=== PATIENT | male | born 1950 | race Caucasian/White ===

== ENCOUNTER → 2016-08-17 | Outpatient (CLI) | payer MEDICARE ==
--- NOTE | 2016-08-17 20:49 | CONS ---
DATE OF CONSULTATION: CONSULTATION/NEW PATIENT EVALUATION HISTORY OF PRESENT ILLNESS/SLEEP-WAKE EVALUATION: 66-year-old gentleman who has been evaluated in the sleep center for possible obstructive sleep apnea-hypopnea syndrome. SLEEP SCHEDULE: Patient's usual sleep schedule from around 9 to 10:00 p.m. on weekdays until 4:30-5:00 a.m. On weekends, his sleep schedule from around 10 or 12 until 6 or 7:00, 8 a.m. FALLING ASLEEP: No problem with falling asleep. He has a TV set in bedroom. DURING SLEEP: Sleeps on the back or side position with snoring and witnessed episodes of stopped breathing during sleep by his . He wakes up from sleep several times with up to 2 episodes of nocturia. DURING THE DAY/WAKE STATE: In the morning, he wakes up tired, falling asleep during the day, has irritability, Mcdonald Sleepiness Scale increased to 11. PAST MEDICAL HISTORY: Positive for diabetes, acid reflux, hypertension, stroke with the left side residual weakness, hyperlipidemia, rheumatoid fever in childhood. PAST SURGICAL HISTORY: Tonsillectomy, right knee surgery. MEDICATIONS: 1. Metformin. 2. Glipizide. 3. Prilosec. 4. Tenormin. 5. Hyzaar. 6. Neurontin. 7. Different types of insulin. 8. Lipitor. 9. Plavix. SOCIAL HISTORY: Negative for smoking. Alcohol consumption very rarely. REVIEW OF SYSTEMS: Awakening from sleep, sleepiness during the day, snoring. No fevers. No double vision. No recent chest pain. No shortness of breath. No abdominal pain. No bleeding episodes. No blood in urine. No seizure episodes. PHYSICAL EXAMINATION: GENERAL: A pleasant 66-year-old OMsignalazine gentleman without distress. BP 106/70, HR 61, RR 14, height 64, weight 246.2. BMI 42.2. Neck 18-1/4 inches in circumference. Temp is 97.8. Oxygen saturation at room air 91%. HEENT: PERRLA, EOMI oropharynx low position of soft palate. NECK: Supple. No JVD. Thyroid is not palpable. LUNGS: Clear to percussion and to auscultation. Good air exchange. No wheezing or rhonchi. HEART: S1, S2 regular. No murmurs, gallops or rubs. ABDOMEN: Obese. PSYCHOLOGICAL ANTHROPOLOGIST: Slight weakness left arm and left leg. Awake, alert, and oriented x3. Cranial nerves 2 to 7 intact. There is no fasciculation or atrophy noted. EXTREMITIES: No clubbing or cyanosis. ASSESSMENT: 1. Snoring, witnessed episodes of stopped breathing during sleep, low position of soft palate, obesity, sleepiness, obstructive sleep apnea-hypopnea syndrome. 2. Obesity, body mass index of 42.2. 3. Diabetes mellitus. 4. Hypertension. 5. History of stroke with residual deficit from the left side. 6. Acid reflux. 7. Hyperlipidemia. 8. History of rheumatic fever or in childhood. 9. Status post tonsillectomy. 10. Status post right knee surgery. PLAN: 1. Polysomnography for evaluation of patient's breathing during sleep. 2. CPAP/BiPAP titration if sleep study confirms obstructive sleep apnea-hypopnea syndrome. 3. Preferable position during sleep on the side. 4. No driving if patient feels any sleepiness. Patient is aware of civil and criminal liability for unsafe driving. 5. I will see patient for follow-up visit to explain results of the testing and following plan. Thank you very much for referring this patient for consultation. Sincerely, Mynor Henry MD, PhD, FAASM. Diplomat of [place] [employer], Sleep Medicine Board by [place] [employer] [place] [employer] Help Desk Rep of [facility] [place]
== END | disposition home or self-care (01) ==
LOC: SLEEP 14:59
PROVIDERS: ATTEND Internal Medicine
DX: G47.33 Obstructive sleep apnea (adult) (pediatric) (principal); I10 Essential (primary) hypertension; R35.1 Nocturia; E11.9 Type 2 diabetes mellitus without complications; E78.5 Hyperlipidemia, unspecified; E66.9 Obesity, unspecified; K21.9 Gastro-esophageal reflux disease without esophagitis; Z79.4 Long term (current) use of insulin; Z79.02 Long term (current) use of antithrombotics/antiplatelets; Z79.84 Long term (current) use of oral hypoglycemic drugs; Z68.41 Body mass index [BMI] 40.0-44.9, adult; Z86.73 Personal history of transient ischemic attack (TIA), and cerebral infarction without residual deficits; Z79.899 Other long term (current) drug therapy
CPT/HCPCS: 99211

== ENCOUNTER → 2016-09-26 | Outpatient (CLI) | payer MEDICARE ==
--- NOTE | 2016-09-26 07:31 | MR ---
EXAMINATION TYPE: MR lumbar spine wo con DATE OF EXAM: 09/26/2016 7:11 AM COMPARISON: NONE HISTORY: lsp radiculopathy CONTRAST: 0 mL intravenous . TECHNIQUE: Multiplanar, multisequence images of the lumbar spine were acquired. FINDINGS: Cord terminates at the L1 level disc desiccation throughout the lumbar spine. L5-S1: Central broad-based disc herniation is present extending posterior to S1. This has mild anteri or thecal sac compression. No spinal canal stenosis is present. Facet hypertrophy is present. There i s moderate bilateral foraminal narrowing greater on the left. Correlate with radicular symptoms. . L4-L5: Broad-based disc bulging is anterior thecal sac flattening. No AP spinal canal stenosis is pre sent. Neural foramen are patent. Facet hypertrophy is present. L3-L4: There is loss of disc height through this level. Broad-based disc bulge has moderate anterior thecal sac compression. Facet hypertrophy is posterior lateral thecal sac compression on the right. S guido canal narrowing is present. An AP spinal canal stenosis by measurement criteria is not present. L2-L3: Disc bulge has mild anterior thecal sac compression. This may extend into the right lateral di rection. No spinal canal stenosis is present. Facet hypertrophy is present. On T2-weighted sequences there is increased signal within the disc compatible with an annular tear. Sagittal views suggest mi ld subligamentous disc extension. There is moderate foraminal narrowing. . L1-L2: No significant disc bulge or disc herniation. No spinal canal stenosis. No foraminal stenosi s. Facet hypertrophy is present.. T12-L1: No significant disc bulge or disc herniation. No spinal canal stenosis. No foraminal stenos is. . IMPRESSION: 1. Spinal canal narrowing at L3-L4 without stenosis due to disc bulge and facet hypertrophy. 2. Subligamentous broad-based disc herniation L5-S1 with mild anterior thecal sac contact. 3. Multilevel facet degenerative changes. 4. L2-L3 annular tear. Some minimal subligamentous disc extension may be present.
== END | disposition home or self-care (01) ==
LOC: RADMRIMAIN 06:40
PROVIDERS: ATTEND Psychiatry & Neurology Neurology
DX: M51.17 Intervertebral disc disorders with radiculopathy, lumbosacral region (principal); M51.36 Other intervertebral disc degeneration, lumbar region; M47.816 Spondylosis without myelopathy or radiculopathy, lumbar region
CPT/HCPCS: 72148

== ENCOUNTER → 2016-10-06 | Outpatient (CLI) | payer MEDICARE ==
--- NOTE | 2016-10-06 11:55 | FL ---
EXAMINATION TYPE: FL sniff test without CXR DATE OF EXAM: 10/06/2016 10:08 AM COMPARISON: Chest 09/19/2016 HISTORY: 66-year-old male with shortness of breath and cough. Patient reports a history of previous s troke that affected the left-side in 2014. TECHNIQUE: Real-time fluoroscopy, total fluoroscopy time 50 seconds. FINDINGS: The patient was observed during quiet breathing. The left hemidiaphragm is slightly higher than the r ight but there is symmetric excursion. However, with sniff maneuver, there is blunted descent of the left hemidiaphragm with some paradoxica l movement noted. IMPRESSION: Slight elevation of the left hemidiaphragm. Unexpectedly, sniff maneuver does result in paradoxical m ovement of the left hemidiaphragm suggesting some degree of hemidiaphragmatic paralysis.
== END ==
LOC: RADFLWHC 09:39
PROVIDERS: ATTEND Internal Medicine
DX: J98.6 Disorders of diaphragm (principal); R06.02 Shortness of breath; R05 Cough
CPT/HCPCS: 76000

== ENCOUNTER 2018-06-06 06:43 | Day surgery (SDC) | payer MEDICARE, OTHER ==
[2018-06-04 12:58] VITALS: BMI 38.3
[~2018-06-06 06:43] MED LIST: LACTATED RINGERS 1,000 ML IV SCH
[2018-06-06 07:26] VITALS: TEMP 98.1
[2018-06-06 07:32] LABS: Glucose,Whole Blood 148 mg/dL (75-99)
[2018-06-06] MEDS ORDERED: PROPOFOL 10 MG/ML 20 ML VIAL IV ONE (08:13)
[2018-06-06] MEDS ORDERED: LIDOCAINE 1% INJ 10MG/ML (20 ML MDV) ONE (08:13)
--- NOTE | 2018-06-06 08:54 | P.PCN ---
Date of Procedure: 06/06/18 Procedure(s) Performed: Procedure: Total colonoscopy. Preoperative diagnosis: History of polyps. Postoperative diagnosis: Poor preparation, but no obvious mucosal abnormalities , polyps or cancer. Preparation: HalfLytely prep. Sedation: Was provided by anesthesia. Brief clinical history: The patient is a 67-year-old male who is scheduled for this evaluation for screening for neoplasia age being his risk factor as well as history of polyps. His last colonoscopy was around 10-12 years ago. The patient has no abdominal complaints, bleeding or anemia. Procedure: With the patient on his left lateral decubitus position and after informed consent and adequate sedation, the perianal area was inspected and it did not show any fissures or fistulas. There were no masses felt on digital rectal examination. The Olympus CFH 190L video colonoscope was then inserted in the rectum in the usual fashion and advanced to the cecum. Unfortunately, the preparation was poor. I was able to cleanse the bowel to a significant degree and there was no obvious polyps or tumors seen. The mucosa appeared healthy. Because of his preparation, small and diminutive polyps and superficial pathology could have been missed. No obvious diverticular disease. The patient tolerated the procedure well. Plan: The patient was reassured. In light of his poor preparation and with a history of polyps, I am recommending repeat exam in 2-3 years after a 2 day preparation before going again with a 5 years schedule. He will follow up with you as planned.
[2018-06-06 09:15] VITALS: BP 132/75; PULSE 58; RESP 18
== END 2018-06-06 10:00 | disposition home or self-care (01) ==
LOC: ORWHC2ENDO 06:43
DX: Z12.11 Encounter for screening for malignant neoplasm of colon (principal); E11.9 Type 2 diabetes mellitus without complications; J45.909 Unspecified asthma, uncomplicated; K21.9 Gastro-esophageal reflux disease without esophagitis; I10 Essential (primary) hypertension; E78.5 Hyperlipidemia, unspecified; Z86.73 Personal history of transient ischemic attack (TIA), and cerebral infarction without residual deficits; Z79.4 Long term (current) use of insulin; Z79.899 Other long term (current) drug therapy
CPT/HCPCS: 45378; J2001; J2704

== ENCOUNTER → 2018-10-23 | Outpatient (CLI) | payer MEDICARE ==
--- NOTE | 2018-10-23 13:14 | XR ---
EXAMINATION TYPE: XR chest 2V DATE OF EXAM: 10/23/2018 COMPARISON: 09/08/2018 HISTORY: 68-year-old male with shortness of breath TECHNIQUE: Frontal and lateral views FINDINGS: The cardiomediastinal silhouette, aorta, and pulmonary vasculature are within normal limits. Intersti tial prominence may be slightly improved from prior. No consolidation or pleural effusion. IMPRESSION: Chronic changes, possible bronchitis/asthma. Otherwise, no acute process seen.
== END | disposition home or self-care (01) ==
LOC: RADXRMAIN 12:54
PROVIDERS: ATTEND Family Medicine
DX: R91.8 Other nonspecific abnormal finding of lung field (principal)
CPT/HCPCS: 71046

== ENCOUNTER → 2019-04-30 | Outpatient (CLI) | payer MEDICARE ==
--- NOTE | 2019-04-30 13:36 | XR ---
EXAMINATION TYPE: XR shoulder complete RT DATE OF EXAM: 04/30/2019 CLINICAL HISTORY: Right shoulder pain for 3 months with no known injury TECHNIQUE: Three views of the right shoulder are obtained. COMPARISON: None. FINDINGS: There is no acute fracture/dislocation evident in the right shoulder. The acromioclavicul ar and glenohumeral joint spaces appear aligned with moderate acromioclavicular ARTHROPATHY as there are small marginal osteophytes, capsular hypertrophy and joint space narrowing and mild glenohumeral arthropathy. The visualized ribs are intact and unremarkable. IMPRESSION: There is no acute fracture or dislocation in the right shoulder. Moderate acromioclavicu lar arthropathy and mild glenohumeral arthropathy.
== END | disposition home or self-care (01) ==
LOC: RADXRMAIN 13:07
PROVIDERS: ATTEND Family Medicine
DX: M12.811 Other specific arthropathies, not elsewhere classified, right shoulder (principal)

== ENCOUNTER 2019-06-01 12:34 | Emergency (ER) | payer MEDICARE ==
[2019-06-01 12:43] VITALS: RESP 18
--- NOTE | 2019-06-01 13:07 | ED ---
General Adult HPI - General Chief complaint: Upper Respiratory Infection Stated complaint: Cough Time Seen by Provider: 06/01/19 12:48 Source: patient Mode of arrival: ambulatory Limitations: no limitations - History of Present Illness Initial comments: Patient is 68-year-old male with history of diabetes presenting to emergency Department with a chief complaint of cough. He states cough has been ongoing for about a week. Patient reports a nonproductive cough for about a week. He reports some clear bilateral sinus rhinorrhea. He states there is no otalgia or sore throat. Is not a smoker. Denies any shortness of breath or chest pain. He states that he possibly could have asthma but is never been diagnosed. Denies any wheezing. Denies any night sweats fevers or chills. - Related Data Home Medications Medication Instructions Recorded Confirmed Aspirin 81 mg PO DAILY 06/30/14 06/06/18 Atenolol [Tenormin] 75 mg PO DAILY 06/30/14 06/06/18 Insulin Glargine [Lantus] 92 unit SQ HS 06/30/14 06/06/18 glipiZIDE [Glucotrol] 20 mg PO AC-BID 06/30/14 06/06/18 metFORMIN HCL [metFORMIN HCL ER] 1,000 mg PO AC-SUPPER 06/30/14 06/06/18 Atorvastatin [Lipitor] 40 mg PO HS 06/04/18 06/06/18 Cholecalciferol [Vitamin D3] 1,000 unit PO DAILY 06/04/18 06/06/18 Gabapentin [Neurontin] 600 mg PO HS 06/04/18 06/06/18 Ibuprofen [Motrin] 800 mg PO TID PRN 06/04/18 06/06/18 Insulin Aspart [Novolog] 37 unit SQ TID 06/04/18 06/06/18 Pantoprazole Sodium [Protonix] 20 mg PO BID 06/04/18 06/06/18 Tamsulosin [Flomax] 0.4 mg PO DAILY 06/04/18 06/06/18 Previous Rx's Medication Instructions Recorded Azithromycin [Zithromax Z-pack] 0 mg PO DIRECTED #6 tab 09/08/18 methylPREDNISolone Dose Pack 4 mg PO DIRECTED #21 package 09/08/18 [Medrol Dose Pack] Azithromycin [Zithromax Z-pack] 0 mg PO DIRECTED #1 pack 06/01/19 Benzonatate [Tessalon Perles] 100 mg PO TID PRN #15 capsule 06/01/19 Allergies Allergy/AdvReac Type Severity Reaction Status Date / Time Penicillins Allergy Unknown Verified 09/08/18 11:16 Childhood Review of Systems ROS Statement: Those systems with pertinent positive or pertinent negative responses have been documented in the HPI. ROS Other: All systems not noted in ROS Statement are negative. Past Medical History Past Medical History: Asthma, CVA/TIA, Diabetes Mellitus, GERD/Reflux, Hyperlipidemia, Hypertension, Skin Disorder Additional Past Medical History / Comment(s): stroke 12-12-12-facial drooping right side, slurred speech @times, rheumatic fever as a child History of Any Multi-Drug Resistant Organisms: None Reported Past Surgical History: Orthopedic Surgery Additional Past Surgical History / Comment(s): RT achilles tendon repair, RT knee surg., colonoscopy Past Anesthesia/Blood Transfusion Reactions: No Reported Reaction Past Psychological History: No Psychological Hx Reported Smoking Status: Never smoker Past Alcohol Use History: Occasional Past Drug Use History: None Reported - Past Family History Mother Family Medical History: Cancer General Exam Limitations: no limitations General appearance: alert, in no apparent distress, obese Head exam: Present: atraumatic, normocephalic, normal inspection Eye exam: Present: normal appearance Pupils: Present: normal accommodation ENT exam: Present: normal exam, normal oropharynx, mucous membranes moist, TM's normal bilaterally, normal external ear exam Neck exam: Present: normal inspection, full ROM Respiratory exam: Present: wheezes (Right upper quadrant wheezing) Cardiovascular Exam: Present: regular rate, normal rhythm, normal heart sounds Extremities exam: Present: normal inspection, full ROM Back exam: Present: normal inspection, full ROM Neurological exam: Present: alert, oriented X3 Psychiatric exam: Present: normal affect, normal mood Skin exam: Present: warm, dry, intact, normal color Course Vital Signs 06/01/19 06/01/19 12:40 12:53 Temperature 97.5 F L Pulse Rate 81 70 Respiratory 18 18 Rate Blood Pressure 215/104 180/100 O2 Sat by Pulse 96 97 Oximetry Medical Decision Making - Medical Decision Making Patient is 68-year-old male presenting to emergency Department with a chief complaint of cough. Patient has history of borderline asthma and diabetes. The symptoms have been ongoing for about a week but no sputum production. Chest x- ray shows [place] cocoa from suggesting possible bronchitis. Exam he has right upper lung wheezing. Patient I respiratory distress. Patient has no other complaints. Considering he has diabetes and is above 65 years old, he will be treated with azithromycin. Patient also given Tessalon Perles for symptomatically. Strict return parameters were thoroughly discussed the patient was understanding and agreeable. Patient vised to follow primary care. Case discussed with physician. Disposition Clinical Impression: Bronchitis Disposition: HOME SELF-CARE Condition: Stable Instructions (If sedation given, give patient instructions): Acute Bronchitis (ED) Additional Instructions: Please see prescribe medication as directed. Please follow with primary care. Please return to emergency department if symptoms worsen. Prescriptions: Benzonatate [Tessalon Perles] 100 mg PO TID PRN #15 capsule PRN Reason: Shortness Of Breath Azithromycin [Zithromax Z-pack] 0 mg PO DIRECTED #1 pack Is patient prescribed a controlled substance at d/c from ED?: No Referrals: Billy Livingston DO [Primary Care Provider] - 1-2 days Time of Disposition: 14:10
--- NOTE | 2019-06-01 13:54 | XR ---
EXAMINATION TYPE: XR chest 2V DATE OF EXAM: 06/01/2019 HISTORY: cough. REFERENCE: Previous study dated 10/23/2018. FINDINGS: The lungs remain clear. Pleural space are clear. There is minimal peribronchial cuffing. He art size is normal. IMPRESSION: FINDINGS CONSISTENT WITH BUT NOT DIAGNOSTIC OF BRONCHITIS.
[2019-06-01 14:23] VITALS: BP 173/89; PULSE 66; TEMP 98
== END 2019-06-01 14:21 | disposition home or self-care (01) ==
LOC: EC 12:34
DX: J40 Bronchitis, not specified as acute or chronic (principal); E11.9 Type 2 diabetes mellitus without complications; I69.392 Facial weakness following cerebral infarction; I69.328 Other speech and language deficits following cerebral infarction; K21.9 Gastro-esophageal reflux disease without esophagitis; E78.5 Hyperlipidemia, unspecified; I10 Essential (primary) hypertension; Z79.4 Long term (current) use of insulin; Z79.82 Long term (current) use of aspirin; Z79.899 Other long term (current) drug therapy; Z88.0 Allergy status to penicillin
CPT/HCPCS: 71046; 99283

== ENCOUNTER → 2020-12-15 | Outpatient (CLI) | payer MEDICARE ==
[2020-12-15 16:53] LABS: HCT 39.2 % (39.6-50.0); HGB 12.4 g/dL (13.0-17.0); MCHC 31.6 g/dL (32.0-37.0); MCV 85.4 fL (80.0-97.0); Mean Platelet Volume 11.5 fL (9.5-12.2); Platelet Count 179 X 10*3/uL (140-440); RBC 4.59 X 10*6/uL (4.40-5.60); RDW 14.1 % (11.5-14.5); WBC 9.15 X 10*3/uL (4.50-10.00)
[2020-12-15 18:48] LABS: African American GFR (CKD) 70.6 (60.0-200.0); Anion Gap 9.6 mmol/L (4.00-12.00); Carbon Dioxide 25.4 mmol/L (21.6-31.8); Chol/HDL Ratio 4.19; Non-African American GFR(CKD) 60.9 (60.0-200.0); Potassium 4.3 mmol/L (3.5-5.5)
[2020-12-15 20:19] LABS: Hemoglobin A1C 8.9 % (4.0-6.0)
== END | disposition home or self-care (01) ==
LOC: LABWHC1 11:01
PROVIDERS: ATTEND Internal Medicine Interventional Cardiology
DX: E11.9 Type 2 diabetes mellitus without complications (principal); I25.10 Atherosclerotic heart disease of native coronary artery without angina pectoris
CPT/HCPCS: 36415; 80048; 80061; 83036; 85027

== ENCOUNTER 2020-12-23 07:18 | Day surgery (SDC) | payer MEDICARE ==
[2020-12-21 10:44] VITALS: BMI 40.3
[~2020-12-23 07:18] MED LIST changes: +ALPRAZolam 0.25 MG TAB PO PRN; +ALPRAZolam 0.5 MG TAB PO PRN; +ASPIRIN 325 MG TAB PO ONE; +ATORVASTATIN 80 MG TAB PO ONE; -LACTATED RINGERS 1,000 ML IV SCH; +NITROGLYCERIN SL TABS 0.4 MG TAB SUBLINGUAL PRN; +SODIUM CHLORIDE 0.9% 1,000 ML in EMPTY BAG 1 BAG IV ONE
[2020-12-23 07:37] VITALS: TEMP 97.5
[2020-12-23 07:44] LABS: Glucose,Whole Blood 177 mg/dL (75-99)
[2020-12-23] MEDS ORDERED: HEPARIN SODIUM 1,000 UN/ML (10ML VL) ONE (07:51)
[2020-12-23] MEDS ORDERED: LIDOCAINE 1% INJ 10MG/ML (20 ML MDV) ONE (07:51)
[2020-12-23] MEDS ORDERED: VERAPAMIL 2.5 MG/ML 2 ML AMP ONE (07:51)
[2020-12-23] MEDS ORDERED: MIDAZOLAM 2 MG/2 ML VIAL IV ONE (08:21)
[2020-12-23] MEDS ORDERED: LIDOCAINE 1% INJ 10MG/ML (20 ML MDV) SQ ONE (08:24)
[2020-12-23] MEDS ORDERED: VERAPAMIL SYRINGE (5 MG/10 ML) INTRAARTER ONE (08:28)
[2020-12-23] MEDS ORDERED: IOPAMIDOL-370 125ML BTL INJ ONE (08:44)
[2020-12-23] MEDS ORDERED: SODIUM CHLORIDE 0.9% 1,000 ML IV SCH (09:00)
[2020-12-23] MEDS ORDERED: amLODIPine 5 MG TAB PO STA (09:04)
--- NOTE | 2020-12-23 12:17 | CC ---
CARDIAC CATHETERIZATION REPORT JULIANNA / DANDREN: [id number] /
--- NOTE | 2020-12-23 12:20 | CC ---
CARDIAC CATHETERIZATION REPORT DATE OF SERVICE: 12/23/2020 PROCEDURE: Left heart catheterization and coronary angiography. PERFORMED BY: Dr. Ava Abarca. Moderate conscious sedation time was 19 minutes. Patient was administered Versed. Oxygen saturation, hemodynamics and EKG were monitored closely. CLINICAL INFORMATION: Mr. Syd Baird is a 70-year-old gentleman, history of type 2 diabetes, hypertension, hyperlipidemia, and recent symptoms of chest tightness, pressure with moderate effort and abnormal stress test with inferolateral defect that seems to be reversible with mild hypokinesia and ejection fraction of 50%. He was advised cardiac catheterization after due discussion regarding risks, benefits, and options. PROCEDURE NOTE: Under local anesthesia and strict aseptic precautions, a 6-Turkish introducer was placed in the right radial artery. Using a JL3.5 and JR4 catheters I performed coronary angiography and the same right catheter was used to check LV pressure but LV gram was not performed. The sheath was taken out and TR band applied as per protocol. The saturation of the fingers of the right hand was 98%. Results were discussed with the patient and and he will be discharged today on medical therapy. We will discuss different options during his office visit within a week. CARDIAC CATH FINDINGS: The left ventricular end-diastolic pressure was about 13 mmHg without any gradient across aortic valve. CORONARY ANGIOGRAPHY FINDINGS: RIGHT CORONARY ARTERY appears to be a dominant vessel which is totally occluded in the midportion without much antegrade flow. It gives off an acute marginal before total occlusion. 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 LEFT MAIN CORONARY ARTERY: This is a short patent vessel free of significant disease that bifurcates into LAD and circumflex. LEFT ANTERIOR DESCENDING CORONARY ARTERY: Good caliber vessel extends along the anterior wall. It gives off septal and diagonal branches. The LAD itself has about a 30% narrowing in the midportion and diagonal branch comes off appears to be a good caliber and supplies a sizable amount of myocardium has minor irregularities. The LAD that continues after the diagonal branch has about another 35% narrowing and distally the LAD has diffuse disease. Runs all the way to the apex. The LAD in the distal 1/3 has diffuse disease but no focal obstruction. Diagonal is free of significant disease. There are small septal branches that come off which are also free of significant disease. The LAD therefore has a 35-40 percent mid lesion before the diagonal and also in the LAD after the diagonal origin and distal LAD is diffusely diseased. LEFT POSTERIOR CIRCUMFLEX CORONARY ARTERY: Technically a nondominant vessel, gives off 1 good-sized obtuse marginal proximally and then continues as a distal posterolateral branch. The circumflex vessel gives collaterals that supply the distal RCA. Most of the collaterals of the circumflex are coming from what seems to be the groove branch that fills the PDA and PLV branches of distal RCA and also the main trunk to some extent. The branches of RCA appears to have diffuse disease. COLLATERAL CIRCULATION: There is a rich network of collaterals coming from the distal circumflex opacifying both branches of distal RCA. LEFT VENTRICULOGRAM: Not performed. 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 Circumflex has minor irregularities. No significant disease. LAD is a 35% to 40% lesion. Before and after the diagonal branch and distal LAD has mild diffuse disease. Filling pressures are normal. No gradient across aortic valve. RECOMMENDATIONS: For now I am recommending medical therapy with the option of GRADUATE ENGINEER intervention of RCA, which will be discussed in the office and options will be presented to the patient. Findings were explained and patient will be discharged later on today after adequate hydration. Findings were discussed with the patient and . MMODL / IJN: [id number] /
[2020-12-23 12:33] VITALS: RESP 16
[2020-12-23 17:05] VITALS: PULSE 58
[2020-12-23 17:06] VITALS: BP 165/79
== END 2020-12-23 14:00 | disposition home or self-care (01) ==
LOC: CATHCVL 07:18
PROVIDERS: ATTEND Internal Medicine Interventional Cardiology
DX: I25.110 Atherosclerotic heart disease of native coronary artery with unstable angina pectoris (principal); I25.84 Coronary atherosclerosis due to calcified coronary lesion; I25.82 Chronic total occlusion of coronary artery; Z77.22 Contact with and (suspected) exposure to environmental tobacco smoke (acute) (chronic); E78.00 Pure hypercholesterolemia, unspecified; I10 Essential (primary) hypertension; E11.9 Type 2 diabetes mellitus without complications; E78.5 Hyperlipidemia, unspecified; Z88.0 Allergy status to penicillin; Z79.82 Long term (current) use of aspirin; Z79.4 Long term (current) use of insulin; Z79.899 Other long term (current) drug therapy
CPT/HCPCS: 93458; C1894; J2250; J2001; J1644; Q9967

== ENCOUNTER 2020-12-28 06:41 | Day surgery (SDC) | payer MEDICARE ==
[2020-12-24 12:30] VITALS: BMI 40.3
[~2020-12-28 06:41] MED LIST changes: -ALPRAZolam 0.25 MG TAB PO PRN; -ALPRAZolam 0.5 MG TAB PO PRN; -ASPIRIN 325 MG TAB PO ONE; -ATORVASTATIN 80 MG TAB PO ONE; +LACTATED RINGERS 1,000 ML IV SCH; +LIDOCAINE 1% (10MG/ML) FOR IV START INTRADERMA PRN; -NITROGLYCERIN SL TABS 0.4 MG TAB SUBLINGUAL PRN; -SODIUM CHLORIDE 0.9% 1,000 ML in EMPTY BAG 1 BAG IV ONE
[2020-12-28 07:20] VITALS: TEMP 96.8
[2020-12-28 07:25] LABS: Glucose,Whole Blood 153 mg/dL (75-99)
[2020-12-28] MEDS ORDERED: MIDAZOLAM 2 MG/2 ML VIAL IVP ONE (07:26)
[2020-12-28] MEDS ORDERED: PROPOFOL 10 MG/ML 20 ML VIAL IV ONE (07:42)
--- NOTE | 2020-12-28 08:24 | P.PCN ---
Date of Procedure: 12/28/20 Description of Procedure: BRIEF HISTORY: Patient is a 70-year-old male presenting for outpatient colonoscopy for history of colon polyps. He believes left colonoscopy was approximately 10 years ago. No change in bowel habits or family history of colon cancer. She does report 3 polyps on his last colonoscopy. PROCEDURE PERFORMED: Colonoscopy. PREOPERATIVE DIAGNOSIS: History of colon polyps, last colonoscopy reported as 10 years ago with polyps. ESTIMATED BLOOD LOSS: Minimal. IV sedation per Anesthesia. PROCEDURE: After informed consent was obtained, the patient, was brought into the endoscopy unit. IV sedation was administered by Anesthesia under continuous monitoring. Digital rectal examination was normal. Initially the Olympus CF-190 flexible video colonoscope was then inserted in the rectum, gradually advanced into the cecum without any difficulty. Careful examination was performed as the scope was gradually being withdrawn. Ileocecal valve and the appendiceal orifice were visualized and appeared normal. Prep was fair with a large amount of liquid sto ol with some solid stool intermixed with extensive lavage and suction. Mucosa of the cecum, ascending colon, transverse colon, descending colon, sigmoid colon, and rectum which was able to be visualized and appeared normal, however complete visualization of the mucosa prohibited by fair prep. Retroflexion was performed in the rectum and no lesions were seen. The patient tolerated the procedure wel l. IMPRESSION: Normal-appearing colon from rectum to cecum however, complete visualization of mucosa prohibited by fair prep with a large amount of liquid stool with some solid stool throughout the entire colon. RECOMMENDATIONS: Findings of this examination were discussed with the patient and his family. Okay to resume diet. Okay to resume medications. Recommend repeat colonoscopy in 6-12 months with 2 day prep.
[2020-12-28 08:41] VITALS: BP 155/77; PULSE 74; RESP 18
== END 2020-12-28 09:31 | disposition home or self-care (01) ==
LOC: ORWHC2ENDO 06:41
PROVIDERS: ATTEND Internal Medicine
DX: Z12.11 Encounter for screening for malignant neoplasm of colon (principal); Z88.0 Allergy status to penicillin; Z79.82 Long term (current) use of aspirin; Z79.4 Long term (current) use of insulin; Z79.899 Other long term (current) drug therapy; Z98.890 Other specified postprocedural states; I25.10 Atherosclerotic heart disease of native coronary artery without angina pectoris; I10 Essential (primary) hypertension; J45.909 Unspecified asthma, uncomplicated; E11.9 Type 2 diabetes mellitus without complications; Z86.73 Personal history of transient ischemic attack (TIA), and cerebral infarction without residual deficits; K21.9 Gastro-esophageal reflux disease without esophagitis
CPT/HCPCS: J2250; J2704; G0105; 45378

== ENCOUNTER → 2021-07-22 | Day surgery (SDC) | payer MEDICARE ==
[2021-07-19 16:06] VITALS: BMI 39.5
[~2021-07-22] MED LIST changes: -LIDOCAINE 1% (10MG/ML) FOR IV START INTRADERMA PRN; +PROPOFOL 10 MG/ML 20 ML VIAL IV ONE
[2021-07-22 07:29] VITALS: TEMP 97
[2021-07-22 07:36] LABS: Glucose,Whole Blood 144 mg/dL (75-99)
--- NOTE | 2021-07-22 08:25 | P.PCN ---
Date of Procedure: 07/22/21 Procedure(s) Performed: BRIEF HISTORY: Patient is a 71-year-old pleasant white male scheduled for an elective colonoscopy as a part of screening for colorectal neoplasia. PROCEDURE PERFORMED: Colonoscopy. PREOPERATIVE DIAGNOSIS: Screening for colon cancer. IV sedation per Anesthesia. PROCEDURE: After informed consent was obtained, the patient, was brought into the endoscopy unit. IV sedation was administered by Anesthesia under continuous monitoring. Digital rectal examination was normal. Initially the Olympus CF-160 flexible video colonoscope was then inserted in the rectum, gradually advanced into the cecum without any difficulty. Careful examination was performed as the scope was gradually being withdrawn. Ileocecal valve and the appendiceal orifice were visualized and appeared normal. Prep was fair. There was significant amount of liquid stool noted throughout the colon which was thoroughly irrigated. Mucosa of the cecum, ascending colon, transverse colon, descending colon, sigmoid colon, and rectum appeared normal. Retroflexion was performed in the rectum and small internal hemorrhoid were seen. The patient tolerated the procedure well. IMPRESSION: Normal-appearing colon from rectum to cecum with no evidence of colorectal neoplasia . Small internal hemorrhoids. RECOMMENDATIONS: Findings of this examination were discussed with the patient as well as his family. He was advised to have a repeat screening colonoscopy in 10 years..
[2021-07-22 08:37] LABS: Glucose,Whole Blood 138 mg/dL (75-99)
[2021-07-22 08:40] VITALS: RESP 16
[2021-07-22 08:55] VITALS: BP 155/92; PULSE 63
== END | disposition home or self-care (01) ==
LOC: ORWHC2ENDO 06:51
PROVIDERS: ATTEND Internal Medicine Gastroenterology
DX: Z12.11 Encounter for screening for malignant neoplasm of colon (principal); K64.8 Other hemorrhoids; K21.9 Gastro-esophageal reflux disease without esophagitis; I10 Essential (primary) hypertension; E78.5 Hyperlipidemia, unspecified; E11.9 Type 2 diabetes mellitus without complications; Z86.73 Personal history of transient ischemic attack (TIA), and cerebral infarction without residual deficits; Z98.890 Other specified postprocedural states; Z97.2 Presence of dental prosthetic device (complete) (partial); Z79.84 Long term (current) use of oral hypoglycemic drugs; Z79.4 Long term (current) use of insulin; Z79.899 Other long term (current) drug therapy; Z88.0 Allergy status to penicillin
CPT/HCPCS: J2704; G0121

== ENCOUNTER → 2022-07-05 | Outpatient (CLI) | payer MEDICARE ==
--- NOTE | 2022-07-08 12:15 | MR ---
EXAMINATION TYPE: MR Prostate wo/w con DATE OF EXAM: 07/05/2022 9:25 AM COMPARISON: None. CLINICAL INDICATION:Male, 71 years old with history of R97.20 ELEVATED PROSTATE SPECIFIC ANTIGEN; TECHNIQUE: Multi-planar, multi-sequence imaging of the pelvis is performed prior to and following the uncomplicated administration of bolus intravenous gadolinium. CONTRAST: 10 Gadavist Interpretive Criteria: PI-RADS v2.1 SERUM PSA: 8.7 on 06/02/2022 SURGICAL PATHOLOGY: No data available. FINDINGS: Prostatic dimensions: 5.9 x 5.6 x 4.9 cm. Ellipsoid Volume:84.77 (PSA density=0.10 ng/mL/mL) CENTRAL GLAND (Central and Transition Zones/CZ+TZ): Multiple bilateral, heterogenous appearing hypertrophic stromal nodules, without suspicious lesion. (PI-RADS 2) PERIPHERAL ZONE (PZ): No evidence of masslike abnormality, or localized perfusional hypervascularity, to further suggest a focus of clinically significant prostate cancer. (PI-RADS 2) SEMINAL VESICLES (SV): Symmetric and unremarkable. PERIPROSTATIC TISSUES: Unremarkable. LYMPH NODES: No enlarged pelvic lymph node. No greater than 1.0 cm short axis lymph nodes. REMAINING PELVIS: Bladder wall is within normal limits given distention. No abnormal free or organized intrapelvic fluid collection. There is 1.5 cm lesion within the rectum which is high T2 signal is present along the anterior nondep endent wall OSSEOUS STRUCTURES: No suspicious osseous abnormality. IMPRESSION: 1. No specific features for high-risk prostate cancer. Maximum PI-RADS score: 2. 2. Substantial BPH, estimated gland volume 84 mL. 3. Rectal high T2 signal lesion along the anterior rectal wall measuring up to 1.5 cm findings indete rminate. Could represent polyp or fecal matter. Recommend direct visualization if not recently perfor med.
== END | disposition home or self-care (01) ==
LOC: RADMRIMAIN 07:51
PROVIDERS: ATTEND Urology
DX: N40.0 Benign prostatic hyperplasia without lower urinary tract symptoms (principal); K62.89 Other specified diseases of anus and rectum; R97.20 Elevated prostate specific antigen [PSA]
CPT/HCPCS: 72197; A9585

== ENCOUNTER 2023-11-21 14:56 | Inpatient (IN) | payer OTHER, MEDICARE ==
--- NOTE | 2023-11-21 15:04 | ED ---
General Adult HPI - General Stated complaint: AMS Time Seen by Provider: 11/21/23 15:01 Source: EMS Mode of arrival: EMS Limitations: altered mental status - History of Present Illness Initial comments: Patient is 73-year-old man brought by ambulance. They were called for patient being unresponsive. Patient unable to provide any history. We are informed that the patient's should be in shortly to give some additional history. Onset/Timin -: hour(s) - Related Data Home Medications Medication Instructions Recorded Confirmed Atorvastatin [Lipitor] 40 mg PO HS 11/22/23 11/22/23 Dulaglutide [Trulicity] 3 mg SQ MARCELO 11/22/23 11/22/23 Insulin Glargine,Hum.rec.anlog 60 units SQ HS 11/22/23 11/22/23 [Lantus Solostar Pen] Losartan Potassium 100 mg PO DAILY 11/22/23 11/22/23 Nortriptyline HCl [Pamelor] 25 mg PO HS 11/22/23 11/22/23 Pantoprazole Sodium [Protonix] 20 mg PO BID 11/22/23 11/22/23 Tamsulosin [Flomax] 0.4 mg PO DAILY 11/22/23 11/22/23 hydrALAZINE HCL [Apresoline] 25 mg PO BID 11/22/23 11/22/23 Previous Rx's Medication Instructions Recorded Amiodarone [Cordarone] 200 mg PO DAILY tab 11/28/23 Apixaban [Eliquis] 5 mg PO BID tab 11/28/23 Aspirin 81 mg PO DAILY tab 11/28/23 Gabapentin [Neurontin] 200 mg PO TID PRN #6 cap 11/28/23 INSULIN ASPART (NovoLOG) [NovoLOG 4 unit SQ AC-TID each 11/28/23 (formulary)] Insulin Detemir (Levemir) [Levemir] 20 unit SQ DAILY@0700 each 11/28/23 Metoprolol Tartrate [Lopressor] 75 mg PO BID tab 11/28/23 amLODIPine [Norvasc] 5 mg PO BID tab 11/28/23 polyethylene glycoL 3350 [Miralax] 17 gm PO DAILY packet 11/28/23 Allergies Allergy/AdvReac Type Severity Reaction Status Date / Time Penicillins Allergy Unknown Verified 11/22/23 11:31 Childhood Review of Systems ROS Statement: Those systems with pertinent positive or pertinent negative responses have been documented in the HPI. ROS Other: All systems not noted in ROS Statement are negative. Limitations: ROS unobtainable due to patients medical condition Past Medical History Past Medical History: CVA/TIA, Diabetes Mellitus, GERD/Reflux, Hyperlipidemia, Hypertension Additional Past Medical History / Comment(s): stroke 11/2012 (right facial droop & speech resolved.), rheumatic fever as a child, currently receiving physical therapy for thigh pain due to back issues. History of Any Multi-Drug Resistant Organisms: None Reported Past Surgical History: Orthopedic Surgery Additional Past Surgical History / Comment(s): RT achilles tendon repair, RT knee surg., colonoscopy Past Anesthesia/Blood Transfusion Reactions: No Reported Reaction Past Psychological History: No Psychological Hx Reported Smoking Status: Never smoker Past Alcohol Use History: Occasional Past Drug Use History: None Reported - Past Family History Mother Family Medical History: Cancer General Exam General appearance: obtunded Head exam: Present: atraumatic, normocephalic Eye exam: Present: normal appearance, PERRL. Absent: scleral icterus, conjunctival injection ENT exam: Present: mucous membranes dry Neck exam: Present: normal inspection. Absent: tenderness, meningismus Respiratory exam: Present: rhonchi. Absent: respiratory distress, wheezes, rales, stridor, accessory muscle use Cardiovascular Exam: Present: normal rhythm, tachycardia, normal heart sounds. Absent: systolic murmur, diastolic murmur, rubs, gallop GI/Abdominal exam: Present: soft. Absent: distended, tenderness, guarding, rebound, rigid, mass Extremities exam: Present: normal inspection, normal capillary refill. Absent: pedal edema, calf tenderness Back exam: Present: normal inspection Neurological exam: Present: altered, reflexes normal Skin exam: Present: warm, dry, intact, normal color. Absent: rash Course Vital Signs 11/21/23 11/21/23 11/21/23 15:07 16:03 18:13 Temperature 98.4 F 98.2 F Pulse Rate 106 H 103 H 93 Pulse Rate [ Tile Molder Hand ] Respiratory 18 88 H 18 Rate Blood Pressure 117/77 125/85 137/105 Blood Pressure [Left Arm] Blood Pressure [Right Arm] O2 Sat by Pulse 94 L 92 L 95 Oximetry 11/21/23 11/21/23 11/21/23 19:49 20:00 22:26 Temperature 98.7 F Pulse Rate 96 94 100 Pulse Rate [ Tile Molder Hand ] Respiratory 18 16 18 Rate Blood Pressure 136/92 133/88 178/105 Blood Pressure [Left Arm] Blood Pressure [Right Arm] O2 Sat by Pulse 96 96 99 Oximetry 11/22/23 11/22/23 11/22/23 00:00 02:00 04:38 Temperature Pulse Rate 85 93 90 Pulse Rate [ Tile Molder Hand ] Respiratory 16 18 18 Rate Blood Pressure 155/90 160/87 167/91 Blood Pressure [Left Arm] Blood Pressure [Right Arm] O2 Sat by Pulse 97 94 L 99 Oximetry 11/22/23 11/22/23 11/22/23 06:31 07:55 08:55 Temperature 98.2 F Pulse Rate 95 Pulse Rate [ 93 Tile Molder Hand ] Respiratory 18 18 Rate Blood Pressure 145/81 Blood Pressure [Left Arm] Blood Pressure 147/85 [Right Arm] O2 Sat by Pulse 95 96 96 Oximetry 11/22/23 11/22/23 11/22/23 12:05 14:58 15:52 Temperature 98 F Pulse Rate Pulse Rate [ 90 129 H 112 H Tile Molder Hand ] Respiratory 18 20 18 Rate Blood Pressure Blood Pressure 152/74 137/77 [Left Arm] Blood Pressure 156/97 [Right Arm] O2 Sat by Pulse 99 92 L 91 L Oximetry 11/22/23 11/22/23 11/22/23 16:29 19:54 21:27 Temperature 98.3 F Pulse Rate 111 H 112 H Pulse Rate [ 111 H Tile Molder Hand ] Respiratory 18 18 18 Rate Blood Pressure 176/99 179/128 Blood Pressure 152/92 [Left Arm] Blood Pressure [Right Arm] O2 Sat by Pulse 96 96 98 Oximetry 11/22/23 11/22/23 11/23/23 22:57 23:55 00:43 Temperature Pulse Rate Pulse Rate [ 101 H Tile Molder Hand ] Respiratory 18 Rate Blood Pressure 196/114 181/102 Blood Pressure [Left Arm] Blood Pressure 168/96 [Right Arm] O2 Sat by Pulse 97 Oximetry 11/23/23 11/23/23 11/23/23 04:28 08:00 11:00 Temperature 97.0 F L Pulse Rate Pulse Rate [ 93 96 Tile Molder Hand ] Respiratory 18 17 Rate Blood Pressure Blood Pressure 189/118 178/117 [Left Arm] Blood Pressure 166/111 [Right Arm] O2 Sat by Pulse 96 97 Oximetry 11/23/23 11/23/23 11/23/23 11:57 12:00 13:00 Temperature Pulse Rate Pulse Rate [ 86 Tile Molder Hand ] Respiratory 16 Rate Blood Pressure Blood Pressure [Left Arm] Blood Pressure 166/113 191/124 [Right Arm] O2 Sat by Pulse 97 97 Oximetry 11/23/23 11/23/23 14:00 15:00 Temperature Pulse Rate Pulse Rate [ Tile Molder Hand ] Respiratory Rate Blood Pressure Blood Pressure [Left Arm] Blood Pressure 175/106 154/92 [Right Arm] O2 Sat by Pulse Oximetry - Reevaluation(s) Reevaluation #1: 11/21/23 15:22 Patient's brought to bedside and states that the patient has not been doing well since yesterday in the morning. He was fatigued, wanting to sleep all the time. He did not express any complaints of pain or dyspnea. When she could not get him up today she called EMS. EKG Findings - EKG Results: EKG: interpreted by [facility], sinus rhythm, normal ST/T EKG shows: tachycardia (Rate 108 bpm) - SD, Pacemaker, Normal: Myocardial infarction: inferior SD (old age indeterminate), anterior SD (old age or indeterminate) (Possible old anterior infarct.) Medical Decision Making - Medical Decision Making Patient is 73-year-old man brought to have evaluation of altered mental status. On arrival the patient is obtunded. He is only able to follow simple commands and this only with direct tactile stimulation to arouse him. The patient has workup which is largely unremarkable, however after a period of time he is alert and is able to start answering questions. The patient is denying pain and dyspnea. At this point suspect patient has probably had oversedation from his medication regimen. Patient will be admitted to have further neurology evalua tion. The patient had CT of the brain that I interpreted as showing probable old injury at the right lateral ventricle. No acute hemorrhage. The patient had chest x-ray that I interpreted as negative for acute infiltrate, congestive heart failure, pneumothorax. Was pt. sent in by a medical professional or institution (, PA, SYSTEMS DESIGNER, urgent care, hospital, or snf...) When possible be specific @ - Did you speak to anyone other than the patient for history (EMS, parent, family, police, friend...)? What history was obtained from this source @ -EMS gave some initial history, the patient's did give history Did you review nursing and triage notes (agree or disagree)? Why? @ -[I reviewed and agree with nursing and triage notes] Were old charts reviewed (outside hosp., previous admission, EMS record, old EKG, old radiological studies, urgent care reports/EKG's, snf records)? Report findings @ -[ old charts were reviewed] Differential Diagnosis (chest pain, altered mental status, abdominal pain women, abdominal pain men, vaginal bleeding, weakness, fever, dyspnea, syncope, headache, dizziness, GI bleed, back pain, seizure, CVA, palpatations, mental health, musculoskeletal)? @ -[Differential Altered Mental Status: Hypoglycemia, DKA, hypercapnia, ETOH, overdose, CO poisoning, trauma, myxedema coma, HTN encephalopathy, infection, encephalitis, psychosis, intercranial hemorrhage, hepatic encephalopathy, meningitis, CVA, this is not meant to be an all-inclusive list EKG interpreted by me (3pts min.). @ -[Interpreted as above] X-rays interpreted by me (1pt min.). @ -[I interpreted as above CT interpreted by me (1pt min.). @ -[I interpreted as above U/S interpreted by me (1pt. min.). @ -[None done] What testing was considered but not performed or refused? (CT, X-rays, U/S, labs)? Why? @ -[None] What meds were considered but not given or refused? Why? @ -[None] Did you discuss the management of the patient with other professionals (professionals i.e. , PA, SYSTEMS DESIGNER, lab, RT, psych nurse, social work lecturer, telecommunications linesworker, teacher, immigration officer, housing case manager)? Give summary @ -[Case discussed with admitting physician and treatment recommendations incor porated Was smoking cessation discussed for >3mins.? @ -[No] Was critical care preformed (if so, how long)? @ -[No] Were there social determinants of health that impacted care today? How? (Homelessness, low income, unemployed, alcoholism, drug addiction, transportation, low edu. Level, literacy, decrease access to med. care, long-term, rehab)? @ -[No] Was there de-escalation of care discussed even if they declined (Discuss DNR or withdrawal of care, Hospice)? DNR status @ -[No] What co-morbidities impacted this encounter? (DM, HTN, Smoking, COPD, CAD, Cancer, CVA, ARF, Chemo, Hep., AIDS, mental health diagnosis, sleep apnea, morbid obesity)? @ -[Diabetes, hypertension, previous stroke Was patient admitted / discharged? Hospital course, mention meds given and route, prescriptions, significant lab abnormalities, going to OR and other pertinent info. @ -[Patient is 73-year-old man here with altered mental status going on for 1 day. The patient's initial workup does not definitely establish the etiology the patient will be admitted to have further evaluation including neurology consultation Undiagnosed new problem with uncertain prognosis? @ -[No] Drug Therapy requiring intensive monitoring for toxicity (Heparin, Nitro, Insulin, Cardizem)? @ -[No] Were any procedures done? @ -[No] Diagnosis/symptom? @ -[Acute altered mental status Acute, or Chronic, or Acute on Chronic? @ -[Acute Uncomplicated (without systemic symptoms) or Complicated (systemic symptoms)? @ -[Complicated Side effects of treatment? @ -[No] Exacerbation, Progression, or Severe Exacerbation? @ -[No] Poses a threat to life or bodily function? How? (Chest pain, USA, SD, pneumonia, PE, COPD, DKA, ARF, appy, cholecystitis, CVA, Diverticulitis, Homicidal, Suicidal, threat to staff... and all critical care pts) @ -[Yes - Lab Data Result diagrams: 11/28/23 09:15 11/28/23 09:15 Lab Results 11/21/23 11/21/23 11/21/23 Range/Units 15:03 15:17 15:17 WBC 13.8 H (3.8-10.6) k/uL RBC 5.28 (4.30-5.90) m/uL Hgb 14.2 (13.0-17.5) gm/dL Hct 44.6 (39.0-53.0) % MCV 84.5 (80.0-100.0) fL MCH 26.9 (25.0-35.0) pg MCHC 31.8 (31.0-37.0) g/dL RDW 14.0 (11.5-15.5) % Plt Count 167 (150-450) k/uL MPV 9.2 Neutrophils % 88 % Lymphocytes % 5 % Monocytes % 5 % Eosinophils % 1 % Basophils % 0 % Neutrophils # 12.1 H (1.3-7.7) k/uL Lymphocytes # 0.7 L (1.0-4.8) k/uL Monocytes # 0.7 (0-1.0) k/uL Eosinophils # 0.2 (0-0.7) k/uL Basophils # 0.1 (0-0.2) k/uL PT 10.9 (10.0-12.5) sec INR 1.0 (<1.2) APTT 23.1 (22.0-30.0) sec Sodium (137-145) mmol/L Potassium (3.5-5.1) mmol/L Chloride (98-107) mmol/L Carbon Dioxide (22-30) mmol/L Anion Gap mmol/L BUN (9-20) mg/dL Creatinine (0.66-1.25) mg/dL Est GFR (CKD-EPI)AfAm (>60 ml/min/1.73 sqM) Est GFR (CKD-EPI)NonAf (>60 ml/min/1.73 sqM) Glucose (74-99) mg/dL POC Glucose (mg/dL) 198 H (70-110) mg/dL POC Glu [employer] Engine Builder ID Jalen Mccullough Calcium (8.4-10.2) mg/dL Total Bilirubin (0.2-1.3) mg/dL AST (17-59) U/L ALT (4-49) U/L Alkaline Phosphatase (38-126) U/L Ammonia (<30) umol/L Troponin I (0.000-0.034) ng/mL Total Protein (6.3-8.2) g/dL Albumin (3.5-5.0) g/dL Urine Color Urine Appearance (Clear) Urine pH (5.0-8.0) Ur Specific [place] (1.001-1.035) Urine Protein (Negative) Urine Glucose (UA) (Negative) Urine Ketones (Negative) Urine Blood (Negative) Urine Nitrite (Negative) Urine Bilirubin (Negative) Urine Urobilinogen (<2.0) mg/dL Ur Leukocyte Esterase (Negative) Urine RBC (0-5) /hpf Urine WBC (0-5) /hpf Ur Squamous Epith Cells (0-4) /hpf Hyaline Casts (0-2) /lpf Urine Mucus (None) /hpf Urine Opiates Screen (NotDetected) Ur Oxycodone Screen (NotDetected) Urine Methadone Screen (NotDetected) Ur Barbiturates Screen (NotDetected) U Tricyclic Antidepress (NotDetected) Ur Phencyclidine Scrn (NotDetected) Ur Amphetamines Screen (NotDetected) U Methamphetamines Scrn (NotDetected) U Benzodiazepines Scrn (NotDetected) Urine Cocaine Screen (NotDetected) U Marijuana (THC) Screen (NotDetected) Serum Alcohol mg/dL 11/21/23 11/21/23 11/21/23 Range/Units 15:17 15:17 15:17 WBC (3.8-10.6) k/uL RBC (4.30-5.90) m/uL Hgb (13.0-17.5) gm/dL Hct (39.0-53.0) % MCV (80.0-100.0) fL MCH (25.0-35.0) pg MCHC (31.0-37.0) g/dL RDW (11.5-15.5) % Plt Count (150-450) k/uL MPV Neutrophils % % Lymphocytes % % Monocytes % % Eosinophils % % Basophils % % Neutrophils # (1.3-7.7) k/uL Lymphocytes # (1.0-4.8) k/uL Monocytes # (0-1.0) k/uL Eosinophils # (0-0.7) k/uL Basophils # (0-0.2) k/uL PT (10.0-12.5) sec INR (<1.2) APTT (22.0-30.0) sec Sodium 140 (137-145) mmol/L Potassium 4.4 (3.5-5.1) mmol/L Chloride 111 H (98-107) mmol/L Carbon Dioxide 22 (22-30) mmol/L Anion Gap 7 mmol/L BUN 21 H (9-20) mg/dL Creatinine 1.10 (0.66-1.25) mg/dL Est GFR (CKD-EPI)AfAm 77 (>60 ml/min/1.73 sqM) Est GFR (CKD-EPI)NonAf 66 (>60 ml/min/1.73 sqM) Glucose 209 H (74-99) mg/dL POC Glucose (mg/dL) (70-110) mg/dL POC Glu [employer] Engine [employer] ID Calcium 8.3 L (8.4-10.2) mg/dL Total Bilirubin 1.3 (0.2-1.3) mg/dL AST 26 (17-59) U/L ALT 16 (4-49) U/L Alkaline Phosphatase 81 (38-126) U/L Ammonia 13 (<30) umol/L Troponin I <0.012 (0.000-0.034) ng/mL Total Protein 6.3 (6.3-8.2) g/dL Albumin 3.7 (3.5-5.0) g/dL Urine Color Urine Appearance (Clear) Urine pH (5.0-8.0) Ur Specific [place] (1.001-1.035) Urine Protein (Negative) Urine Glucose (UA) (Negative) Urine Ketones (Negative) Urine Blood (Negative) Urine Nitrite (Negative) Urine Bilirubin (Negative) Urine Urobilinogen (<2.0) mg/dL Ur Leukocyte Esterase (Negative) Urine RBC (0-5) /hpf Urine WBC (0-5) /hpf Ur Squamous Epith Cells (0-4) /hpf Hyaline Casts (0-2) /lpf Urine Mucus (None) /hpf Urine Opiates Screen (NotDetected) Ur Oxycodone Screen (NotDetected) Urine Methadone Screen (NotDetected) Ur Barbiturates Screen (NotDetected) U Tricyclic Antidepress (NotDetected) Ur Phencyclidine Scrn (NotDetected) Ur Amphetamines Screen (NotDetected) U Methamphetamines Scrn (NotDetected) U Benzodiazepines Scrn (NotDetected) Urine Cocaine Screen (NotDetected) U Marijuana (THC) Screen (NotDetected) Serum Alcohol <10 mg/dL 11/21/23 11/21/23 Range/Units 20:15 20:15 WBC (3.8-10.6) k/uL RBC (4.30-5.90) m/uL Hgb (13.0-17.5) gm/dL Hct (39.0-53.0) % MCV (80.0-100.0) fL MCH (25.0-35.0) pg MCHC (31.0-37.0) g/dL RDW (11.5-15.5) % Plt Count (150-450) k/uL MPV Neutrophils % % Lymphocytes % % Monocytes % % Eosinophils % % Basophils % % Neutrophils # (1.3-7.7) k/uL Lymphocytes # (1.0-4.8) k/uL Monocytes # (0-1.0) k/uL Eosinophils # (0-0.7) k/uL Basophils # (0-0.2) k/uL PT (10.0-12.5) sec INR (<1.2) APTT (22.0-30.0) sec Sodium (137-145) mmol/L Potassium (3.5-5.1) mmol/L Chloride (98-107) mmol/L Carbon Dioxide (22-30) mmol/L Anion Gap mmol/L BUN (9-20) mg/dL Creatinine (0.66-1.25) mg/dL Est GFR (CKD-EPI)AfAm (>60 ml/min/1.73 sqM) Est GFR (CKD-EPI)NonAf (>60 ml/min/1.73 sqM) Glucose (74-99) mg/dL POC Glucose (mg/dL) (70-110) mg/dL POC Glu [employer] Engine Builder ID Calcium (8.4-10.2) mg/dL Total Bilirubin (0.2-1.3) mg/dL AST (17-59) U/L ALT (4-49) U/L Alkaline Phosphatase (38-126) U/L Ammonia (<30) umol/L Troponin I (0.000-0.034) ng/mL Total Protein (6.3-8.2) g/dL Albumin (3.5-5.0) g/dL Urine Color Yellow Urine Appearance Clear (Clear) Urine pH 6.0 (5.0-8.0) Ur Specific [place] 1.037 H (1.001-1.035) Urine Protein 2+ H (Negative) Urine Glucose (UA) 4+ H (Negative) Urine Ketones Trace H (Negative) Urine Blood Trace H (Negative) Urine Nitrite Negative (Negative) Urine Bilirubin Negative (Negative) Urine Urobilinogen <2.0 (<2.0) mg/dL Ur Leukocyte Esterase Negative (Negative) Urine RBC 2 (0-5) /hpf Urine WBC 2 (0-5) /hpf Ur Squamous Epith Cells <1 (0-4) /hpf Hyaline Casts 1 (0-2) /lpf Urine Mucus Rare H (None) /hpf Urine Opiates Screen Not Detected (NotDetected) Ur Oxycodone Screen Not Detected (NotDetected) Urine Methadone Screen Not Detected (NotDetected) Ur Barbiturates Screen Not Detected (NotDetected) U Tricyclic Antidepress Detected H (NotDetected) Ur Phencyclidine Scrn Not Detected (NotDetected) Ur Amphetamines Screen Not Detected (NotDetected) U Methamphetamines Scrn Not Detected (NotDetected) U Benzodiazepines Scrn Not Detected (NotDetected) Urine Cocaine Screen Not Detected (NotDetected) U Marijuana (THC) Screen Not Detected (NotDetected) Serum Alcohol mg/dL Disposition Clinical Impression: Mental status alteration Disposition: ADMITTED IP TO THIS [facility] Condition: Fair Is patient prescribed a controlled substance at d/c from ED?: No
[2023-11-21 15:06] LABS: Glucose,Whole Blood 198 mg/dL (70-110)
[2023-11-21 15:30] LABS: Basophils # (A) 0.1 k/uL (0-0.2); Basophils % (A) 0 %; Eosinophils # (A) 0.2 k/uL (0-0.7); Eosinophils % (A) 1 %; HCT 44.6 % (39.0-53.0); HGB 14.2 gm/dL (13.0-17.5); Lymphocytes # (A) 0.7 k/uL (1.0-4.8); Lymphocytes % (A) 5 %; MCH 26.9 pg (25.0-35.0); MCHC 31.8 g/dL (31.0-37.0); MCV 84.5 fL (80.0-100.0); Mean Platelet Volume 9.2; Monocytes # (A) 0.7 k/uL (0-1.0); Monocytes % (A) 5 %; Neutrophils # (A) 12.1 k/uL (1.3-7.7); Neutrophils % (A) 88 %; Platelet Count 167 k/uL (150-450); RBC 5.28 m/uL (4.30-5.90); WBC 13.8 k/uL (3.8-10.6)
[2023-11-21 15:43] LABS: ALT 16 U/L (4-49); African American GFR (CKD) 77 (>60 ml/min/1.73 sqM); Albumin 3.7 g/dL (3.5-5.0); Alcohol <10 mg/dL; Anion Gap 7 mmol/L; Blood Urea Nitrogen 21 mg/dL (9-20); Calcium 8.3 mg/dL (8.4-10.2); Carbon Dioxide 22 mmol/L (22-30); Chloride 111 mmol/L (98-107); Glucose 209 mg/dL (74-99); Non-African American GFR(CKD) 66 (>60 ml/min/1.73 sqM); Sodium 140 mmol/L (137-145); Total Bilirubin 1.3 mg/dL (0.2-1.3); Total Protein 6.3 g/dL (6.3-8.2)
[2023-11-21 15:44] LABS: Partial Thromboplastin Time 23.1 sec (22.0-30.0); Prothrombin Time 10.9 sec (10.0-12.5)
[2023-11-21 16:10] LABS: AST 26 U/L (17-59); Alkaline Phosphatase 81 U/L (38-126); Potassium 4.4 mmol/L (3.5-5.1)
--- NOTE | 2023-11-21 16:37 | CT ---
EXAMINATION TYPE: CT brain wo con CT DLP: 1126.4 mGycm, Automated exposure control for dose reduction was used. DATE OF EXAM: 11/21/2023 3:52 PM COMPARISON: . CLINICAL INDICATION:Male, 73 years old with history of Altered mental status, altered mental status. TECHNIQUE: Brain: Axial CT images of the brain were obtained with coronal and sagittal reformats created and rev iewed. Contrast used: None. Oral contrast used: None. FINDINGS: Brain: Extra-axial spaces: No abnormal extra-axial fluid collections. Ventricular system: Extraocular dilatation of anterior horn of the right lateral ventricle. Periventr icular low-attenuation indicating periventricular white matter infarct. No acute ischemia. Cerebral parenchyma: No acute intraparenchymal hemorrhage or mass effect. The trejo-white junction is well differentiated. Cerebellum: Unremarkable. Mass effect: No evidence of midline shift. Intracranial vasculature: unremarkable Soft tissues: Normal. Calvarium/osseous structures: No depressed skull fracture. Paranasal sinuses and mastoid air cells: Mild scattered paranasal sinus disease. Visualized orbits: Orbital contents are intact. IMPRESSION: No acute intracranial process. 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
--- NOTE | 2023-11-21 17:15 | XR ---
EXAMINATION TYPE: XR chest 1V portable DATE OF EXAM: 11/21/2023 4:54 PM CLINICAL INDICATION:Male, 73 years old with history of altered mental status; COMPARISON: Chest radiographs from 06/01/2019. TECHNIQUE: XR chest 1V portable Frontal view of the chest. FINDINGS: Lungs/Pleura: There is no evidence of pleural effusion, focal consolidation, or pneumothorax. Pulmonary vascularity: Unremarkable. Heart/mediastinum: Cardiomediastinal silhouette is unremarkable. Musculoskeletal: No acute osseous pathology. IMPRESSION: No acute cardiopulmonary disease/process.
[2023-11-21] MEDS: SODIUM CHLORIDE 0.9% 1,000 ML IV ONE (20:09)
[2023-11-21] MEDS: SODIUM CHLORIDE 0.9% 500 ML 500 ML IV STA (20:10)
[2023-11-21 21:35] LABS: Appearance,Urine Clear (Clear); Bilirubin,Urine Negative (Negative); Blood,Urine Trace (Negative); Color,Urine Yellow; Glucose,Urine (UA) 4+ (Negative); Hyaline Casts,Urine 1 /lpf (0-2); Ketones,Urine Trace (Negative); Leukocyte Esterase,Urine Negative (Negative); Mucus,Urine Rare /hpf; Nitrite,Urine Negative (Negative); Protein,Urine 2+ (Negative); RBC,Urine 2 /hpf (0-5); Specific Gravity,Urine 1.037 (1.001-1.035); Squamous Epithelial Cell,Urine <1 /hpf (0-4); Urobilinogen,Urine <2.0 mg/dL (<2.0); WBC,Urine 2 /hpf (0-5)
[2023-11-21 21:50] LABS: Amphetamine Screen,Urine Not Detected (NotDetected); Barbiturate Screen,Urine Not Detected (NotDetected); Benzodiazepines Screen,Urine Not Detected (NotDetected); Cocaine Screen,Urine Not Detected (NotDetected); Methadone Screen, Urine Not Detected (NotDetected); Opiate Screen,Urine Not Detected (NotDetected); Oxycodone Screen, Urine Not Detected (NotDetected); Phencyclidine Screen,Urine Not Detected (NotDetected); Tricyclic Antidepressant,Urine Detected (NotDetected); Urn Cannabinoid Scrn Not Detected (NotDetected)
[2023-11-21] MEDS ORDERED: NALOXONE 0.4 MG/ML 1 ML VIAL IV PRN (22:17)
[2023-11-21] MEDS: SODIUM CHLORIDE 0.9% 1,000 ML IV SCH (22:45)
[2023-11-22] MEDS ORDERED: GABAPENTIN 100 MG CAP PO PRN (12:54)
--- NOTE | 2023-11-22 13:01 | P.HPIM ---
History of Present Illness 73-year-old male was brought in with complaints of unresponsiveness and speech abnormality. Patient is alert oriented times almost 3 when I evaluate the patient although patient appears to be confused because of his very sensory aphasia. Patient also complaining of weakness in the left leg although I was unable to examine the motor strength on the left side as he was getting ultrasound-guided peripheral line on that side. Patient has leukocytosis denies any symptoms of UTI does not have any other infection does not have any pn eumonia. Patient appears to have sensory aphasia when I evaluated the patient. Patient had stroke in the past. Because of the previous stroke patient has some residual weakness on the left side CT of the head showed extraocular dilatation of anterior horn of right lateral ventricle because of his previous stroke. No acute abnormality was evident neurology evaluated the patient and they are obt aining an MRI patient is already on statins. REVIEW OF SYSTEMS: CONSTITUTIONAL: No fever, no malaise, no fatigue. HEENT: No recent visual problems or hearing problems. Denied any sore throat. CARDIOVASCULAR: No chest pain, orthopnea, PND, no palpitations, no syncope. PULMONARY: No shortness of breath, no cough, no hemoptysis. GASTROINTESTINAL: No diarrhea, no nausea, no vomiting, no abdominal pain. NEUROLOGICAL: No headaches, HEMATOLOGICAL: Denies any bleeding or petechiae. GENITOURINARY: Denies any burning micturition, frequency, or urgency. MUSCULOSKELETAL/RHEUMATOLOGICAL: Denies any joint pain, swelling, or any muscle pain. ENDOCRINE: Denies any polyuria or polydipsia. The rest of the 14-point review of systems is negative. PHYSICAL EXAMINATION: GENERAL: The patient is alert and oriented x3, not in any acute distress. Well developed, well nourished. HEENT: Pupils are round and equally reacting to light. EOMI. No scleral icterus. No conjunctival pallor. Normocephalic, atraumatic. No pharyngeal erythema. No thyromegaly. CARDIOVASCULAR: S1 and S2 present. No murmurs, rubs, or gallops. PULMONARY: Chest is clear to auscultation, no wheezing or crackles. ABDOMEN: Soft, nontender, nondistended, normoactive bowel sounds. No palpable organomegaly. MUSCULOSKELETAL: No joint swelling or deformity. EXTREMITIES: No cyanosis, clubbing, or pedal edema. NEUROLOGICAL as mentioned in HPI SKIN: No rashes. Assessment and plan -Possible cerebrovascular accident patient will undergo MRI neurology evaluated the patient. Antiplatelet therapy as per cardiology patient will be started on high-dose statin awaiting lipid panel. -Wernicke's aphasia -Type 2 diabetes mellitus patient was started on sliding scale insulin along with his home regimen. Patient is on high-dose insulin -Hyperlipidemia -Gastroesophageal reflux disease -Hypertension -History of previous CVA in the past DVT prophylaxis: Lovenox Past Medical History Past Medical History: CVA/TIA, Diabetes Mellitus, GERD/Reflux, Hyperlipidemia, Hypertension Additional Past Medical History / Comment(s): stroke 11/2012 (right facial droop & speech resolved.), rheumatic fever as a child, currently receiving physical therapy for thigh pain due to back issues. History of Any Multi-Drug Resistant Organisms: None Reported Past Surgical History: Orthopedic Surgery Additional Past Surgical History / Comment(s): RT achilles tendon repair, RT knee surg., colonoscopy Past Anesthesia/Blood Transfusion Reactions: No Reported Reaction Past Psychological History: No Psychological Hx Reported Smoking Status: Never smoker Past Alcohol Use History: Occasional Past Drug Use History: None Reported - Past Family History Mother Family Medical History: Cancer Medications and Allergies Home Medications Medication Instructions Recorded Confirmed Type Atorvastatin [Lipitor] 40 mg PO HS 11/22/23 11/22/23 History Dulaglutide [Trulicity] 3 mg SQ MARCELO 11/22/23 11/22/23 History Gabapentin [Neurontin] 300 - 900 mg PO DIRECTED 11/22/23 11/22/23 History Insulin Aspart [NovoLOG Flexpen] 25 - 62 units SQ HS 11/22/23 11/22/23 History Insulin Glargine,Hum.rec.anlog 60 units SQ HS 11/22/23 11/22/23 History [Lantus Solostar Pen] Losartan Potassium 100 mg PO DAILY 11/22/23 11/22/23 History Metoprolol Tartrate [Lopressor] 50 mg PO HS 11/22/23 11/22/23 History Metoprolol Tartrate [Lopressor] 75 mg PO DAILY 11/22/23 11/22/23 History Nortriptyline HCl [Pamelor] 25 mg PO HS 11/22/23 11/22/23 History Pantoprazole Sodium [Protonix] 20 mg PO BID 11/22/23 11/22/23 History Tamsulosin [Flomax] 0.4 mg PO DAILY 11/22/23 11/22/23 History hydrALAZINE HCL [Apresoline] 25 mg PO BID 11/22/23 11/22/23 History hydroCHLOROthiazide [Hydrodiuril] 12.5 mg PO DAILY 11/22/23 11/22/23 History metFORMIN HCL 500 mg PO DIRECTED 11/22/23 11/22/23 History Allergies Allergy/AdvReac Type Severity Reaction Status Date / Time Penicillins Allergy Unknown Verified 11/22/23 11:31 Childhood Physical Exam Vitals: Vital Signs Temp Pulse Resp BP Pulse Ox 11/22/23 07:55 96 11/22/23 06:31 95 18 145/81 95 11/22/23 04:38 90 18 167/91 99 11/22/23 02:00 93 18 160/87 94 L 11/22/23 00:00 85 16 155/90 97 11/21/23 22:26 100 18 178/105 99 11/21/23 20:00 94 16 133/88 96 11/21/23 19:49 98.7 F 96 18 136/92 96 11/21/23 18:13 93 18 137/105 95 11/21/23 16:03 98.2 F 103 H 88 H 125/85 92 L 11/21/23 15:07 98.4 F 106 H 18 117/77 94 L Intake and Output 11/21/23 11/22/23 11/22/23 22:59 06:59 14:59 Other: Weight 99.79 kg Results CBC & Chem 7: 11/21/23 15:17 11/21/23 15:17 Labs: Abnormal Lab Results - Last 24 Hours (Table) 11/21/23 11/21/23 11/21/23 Range/Units 15:03 15:17 15:17 WBC 13.8 H (3.8-10.6) k/uL Neutrophils # 12.1 H (1.3-7.7) k/uL Lymphocytes # 0.7 L (1.0-4.8) k/uL Chloride 111 H (98-107) mmol/L BUN 21 H (9-20) mg/dL Glucose 209 H (74-99) mg/dL POC Glucose (mg/dL) 198 H (70-110) mg/dL Calcium 8.3 L (8.4-10.2) mg/dL Ur Specific [place] (1.001-1.035) Urine Protein (Negative) Urine Glucose (UA) (Negative) Urine Ketones (Negative) Urine Blood (Negative) Urine Mucus (None) /hpf U Tricyclic Antidepress (NotDetected) 11/21/23 11/21/23 Range/Units 20:15 20:15 WBC (3.8-10.6) k/uL Neutrophils # (1.3-7.7) k/uL Lymphocytes # (1.0-4.8) k/uL Chloride (98-107) mmol/L BUN (9-20) mg/dL Glucose (74-99) mg/dL POC Glucose (mg/dL) (70-110) mg/dL Calcium (8.4-10.2) mg/dL Ur Specific [place] 1.037 H (1.001-1.035) Urine Protein 2+ H (Negative) Urine Glucose (UA) 4+ H (Negative) Urine Ketones Trace H (Negative) Urine Blood Trace H (Negative) Urine Mucus Rare H (None) /hpf U Tricyclic Antidepress Detected H (NotDetected)
[2023-11-22 15:01] LABS: Glucose,Whole Blood 192 mg/dL (70-110)
[2023-11-22 17:05] LABS: Glucose,Whole Blood 204 mg/dL (70-110)
[2023-11-22] MEDS: INSULIN ASPART (NovoLOG) 100 UNIT/ML VIAL SQ SCH (17:24)
--- NOTE | 2023-11-22 17:42 | P.CNNES ---
History of Present Illness Consult date: 11/22/23 Requesting physician: Piyush Blanco Reason for Consult: altered mental status History of Present Illness: This is a 73-year-old gentleman with history of diabetes mellitus, stroke about 9 to 10 years ago who presented emergency department because of unsteady walking fall and confusion. The history is obtained from the patient's was at bedside. She stated in the last 1 and half days the patient has been having u nsteady walking confused had a fall. Stated he did not have any focal weakness but felt the whole body was weak. Patient denies of any headache, fever, any recent sickness. No history of seizure. At baseline patient sometimes uses a walker when he goes otherwise he ambulates without any assistance. He is oriented x 3 feed himself and uses the bathroom. He and he denies of any headache. Some of the workup during this hospital visit consisted of: Patient is afebrile. He is tachycardic on presentation of 106 and got as high as 120s. Pulse ox in the low 90s on 2 L of nasal cannula. Blood cells 13.8 thousand Serum glucose on presentation is 209 Ammonia is 30 Vitamin B12 is 424 and serum folate is 18.90 TSH is 0.584 Urine drug screen is positive for tricyclic antidepressant otherwise rest is not detected CT of the head is reported as no acute intracranial process. Old insult resulting in ex vacuo dilation of the anterior horn of the right lateral ventricle. I personally reviewed the CT and I agree with the report. Review of Systems Limited but the positive and negative as per HPI. Past Medical History Past Medical History: CVA/TIA, Diabetes Mellitus, GERD/Reflux, Hyperlipidemia, Hypertension Additional Past Medical History / Comment(s): stroke 11/2012 (right facial droop & speech resolved.), rheumatic fever as a child, currently receiving physical therapy for thigh pain due to back issues. History of Any Multi-Drug Resistant Organisms: None Reported Past Surgical History: Orthopedic Surgery Additional Past Surgical History / Comment(s): RT achilles tendon repair, RT knee surg., colonoscopy Past Anesthesia/Blood Transfusion Reactions: No Reported Reaction Past Psychological History: No Psychological Hx Reported Smoking Status: Never smoker Past Alcohol Use History: Occasional Past Drug Use History: None Reported - Past Family History Mother Family Medical History: Cancer Medications and Allergies Home Medications Medication Instructions Recorded Confirmed Type Atorvastatin [Lipitor] 40 mg PO HS 11/22/23 11/22/23 History Dulaglutide [Trulicity] 3 mg SQ MARCELO 11/22/23 11/22/23 History Gabapentin [Neurontin] 300 - 900 mg PO DIRECTED 11/22/23 11/22/23 History Insulin Aspart [NovoLOG Flexpen] 25 - 62 units SQ HS 11/22/23 11/22/23 History Insulin Glargine,Hum.rec.anlog 60 units SQ HS 11/22/23 11/22/23 History [Lantus Solostar Pen] Losartan Potassium 100 mg PO DAILY 11/22/23 11/22/23 History Metoprolol Tartrate [Lopressor] 50 mg PO HS 11/22/23 11/22/23 History Metoprolol Tartrate [Lopressor] 75 mg PO DAILY 11/22/23 11/22/23 History Nortriptyline HCl [Pamelor] 25 mg PO HS 11/22/23 11/22/23 History Pantoprazole Sodium [Protonix] 20 mg PO BID 11/22/23 11/22/23 History Tamsulosin [Flomax] 0.4 mg PO DAILY 11/22/23 11/22/23 History hydrALAZINE HCL [Apresoline] 25 mg PO BID 11/22/23 11/22/23 History hydroCHLOROthiazide [Hydrodiuril] 12.5 mg PO DAILY 11/22/23 11/22/23 History metFORMIN HCL 500 mg PO DIRECTED 11/22/23 11/22/23 History Allergies Allergy/AdvReac Type Severity Reaction Status Date / Time Penicillins Allergy Unknown Verified 11/22/23 11:31 Childhood Physical Examination - Vital Signs Vital Signs: Vital Signs Temp Pulse Pulse Resp BP BP BP 11/22/23 16:29 98.3 F 111 H 18 152/92 11/22/23 15:52 112 H 18 137/77 11/22/23 14:58 129 H 20 152/74 11/22/23 12:05 98 F 90 18 156/97 11/22/23 08:55 98.2 F 93 18 147/85 11/22/23 07:55 11/22/23 06:31 95 18 145/81 11/22/23 04:38 90 18 167/91 11/22/23 02:00 93 18 160/87 11/22/23 00:00 85 16 155/90 11/21/23 22:26 100 18 178/105 11/21/23 20:00 94 16 133/88 11/21/23 19:49 98.7 F 96 18 136/92 11/21/23 18:13 93 18 137/105 Pulse Ox 11/22/23 16:29 96 11/22/23 15:52 91 L 11/22/23 14:58 92 L 11/22/23 12:05 99 11/22/23 08:55 96 11/22/23 07:55 96 11/22/23 06:31 95 11/22/23 04:38 99 11/22/23 02:00 94 L 11/22/23 00:00 97 11/21/23 22:26 99 11/21/23 20:00 96 11/21/23 19:49 96 11/21/23 18:13 95 Intake and Output 11/22/23 11/22/23 11/22/23 06:59 14:59 22:59 Intake Total 800 Balance 800 Intake: Intake, IV Titration 800 Amount Sodium Chloride 0.9% 1, 800 000 ml @ 75 mls/hr IV . [id number] [facility] Rx#:[id number] Other: Voiding Method Diaper Incontinent # Voids 1 # Bowel Movements 0 GENERAL: The patient is lying in bed and is not in acute distress. HENT: Supple neck. NEUROLOGICAL: Higher mental function: The patient is drowsy but is awakeable to voice. Is oriented to self. Does not know the year or the place. He is mumbling. He correctly named objects correctly such as watch, glasses and pen. He was able to name his 's name and his friend's name who is at bedside. Following simple commands. Again the patient is mumbling. Cranial nerves: The pupils are round, equal and reactive to ligh. Visual castillo are full to confrontation throughout. Extraocular movement is intact no nystagmus is noted. Facial sensation is normal to touch throughout. The facial strength is normal throughout. Tongue is midline and moved [id number] without any difficulty. Is mild to moderate dysarthria is noted. Motor: The strength is hard to assess individual muscle strength but is lifting all extremities above gravity and appears normal. Normal tone and bulk. Cerebellum: Normal finger to nose bilaterally. Sensation: Sensation is normal to touch throughout. Plantars are mute bilaterally. Results - Laboratory Findings CBC and BMP: 11/21/23 15:17 11/21/23 15:17 Abnormal Lab Findings: Abnormal Labs 11/21/23 11/21/23 11/21/23 15:03 15:17 15:17 WBC 13.8 H Neutrophils # 12.1 H Lymphocytes # 0.7 L Chloride 111 H BUN 21 H Glucose 209 H POC Glucose (mg/dL) 198 H Calcium 8.3 L Ur Specific [place] Urine Protein Urine Glucose (UA) Urine Ketones Urine Blood Urine Mucus U Tricyclic Antidepress 11/21/23 11/21/23 11/22/23 20:15 20:15 14:59 WBC Neutrophils # Lymphocytes # Chloride BUN Glucose POC Glucose (mg/dL) 192 H Calcium Ur Specific [place] 1.037 H Urine Protein 2+ H Urine Glucose (UA) 4+ H Urine Ketones Trace H Urine Blood Trace H Urine Mucus Rare H U Tricyclic Antidepress Detected H 11/22/23 17:03 WBC Neutrophils # Lymphocytes # Chloride BUN Glucose POC Glucose (mg/dL) 204 H Calcium Ur Specific [place] Urine Protein Urine Glucose (UA) Urine Ketones Urine Blood Urine Mucus U Tricyclic Antidepress Assessment and Plan Assessment: This is a 73-year-old gentleman who presents because of unsteady gait and a fall with confusion in the last 1-1/2 days prior to presenting the hospital per the . Unsteady gait, confusion with recent fall. On Examination patient is drowsy confused but is oriented to self but is able to name objects correctly and his 's name and had some dysarthria: Rule out acute ischemic stroke. Tachycardia Mild Hypoxia History of old stroke about 10 years ago Diabetes mellitus History of hypertension Underlying history of hyperlipidemia Plan: I ordered carotid duplex, routine EEG and MRI of the brain 2D echo, lipid panel are ordered. I ordered Hemoglobin A1c I started him on aspirin 325mg daily. He is on Lipitor 40 mg nightly Continue neurochecks Cardiac monitoring I consulted PT OT and SHIRRER Will defer the rest of the medical management to primary team For DVT prophylaxis the patient is on Lovenox Plan discussed with the patient's was at bedside and his nurse Thank for the consultation Time with Patient: Greater than 30
[2023-11-22] MEDS: ASPIRIN 325 MG TAB PO SCH (18:30)
--- NOTE | 2023-11-22 18:48 | CT ---
EXAMINATION TYPE: CT brain wo con DATE OF EXAM: 11/22/2023 COMPARISON: 11/21/2023 HISTORY: 73-year-old male unwitnessed fall. pt unable to recall event. TECHNIQUE: Examination was done in axial plane without intravenous contrast. Coronal and sagittal r econstructions performed. CT DLP: 1243.4 mGycm Automated exposure control for dose reduction was used. FINDINGS: There is no evidence of acute intracranial hemorrhage, acute ischemic changes, mass, mass-effect, or extra-axial fluid collection. There is no effacement of cerebral sulci or basal subarachnoid cister ns. There is no hydrocephalus. There is no midline shift. Rae-white matter distinction is preserv ed. Moderate patchy white matter hypodensities in posterior hemispheres. Asymmetric enlargement frontal h orn of the right lateral ventricle which is unchanged suggesting some adjacent deep white matter infa rct in the gerard radiata. Increasing hypodensity anterior left thalamus compared to 11/21/2023. Mucosal thickening throughout the ethmoid air cells. Small 1.1 cm mucous retention cyst floor of the left maxillary sinus. Orbits and globes are intact. Mastoid air cells are well pneumatized. IMPRESSION: 1. Hypodensity in the anterior left thalamus has increased compared to 11/21/2023. Correlate for possib le subacute infarct here. 2. Moderate burden of chronic small vessel ischemic disease with redemonstrated old infarct right cor afsaneh radiata resulting in ex vacuo enlargement frontal horn right lateral ventricle.
[2023-11-22 20:22] LABS: Glucose,Whole Blood 145 mg/dL (70-110)
[2023-11-22] MEDS: ATORVASTATIN 40 MG TAB PO SCH (21:20)
[2023-11-22] MEDS: NORTRIPTYLINE 25 MG CAP PO SCH (21:21)
[2023-11-22] MEDS: PANTOPRAZOLE 40 MG TABLET PO SCH (21:21)
[2023-11-22] MEDS: METOPROLOL TARTRATE 50 MG TAB PO SCH (21:21)
[2023-11-22] MEDS: INSULIN DETEMIR (LEVEMIR) 100 UNIT/ML SYR SQ SCH (21:24)
[2023-11-22] MEDS: LABETALOL 5 MG/ML VIAL MDV IVP STA (23:26)
--- NOTE | 2023-11-23 00:25 | US ---
EXAMINATION TYPE: US carotid duplex BILAT DATE OF EXAM: 11/22/2023 COMPARISON: NONE CLINICAL INDICATION: Male, 73 years old with history of stroke; Stroke TECHNIQUE: Carotid duplex ultrasound examination. Indirect Doppler criteria was utilized. FINDINGS: EXAM MEASUREMENTS: RIGHT: Peak Systolic Velocity (PSV) cm/sec ----- Right CCA: 79.0 ----- Right ICA: 70.3 ----- Right ECA: 69.4 ICA/CCA ratio: 0.9 RIGHT: End Diastole cm/sec ----- Right CCA: 15.3 ----- Right ICA: 18.8 ----- Right ECA: 5.8 LEFT: Peak Systolic Velocity (PSV) cm/sec ----- Left CCA: 73.2 ----- Left ICA: 64.7 ----- Left ECA: 114.5 ICA/CCA ratio: 0.9 LEFT: End Diastole cm/sec ----- Left CCA: 10.6 ----- Left ICA: 17.5 ----- Left ECA: 4.7 VERTEBRALS (direction of flow): Right Vertebral: Antegrade Left Vertebral: Antegrade Rhythm: Normal SERVICE CENTER ASSISTANT NOTES: No significant velocity elevations seen on today's exam Multiple normal appearing lymph nodes seen surrounding bilateral CCA's. IMPRESSION: No hemodynamically significant stenosis in either internal carotid artery. Criteria for Assigning % of Stenosis / Diameter reduction (Estimation based on the indirect measurements of the internal carotid artery velocities (ICA PSV). 1. Normal (no stenosis)=ICA PSV < 125 cm/s: ratio < 2.0: ICA EDV<40 cm/s. 2. Less than 50% stenosis=ICA PSV < 125 cm/s: ratio < 2.0: ICA EDV<40 cm/s. 3. 50 to 69% stenosis=ICA PSV of 125 to 230 cm/s: ration 2.0 ? 4.0: ICA EDV 40-100 cm/s. 4. Greater than 70% stenosis to near occlusion= ICA PSV > 230 cm/s: ratio > 4.0: ICA EDV > 100 cm/s. 5. Near occlusion= ICA PSV velocities may be low or undetectable: variable ratio and ICA EDV. 6. Total occlusion=unable to detect flow.
--- NOTE | 2023-11-23 00:55 | EEG ---
ELECTROENCEPHALOGRAM REPORT CLINICAL HISTORY: This is a 73-year-old gentleman with altered mental status. The video EEG is obtained to evaluate for seizure epileptiform activity. RELEVANT MEDICATIONS: 1. Nortriptyline. 2. Gabapentin. EEG TYPE: A routine 21-channel EEG with video using the 10/20 electrode placement system. DESCRIPTION: Wakefulness is only obtained. During awake state, the background consists of low-to- moderate voltage of 7 hertz activity that is well modulated, well sustained. There is no physiological stage 2 sleep architecture. There is no focal slowing. Interictal and ictal is none. ACTIVATION PROCEDURE: Photic stimulation did not evoke a posterior driving response. There is no abnormality during the photic stimulation. Hyperventilation is not performed. CLINICAL INTERPRETATION: This is an abnormal routine EEG. The background slowing is suggestive of mild encephalopathy. There is no focal slowing, epileptiform discharge, or seizure on the EEG. Clinical correlation is recommended. SMITH / DANDREN: [id number] /
[2023-11-23] MEDS: hydrALAZINE HCL 20 MG/ML 1 ML VIAL IVP STA ×2 (05:10→14:37)
[2023-11-23 08:29] LABS: Glucose,Whole Blood 117 mg/dL (70-110)
[2023-11-23 08:53] LABS: HCT 49.5 % (39.0-53.0); HGB 15.3 gm/dL (13.0-17.5); MCH 26.6 pg (25.0-35.0); MCV 85.8 fL (80.0-100.0); Mean Platelet Volume 8.9; Platelet Count 146 k/uL (150-450); RBC 5.77 m/uL (4.30-5.90); WBC 12.7 k/uL (3.8-10.6)
[2023-11-23 09:09] LABS: African American GFR (CKD) >90 (>60 ml/min/1.73 sqM); Anion Gap 10 mmol/L; Blood Urea Nitrogen 26 mg/dL (9-20); Calcium 8.8 mg/dL (8.4-10.2); Carbon Dioxide 24 mmol/L (22-30); Chloride 110 mmol/L (98-107); Glucose 128 mg/dL (74-99); Non-African American GFR(CKD) 87 (>60 ml/min/1.73 sqM); Sodium 144 mmol/L (137-145)
[2023-11-23] MEDS: METOPROLOL TARTRATE 25 MG TAB PO SCH (10:05)
[2023-11-23] MEDS: ENOXAPARIN 40 MG/0.4 ML SYRINGE SQ SCH (10:05)
[2023-11-23] MEDS: TAMSULOSIN 0.4 MG CAP.ER.24H PO SCH (10:05)
[2023-11-23] MEDS: LOSARTAN 50 MG TAB PO SCH (10:06)
[2023-11-23 11:00] LABS: Glucose,Whole Blood 111 mg/dL (70-110)
[2023-11-23 11:15] LABS: LDL Cholesterol,Calculated 114.6 mg/dL (0.0-131.0)
[2023-11-23 12:44] LABS: Glucose,Whole Blood 114 mg/dL (70-110)
--- NOTE | 2023-11-23 13:04 | P.PN ---
Subjective Progress Note Date: 11/23/23 I am following-up with patient and per primary team N.P. it seems he had a fall yesterday with head trauma and therefore, had repeat CT head which showed subacute stroke over the left thalamus. Patient denies of headache. He did states he has numbness that is new on the right lower extremity. Objective - Vital Signs Vital signs: Vital Signs Temp 97.0 F L 11/23/23 08:00 Pulse 86 11/23/23 12:00 Resp 16 11/23/23 12:00 BP 166/113 11/23/23 12:00 Pulse Ox 97 11/23/23 12:00 FiO2 Intake & Output 11/22/23 11/23/23 11/23/23 18:59 06:59 18:59 Intake Total 800 600 Balance 800 600 Intake: Intake, IV Titration 800 600 Amount Sodium Chloride 0.9% 1, 800 600 000 ml @ 75 mls/hr IV . [id number] [facility] Rx#:[id number] Other: Voiding Method Diaper Diaper Incontinent Incontinent # Voids 1 1 1 # Bowel Movements 0 - Exam GENERAL: The patient is lying in bed and is not in acute distress. NEUROLOGICAL: Higher mental function: The patient is drowsy but is awakeable to voice. Is oriented to self. Does not know the year or the place. He speech is a bit more cleared compared to yesterday. He correctly named objects correctly such as watch, glasses. Following simple commands. Again the patient is mumbling. Cranial nerves: The pupils are round, equal and reactive to ligh. Visual castillo are full to confrontation throughout. Extraocular movement is intact no nystagmus is noted. Facial sensation is normal to touch throughout. The facial strength is normal throughout. Is mild dysarthria is noted. Motor: The strength is hard to assess individual muscle strength but is lifting all extremities above gravity and appears normal. Normal tone and bulk. Cerebellum: Normal finger to nose bilaterally. Some of the workup during this hospital visit consisted of: Patient is afebrile. He is tachycardic on presentation of 106 and got as high as 120s. Pulse ox in the low 90s on 2 L of nasal cannula. Blood cells 13.8 thousand Serum glucose on presentation is 209 Ammonia is 30 Vitamin B12 is 424 and serum folate is 18.90 TSH is 0.584 Lipid panel: TG 103, Cholestrol 175, LDL 114 and HDL 39. Urine drug screen is positive for tricyclic antidepressant otherwise rest is not detected CT of the head is reported as no acute intracranial process. Old insult resulting in ex vacuo dilation of the anterior horn of the right lateral ventricle. I personally reviewed the CT and I agree with the report. Repeat CT head: Hypodensity in the anterior left thalamus increase compared to 11/21/2023 Correlate for possible subacute infarct. Carotid duplex: No hemodynaically significant stenosis in either internal carotid artery. Routine EEG: Is abnormal. The background slowing is suggestive of mild encephal opathy. No seizure or discharges. - Labs CBC & Chem 7: 11/23/23 08:20 11/23/23 08:20 Labs: Abnormal Lab Results - Last 24 Hours (Table) 11/22/23 11/22/23 11/22/23 Range/Units 10:13 14:59 17:03 WBC (3.8-10.6) k/uL Plt Count (150-450) k/uL Chloride (98-107) mmol/L BUN (9-20) mg/dL Glucose (74-99) mg/dL POC Glucose (mg/dL) 192 H 204 H (70-110) mg/dL Hemoglobin A1c 7.3 H (<=6.0) % HDL Cholesterol (40.00-60.00) mg/dL 11/22/23 11/23/23 11/23/23 Range/Units 20:20 08:18 08:20 WBC (3.8-10.6) k/uL Plt Count (150-450) k/uL Chloride 110 H (98-107) mmol/L BUN 26 H (9-20) mg/dL Glucose 128 H (74-99) mg/dL POC Glucose (mg/dL) 145 H 117 H (70-110) mg/dL Hemoglobin A1c (<=6.0) % HDL Cholesterol 39.80 L (40.00-60.00) mg/dL 11/23/23 11/23/23 11/23/23 Range/Units 08:20 10:53 12:39 WBC 12.7 H (3.8-10.6) k/uL Plt Count 146 L (150-450) k/uL Chloride (98-107) mmol/L BUN (9-20) mg/dL Glucose (74-99) mg/dL POC Glucose (mg/dL) 111 H 114 H (70-110) mg/dL Hemoglobin A1c (<=6.0) % HDL Cholesterol (40.00-60.00) mg/dL Assessment and Plan Assessment: This is a 73-year-old gentleman who presents because of unsteady gait and a fall with confusion in the last 1-1/2 days prior to presenting the hospital per the . Unsteady gait, confusion with recent fall and recent right lower extremity numbness is due acute to subacute left thalamus stroke. On Examination patient is drowsy confused but is oriented to self but is able to name objects correctly and his 's name and had some dysarthria. No IV thrombolytic since outside window and risk outweigh benefit. Tachycardia Mild Hypoxia History of old stroke about 10 years ago Diabetes mellitus History of hypertension Underlying history of hyperlipidemia Plan: MRI of the brain and 2D echo are pending. I started him on aspirin 325mg daily. I will hold dual antiplateles since patient is having recurrent falls to avoid increase risk of bleed but if no further falls and is more awake then recommend dual antiplatelets. He is on Lipitor 40 mg nightly Continue neurochecks Cardiac monitoring PT OT and MECHANIC SOUND TECHNICIAN are consulted Will defer the rest of the medical management to primary team For DVT prophylaxis the patient is on Lovenox Plan discussed with the patient's daughter who is at bedside. Dr. Mirza will resume neurology service tomorrow A.M. Time with Patient: Less than 30
--- NOTE | 2023-11-23 17:15 | CA ---
Transthoracic Echo Report Name: Syd Baird Age: 73 Gender: M : 1950 Exam Date: 11/23/2023 14:58 Exam Location: [facility] Ht (in): 71 Wt (lb): 220 Ordering Physician: Jose D Kurtz MD Attending/Referring Phys: Print Journalist Izzy Goyal RDCS Procedure CPT: Indications: stroke Cardiac Hx: Technical Quality: Very technically difficult study Contrast 1: Definity Total Dose (mL): 2 Contrast 2: Total Dose (mL): MEASUREMENTS (Male / Female) Normal Values 2D ECHO LVOT Diameter 2.4 cm LV Diastolic Volume MOD 4C 120.7 cm??? LV Systolic Volume MOD 4C 32.7 cm??? LV Ejection Fraction MOD 4C 72.9 % LV Cardiac Index MOD 4C 3813.2 cm???/min???m??? LV Diastolic Length 4C 8.2 cm LV Systolic Length 4C 6.4 cm LV Diastolic Volume MOD 2C 74.2 cm??? LV Diastolic Length 2C 7.5 cm LA Volume 69.6 cm??? 18 - 58 / 22 - 52 cm??? LA Volume Index 30.8 cm???/m??? 16 - 28 cm???/m??? Ascending Aorta Diameter 4.0 cm DOPPLER AV Peak Velocity 129.3 cm/s AV Peak Gradient 6.7 mmHg AV Mean Velocity 94.8 cm/s AV Mean Gradient 3.9 mmHg AV Velocity Time Integral 24.3 cm LVOT Peak Velocity 109.6 cm/s LVOT Peak Gradient 4.8 mmHg LVOT Velocity Time Integral 20.9 cm LVOT Stroke Volume 98.1 cm??? LVOT Stroke Volume Index 44.7 ml/m??? LVOT Cardiac Index 4251.2 cm???/min???m??? AV Area Cont Eq vti 4.0 cm??? AV Area Cont Eq pk 4.0 cm??? MV Peak Velocity 180.1 cm/s MV Peak Gradient 13.0 mmHg MV Mean Velocity 103.3 cm/s MV Mean Gradient 5.2 mmHg MV Velocity Time Integral 21.2 cm PV Peak Velocity 115.1 cm/s PV Peak Gradient 5.3 mmHg FINDINGS Left Ventricle Left ventricular ejection fraction is estimated at 60-65%. Left ventricular cavity size normal. No obvious regional wall motion abnormalities. Right Ventricle Right ventricle not well visualized. Right Atrium Right atrium not well visualized. Left Atrium Mildly increased left atrial volume. Mildly increased left atrial area. Mitral Valve Mitral valve thickened. No evidence for mitral valve prolapse. No mitral regurgitation. Aortic Valve Trileaflet aortic valve. No aortic valve stenosis or regurgitation. Tricuspid Valve Structurally normal tricuspid valve. No tricuspid stenosis. No tricuspid regurgitation. Pulmonic Valve Pulmonic valve not well visualized. No pulmonic stenosis. No pulmonic regurgitation. Pericardium No pericardial effusion. Aorta Aortic annulus normal. Ascending aorta borderline enlarged. CONCLUSIONS Normal LV function Technically suboptimal study secondary to poor echo windows Mildly dilated aorta Consider transesophageal echo for further evaluation Previewed by: Dr. Irvin Cardeans MD (Electronically Signed) Final Date: 23 November 2023 17:14
--- NOTE | 2023-11-23 17:23 | MR ---
EXAMINATION TYPE: MR brain wo/w con DATE OF EXAM: 11/23/2023 4:47 PM CLINICAL INDICATION:Male, 73 years old with history of confusion; COMPARISON: 11/22/2023. TECHNIQUE: Multi planar, multi sequence imaging was performed through the brain including: T1, T2, In version recovery, susceptibility weighted imaging and gradient echo imaging and Diffusion weighted im aging. The patient was then given intravenous contrast and multi planar, T1 fat-saturation images wer e obtained. IV Contrast: 10 cc Gadavist FINDINGS: Mild cerebral atrophy with proportional dilation of ventricular system. Suspected mild remote right frontal lobe High DWI signal with corresponding low ADC signal in the left thalamus compatible with i nfarct. Intracranial arterial flow voids are maintained. Midline structures show no abnormality. Scat tered foci of high T2 signal intensity are seen within the periventricular white matter. The suscepti bility weighted images do not reveal any evidence for micro-hemorrhage. After administration of gadol inium, no abnormal enhancement is seen. The bone marrow signal is within normal limits. Paranasal sinuses and mastoid air cells: No significant paranasal sinus disease. Visualized orbits: Orbital contents are intact. IMPRESSION: 1. Acute/subacute CVA involving the left thalamus. 2. No abnormal postcontrast enhancement. 3. Nonspecific white matter changes, likely related to small vessel ischemic disease.
[2023-11-23 18:02] LABS: Glucose,Whole Blood 190 mg/dL (70-110)
[2023-11-23 20:50] LABS: Glucose,Whole Blood 166 mg/dL (70-110)
[2023-11-23 21:17] LABS: Basophils # (A) 0.1 k/uL (0-0.2); Basophils % (A) 0 %; Eosinophils # (A) 0.2 k/uL (0-0.7); Eosinophils % (A) 1 %; HCT 46.3 % (39.0-53.0); HGB 14.6 gm/dL (13.0-17.5); Lymphocytes # (A) 0.9 k/uL (1.0-4.8); Lymphocytes % (A) 6 %; MCH 26.8 pg (25.0-35.0); MCHC 31.5 g/dL (31.0-37.0); Mean Platelet Volume 9.3; Monocytes # (A) 0.9 k/uL (0-1.0); Monocytes % (A) 6 %; Neutrophils # (A) 13.1 k/uL (1.3-7.7); Neutrophils % (A) 86 %; Platelet Count 165 k/uL (150-450); RBC 5.45 m/uL (4.30-5.90); RDW 14.2 % (11.5-15.5); WBC 15.3 k/uL (3.8-10.6)
[2023-11-23] MEDS: DEXTROSE 5% IN WATER 100 ML with AMIODARONE 150 MG IV ONE (21:28)
[2023-11-23 21:30] LABS: INR 0.9 (<1.2); Partial Thromboplastin Time 28.5 sec (22.0-30.0); Prothrombin Time 10.5 sec (10.0-12.5)
[2023-11-23] MEDS: AMIODARONE 360 MG in DEXTROSE 5% IN WATER 200 ML IV ONE (21:39)
[2023-11-23] MEDS: HEPARIN SOD,PORK IN 0.45% NACL 25,000 UNIT in 0.45% NACL 1 250ML.BAG IV SCH (21:43)
[2023-11-24] MEDS: AMIODARONE 450 MG in DEXTROSE 5% IN WATER 250 ML IV SCH (03:26)
[2023-11-24 04:14] LABS: Basophils # (A) 0.1 k/uL (0-0.2); Basophils % (A) 0 %; Eosinophils # (A) 0.3 k/uL (0-0.7); Eosinophils % (A) 2 %; HCT 44.8 % (39.0-53.0); HGB 14.1 gm/dL (13.0-17.5); Lymphocytes # (A) 1.5 k/uL (1.0-4.8); Lymphocytes % (A) 13 %; MCH 26.7 pg (25.0-35.0); MCHC 31.4 g/dL (31.0-37.0); MCV 85.1 fL (80.0-100.0); Mean Platelet Volume 9.3; Monocytes # (A) 0.7 k/uL (0-1.0); Monocytes % (A) 6 %; Neutrophils # (A) 9.3 k/uL (1.3-7.7); Neutrophils % (A) 78 %; Platelet Count 152 k/uL (150-450); RBC 5.26 m/uL (4.30-5.90); RDW 14.2 % (11.5-15.5); WBC 11.9 k/uL (3.8-10.6)
[2023-11-24 06:06] LABS: Glucose,Whole Blood 170 mg/dL (70-110)
--- NOTE | 2023-11-24 06:14 | P.PN ---
Subjective Progress Note Date: 11/23/23 73-year-old male was brought in with complaints of unresponsiveness and speech abnormality. Patient is alert oriented times almost 3 when I evaluate the patient although patient appears to be confused because of his very sensory aphasia. Patient also complaining of weakness in the left leg although I was unable to examine the motor strength on the left side as he was getting ultrasound-guided peripheral line on that side. Patient has leukocytosis denies any symptoms of UTI does not have any other infection does not have any pneumonia. Patient appears to have sensory aphasia when I evaluated the patient. Patient had stroke in the past. Because of the previous stroke patient has some residual weakness on the left side CT of the head showed extraocular dilatation of anterior horn of right lateral ventricle because of his previous stroke. No acute abnormality was evident neurology evaluated the patient and they are obtaining an MRI patient is already on statins. 11/23/2023 Patient is seen in follow-up today with daughter at the bedside. Patient is somnolent and lethargic although arousable at times. Patient is extremely fatigued and per nursing staff patient fell out of the stretcher here again and not entirely sure if he struck his head. MRI was pending and repeat CT brain was ordered for further evaluation. CT is noted to show an acute/subacute CVA involving the left thalamus. 2D echo ordered showing EF of 60 to 65% with mild late increased left atrial volume and per report study was suboptimal secondary to poor echo windows to consider possible TERRA for further evaluation. Patient is continued on statin therapy and also large dose aspirin with neurology following closely undergoing further workup. White count is trending down with no fevers and does not appear infectious, likely reactive. Will await speech evaluation. This patient is considered high risk for aspiration given his lethargy and mildly altered mental status. Await speech recommendations to res ume diet and will continue with strict aspiration precautions with head of the bed elevated 30 to 45 degrees at all times. and daughter were at the bedside with questions and concerns that were answered Review of systems: Constitutional: reports of fatigue, no fever, or chills Cardiovascular: No reports of chest pain or palpitations Respiratory: No reports of shortness of breath or cough GI: No reports of nausea, vomiting, or diarrhea, reports to feeling hungry : No reports of dysuria or retention Neurovascular: reports of generalized weakness and some tingling and decreased sensation in the right thigh All medications have been reviewed PHYSICAL EXAMINATION: GENERAL: The patient is alert and oriented x2, lethargic at times. Well developed, well nourished. Obese, elderly appearing HEENT: Pupils are round and equally reacting to light. EOMI. No scleral icterus. No conjunctival pallor. Normocephalic, atraumatic. No pharyngeal erythema. No thyromegaly. CARDIOVASCULAR: S1 and S2 muffled PULMONARY: Diminished breath sounds bilaterally otherwise chest is clear to auscultation, no wheezing or crackles. ABDOMEN: Soft, obese, nontender, nondistended, normoactive bowel sounds. No palpable organomegaly. MUSCULOSKELETAL: No joint swelling or deformity. EXTREMITIES: No cyanosis, clubbing, or pedal edema. NEUROLOGICAL lethargic initially although reevaluation in the afternoon patient was more awake and sitting up and alert SKIN: No rashes. Pale Assessment and plan -Acute cerebrovascular accident of the left thalamus as noted on repeat CT, MRI confirms this finding. Patient is on statin and high-dose aspirin awaiting antiplatelet as patient is high risk for falls and recently fell again yesterday out of the stretcher. Neurology following -Wernicke's aphasia secondary to above -Generalized weakness and gait dysfunction with falls secondary to acute CVA -Type 2 diabetes mellitus, insulin-dependent continue with Accu-Cheks before meals and at bedtime medications and will adjust medications and continue with sliding scale -Hyperlipidemia, maintained on statin therapy -Gastroesophageal reflux disease -Hypertension -Obesity with a BMI of 30.7 -History of previous CVA in the past -DVT prophylaxis: Lovenox -GI prophylaxis -Full code Plan: Patient being followed by neurology undergoing further workup. Patient did have a 2D echo which revealed a normal EF although suboptimal study suggested to consider TERRA. Will discuss with neurology as well as cardiology. Continue aspirin for now. Neurology awaiting antiplatelet therapy after weighing the risks versus benefits as patient has been frequently falling and high risk for bleeding Continue monitoring Accu-Cheks before meals and at bedtime and will continue with sliding scale and add long-acting as needed. Adjust insulins accordingly Speech to evaluate as patient is somewhat lethargic and mildly altered at times, high risk for aspirations and recommend head of the bed 30 to 45 degrees at all times, supervision with meals and will await speech recommendations. This was discussed with family at the bedside as well White count is trending down and will follow-up with repeat labs. Patient is afebrile and does not appear infectious likely reactive PT/OT therapy to evaluate Patient was independent and driving prior to this and has had history of CVA in the past with no residuals. The impression and plan of care has been dictated by Patrica Beatty, Nurse Practitioner as directed. Dr. Hal MD I have performed a history and examination and MDM of this patient, discussed the same with the dictator, and agree with the dictator's assessment and plan as written ,documented as a scribe. Based on total visit time, I have performed more than 50% of the visit. Objective - Vital Signs Vital signs: Vital Signs Temp 97.0 F L 11/23/23 08:00 Pulse 86 11/23/23 12:00 Resp 16 11/23/23 12:00 BP 166/113 11/23/23 12:00 Pulse Ox 97 11/23/23 12:00 FiO2 Intake & Output 11/22/23 11/23/23 11/23/23 18:59 06:59 18:59 Intake Total 800 600 Balance 800 600 Intake: Intake, IV Titration 800 600 Amount Sodium Chloride 0.9% 1, 800 600 000 ml @ 75 mls/hr IV . [id number] [facility] Rx#:[id number] Other: Voiding Method Diaper Diaper Incontinent Incontinent # Voids 1 1 1 # Bowel Movements 0 - Labs CBC & Chem 7: 11/24/23 03:56 11/23/23 08:20 Labs: Abnormal Lab Results - Last 24 Hours (Table) 11/22/23 11/22/23 11/22/23 Range/Units 10:13 14:59 17:03 WBC (3.8-10.6) k/uL Plt Count (150-450) k/uL Chloride (98-107) mmol/L BUN (9-20) mg/dL Glucose (74-99) mg/dL POC Glucose (mg/dL) 192 H 204 H (70-110) mg/dL Hemoglobin A1c 7.3 H (<=6.0) % HDL Cholesterol (40.00-60.00) mg/dL 11/22/23 11/23/23 11/23/23 Range/Units 20:20 08:18 08:20 WBC (3.8-10.6) k/uL Plt Count (150-450) k/uL Chloride 110 H (98-107) mmol/L BUN 26 H (9-20) mg/dL Glucose 128 H (74-99) mg/dL POC Glucose (mg/dL) 145 H 117 H (70-110) mg/dL Hemoglobin A1c (<=6.0) % HDL Cholesterol 39.80 L (40.00-60.00) mg/dL 11/23/23 11/23/23 11/23/23 Range/Units 08:20 10:53 12:39 WBC 12.7 H (3.8-10.6) k/uL Plt Count 146 L (150-450) k/uL Chloride (98-107) mmol/L BUN (9-20) mg/dL Glucose (74-99) mg/dL POC Glucose (mg/dL) 111 H 114 H (70-110) mg/dL Hemoglobin A1c (<=6.0) % HDL Cholesterol (40.00-60.00) mg/dL
[2023-11-24] MEDS: HEPARIN SODIUM 1,000 UN/ML (10ML VL) IV PRN (06:39)
--- NOTE | 2023-11-24 08:43 | XR ---
EXAMINATION TYPE: XR chest 1V DATE OF EXAM: 11/24/2023 8:29 AM CLINICAL INDICATION:Male, 73 years old with history of concern for aspiration; COMPARISON: Chest radiographs from 11/21/2023 TECHNIQUE: XR chest 1V Frontal view of the chest. FINDINGS: Lungs/Pleura: There is no evidence of pleural effusion, focal consolidation, or pneumothorax. Pulmonary vascularity: Unremarkable. Heart/mediastinum: Cardiomediastinal silhouette is enlarged and stable. Musculoskeletal: No acute osseous pathology. Other findings: None IMPRESSION: 1. Low lung volumes. 2. Cardiomegaly.
--- NOTE | 2023-11-24 09:59 | P.CRDCN ---
History of Present Illness Consult date: 11/24/23 Chief complaint: Change in mental status History of present illness: The patient is a pleasant 73-year-old gentleman with a past medical history significant for overweight and diabetes and hypertension and dyslipidemia and coronary artery disease based on heart catheterization in 2020 showing mild to moderate nonobstructive coronary artery disease was admitted to the hospital with a stroke. The patient somewhat is a poor historian. He was in his usual state of health till yesterday when he fell and that witnessed by his . Ambulance was called and the patient was brought to the hospital but he underwent a CT scan which showed an acute stroke. Confirmed by the MRI. Carotid duplex study showed mild disease bilaterally. The EKG initially showed atrial fibrillation with RVR but subsequently the repeated EKG showed sinus mechanism. Currently the patient is on amiodarone IV and he is on heparin IV. No indication of any chest pain or chest discomfort or any dizziness or lightheadedness or any feeling of heart racing or fluttering. No history of atrial fibrillation before and he was not on any oral anticoagulation. The exa mination is remarkable for regular rhythm with a soft systolic murmur and clear breathing sounds bilaterally and no carotid bruit and no edema was noted. The echo showed normal LV systolic function Assessment Acute stroke Atrial fibrillation which is likely the etiology for the stroke Currently the patient is in normal sinus mechanism Multiple comorbid conditions including diabetes and hypertension and dyslipidemia and overweight Plan Continue the current medical regimen DC amiodarone IV and start the patient on amiodarone orally DC heparin IV and start the patient on oral anticoagulation Follow-up with the patient Past Medical History Past Medical History: CVA/TIA, Diabetes Mellitus, GERD/Reflux, Hyperlipidemia, Hypertension Additional Past Medical History / Comment(s): stroke 11/2012 (right facial droop & speech resolved.), rheumatic fever as a child, currently receiving physical therapy for thigh pain due to back issues. History of Any Multi-Drug Resistant Organisms: None Reported Past Surgical History: Orthopedic Surgery Additional Past Surgical History / Comment(s): RT achilles tendon repair, RT knee surg., colonoscopy, prostrate Biopsy Past Anesthesia/Blood Transfusion Reactions: No Reported Reaction Past Psychological History: No Psychological Hx Reported Smoking Status: Never smoker Past Alcohol Use History: Occasional Past Drug Use History: None Reported - Past Family History Mother Family Medical History: Cancer Medications and Allergies Home Medications Medication Instructions Recorded Confirmed Type Atorvastatin [Lipitor] 40 mg PO HS 11/22/23 11/22/23 History Dulaglutide [Trulicity] 3 mg SQ MARCELO 11/22/23 11/22/23 History Gabapentin [Neurontin] 300 - 900 mg PO DIRECTED 11/22/23 11/22/23 History Insulin Aspart [NovoLOG Flexpen] 25 - 62 units SQ HS 11/22/23 11/22/23 History Insulin Glargine,Hum.rec.anlog 60 units SQ HS 11/22/23 11/22/23 History [Lantus Solostar Pen] Losartan Potassium 100 mg PO DAILY 11/22/23 11/22/23 History Metoprolol Tartrate [Lopressor] 50 mg PO HS 11/22/23 11/22/23 History Metoprolol Tartrate [Lopressor] 75 mg PO DAILY 11/22/23 11/22/23 History Nortriptyline HCl [Pamelor] 25 mg PO HS 11/22/23 11/22/23 History Pantoprazole Sodium [Protonix] 20 mg PO BID 11/22/23 11/22/23 History Tamsulosin [Flomax] 0.4 mg PO DAILY 11/22/23 11/22/23 History hydrALAZINE HCL [Apresoline] 25 mg PO BID 11/22/23 11/22/23 History hydroCHLOROthiazide [Hydrodiuril] 12.5 mg PO DAILY 11/22/23 11/22/23 History metFORMIN HCL 500 mg PO DIRECTED 11/22/23 11/22/23 History Allergies Allergy/AdvReac Type Severity Reaction Status Date / Time Penicillins Allergy Unknown Verified 11/22/23 11:31 Childhood Physical Exam Vitals: Vital Signs Temp Pulse Resp BP BP Pulse Ox 11/24/23 08:11 98.2 F 92 18 149/83 95 11/24/23 04:00 120 H 16 164/75 97 11/23/23 23:22 98 F 145/94 11/23/23 19:55 98.1 F 148 H 16 104/64 96 11/23/23 17:48 97.9 F 99 16 209/110 96 11/23/23 15:00 154/92 11/23/23 14:00 175/106 11/23/23 13:00 191/124 11/23/23 12:00 86 16 166/113 97 06/07/24 11:57 97 11/23/23 11:00 166/111 Intake and Output 11/23/23 11/24/23 11/24/23 22:59 06:59 14:59 Intake Total 88.667 Output Total 500 200 Balance -500 -111.333 Intake: Intake, IV Titration 88.667 Amount Heparin Sod,Pork in 0.45% 88.667 NaCl 25,000 unit In 0.45 % NaCl 1 250ml.bag @ 10. 021 UNITS/KG/HR 10 mls/hr IV .Q24H [facility] Rx#: [id number] Output: Urine 200 Emesis 500 Other: Voiding Method Incontinent Incontinent External Catheter External Catheter Weight 99.79 kg Results 11/24/23 03:56 11/23/23 08:20 Coagulation 11/23/23 11/24/23 Range/Units 20:57 03:56 PT 10.5 11.0 (10.0-12.5) sec APTT 28.5 35.0 H (22.0-30.0) sec Lipids 11/23/23 Range/Units 08:20 Triglycerides 103.00 (0.00-149.00) mg/dL Cholesterol 175.00 (0.00-200.00) mg/dL HDL Cholesterol 39.80 L (40.00-60.00) mg/dL Cholesterol/HDL Ratio 4.40 Ratio CBC 11/23/23 11/24/23 Range/Units 20:57 03:56 WBC 15.3 H 11.9 H (3.8-10.6) k/uL RBC 5.45 5.26 (4.30-5.90) m/uL Hgb 14.6 14.1 (13.0-17.5) gm/dL Hct 46.3 44.8 (39.0-53.0) % Plt Count 165 152 (150-450) k/uL Current Medications Generic Name Dose Route Start Last Admin Trade Name Freq PRN Reason Stop Dose Admin Aspirin 325 mg 11/22/23 17:45 11/24/23 08:20 Aspirin 325 Mg Tab PO 325 mg DAILY DINA Administration Atorvastatin Calcium 40 mg 11/22/23 21:00 11/23/23 21:57 Atorvastatin 40 Mg Tab PO 40 mg HS DINA Administration Gabapentin 200 mg 11/22/23 12:54 Gabapentin 100 Mg Cap PO TID PRN Pain Heparin Sodium (Porcine) 0 unit 11/23/23 20:45 11/24/23 06:39 Heparin Sodium 1,000 Un/Ml (10ml Vl) IV 2,475 unit PER PROTOCOL PRN Administration Low PTT Protocol Sodium Chloride 1,000 mls @ 50 mls/hr 11/21/23 22:30 11/24/23 08:20 Saline 0.9% IV 50 mls/hr .Q20H DINA Administration Amiodarone HCl 450 mg/ 250 mls @ 16.667 mls/hr 11/23/23 20:15 11/24/23 03:26 Dextrose/Water IV 11/24/23 14:14 0.5 mg/min .Q15H DINA 16.667 mls/hr Administration Protocol 0.5 MG/MIN Heparin Sodium/Sodium Chloride 250 mls @ 10 mls/hr 11/23/23 20:45 11/24/23 06:35 25,000 unit/ Sodium Chloride IV 12.03 units/kg/hr .Q24H DINA 12 mls/hr Titration Protocol 10.021 UNITS/KG/HR Insulin Aspart 0 unit 11/22/23 17:30 11/23/23 18:16 Insulin Aspart (Novolog) 100 Unit/Ml Vial SQ 4 unit AC-TID DINA Administration Protocol Insulin Detemir 60 unit 11/22/23 21:00 11/23/23 23:45 Insulin Detemir (Levemir) 100 Unit/Ml Syr SQ Not Given HS DINA Losartan Potassium 100 mg 11/23/23 09:00 11/24/23 08:20 Losartan 50 Mg Tab PO 100 mg DAILY DINA Administration Metoprolol Tartrate 50 mg 11/22/23 21:00 11/23/23 21:57 Metoprolol Tartrate 50 Mg Tab PO 50 mg HS DINA Administration Metoprolol Tartrate 75 mg 11/23/23 09:00 11/24/23 08:20 Metoprolol Tartrate 25 Mg Tab PO 75 mg DAILY DINA Administration Naloxone HCl 0.2 mg 11/21/23 22:17 Naloxone 0.4 Mg/Ml 1 Ml Vial IV Q2M PRN Opioid Reversal Non-Formulary Medication 3 mg 11/25/23 09:00 Dulaglutide [Trulicity] SQ MARCELO DINA Nortriptyline HCl 25 mg 11/22/23 21:00 11/23/23 21:57 Nortriptyline 25 Mg Cap PO 25 mg HS DINA Administration Pantoprazole Sodium 40 mg 11/22/23 21:00 11/24/23 08:20 Pantoprazole 40 Mg Tablet PO 40 mg BID DINA Administration Tamsulosin HCl 0.4 mg 11/23/23 09:00 11/24/23 08:20 Tamsulosin 0.4 Mg Cap.Er.24h PO 0.4 mg DAILY DINA Administration Intake and Output 11/23/23 11/24/23 11/24/23 22:59 06:59 14:59 Intake Total 88.667 Output Total 500 200 Balance -500 -111.333 Intake: Intake, IV Titration 88.667 Amount Heparin Sod,Pork in 0.45% 88.667 NaCl 25,000 unit In 0.45 % NaCl 1 250ml.bag @ 10. 021 UNITS/KG/HR 10 mls/hr IV .Q24H [facility] Rx#: [id number] Output: Urine 200 Emesis 500 Other: Voiding Method Incontinent Incontinent External Catheter External Catheter Weight 99.79 kg 11/24/23 03:56 11/23/23 08:20
[2023-11-24] MEDS: APIXABAN 5 MG TAB PO SCH (10:40)
[2023-11-24] MEDS: AMIODARONE 200 MG TAB PO SCH (10:40)
[2023-11-24] MEDS ORDERED: ZINC OXIDE PASTE (Z-GUARD) 1 APPLIC TOPICAL PRN (10:46)
[2023-11-24 11:38] LABS: Glucose,Whole Blood 279 mg/dL (70-110)
[2023-11-24 16:45] LABS: Glucose,Whole Blood 159 mg/dL (70-110)
--- NOTE | 2023-11-24 17:42 | P.PN ---
Subjective Progress Note Date: 11/24/23 Patient was initially seen by Dr. Jose D Kurtz. Please refer to his note for details. Patient is a 73-year-old male with recent fall, confusion, right leg numbness. He has left thalamic stroke. Some of the workup during this hospital visit consisted of: Patient is afebrile. He is tachycardic on presentation of 106 and got as high as 120s. Pulse ox in the low 90s on 2 L of nasal cannula. Blood cells 13.8 thousand Serum glucose on presentation is 209 Ammonia is 30 Vitamin B12 is 424 and serum folate is 18.90 TSH is 0.584 Lipid panel: TG 103, Cholestrol 175, LDL 114 and HDL 39. Urine drug screen is positive for tricyclic antidepressant otherwise rest is not detected CT of the head is reported as no acute intracranial process. Old insult resul ting in ex vacuo dilation of the anterior horn of the right lateral ventricle. I personally reviewed the CT and I agree with the report. Repeat CT head: Hypodensity in the anterior left thalamus increase compared to 11/21/2023 Correlate for possible subacute infarct. Carotid duplex: No hemodynaically significant stenosis in either internal carotid artery. Routine EEG: Is abnormal. The background slowing is suggestive of mild encephalopathy. No seizure or discharges. Objective - Vital Signs Vital signs: Vital Signs Temp 97.6 F 11/24/23 16:00 Pulse 77 11/24/23 16:00 Resp 18 11/24/23 16:00 BP 173/81 11/24/23 16:00 Pulse Ox 95 11/24/23 16:00 FiO2 Intake & Output 11/23/23 11/24/23 11/24/23 18:59 06:59 18:59 Intake Total 400 88.667 118 Output Total 500 200 3 Balance -100 -111.333 115 Weight 99.79 kg Intake: Intake, IV Titration 400 88.667 Amount Heparin Sod,Pork in 0.45% 88.667 NaCl 25,000 unit In 0.45 % NaCl 1 250ml.bag @ 10. 021 UNITS/KG/HR 10 mls/hr IV .Q24H [facility] Rx#: [id number] Sodium Chloride 0.9% 1, 400 000 ml @ 50 mls/hr IV . Q20H [facility] Rx#:[id number] Oral 118 Output: Urine 200 Stool 3 Emesis 500 Other: Voiding Method Incontinent Incontinent Incontinent External Catheter External Catheter External Catheter # Voids 1 4 - Exam On examination patient is elderly male, laying in the bed, in no acute distress. He is slightly coughing. Patient speech is mildly dysarthric. He is quite confused, states it is July, then said was November and then year is 1992, then 1982. On asking the CT, he says March. Patient knows his date of 1950, status is 53 years old. Patient states Lazaro pushes the current president. On cranial examination pupils are equal, round and reacting, visual castillo are full, face is symmetric. Tongue protrudes to midline. Hearing appears normal. On muscle strength testing, there is mild left pronation, no drift. The strength is normal. Sensory to touch is equal. No ataxia. - Labs CBC & Chem 7: 11/24/23 03:56 11/23/23 08:20 Labs: Abnormal Lab Results - Last 24 Hours (Table) 11/23/23 11/23/23 11/23/23 Range/Units 18:00 20:47 20:57 WBC 15.3 H (3.8-10.6) k/uL Neutrophils # 13.1 H (1.3-7.7) k/uL Lymphocytes # 0.9 L (1.0-4.8) k/uL APTT (22.0-30.0) sec POC Glucose (mg/dL) 190 H 166 H (70-110) mg/dL 11/24/23 11/24/23 11/24/23 Range/Units 03:56 03:56 06:05 WBC 11.9 H (3.8-10.6) k/uL Neutrophils # 9.3 H (1.3-7.7) k/uL Lymphocytes # (1.0-4.8) k/uL APTT 35.0 H (22.0-30.0) sec POC Glucose (mg/dL) 170 H (70-110) mg/dL 11/24/23 11/24/23 Range/Units 11:37 16:44 WBC (3.8-10.6) k/uL Neutrophils # (1.3-7.7) k/uL Lymphocytes # (1.0-4.8) k/uL APTT (22.0-30.0) sec POC Glucose (mg/dL) 279 H 159 H (70-110) mg/dL Assessment and Plan Assessment: This is a 73-year-old gentleman who presents because of unsteady gait and a fall with confusion in the last 1-1/2 days prior to presenting the hospital per the . Unsteady gait, confusion with recent fall and recent right lower extremity numbness is due acute to subacute left thalamus stroke. No IV thrombolytic since outside window and risk outweigh benefit. New onset atrial fibrillation, paroxysmal Mild Hypoxia History of old stroke about 10 years ago Diabetes mellitus History of hypertension Underlying history of hyperlipidemia Plan: MRI of the brain revealed acute/subacute CVA involving the left thalamus. No abnormal postcontrast enhancement. Nonspecific white matter changes, likely related to small vessel ischemic disease. I personally reviewed MRI agree with the findings' 2D echo revealed normal left ventricular function with EF 60 to 65%. No obvious regional wall motion abnormalities. Mildly increased left atrial volume. Mildly increased left atrial area. Mildly dilated aorta. Consider TERRA for further evaluation. Cardiology on board. We will defer to cardiology if TERRA is indicated. Appreciate cardiology input. Patient started on Eliquis 5 mg twice daily. Consider decreasing dose of aspirin to 81 mg daily. Patient's LDL 114. Patient was taking Lipitor 40 mg nightly. We will increase dose of Lipitor to 80 mg, to target LDL <70. Hemoglobin A1c 7.3. Recommend optimize control of diabetes to target A1c less than 7.0. Continue neurochecks Cardiac monitoring PT OT and VICE PRESIDENT QUALITY are consulted Will defer the rest of the medical management to primary team For DVT prophylaxis the patient is on Lovenox
[2023-11-24 20:24] LABS: Glucose,Whole Blood 202 mg/dL (70-110)
--- NOTE | 2023-11-24 20:59 | P.PN ---
Subjective Progress Note Date: 11/24/23 73-year-old male was brought in with complaints of unresponsiveness and speech abnormality. Patient is alert oriented times almost 3 when I evaluate the patient although patient appears to be confused because of his very sensory aphasia. Patient also complaining of weakness in the left leg although I was unable to examine the motor strength on the left side as he was getting ultrasound-guided peripheral line on that side. Patient has leukocytosis denies any symptoms of UTI does not have any other infection does not have any pneumonia. Patient appears to have sensory aphasia when I evaluated the patient. Patient had stroke in the past. Because of the previous stroke patient has some residual weakness on the left side CT of the head showed extraocular dilatation of anterior horn of right lateral ventricle because of his previous stroke. No acute abnormality was evident neurology evaluated the patient and they are obtaining an MRI patient is already on statins. 11/23/2023 Patient is seen in follow-up today with daughter at the bedside. Patient is somnolent and lethargic although arousable at times. Patient is extremely fatigued and per nursing staff patient fell out of the stretcher here again and not entirely sure if he struck his head. MRI was pending and repeat CT brain was ordered for further evaluation. CT is noted to show an acute/subacute CVA involving the left thalamus. 2D echo ordered showing EF of 60 to 65% with mild late increased left atrial volume and per report study was suboptimal secondary to poor echo windows to consider possible TERRA for further evaluation. Patient is continued on statin therapy and also large dose aspirin with neurology following closely undergoing further workup. White count is trending down with no fevers and does not appear infectious, likely reactive. Will await speech evaluation. This patient is considered high risk for aspiration given his lethargy and mildly altered mental status. Await speech recommendations to resume diet and will continue with strict aspiration precautions with head of the bed elevated 30 to 45 degrees at all times. and daughter were at the bedside with questions and concerns that were answered 11/24/2023 Patient is evaluated in follow up today. Patient has family at the bedside. Remains aphasic but more awake and alert. Patient found to have new onset atrial fibrillation with rapid ventricular rate yesterday evening for which cardiology was consulted. Patient was started on oral anticoagulation today eliquis 5 mg BID due to the new afib and findings of acute stroke. patient is high fall risk and he has fallen out of the stretcher while in the hospital he is a high fall risk at this time and need to continue with frequent rounding and bed alarm. Patient will need rehab on discharge and family is concerned if his mentation not improving and aphasic. White blood cell count 11.9. Blood glucose 200s. Remains on dysphagia chopped diet and aspiration precautions. Review of systems: Constitutional: reports of fatigue, no fever, or chills Cardiovascular: No reports of chest pain or palpitations Respiratory: No reports of shortness of breath or cough GI: No reports of nausea, vomiting, or diarrhea, reports to feeling hungry : No reports of dysuria or retention Neurovascular: reports of generalized weakness and some tingling and decreased sensation in the right thigh All medications have been reviewed PHYSICAL EXAMINATION: GENERAL: The patient is alert and oriented x2, lethargic at times. Well developed, well nourished. Obese, elderly appearing HEENT: Pupils are round and equally reacting to light. EOMI. No scleral icterus. No conjunctival pallor. Normocephalic, atraumatic. No pharyngeal erythema. No thyromegaly. CARDIOVASCULAR: S1 and S2 muffled PULMONARY: Diminished breath sounds bilaterally otherwise chest is clear to auscultation, no wheezing or crackles. ABDOMEN: Soft, obese, nontender, nondistended, normoactive bowel sounds. No palpable organomegaly. MUSCULOSKELETAL: No joint swelling or deformity. EXTREMITIES: No cyanosis, clubbing, or pedal edema. NEUROLOGICAL lethargic initially although reevaluation in the afternoon patient was more awake and sitting up and alert SKIN: No rashes. Pale Assessment and plan -Acute cerebrovascular accident of the left thalamus as noted on repeat CT, MRI confirms this finding. Patient is on statin and high-dose aspirin awaiting antiplatelet as patient is high risk for falls and recently fell again yesterday out of the stretcher. Neurology following -Atrial fibrillation confirmed by EKG likely paroxysmal and the cause for the acute stroke. -Wernicke's aphasia secondary to above patient will need ongoing speech therapy 3 to 5 days a week on discharge. -Generalized weakness and gait dysfunction with falls secondary to acute CVA -Type 2 diabetes mellitus, insulin-dependent continue with Accu-Cheks before meals and at bedtime medications and will adjust medications and continue with sliding scale -Hyperlipidemia, maintained on statin therapy -Gastroesophageal reflux disease -Hypertension -Obesity with a BMI of 30.7 -History of previous CVA in the past -DVT prophylaxis: Lovenox -GI prophylaxis -Full code Plan: Patient being followed by neurology undergoing further workup. Patient did have a 2D echo which revealed a normal EF although suboptimal study suggested to consider TERRA. Will discuss with neurology as well as cardiology. Continue aspirin for now. Neurology awaiting antiplatelet therapy after weighing the risks versus benefits as patient has been frequently falling and high risk for bleeding however patient has new onset atrial fibrillation found on cardiac telemetry and confirmed with EKG. Cardiology has started the patient on eliquis. He remains high fall risk. Transition off IV amiodarone to oral amiodarone. Now in normal sinus rhythm. Continue monitoring Accu-Cheks before meals and at bedtime and will continue with sliding scale and add long-acting as needed. Adjust insulins accordingly Speech to evaluate as patient is somewhat lethargic and mildly altered at times, high risk for aspirations and recommend head of the bed 30 to 45 degrees at all times, supervision with meals and will await speech recommendations. This was discussed with family at the bedside as well. On dysphagia 3 diet. White count is trending down and will follow-up with repeat labs. Patient is afebrile and does not appear infectious likely reactive PT/OT therapy to evaluate and also recommendign evaluation for Inpatient rehab. Patient was independent and driving prior to this and has had history of CVA in the past with no residuals. The impression and plan of care has been dictated by Zena Foreman Nurse Practitioner as directed. Dr. Hal MD I have performed a history and examination and MDM of this patient, discussed the same with the dictator, and agree with the dictator's assessment and plan as written ,documented as a scribe. Based on total visit time, I have performed more than 50% of the visit. Objective - Vital Signs Vital signs: Vital Signs Temp 97.6 F 11/24/23 16:00 Pulse 77 11/24/23 16:00 Resp 18 11/24/23 20:00 BP 173/81 11/24/23 16:00 Pulse Ox 95 11/24/23 16:00 FiO2 Intake & Output 11/24/23 11/24/23 11/25/23 06:59 18:59 06:59 Intake Total 88.667 1566 Output Total 200 403 Balance -814.117 8193 Intake: Intake, IV Titration 88.667 48 Amount Amiodarone 450 mg In 48 Dextrose 5% in Water 250 ml @ 0.5 MG/MIN 16.667 mls/hr IV .Q15H [facility] Rx#: [id number] Heparin Sod,Pork in 0.45% 88.667 NaCl 25,000 unit In 0.45 % NaCl 1 250ml.bag @ 10. 021 UNITS/KG/HR 10 mls/hr IV .Q24H [facility] Rx#: [id number] Oral 1518 Output: Urine 200 400 Stool 3 Other: Voiding Method Incontinent Incontinent Incontinent External Catheter External Catheter External Catheter # Voids 4 - Labs CBC & Chem 7: 11/24/23 03:56 11/23/23 08:20 Labs: Abnormal Lab Results - Last 24 Hours (Table) 11/23/23 11/23/23 11/24/23 Range/Units 20:47 20:57 03:56 WBC 15.3 H (3.8-10.6) k/uL Neutrophils # 13.1 H (1.3-7.7) k/uL Lymphocytes # 0.9 L (1.0-4.8) k/uL APTT 35.0 H (22.0-30.0) sec POC Glucose (mg/dL) 166 H (70-110) mg/dL 11/24/23 11/24/23 11/24/23 Range/Units 03:56 06:05 11:37 WBC 11.9 H (3.8-10.6) k/uL Neutrophils # 9.3 H (1.3-7.7) k/uL Lymphocytes # (1.0-4.8) k/uL APTT (22.0-30.0) sec POC Glucose (mg/dL) 170 H 279 H (70-110) mg/dL 11/24/23 11/24/23 Range/Units 16:44 20:23 WBC (3.8-10.6) k/uL Neutrophils # (1.3-7.7) k/uL Lymphocytes # (1.0-4.8) k/uL APTT (22.0-30.0) sec POC Glucose (mg/dL) 159 H 202 H (70-110) mg/dL Assessment and Plan Time with Patient: Less than 30
[2023-11-24] MEDS: ATORVASTATIN 40 MG TAB PO SCH (22:12)
[2023-11-25 05:55] LABS: Glucose,Whole Blood 96 mg/dL (70-110)
--- NOTE | 2023-11-25 10:17 | P.PN ---
Subjective Progress Note Date: 11/25/23 The patient is a pleasant 73-year-old gentleman with a past medical history significant for overweight and diabetes and hypertension and dyslipidemia and coronary artery disease based on heart catheterization in 2020 showing mild to moderate nonobstructive coronary artery disease was admitted to the hospital with a stroke. The patient somewhat is a poor historian. He was in his usual state of health till yesterday when he fell and that witnessed by his . Ambulance was called and the patient was brought to the hospital but he underwent a CT scan which showed an acute stroke. Confirmed by the MRI. Carotid duplex study showed mild disease bilaterally. The EKG initially showed atrial fibrillation with RVR but subsequently the repeated EKG showed sinus mechanism. Currently the patient is on amiodarone IV and he is on heparin IV. No indication of any chest pain or chest discomfort or any dizziness or lightheadedness or any feeling of heart racing or fluttering. No history of atrial fibrillation before and he was not on any oral anticoagulation. The examination is remarkable for regular rhythm with a soft systolic murmur and clear breathing sounds bilaterally and no carotid bruit and no edema was noted. The echo showed normal LV systolic function November 25, 2023 The patient was seen and evaluated this morning. He has been maintaining normal sinus mechanism on the current medical regimen. No pain in the chest. No shortness of breath. He is on oral anticoagulation using Eliquis. The echo showed normal biventricular dimension and systolic function. The examination is remarkable for regular rhythm with a soft systolic murmur and clear breathing sounds bilaterally and no edema was noted in the lower extremities Assessment Acute stroke Atrial fibrillation which is likely the etiology for the stroke Currently the patient is in normal sinus mechanism Multiple comorbid conditions including diabetes and hypertension and dyslipidemia and overweight Plan Continue the current medical regimen Continue the current dose of oral anticoagulation with Eliquis and beta-more Monitor the blood pressure and adjust medications accordingly if the pressure remains elevated in the next 24 hours Objective - Vital Signs Vital signs: Vital Signs Temp 97.9 F 11/25/23 04:00 Pulse 70 11/25/23 04:00 Resp 18 11/25/23 04:00 BP 170/84 11/25/23 04:00 Pulse Ox 92 L 11/25/23 04:00 FiO2 Intake & Output 11/24/23 11/25/23 11/25/23 18:59 06:59 18:59 Intake Total 1566 Output Total 403 Balance 1163 Intake: Intake, IV Titration 48 Amount Amiodarone 450 mg In 48 Dextrose 5% in Water 250 ml @ 0.5 MG/MIN 16.667 mls/hr IV .Q15H [facility] Rx#: [id number] Oral 1518 Output: Urine 400 Stool 3 Other: Voiding Method Incontinent Incontinent External Catheter External Catheter # Voids 4 1 - Labs CBC & Chem 7: 11/24/23 03:56 11/23/23 08:20 Labs: Abnormal Lab Results - Last 24 Hours (Table) 11/24/23 11/24/23 11/24/23 Range/Units 11:37 16:44 20:23 POC Glucose (mg/dL) 279 H 159 H 202 H (70-110) mg/dL
[2023-11-25] MEDS: LACTULOSE 20 GM/30 ML CUP PO ONE (11:26)
[2023-11-25 11:31] LABS: Glucose,Whole Blood 132 mg/dL (70-110)
[2023-11-25 16:46] LABS: Glucose,Whole Blood 169 mg/dL (70-110)
[2023-11-25 20:04] LABS: Glucose,Whole Blood 140 mg/dL (70-110)
[2023-11-25] MEDS: NON FORMULARY DRUG (Dulaglutide [Trulicity] 3 MG/0.5 ML Each) SQ SCH (21:16)
[2023-11-25] MEDS: hydrALAZINE HCL 25 MG TAB PO SCH (22:02)
[2023-11-26 06:08] LABS: Glucose,Whole Blood 156 mg/dL (70-110)
[2023-11-26] MEDS ORDERED: FUROSEMIDE 10 MG/ML 4 ML VIAL IV STA (10:05)
--- NOTE | 2023-11-26 10:27 | CDI ---
Documentation Clarification Form Date: 11/26/2023 09:35:38 AM From: Deirdre Cevallos RN CCDS Phone: [phone] Admit Date: 11/21/2023 10:18:00 PM Patient Name: Syd Baird Visit Number: [id number] Discharge Date: ATTENTION: The Clinical Documentation Specialists (CDI) and [facility] Coding Staff appreciate your assistance in clarifying documentation. Please respond to the clarification below the line at the bottom and electronically sign. The CDI & [facility] Coding staff will review the response and follow-up if needed. Please note: Queries are made part of the Legal Health Record. If you have any questions, please contact the author of this message via ITS. Dr. Armond Mirza MD Encephalopathy is documented [insert date, location]. Additional clarification regarding the type of encephalopathy is requested. History/Risk Factors: 73-year-old male presents to the ED via EMS for unresponsiveness. Medical History: CVA, DM, GERD, HLD and HTN. 11/21, HP. Clinical Indicators: Labs, 11/20: Wbc 13.8; Neutrophils 12.1; Chl 111; BUN 21; Cr 1.10; Calcium 8.3; EEG 11/21: This is an abnormal routine EEG. The background slowing is suggestive of mild encephalopathy. There is no focal slowing, epileptiform discharge, or seizure on the EEG. MRI Brain, 11/22: Acute/Subacute CVA involving the left thalamus. Nonspecific white matter changes, likely related to small vessel ischemic disease. Treatment: MRI of brain, EEG, CT scan of brain, Labs, monitoring blood glucose, Neuro checks. Please clarify the type of encephalopathy, if known: [ ] Metabolic Encephalopathy [ x ] Other, please specify, perhaps related to CVA or related to cognitive impairment, but exact cause unknown [ x ] Unable to determine (Template Last Revised: August 2020) MTDD
[2023-11-26] MEDS: amLODIPine 5 MG TAB PO SCH (10:47)
[2023-11-26 11:32] LABS: Glucose,Whole Blood 317 mg/dL (70-110)
[2023-11-26 12:00] LABS: African American GFR (CKD) >90 (>60 ml/min/1.73 sqM); Anion Gap 7 mmol/L; Blood Urea Nitrogen 21 mg/dL (9-20); Calcium 8.4 mg/dL (8.4-10.2); Carbon Dioxide 23 mmol/L (22-30); Chloride 105 mmol/L (98-107); Glucose 291 mg/dL (74-99); Non-African American GFR(CKD) 80 (>60 ml/min/1.73 sqM); Potassium 3.8 mmol/L (3.5-5.1); Sodium 135 mmol/L (137-145)
--- NOTE | 2023-11-26 12:44 | P.PN ---
Subjective HISTORY OF PRESENT ILLNESS: The patient is a pleasant 73-year-old gentleman with a past medical history significant for overweight and diabetes and hypertension and dyslipidemia and coronary artery disease based on heart catheterization in 2020 showing mild to moderate nonobstructive coronary artery disease was admitted to the hospital with a stroke. The patient somewhat is a poor historian. He was in his usual state of health till yesterday when he fell and that witnessed by his . Ambulance was called and the patient was brought to the hospital but he underwent a CT scan which showed an acute stroke. Confirmed by the MRI. Caroti d duplex study showed mild disease bilaterally. The EKG initially showed atrial fibrillation with RVR but subsequently the repeated EKG showed sinus mechanism. Currently the patient is on amiodarone IV and he is on heparin IV. No indication of any chest pain or chest discomfort or any dizziness or lightheadedness or any feeling of heart racing or fluttering. No history of atrial fibrillation before and he was not on any oral anticoagulation. The examination is remarkable for regular rhythm with a soft systolic murmur and clear breathing sounds bilaterally and no carotid bruit and no edema was noted. The echo showed normal LV systolic function November 25, 2023 The patient was seen and evaluated this morning. He has been maintaining normal sinus mechanism on the current medical regimen. No pain in the chest. No shortness of breath. He is on oral anticoagulation using Eliquis. The echo showed normal biventricular dimension and systolic function. The examination is remarkable for regular rhythm with a soft systolic murmur and clear breathing sounds bilaterally and no edema was noted in the lower extremities 11/26/2023 Patient examined this morning at the bedside. Patient's family is present. Patient currently denies any chest pain or pressure. He denies any shortness of breath. Patient is currently up ambulating with physical therapy. Telemetry reveals sinus mechanism with a heart rate in the 70s. Patient's blood pressure is elevated this morning with a reading of 180/97. PHYSICAL EXAM: VITAL SIGNS: Reviewed. GENERAL: Well-developed in no acute distress. NECK: Supple. No JVD or thyromegaly LUNGS: Respirations even and unlabored. Lungs essentially clear to auscultation bilaterally. HEART: Regular rate and rhythm. S1 and S2 heard. EXTREMITIES: Normal range of motion. No clubbing or cyanosis. Peripheral pulses intact. No lower extremity edema ASSESSMENT: Acute/subacute CVA involving left thalamus New onset paroxysmal atrial fibrillation, currently maintaining sinus mechanism Hypertension Hyperlipidemia Diabetes History of CVA, approximately 10 years ago PLAN: Continue anticoagulation with Eliquis 5 mg twice a day Decrease aspirin to 81 mg daily as patient is also prescribed Eliquis Add amlodipine 5 mg daily for optimal blood pressure control. Discontinue hydralazine Decrease amiodarone to 200 mg daily Continue telemetry monitoring Continue PT/OT Further recommendations pending patient course Nurse practitioner note has been reviewed by physician. Signing provider agrees with the documented findings, assessment, and plan of care documented by WASHING TUB OPERATOR as a scribe. Objective - Vital Signs Vital signs: Vital Signs Temp 97.5 F L 11/26/23 12:00 Pulse 64 11/26/23 12:00 Resp 16 11/26/23 12:00 BP 178/92 11/26/23 12:00 Pulse Ox 98 11/26/23 12:00 FiO2 Intake & Output 11/25/23 11/26/23 11/26/23 18:59 06:59 18:59 Intake Total 360 2218 Output Total 551 1300 600 Balance -191 -1300 1618 Intake: Oral 360 2218 Output: Gastric Drainage 0 Urine 550 1300 600 Stool 1 Urine/Stool Mix 0 Emesis 0 Oral Regurgitation 0 Other 0 Other: Voiding Method Incontinent Incontinent Incontinent External Catheter External Catheter External Catheter # Voids 0 # Bowel Movements 0 - Labs CBC & Chem 7: 11/24/23 03:56 11/26/23 10:38 Labs: Abnormal Lab Results - Last 24 Hours (Table) 11/25/23 11/25/23 11/26/23 Range/Units 16:45 20:02 06:06 Sodium (137-145) mmol/L BUN (9-20) mg/dL Glucose (74-99) mg/dL POC Glucose (mg/dL) 169 H 140 H 156 H (70-110) mg/dL 11/26/23 11/26/23 Range/Units 10:38 11:25 Sodium 135 L (137-145) mmol/L BUN 21 H (9-20) mg/dL Glucose 291 H (74-99) mg/dL POC Glucose (mg/dL) 317 H (70-110) mg/dL
[2023-11-26 12:54] VITALS: BMI 30.7
--- NOTE | 2023-11-26 14:20 | P.CONS ---
History of Present Illness - Reason for Consult Consult date: 11/26/23 Rehab needs - History of Present Illness PMR Consult Mr. Baird is a 73 yo, , right handed, lives with his in 1 story home with 4 BRADY. He used a cane in the community, walker at times in the home; was independent with ADLS. In addition to his , he has 2 supportive daughters. 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 The patient somewhat is a poor historian. He was in his usual state of health till yesterday when he fell and that witnessed by his . Ambulance was called and the patient was brought to the hospital but he underwent a CT scan which showed an acute stroke. Confirmed by the MRI. Carotid duplex study showed mild disease bilaterally. The EKG initially showed atrial fibrillation with RVR but subsequently the repeated EKG showed sinus mechanism. Currently the patient is on amiodarone IV and he is on heparin IV. No indication of any chest pain or chest discomfort or any dizziness or lightheadedness or any feeling of heart racing or fluttering. No history of atrial fibrillation before and he was not on any oral anticoagu lation. The examination is remarkable for regular rhythm with a soft systolic murmur and clear breathing sounds bilaterally and no carotid bruit and no edema was noted. The echo showed normal LV systolic function MRI of the brain revealed acute/subacute CVA involving the left thalamus. No abnormal postcontrast enhancement. Nonspecific white matter changes, likely related to small vessel ischemic disease. 2D echo revealed normal left ventricular function with EF 60 to 65%. No obvious regional wall motion abnormalities. Mildly increased left atrial volume. Mildly increased left atrial area. Mildly dilated aorta. November 25, 2023 The patient was seen and evaluated this morning. He has been maintaining normal sinus mechanism on the current medical regimen. No pain in the chest. No shortness of breath. He is on oral anticoagulation using Eliquis. The echo showed normal biventricular dimension and systolic function. The examination is remarkable for regular rhythm with a soft systolic murmur and clear breathing sounds bilaterally and no edema was noted in the lower extremities 11/26/2023 Telemetry reveals sinus mechanism with a heart rate in the 70s. Patient's blood pressure is elevated this morning with a reading of 180/97. PMR Consulted for rehab needs. Today, doing better, though family notes he can be confused. He is tired, denies numbness/tingling though family notes he has had some in right leg. Denies SANDHU, CP, SOB, abdominal pain. Denies feeling palpitations. Has been constipated, last BM before admission. He notes old CVA with history of left raj. With therapies, Min A bed mobility, transfers and to ambulate 20' with RW; mod A bathing, min A UE ADL, Dep LE ADL/toileting. Review of Systems + per above, o/w all systems reviewed negative Past Medical History Past Medical History: CVA/TIA, Diabetes Mellitus, GERD/Reflux, Hyperlipidemia, Hypertension Additional Past Medical History / Comment(s): stroke 11/2012 (right facial droop & speech resolved.), rheumatic fever as a child, currently receiving physical therapy for thigh pain due to back issues. History of Any Multi-Drug Resistant Organisms: None Reported Past Surgical History: Orthopedic Surgery Additional Past Surgical History / Comment(s): RT achilles tendon repair, RT knee surg., colonoscopy, prostrate Biopsy Past Anesthesia/Blood Transfusion Reactions: No Reported Reaction Past Psychological History: No Psychological Hx Reported Smoking Status: Never smoker Past Alcohol Use History: Occasional Past Drug Use History: None Reported - Past Family History Mother Family Medical History: Cancer Medications and Allergies Home Medications Medication Instructions Recorded Confirmed Type Atorvastatin [Lipitor] 40 mg PO HS 11/22/23 11/22/23 History Dulaglutide [Trulicity] 3 mg SQ MARCELO 11/22/23 11/22/23 History Gabapentin [Neurontin] 300 - 900 mg PO DIRECTED 11/22/23 11/22/23 History Insulin Aspart [NovoLOG Flexpen] 25 - 62 units SQ HS 11/22/23 11/22/23 History Insulin Glargine,Hum.rec.anlog 60 units SQ HS 11/22/23 11/22/23 History [Lantus Solostar Pen] Losartan Potassium 100 mg PO DAILY 11/22/23 11/22/23 History Metoprolol Tartrate [Lopressor] 50 mg PO HS 11/22/23 11/22/23 History Metoprolol Tartrate [Lopressor] 75 mg PO DAILY 11/22/23 11/22/23 History Nortriptyline HCl [Pamelor] 25 mg PO HS 11/22/23 11/22/23 History Pantoprazole Sodium [Protonix] 20 mg PO BID 11/22/23 11/22/23 History Tamsulosin [Flomax] 0.4 mg PO DAILY 11/22/23 11/22/23 History hydrALAZINE HCL [Apresoline] 25 mg PO BID 11/22/23 11/22/23 History hydroCHLOROthiazide [Hydrodiuril] 12.5 mg PO DAILY 11/22/23 11/22/23 History metFORMIN HCL 500 mg PO DIRECTED 11/22/23 11/22/23 History Allergies Allergy/AdvReac Type Severity Reaction Status Date / Time Penicillins Allergy Unknown Verified 11/22/23 11:31 Childhood Physical Exam Vitals: Vital Signs Temp Pulse Resp BP Pulse Ox 11/26/23 12:00 97.5 F L 64 16 178/92 98 11/26/23 09:27 97 11/26/23 08:00 97.5 F L 88 16 180/97 97 11/26/23 04:00 98 F 88 16 173/81 96 11/26/23 00:00 80 16 142/88 95 11/25/23 20:00 97.8 F 84 16 158/71 96 11/25/23 17:10 69 16 177/79 96 Intake and Output 11/25/23 11/26/23 11/26/23 22:59 06:59 14:59 Intake Total 120 2218 Output Total 1300 550 600 Balance -1180 -550 1618 Intake: Oral 120 2218 Output: Urine 1300 550 600 Other: Voiding Method Incontinent Incontinent Incontinent External Catheter External Catheter External Catheter Weight 99.79 kg PHYSICAL EXAM: VITAL SIGNS: Reviewed. GENERAL: Well-developed in no acute distress. NECK: Supple. LUNGS: Respirations even and unlabored. HEART: Regular rate ABD: Soft, NT/ND EXTREMITIES: Normal range of motion. No clubbing or cyanosis. Peripheral pulses intact. No significant lower extremity edema NEURO: A&Ox 4. Speech mildly delayed. Repeats no ifs ands or buts; names 3/3 objects. Follows 3 step commands MMT: 5/5 right UE/LE, 4/5 left UE, 4+/5 left LE SILT EXCEPT decreased right thigh DTR 2+ right UE/LE; 3+ left UE/LE, + antonio, babinski Finger to nose, heel to sams intact on right, decreased on left Skin: warm and dry Results CBC & Chem 7: 11/24/23 03:56 11/26/23 10:38 Labs: Abnormal Lab Results - Last 24 Hours (Table) 11/25/23 11/25/23 11/26/23 Range/Units 16:45 20:02 06:06 Sodium (137-145) mmol/L BUN (9-20) mg/dL Glucose (74-99) mg/dL POC Glucose (mg/dL) 169 H 140 H 156 H (70-110) mg/dL 11/26/23 11/26/23 Range/Units 10:38 11:25 Sodium 135 L (137-145) mmol/L BUN 21 H (9-20) mg/dL Glucose 291 H (74-99) mg/dL POC Glucose (mg/dL) 317 H (70-110) mg/dL Assessment and Plan Assessment: # Acute/subacute CVA involving left thalamus - has been min A for mobility, Dep for LE ADL/toileting # New onset paroxysmal atrial fibrillation, currently maintaining sinus mechanism - on Eliquis, amiodarone # Hypertension - on Amlodipne - cardiology following # Hyperlipidemia # Diabetes # History of CVA with left raj, approximately 10 years ago Recommendations: - continue therapies Patient appears appropriate for IPR when medically stable, pending insurance approval.
--- NOTE | 2023-11-26 14:36 | P.PN ---
Subjective Progress Note Date: 11/25/23 73-year-old male was brought in with complaints of unresponsiveness and speech abnormality. Patient is alert oriented times almost 3 when I evaluate the patient although patient appears to be confused because of his very sensory aphasia. Patient also complaining of weakness in the left leg although I was unable to examine the motor strength on the left side as he was getting ultrasound-guided peripheral line on that side. Patient has leukocytosis denies any symptoms of UTI does not have any other infection does not have any pneumonia. Patient appears to have sensory aphasia when I evaluated the patient. Patient had stroke in the past. Because of the previous stroke patient has some residual weakness on the left side CT of the head showed extraocular dilatation of anterior horn of right lateral ventricle because of his previous stroke. No acute abnormality was evident neurology evaluated the patient and they are obtaining an MRI patient is already on statins. 11/23/2023 Patient is seen in follow-up today with daughter at the bedside. Patient is somnolent and lethargic although arousable at times. Patient is extremely fatigued and per nursing staff patient fell out of the stretcher here again and not entirely sure if he struck his head. MRI was pending and repeat CT brain was ordered for further evaluation. CT is noted to show an acute/subacute CVA involving the left thalamus. 2D echo ordered showing EF of 60 to 65% with mild late increased left atrial volume and per report study was suboptimal secondary to poor echo windows to consider possible TERRA for further evaluation. Patient is continued on statin therapy and also large dose aspirin with neurology following closely undergoing further workup. White count is trending down with no fevers and does not appear infectious, likely reactive. Will await speech evaluation. This patient is considered high risk for aspiration given his lethargy and mildly altered mental status. Await speech recommendations to resume diet and will continue with strict aspiration precautions with head of the bed elevated 30 to 45 degrees at all times. and daughter were at the bedside with questions and concerns that were answered 11/24/2023 Patient is evaluated in follow up today. Patient has family at the bedside. Remains aphasic but more awake and alert. Patient found to have new onset atrial fibrillation with rapid ventricular rate yesterday evening for which cardiology was consulted. Patient was started on oral anticoagulation today eliquis 5 mg BID due to the new afib and findings of acute stroke. patient is high fall risk and he has fallen out of the stretcher while in the hospital he is a high fall risk at this time and need to continue with frequent rounding and bed alarm. Patient will need rehab on discharge and family is concerned if his mentation not improving and aphasic. White blood cell count 11.9. Blood glucose 200s. Remains on dysphagia chopped diet and aspiration precautions. 11/25/2023 Patient is evaluated today on the medical floor family at the bedside. Discussion regarding next steps and patient is pending IPR evaluation. His heart rate is controlled he is on oral amiodarone and oral eliquis. Sodium is 135. BUN 21 creatinine 0.95. Review of systems: Constitutional: reports of fatigue, no fever, or chills Cardiovascular: No reports of chest pain or palpitations Respiratory: No reports of shortness of breath or cough GI: No reports of nausea, vomiting, or diarrhea, reports to feeling hungry : No reports of dysuria or retention Neurovascular: reports of generalized weakness and some tingling and decreased sensation in the right thigh All medications have been reviewed PHYSICAL EXAMINATION: GENERAL: The patient is alert and oriented x2, lethargic at times. Well developed, well nourished. Obese, elderly appearing HEENT: Pupils are round and equally reacting to light. EOMI. No scleral icterus. No conjunctival pallor. Normocephalic, atraumatic. No pharyngeal erythema. No thyromegaly. CARDIOVASCULAR: S1 and S2 muffled PULMONARY: Diminished breath sounds bilaterally otherwise chest is clear to auscultation, no wheezing or crackles. ABDOMEN: Soft, obese, nontender, nondistended, normoactive bowel sounds. No palpable organomegaly. MUSCULOSKELETAL: No joint swelling or deformity. EXTREMITIES: No cyanosis, clubbing, or pedal edema. NEUROLOGICAL lethargic initially although reevaluation in the afternoon patient was more awake and sitting up and alert SKIN: No rashes. Pale Assessment and plan -Acute cerebrovascular accident of the left thalamus as noted on repeat CT, MRI confirms this finding. Patient is on statin and high-dose aspirin awaiting an tiplatelet as patient is high risk for falls and recently fell again yesterday out of the stretcher. Neurology following -Atrial fibrillation confirmed by EKG likely paroxysmal and the cause for the acute stroke. -Wernicke's aphasia secondary to above patient will need ongoing speech therapy 3 to 5 days a week on discharge. -Generalized weakness and gait dysfunction with falls secondary to acute CVA -Type 2 diabetes mellitus, insulin-dependent continue with Accu-Cheks before meals and at bedtime medications and will adjust medications and continue with sliding scale -Hyperlipidemia, maintained on statin therapy -Gastroesophageal reflux disease -Hypertension -Obesity with a BMI of 30.7 -History of previous CVA in the past -DVT prophylaxis: Lovenox -GI prophylaxis -Full code Plan: Patient being followed by neurology undergoing further workup. Patient did have a 2D echo which revealed a normal EF although suboptimal study suggested to consider TERRA. Will discuss with neurology as well as cardiology. Continue aspirin for now. Neurology awaiting antiplatelet therapy after weighing the risks versus benefits as patient has been frequently falling and high risk for bleeding however patient has new onset atrial fibrillation found on cardiac telemetry and confirmed with EKG. Cardiology has started the patient on eliquis. He remains high fall risk. Transition off IV amiodarone to oral amiodarone. Now in normal sinus rhythm. Continue monitoring Accu-Cheks before meals and at bedtime and will continue with sliding scale and add long-acting as needed. Adjust insulins accordingly Speech to evaluate as patient is somewhat lethargic and mildly altered at times, high risk for aspirations and recommend head of the bed 30 to 45 degrees at all times, supervision with meals and will await speech recommendations. This was discussed with family at the bedside as well. On dysphagia 3 diet. White count is trending down and will follow-up with repeat labs. Patient is afebrile and does not appear infectious likely reactive PT/OT therapy to evaluate and also recommendign evaluation for Inpatient rehab. Patient was independent and driving prior to this and has had history of CVA in the past with no residuals. The impression and plan of care has been dictated by Zena Foremna Nurse Practitioner as directed. Dr. Hal MD I have performed a history and examination and MDM of this patient, discussed the same with the dictator, and agree with the dictator's assessment and plan as written ,documented as a scribe. Based on total visit time, I have performed more than 50% of the visit. Objective - Vital Signs Vital signs: Vital Signs Temp 97.5 F L 11/26/23 12:00 Pulse 64 11/26/23 12:00 Resp 16 11/26/23 12:00 BP 178/92 11/26/23 12:00 Pulse Ox 98 11/26/23 12:00 FiO2 Intake & Output 11/25/23 11/26/23 11/26/23 18:59 06:59 18:59 Intake Total 360 2218 Output Total 551 1300 600 Balance -191 -1300 1618 Weight 99.79 kg Intake: Oral 360 2218 Output: Gastric Drainage 0 Urine 550 1300 600 Stool 1 Urine/Stool Mix 0 Emesis 0 Oral Regurgitation 0 Other 0 Other: Voiding Method Incontinent Incontinent Incontinent External Catheter External Catheter External Catheter # Voids 0 # Bowel Movements 0 - Labs CBC & Chem 7: 11/24/23 03:56 11/26/23 10:38 Labs: Abnormal Lab Results - Last 24 Hours (Table) 11/25/23 11/25/23 11/26/23 Range/Units 16:45 20:02 06:06 Sodium (137-145) mmol/L BUN (9-20) mg/dL Glucose (74-99) mg/dL POC Glucose (mg/dL) 169 H 140 H 156 H (70-110) mg/dL 11/26/23 11/26/23 Range/Units 10:38 11:25 Sodium 135 L (137-145) mmol/L BUN 21 H (9-20) mg/dL Glucose 291 H (74-99) mg/dL POC Glucose (mg/dL) 317 H (70-110) mg/dL Assessment and Plan Time with Patient: Less than 30
--- NOTE | 2023-11-26 14:43 | P.PN ---
Subjective Progress Note Date: 11/26/23 73-year-old male was brought in with complaints of unresponsiveness and speech abnormality. Patient is alert oriented times almost 3 when I evaluate the patient although patient appears to be confused because of his very sensory aphasia. Patient also complaining of weakness in the left leg although I was unable to examine the motor strength on the left side as he was getting ultrasound-guided peripheral line on that side. Patient has leukocytosis denies any symptoms of UTI does not have any other infection does not have any pneumonia. Patient appears to have sensory aphasia when I evaluated the patient. Patient had stroke in the past. Because of the previous stroke patient has some residual weakness on the left side CT of the head showed extraocular dilatation of anterior horn of right lateral ventricle because of his previous stroke. No acute abnormality was evident neurology evaluated the patient and they are obtaining an MRI patient is already on statins. 11/23/2023 Patient is seen in follow-up today with daughter at the bedside. Patient is somnolent and lethargic although arousable at times. Patient is extremely fatigued and per nursing staff patient fell out of the stretcher here again and not entirely sure if he struck his head. MRI was pending and repeat CT brain was ordered for further evaluation. CT is noted to show an acute/subacute CVA involving the left thalamus. 2D echo ordered showing EF of 60 to 65% with mild late increased left atrial volume and per report study was suboptimal secondary to poor echo windows to consider possible TERRA for further evaluation. Patient is continued on statin therapy and also large dose aspirin with neurology following closely undergoing further workup. White count is trending down with no fevers and does not appear infectious, likely reactive. Will await speech evaluation. This patient is considered high risk for aspiration given his lethargy and mildly altered mental status. Await speech recommendations to resume diet and will continue with strict aspiration precautions with head of the bed elevated 30 to 45 degrees at all times. and daughter were at the bedside with questions and concerns that were answered 11/24/2023 Patient is evaluated in follow up today. Patient has family at the bedside. Remains aphasic but more awake and alert. Patient found to have new onset atrial fibrillation with rapid ventricular rate yesterday evening for which cardiology was consulted. Patient was started on oral anticoagulation today eliquis 5 mg BID due to the new afib and findings of acute stroke. patient is high fall risk and he has fallen out of the stretcher while in the hospital he is a high fall risk at this time and need to continue with frequent rounding and bed alarm. Patient will need rehab on discharge and family is concerned if his mentation not improving and aphasic. White blood cell count 11.9. Blood glucose 200s. Remains on dysphagia chopped diet and aspiration precautions. 11/25/2023 Patient is evaluated today on the medical floor family at the bedside. Discussion regarding next steps and patient is pending IPR evaluation. His heart rate is controlled he is on oral amiodarone and oral eliquis. Sodium is 135. BUN 21 creatinine 0.95. 11/26/2023 Patient is evaluated in follow-up today on the medical floor he is sitting up in the chair family at bedside. He continues to have significant aphasia able to answer yes or no questions simply. He reports not having a bowel movement still was started on Miralax and lactulose. Patient was evaluated by Dr. Moncada and was found to be an appropriate candidate for [facility] care and inpatient rehabilitation center and is currently pending insurance authorization. He has been started on amlodipine daily by cardiology for improved blood pressure control. He was also given a dose of IV Lasix today. Review of systems: Constitutional: reports of fatigue, no fever, or chills Cardiovascular: No reports of chest pain or palpitations Respiratory: No reports of shortness of breath or cough GI: No reports of nausea, vomiting, or diarrhea, reports to feeling hungry : No reports of dysuria or retention Neurovascular: reports of generalized weakness and some tingling and decreased sensation in the right thigh All medications have been reviewed PHYSICAL EXAMINATION: GENERAL: The patient is alert and oriented x2, Well developed, well nourished. Obese, elderly appearing HEENT: Pupils are round and equally reacting to light. EOMI. No scleral icterus. No conjunctival pallor. Normocephalic, atraumatic. No pharyngeal erythema. No thyromegaly. CARDIOVASCULAR: S1 and S2 muffled PULMONARY: Diminished breath sounds bilaterally otherwise chest is clear to auscultation, no wheezing or crackles. ABDOMEN: Soft, obese, nontender, nondistended, normoactive bowel sounds. No palpable organomegaly. MUSCULOSKELETAL: No joint swelling or deformity. EXTREMITIES: No cyanosis, clubbing, or pedal edema. NEUROLOGICAL: awake alert SKIN: No rashes. Pale Assessment and plan -Acute cerebrovascular accident of the left thalamus as noted on repeat CT, MRI confirms this finding. Patient is on statin and has been started on aspirin 81 mg daily and eliquis 5 mg BID. -Atrial fibrillation confirmed by EKG likely paroxysmal and the cause for the acute stroke. -Wernicke's aphasia secondary to above patient will need ongoing speech therapy 3 to 5 days a week on discharge. -Generalized weakness and gait dysfunction with falls secondary to acute CVA -Type 2 diabetes mellitus, insulin-dependent continue with Accu-Cheks before skye ls and at bedtime medications and will adjust medications and continue with sliding scale -Hyperlipidemia, maintained on statin therapy -Gastroesophageal reflux disease -Hypertension -Obesity with a BMI of 30.7 -History of previous CVA in the past -DVT prophylaxis: Lovenox -GI prophylaxis -Full code Plan: Patient being followed by neurology undergoing further workup. Patient did have a 2D echo which revealed a normal EF although suboptimal study suggested to consider TERRA. Neurology awaiting antiplatelet therapy after weighing the risks versus benefits as patient has been frequently falling and high risk for bleeding however patient has new onset atrial fibrillation found on cardiac telemetry and confirmed with EKG. Cardiology has started the patient on eliquis/aspirin. He remains high fall risk. Transition off IV amiodarone to oral amiodarone. Now in normal sinus rhythm. Continue monitoring Accu-Cheks before meals and at bedtime and will continue with sliding scale and add long-acting as needed. Adjust insulins accordingly Speech to evaluate as patient is somewhat lethargic and mildly altered at times, high risk for aspirations and recommend head of the bed 30 to 45 degrees at all times, supervision with meals and will await speech recommendations. This was discussed with family at the bedside as well. On dysphagia 3 diet. White count is trending down and will follow-up with repeat labs. Patient is afebrile and does not appear infectious likely reactive PT/OT therapy to evaluate and also was evaluated for IPR and felt to be a candidate. He is pending insurance authorization. Patient was independent and driving prior to this and has had history of CVA in the past with no residuals. The impression and plan of care has been dictated by Zena Foreman, Nurse Practitioner as directed. Dr. Hal MD I have performed a history and examination and MDM of this patient, discussed the same with the dictator, and agree with the dictator's assessment and plan as written ,documented as a scribe. Based on total visit time, I have performed more than 50% of the visit. Objective - Vital Signs Vital signs: Vital Signs Temp 97.5 F L 11/26/23 12:00 Pulse 64 11/26/23 12:00 Resp 16 11/26/23 12:00 BP 178/92 11/26/23 12:00 Pulse Ox 98 11/26/23 12:00 FiO2 Intake & Output 11/25/23 11/26/23 11/26/23 18:59 06:59 18:59 Intake Total 360 2218 Output Total 551 1300 600 Balance -191 -1300 1618 Weight 99.79 kg Intake: Oral 360 2218 Output: Gastric Drainage 0 Urine 550 1300 600 Stool 1 Urine/Stool Mix 0 Emesis 0 Oral Regurgitation 0 Other 0 Other: Voiding Method Incontinent Incontinent Incontinent External Catheter External Catheter External Catheter # Voids 0 # Bowel Movements 0 - Labs CBC & Chem 7: 11/24/23 03:56 11/26/23 10:38 Labs: Abnormal Lab Results - Last 24 Hours (Table) 11/25/23 11/25/23 11/26/23 Range/Units 16:45 20:02 06:06 Sodium (137-145) mmol/L BUN (9-20) mg/dL Glucose (74-99) mg/dL POC Glucose (mg/dL) 169 H 140 H 156 H (70-110) mg/dL 11/26/23 11/26/23 Range/Units 10:38 11:25 Sodium 135 L (137-145) mmol/L BUN 21 H (9-20) mg/dL Glucose 291 H (74-99) mg/dL POC Glucose (mg/dL) 317 H (70-110) mg/dL Assessment and Plan Time with Patient: Less than 30
[2023-11-26 16:27] LABS: Glucose,Whole Blood 121 mg/dL (70-110)
[2023-11-26] MEDS: INSULIN ASPART (NovoLOG) 100 UNIT/ML VIAL SQ SCH ×2 (16:27→16:37)
[2023-11-26] MEDS: LACTULOSE 20 GM/30 ML CUP PO ONE (16:36)
[2023-11-26 20:03] LABS: Glucose,Whole Blood 120 mg/dL (70-110)
[2023-11-27 05:41] LABS: Glucose,Whole Blood 59 mg/dL (70-110)
[2023-11-27] MEDS: INSULIN DETEMIR (LEVEMIR) 100 UNIT/ML SYR SQ SCH (06:18)
[2023-11-27 06:37] LABS: Glucose,Whole Blood 68 mg/dL (70-110)
[2023-11-27 07:03] LABS: Glucose,Whole Blood 107 mg/dL (70-110)
[2023-11-27] MEDS: polyethylene glycoL 3350 17 GM POWD.PACK PO SCH (08:41)
[2023-11-27] MEDS: ASPIRIN 81 MG PO SCH (08:41)
[2023-11-27] MEDS: AMIODARONE 200 MG TAB PO SCH (08:42)
--- NOTE | 2023-11-27 10:30 | P.PN ---
Subjective Progress Note Date: 11/26/23 11/26/2023: Patient was seen for a follow-up. Patient offers no new complaints. He was seen by physical medicine and rehab and was considered a good candidate for inpatient rehab. Patient states he has history of CVA/TIA in the past. He does have diabetes. 11/24/2023: Patient was initially seen by Dr. Jose D Kurtz. Please refer to his note for details. Patient is a 73-year-old male with recent fall, confusion, right leg numbness. He has left thalamic stroke. Some of the workup during this hospital visit consisted of: Patient is afebrile. He is tachycardic on presentation of 106 and got as high as 120s. Pulse ox in the low 90s on 2 L of nasal cannula. Blood cells 13.8 thousand Serum glucose on presentation is 209 Ammonia is 30 Vitamin B12 is 424 and serum folate is 18.90 TSH is 0.584 Lipid panel: TG 103, Cholestrol 175, LDL 114 and HDL 39. Urine drug screen is positive for tricyclic antidepressant otherwise rest is not detected CT of the head is reported as no acute intracranial process. Old insult resul ting in ex vacuo dilation of the anterior horn of the right lateral ventricle. I personally reviewed the CT and I agree with the report. Repeat CT head: Hypodensity in the anterior left thalamus increase compared to 11/21/2023 Correlate for possible subacute infarct. Carotid duplex: No hemodynaically significant stenosis in either internal carotid artery. Routine EEG: Is abnormal. The background slowing is suggestive of mild encephalopathy. No seizure or discharges. Objective - Vital Signs Vital signs: Vital Signs Temp 97.7 F 11/26/23 16:00 Pulse 59 L 11/26/23 16:00 Resp 16 11/26/23 16:00 BP 158/79 11/26/23 16:00 Pulse Ox 100 11/26/23 16:00 FiO2 Intake & Output 11/25/23 11/26/23 11/26/23 18:59 06:59 18:59 Intake Total 360 2336 Output Total 551 1300 600 Balance -191 -1300 1736 Weight 99.79 kg Intake: Oral 360 2336 Output: Gastric Drainage 0 Urine 550 1300 600 Stool 1 Urine/Stool Mix 0 Emesis 0 Oral Regurgitation 0 Other 0 Other: Voiding Method Incontinent Incontinent Incontinent External Catheter External Catheter External Catheter # Voids 0 # Bowel Movements 0 - Exam On examination patient is elderly male, laying in the bed, in no acute distress. He is slightly coughing. Patient speech is mildly dysarthric. Patient states he is in [facility]. HEENT states current president is Mr. Ortiz. He believes the year is 72. He knows his daughter Keisha and that she has 2 kids. On cranial examination pupils are equal, round and reacting, visual castillo are full, face is symmetric. Tongue protrudes to midline. Hearing appears normal. On muscle strength testing, there is mild left pronation, no drift. The strength is normal. Sensory to touch is equal. No ataxia. - Labs CBC & Chem 7: 11/24/23 03:56 11/26/23 10:38 Labs: Abnormal Lab Results - Last 24 Hours (Table) 11/25/23 11/26/23 11/26/23 Range/Units 20:02 06:06 10:38 Sodium 135 L (137-145) mmol/L BUN 21 H (9-20) mg/dL Glucose 291 H (74-99) mg/dL POC Glucose (mg/dL) 140 H 156 H (70-110) mg/dL 11/26/23 11/26/23 Range/Units 11:25 16:25 Sodium (137-145) mmol/L BUN (9-20) mg/dL Glucose (74-99) mg/dL POC Glucose (mg/dL) 317 H 121 H (70-110) mg/dL Assessment and Plan Assessment: This is a 73-year-old gentleman who presents because of unsteady gait and a fall with confusion in the last 1-1/2 days prior to presenting the hospital per the . Unsteady gait, confusion with recent fall and recent right lower extremity numbness is due acute to subacute left thalamus stroke. No IV thrombolytic since outside window and risk outweigh benefit. New onset atrial fibrillation, paroxysmal Mild Hypoxia History of old stroke about 10 years ago Diabetes mellitus History of hypertension Underlying history of hyperlipidemia Plan: MRI of the brain revealed acute/subacute CVA involving the left thalamus. No abnormal postcontrast enhancement. Nonspecific white matter changes, likely related to small vessel ischemic disease. I personally reviewed MRI agree with the findings' 2D echo revealed normal left ventricular function with EF 60 to 65%. No obvious regional wall motion abnormalities. Mildly increased left atrial volume. Mildly increased left atrial area. Mildly dilated aorta. Consider TERRA for further evaluation. Cardiology on board. We will defer to cardiology if TERRA is indicated. Appreciate cardiology input. Patient started on Eliquis 5 mg twice daily. Also on aspirin to 81 mg daily. Patient's LDL 114. Patient was taking Lipitor 40 mg nightly. We will increase dose of Lipitor to 80 mg, to target LDL <70. Hemoglobin A1c 7.3. Recommend optimize control of diabetes to target A1c less than 7.0. Continue neurochecks Cardiac monitoring PT OT and BLOOD BANK TECHNICIAN are consulted Will defer the rest of the medical management to primary team For DVT prophylaxis the patient is on Eliquis. Patient appears to be very confused. He may have developed some cognitive impairment. Recommended patient's daughter to have him follow up with neurologist if memory dysfunction persist, may be a candidate for cognitive enhancing medication.
[2023-11-27 11:43] LABS: Glucose,Whole Blood 138 mg/dL (70-110)
--- NOTE | 2023-11-27 12:50 | P.PN ---
Subjective HISTORY OF PRESENT ILLNESS: The patient is a pleasant 73-year-old gentleman with a past medical history significant for overweight and diabetes and hypertension and dyslipidemia and coronary artery disease based on heart catheterization in 2020 showing mild to moderate nonobstructive coronary artery disease was admitted to the hospital with a stroke. The patient somewhat is a poor historian. He was in his usual state of health till yesterday when he fell and that witnessed by his . Ambulance was called and the patient was brought to the hospital but he underwent a CT scan which showed an acute stroke. Confirmed by the MRI. Caroti d duplex study showed mild disease bilaterally. The EKG initially showed atrial fibrillation with RVR but subsequently the repeated EKG showed sinus mechanism. Currently the patient is on amiodarone IV and he is on heparin IV. No indication of any chest pain or chest discomfort or any dizziness or lightheadedness or any feeling of heart racing or fluttering. No history of atrial fibrillation before and he was not on any oral anticoagulation. The examination is remarkable for regular rhythm with a soft systolic murmur and clear breathing sounds bilaterally and no carotid bruit and no edema was noted. The echo showed normal LV systolic function November 25, 2023 The patient was seen and evaluated this morning. He has been maintaining normal sinus mechanism on the current medical regimen. No pain in the chest. No shortness of breath. He is on oral anticoagulation using Eliquis. The echo showed normal biventricular dimension and systolic function. The examination is remarkable for regular rhythm with a soft systolic murmur and clear breathing sounds bilaterally and no edema was noted in the lower extremities 11/26/2023 Patient examined this morning at the bedside. Patient's family is present. Patient currently denies any chest pain or pressure. He denies any shortness of breath. Patient is currently up ambulating with physical therapy. Telemetry reveals sinus mechanism with a heart rate in the 70s. Patient's blood pressure is elevated this morning with a reading of 180/97. 11/27/2023 Patient examined this morning at bedside. Patient's family present. Patient currently denies chest pain or pressure. He denies shortness of breath. Telemetry reveals sinus mechanism. Patient's blood pressure remains elevated this morning. PHYSICAL EXAM: VITAL SIGNS: Reviewed. GENERAL: Well-developed in no acute distress. NECK: Supple. No JVD or thyromegaly LUNGS: Respirations even and unlabored. Lungs essentially clear to auscultation bilaterally. HEART: Regular rate and rhythm. S1 and S2 heard. EXTREMITIES: Normal range of motion. No clubbing or cyanosis. Peripheral pulses intact. No lower extremity edema ASSESSMENT: Acute/subacute CVA involving left thalamus New onset paroxysmal atrial fibrillation, currently maintaining sinus mechanism Hypertension Hyperlipidemia Diabetes History of CVA, approximately 10 years ago PLAN: Continue anticoagulation with Eliquis 5 mg twice a day Change metoprolol to 75 mg twice a day Continue telemetry monitoring Continue PT/OT No further inpatient recommendations from a cardiac standpoint We will sign off. Please reconsult if needed. Nurse practitioner note has been reviewed by physician. Signing provider agrees with the documented findings, assessment, and plan of care documented by AUTOMOTIVE TECHNICIAN as a scribe. Objective - Vital Signs Vital signs: Vital Signs Temp 97.5 F L 11/27/23 08:00 Pulse 60 11/27/23 12:00 Resp 16 11/27/23 12:00 BP 160/89 11/27/23 12:00 Pulse Ox 97 11/27/23 12:00 FiO2 Intake & Output 11/26/23 11/27/23 11/27/23 18:59 06:59 18:59 Intake Total 3056 240 Output Total 1750 1250 650 Balance 1306 -1250 -410 Weight 99.79 kg Intake: Oral 3056 240 Output: Urine 1750 1250 650 Stool 0 Other: Voiding Method Incontinent Incontinent Incontinent External Catheter External Catheter External Catheter - Labs CBC & Chem 7: 11/24/23 03:56 11/26/23 10:38 Labs: Abnormal Lab Results - Last 24 Hours (Table) 11/26/23 11/26/23 11/27/23 Range/Units 16:25 20:01 05:40 POC Glucose (mg/dL) 121 H 120 H 59 L (70-110) mg/dL 11/27/23 11/27/23 Range/Units 06:36 11:41 POC Glucose (mg/dL) 68 L 138 H (70-110) mg/dL
[2023-11-27 17:08] LABS: Glucose,Whole Blood 171 mg/dL (70-110)
--- NOTE | 2023-11-27 17:50 | CT ---
EXAMINATION TYPE: CT brain wo con DATE OF EXAM: 11/27/2023 HISTORY: AMS. CT DLP: 1197.4 mGycm. Automated Exposure Control for Dose Reduction was Utilized. TECHNIQUE: CT scan of the head is performed without contrast. COMPARISON: CT brain November 22, 2023. FINDINGS: There is no acute intracranial hemorrhage or midline shift identified. There is mild diff use ventricular and sulcal prominence redemonstrated old right-sided infarct with ex vacuo dilatation of the right lateral ventricle is redemonstrated. Smaller old infarct anterior to the left thalamus axial image 32 is redemonstrated . There is mild low-attenuation in the periventricular white matter redemonstrated. The globes are intact and the visualized sinuses are clear. IMPRESSION: No acute intracranial hemorrhage or midline shift. There is mild diffuse age-related ce rebral atrophy and chronic small vessel ischemic change redemonstrated. Old right-sided frontal katy etal infarct again seen. Smaller old deep infarct anterior to left thalamus redemonstrated. No signif icant change from most recent prior CT.
[2023-11-27 20:13] LABS: Glucose,Whole Blood 164 mg/dL (70-110)
[2023-11-27] MEDS: METOPROLOL TARTRATE 25 MG TAB PO SCH (20:22)
[2023-11-28] MEDS: amLODIPine 5 MG TAB PO SCH (00:33)
[2023-11-28 05:39] LABS: Glucose,Whole Blood 141 mg/dL (70-110)
--- NOTE | 2023-11-28 09:04 | P.PN ---
Subjective Progress Note Date: 11/27/23 73-year-old male was brought in with complaints of unresponsiveness and speech abnormality. Patient is alert oriented times almost 3 when I evaluate the patient although patient appears to be confused because of his very sensory aphasia. Patient also complaining of weakness in the left leg although I was unable to examine the motor strength on the left side as he was getting ultrasound-guided peripheral line on that side. Patient has leukocytosis denies any symptoms of UTI does not have any other infection does not have any pneumonia. Patient appears to have sensory aphasia when I evaluated the patient. Patient had stroke in the past. Because of the previous stroke patient has some residual weakness on the left side CT of the head showed extraocular dilatation of anterior horn of right lateral ventricle because of his previous stroke. No acute abnormality was evident neurology evaluated the patient and they are obtaining an MRI patient is already on statins. 11/23/2023 Patient is seen in follow-up today with daughter at the bedside. Patient is somnolent and lethargic although arousable at times. Patient is extremely fatigued and per nursing staff patient fell out of the stretcher here again and not entirely sure if he struck his head. MRI was pending and repeat CT brain was ordered for further evaluation. CT is noted to show an acute/subacute CVA involving the left thalamus. 2D echo ordered showing EF of 60 to 65% with mild late increased left atrial volume and per report study was suboptimal secondary to poor echo windows to consider possible TERRA for further evaluation. Patient is continued on statin therapy and also large dose aspirin with neurology following closely undergoing further workup. White count is trending down with no fevers and does not appear infectious, likely reactive. Will await speech evaluation. This patient is considered high risk for aspiration given his lethargy and mildly altered mental status. Await speech recommendations to resume diet and will continue with strict aspiration precautions with head of the bed elevated 30 to 45 degrees at all times. and daughter were at the bedside with questions and concerns that were answered 11/24/2023 Patient is evaluated in follow up today. Patient has family at the bedside. Remains aphasic but more awake and alert. Patient found to have new onset atrial fibrillation with rapid ventricular rate yesterday evening for which cardiology was consulted. Patient was started on oral anticoagulation today eliquis 5 mg BID due to the new afib and findings of acute stroke. patient is high fall risk and he has fallen out of the stretcher while in the hospital he is a high fall risk at this time and need to continue with frequent rounding and bed alarm. Patient will need rehab on discharge and family is concerned if his mentation not improving and aphasic. White blood cell count 11.9. Blood glucose 200s. Remains on dysphagia chopped diet and aspiration precautions. 11/25/2023 Patient is evaluated today on the medical floor family at the bedside. Discussion regarding next steps and patient is pending IPR evaluation. His heart rate is controlled he is on oral amiodarone and oral eliquis. Sodium is 135. BUN 21 creatinine 0.95. 11/26/2023 Patient is evaluated in follow-up today on the medical floor he is sitting up in the chair family at bedside. He continues to have significant aphasia able to answer yes or no questions simply. He reports not having a bowel movement still was started on Miralax and lactulose. Patient was evaluated by Dr. Moncada and was found to be an appropriate candidate for [facility] care and inpatient rehabilitation center and is currently pending insurance authorization. He has been started on amlodipine daily by cardiology for improved blood pressure control. He was also given a dose of IV Lasix today. 11/27/2023 Patient evaluated today sitting up in bed. Had a bowel movement abdomen is soft and nontender normoactive bowel sounds and will continue on bowel regimen. Patient continues in normal sinus rhythm. Patient has no acute complaints today. Pending insurance authorization. Review of systems: Constitutional: reports of fatigue, no fever, or chills Cardiovascular: No reports of chest pain or palpitations Respiratory: No reports of shortness of breath or cough GI: No reports of nausea, vomiting, or diarrhea, reports to feeling hungry : No reports of dysuria or retention Neurovascular: reports of generalized weakness and some tingling and decreased sensation in the right thigh All medications have been reviewed PHYSICAL EXAMINATION: GENERAL: The patient is alert and oriented x2, Well developed, well nourished. Obese, elderly appearing HEENT: Pupils are round and equally reacting to light. EOMI. No scleral icterus. No conjunctival pallor. Normocephalic, atraumatic. No pharyngeal erythema. No thyromegaly. CARDIOVASCULAR: S1 and S2 muffled PULMONARY: Diminished breath sounds bilaterally otherwise chest is clear to auscultation, no wheezing or crackles. ABDOMEN: Soft, obese, nontender, nondistended, normoactive bowel sounds. No palpable organomegaly. MUSCULOSKELETAL: No joint swelling or deformity. EXTREMITIES: No cyanosis, clubbing, or pedal edema. NEUROLOGICAL: awake alert SKIN: No rashes. Pale Assessment and plan -Acute cerebrovascular accident of the left thalamus as noted on repeat CT, MRI confirms this finding. Patient is on statin and has been started on aspirin 81 mg daily and eliquis 5 mg BID. -Atrial fibrillation confirmed by EKG likely paroxysmal and the cause for the acute stroke. -Wernicke's aphasia secondary to above patient will need ongoing speech therapy 3 to 5 days a week on discharge. -Generalized weakness and gait dysfunction with falls secondary to acute CVA -Type 2 diabetes mellitus, insulin-dependent continue with Accu-Cheks before meals and at bedtime medications and will adjust medications and continue with sliding scale -Hyperlipidemia, maintained on statin therapy -Gastroesophageal reflux disease -Hypertension -Obesity with a BMI of 30.7 -History of previous CVA in the past -DVT prophylaxis: Lovenox -GI prophylaxis -Full code Plan: Patient being followed by neurology undergoing further workup. Patient did have a 2D echo which revealed a normal EF although suboptimal study suggested to consider TERRA. Neurology awaiting antiplatelet therapy after weighing the risks versus benefits as patient has been frequently falling and high risk for bleeding however patient has new onset atrial fibrillation found on cardiac telemetry and confirmed with EKG. Cardiology has started the patient on eliquis/aspirin. He remains high fall risk. Transition off IV amiodarone to oral amiodarone. Now in normal sinus rhythm. Continue monitoring Accu-Cheks before meals and at bedtime and will continue with sliding scale and add long-acting as needed. Adjust insulins accordingly Patient remains high risk for aspirations and recommend head of the bed 30 to 45 degrees at all times, and supervision with meals. This was discussed with family at the bedside as well. On dysphagia 3 diet. Recommending speech therapy on discharge 3 to 5 times a week. White count is trending down and will follow-up with repeat labs. Patient is afebrile and does not appear infectious likely reactive PT/OT therapy to evaluate and also was evaluated for IPR and felt to be a candidate. He is pending insurance authorization. Patient was independent and driving prior to this and has had history of CVA in the past with no residuals. The impression and plan of care has been dictated by Zena Foreman, Nurse Practitioner as directed. Dr. Hal MD I have performed a history and examination and MDM of this patient, discussed the same with the dictator, and agree with the dictator's assessment and plan as written ,documented as a scribe. Based on total visit time, I have performed more than 50% of the visit. Objective - Vital Signs Vital signs: Vital Signs Temp 97.5 F L 11/27/23 08:00 Pulse 60 11/27/23 12:00 Resp 16 11/27/23 12:00 BP 160/89 11/27/23 12:00 Pulse Ox 97 11/27/23 12:00 FiO2 Intake & Output 11/26/23 11/27/23 11/27/23 18:59 06:59 18:59 Intake Total 3056 780 Output Total 1750 1250 650 Balance 1306 -1250 130 Weight 99.79 kg Intake: Oral 3056 780 Output: Urine 1750 1250 650 Stool 0 Other: Voiding Method Incontinent Incontinent Incontinent External Catheter External Catheter External Catheter - Labs CBC & Chem 7: 11/24/23 03:56 11/26/23 10:38 Labs: Abnormal Lab Results - Last 24 Hours (Table) 11/26/23 11/26/23 11/27/23 Range/Units 16:25 20:01 05:40 POC Glucose (mg/dL) 121 H 120 H 59 L (70-110) mg/dL 11/27/23 11/27/23 Range/Units 06:36 11:41 POC Glucose (mg/dL) 68 L 138 H (70-110) mg/dL Assessment and Plan Time with Patient: Less than 30
[2023-11-28 09:49] VITALS: TEMP 97
[2023-11-28 09:50] LABS: Basophils # (A) 0.1 k/uL (0-0.2); Basophils % (A) 1 %; Eosinophils # (A) 0.3 k/uL (0-0.7); Eosinophils % (A) 5 %; HCT 40.1 % (39.0-53.0); HGB 13.8 gm/dL (13.0-17.5); Lymphocytes # (A) 1.1 k/uL (1.0-4.8); Lymphocytes % (A) 16 %; MCH 28.9 pg (25.0-35.0); MCHC 34.5 g/dL (31.0-37.0); MCV 83.8 fL (80.0-100.0); Mean Platelet Volume 9.6; Monocytes # (A) 0.5 k/uL (0-1.0); Monocytes % (A) 8 %; Neutrophils # (A) 4.9 k/uL (1.3-7.7); Neutrophils % (A) 69 %; Platelet Count 158 k/uL (150-450); RBC 4.79 m/uL (4.30-5.90); RDW 14.2 % (11.5-15.5)
[2023-11-28 10:25] LABS: Potassium 3.7 mmol/L (3.5-5.1)
[2023-11-28 10:26] LABS: African American GFR (CKD) 76 (>60 ml/min/1.73 sqM); Anion Gap 3 mmol/L; Blood Urea Nitrogen 20 mg/dL (9-20); Calcium 8.6 mg/dL (8.4-10.2); Carbon Dioxide 31 mmol/L (22-30); Chloride 105 mmol/L (98-107); Glucose 155 mg/dL (74-99); Magnesium 1.9 mg/dL (1.6-2.3); Non-African American GFR(CKD) 66 (>60 ml/min/1.73 sqM); Sodium 139 mmol/L (137-145)
--- NOTE | 2023-11-28 11:50 | P.PN ---
Subjective Progress Note Date: 11/27/23 11/27/2023: Patient was seen for follow-up. Patient's and patient's daughter were present today. Per family, patient sometimes looks more better and with the times more confused. He has been very somnolent. Patient denies any headache, chest pain or abdominal pain. Patient is still very confused as per examination below. 11/26/2023: Patient was seen for a follow-up. Patient offers no new complaints. He was seen by physical medicine and rehab and was considered a good candidate for inpatient rehab. Patient states he has history of CVA/TIA in the past. He does have diabetes. 11/24/2023: Patient was initially seen by Dr. Jose D Kurtz. Please refer to his note for details. Patient is a 73-year-old male with recent fall, confusion, right leg numbness. He has left thalamic stroke. Some of the workup during this hospital visit consisted of: Patient is afebrile. He is tachycardic on presentation of 106 and got as high as 120s. Pulse ox in the low 90s on 2 L of nasal cannula. Blood cells 13.8 thousand Serum glucose on presentation is 209 Ammonia is 30 Vitamin B12 is 424 and serum folate is 18.90 TSH is 0.584 Lipid panel: TG 103, Cholestrol 175, LDL 114 and HDL 39. Urine drug screen is positive for tricyclic antidepressant otherwise rest is not detected CT of the head is reported as no acute intracranial process. Old insult resulting in ex vacuo dilation of the anterior horn of the right lateral ventricle. I personally reviewed the CT and I agree with the report. Repeat CT head: Hypodensity in the anterior left thalamus increase compared to 11/21/2023 Correlate for possible subacute infarct. Carotid duplex: No hemodynaically significant stenosis in either internal carotid artery. Routine EEG: Is abnormal. The background slowing is suggestive of mild encephalopathy. No seizure or discharges. Objective - Vital Signs Vital signs: Vital Signs Temp 97.5 F L 11/27/23 08:00 Pulse 60 11/27/23 12:00 Resp 16 11/27/23 12:00 BP 160/89 11/27/23 12:00 Pulse Ox 97 11/27/23 12:00 FiO2 Intake & Output 11/26/23 11/27/23 11/27/23 18:59 06:59 18:59 Intake Total 3056 780 Output Total 1750 1250 650 Balance 1306 -1250 130 Weight 99.79 kg Intake: Oral 3056 780 Output: Urine 1750 1250 650 Stool 0 Other: Voiding Method Incontinent Incontinent Incontinent External Catheter External Catheter External Catheter - Exam On examination patient is elderly male, laying in the bed, in no acute distress. He is very groggy, somnolent, very confused. Patient states his date of is 07/17/1949 (actually 1950) he states that he is in [facility], but could not tell the city he lives in. Patient speech is mildly dysarthric. On cranial examination pupils are equal, round and reacting, visual castillo tested reliably. Patient very groggy. Tongue protrudes to midline. Hearing appears normal. On muscle strength testing, there is mild left pronation, no drift. The strength is normal. Sensory to touch is equal. No ataxia. - Labs CBC & Chem 7: 11/28/23 09:15 11/28/23 09:15 Labs: Abnormal Lab Results - Last 24 Hours (Table) 11/26/23 11/26/23 11/27/23 Range/Units 16:25 20:01 05:40 POC Glucose (mg/dL) 121 H 120 H 59 L (70-110) mg/dL 11/27/23 11/27/23 Range/Units 06:36 11:41 POC Glucose (mg/dL) 68 L 138 H (70-110) mg/dL Assessment and Plan Assessment: This is a 73-year-old gentleman who presents because of unsteady gait and a fall with confusion in the last 1-1/2 days prior to presenting the hospital per the . Unsteady gait, confusion with recent fall and recent right lower extremity numbness is due acute to subacute left thalamus stroke. No IV thrombolytic since outside window and risk outweigh benefit. New onset atrial fibrillation, paroxysmal Mild Hypoxia History of old stroke about 10 years ago Diabetes mellitus History of hypertension Underlying history of hyperlipidemia Plan: MRI of the brain revealed acute/subacute CVA involving the left thalamus. No abnormal postcontrast enhancement. Nonspecific white matter changes, likely related to small vessel ischemic disease. I personally reviewed MRI agree with the findings' 2D echo revealed normal left ventricular function with EF 60 to 65%. No obvious regional wall motion abnormalities. Mildly increased left atrial volume. Mildly increased left atrial area. Mildly dilated aorta. Consider TERRA for further evaluation. Cardiology on board. We will defer to cardiology if TERRA is indicated. Patient continues to be very groggy, very confused. We will repeat CT head to rule out any new structural abnormality. Appreciate cardiology input. Patient started on Eliquis 5 mg twice daily. Also on aspirin to 81 mg daily. Patient's LDL 114. Patient was taking Lipitor 40 mg nightly. We will increase dose of Lipitor to 80 mg, to target LDL <70. Hemoglobin A1c 7.3. Recommend optimize control of diabetes to target A1c less than 7.0. Continue neurochecks Cardiac monitoring PT OT and QUAL FIELD MANAGER are consulted Will defer the rest of the medical management to primary team For DVT prophylaxis the patient is on Eliquis. Patient appears to be very confused. He may have developed some cognitive impairment. Recommended patient's daughter to have him follow up with neurolo gist if memory dysfunction persist, may be a candidate for cognitive enhancing medication.
[2023-11-28 11:52] VITALS: BP 154/76; PULSE 65; RESP 16
[2023-11-28 12:12] LABS: Glucose,Whole Blood 183 mg/dL (70-110)
--- NOTE | 2023-11-28 13:07 | P.DS ---
Providers Date of admission: 11/21/23 22:18 Attending physician: Geoff Sanchez Consults: 11/21/23 22:17 Consult Physician Routine Consulting Provider: Jose D Kurtz Consult Reason/Comments: Altered mental status Do you want consulting provider notified?: Yes 11/24/23 20:55 Consult Physician Routine Consulting Provider: Dirk Oleary Consult Reason/Comments: IPR evaluation, acute stroke Do you want consulting provider notified?: Yes Primary care physician: Billy Livingston [place] [facility] Course: Final Diagnosis -Unsteady gait, confusion with recent fall and recent right lower extremity numbness is due acute to subacute left thalamus stroke. No IV thrombolytic since outside window and risk outweigh benefit.Patient is on statin and has been started on aspirin 81 mg daily and eliquis 5 mg BID. -Atrial fibrillation confirmed by EKG likely paroxysmal and the cause for the acute stroke. -Wernicke's aphasia secondary to above patient will need ongoing speech therapy 3 to 5 days a week on discharge. -Generalized weakness and gait dysfunction with falls secondary to acute CVA -Type 2 diabetes mellitus, insulin-dependent -Hyperlipidemia, maintained on statin therapy -Gastroesophageal reflux disease -Hypertension -Obesity with a BMI of 30.7 -History of previous CVA in the past Discharge Disposition Patient is stable for discharge to [facility] rehab. He will continue on eliquis as he was found to be in paroxysmal atrial fibrillation this admission likely the cause for the stroke. He continues on oral amiodarone, oral metoprolol. Patient is also on high dose statin therapy. He is recommended to see a neurologist in 1 to 2 weeks on an outpatient basis. Patient to repeat a BMP in 2 to 3 days. Hospital Course This is a 73-year-old male was brought in with complaints of unresponsiveness and speech abnormality. Patient has past medical history of type 2 diabetes mellitus insulin-dependent, hyperlipidemia, gastroesophageal reflux disease, hypertension, obesity and a prior history of stroke. Patient has significant aphasia on admission and was also patient also complaining of weakness in the left leg. Patient has leukocytosis denies any symptoms of UTI does not have any other infection does not have any pneumonia. Patient had stroke in the past. Because of the previous stroke patient has some residual weakness on the left side. Brain CT of the head showed extraocular dilatation of anterior horn of right lateral ventricle because of his previous stroke. No acute abnormality was evident. Patient was admitted to the hospital with neurology consultation and full stroke work up. 2D echo revealed normal left ventricular function with EF 60 to 65%. No obvious regional wall motion abnormalities. Mildly increased left atrial volume. Mildly increased left atrial area. Mildly dilated aorta. MRI of the brain revealed acute/subacute CVA involving the left thalamus. No abnormal postcontrast enhancement. Nonspecific white matter changes, likely related to small vessel ischemic disease. Carotid doppler reveals no hemodynamically significant stenosis in either internal carotid artery. Patient was monitored on cardiac telemetry and found to have atrial fibrillation confirmed by EKG cardiology evaluated the patient and no recommendations for TERRA currently. He was started on eliquis and also IV amiodarone initially. He has since been transitioned to oral amiodarone and toprol. He is now in normal sinus mechanism. Mentation overall has improved today he is alert x 2-3 and has been able to communicate and answer simple questions. His TSH is normal at 0.584, li pid panel WNL. Troponin levels have been negative. Hemoglobin A1C 7.3. Patient was felt to be a good candidate for inpatient was evaluated by Dr. Tran who has agreed and patient has obtained insurance authorization for discharge today. He has been continued on dysphagia 3 chopped diet with aspiration precautions and for nectar thick liquid with no straws. Patient to remain upright for meals and requires supervision. and was recommended to undergo barium swallow today prior to discharge. He has no acute complaints. His bowels are moving. Lungs are clear. S1 S2 auscultated. Hemodynamically he is stable. Please see medication reconciliation for a list of current medications. Thank you for allowing us to participate in the care of this patient. The impression and plan of care has been dictated by Zena Foreman, Nurse Practitioner as directed. Dr. Hal MD I have performed a history and physical examination and medical decision making of this patient, discussed the same with the dictator, and agree with the dictators assessment and plan as written, documented as a scribe. Based on total visit time, I have performed more than 50% of this visit. Patient Condition at Discharge: Fair Plan - Discharge Summary New Discharge Prescriptions: New Amiodarone [Cordarone] 200 mg PO DAILY tab Metoprolol Tartrate [Lopressor] 75 mg PO BID tab Gabapentin [Neurontin] 200 mg PO TID PRN #6 cap PRN Reason: Pain INSULIN ASPART (NovoLOG) [NovoLOG (formulary)] 4 unit SQ AC-TID each Aspirin 81 mg PO DAILY tab Apixaban [Eliquis] 5 mg PO BID tab Insulin Detemir (Levemir) [Levemir] 20 unit SQ DAILY@0700 each polyethylene glycoL 3350 [Miralax] 17 gm PO DAILY packet amLODIPine [Norvasc] 5 mg PO BID tab Continue Pantoprazole Sodium [Protonix] 20 mg PO BID Dulaglutide [Trulicity] 3 mg SQ MARCELO Nortriptyline HCl [Pamelor] 25 mg PO HS Tamsulosin [Flomax] 0.4 mg PO DAILY hydrALAZINE HCL [Apresoline] 25 mg PO BID Losartan Potassium 100 mg PO DAILY Insulin Glargine,Hum.rec.anlog [Lantus Solostar Pen] 60 units SQ HS Atorvastatin [Lipitor] 40 mg PO HS Discontinued Metoprolol Tartrate [Lopressor] 75 mg PO DAILY Gabapentin [Neurontin] 300 - 900 mg PO DIRECTED metFORMIN HCL 500 mg PO DIRECTED Metoprolol Tartrate [Lopressor] 50 mg PO HS hydroCHLOROthiazide [Hydrodiuril] 12.5 mg PO DAILY Insulin Aspart [NovoLOG Flexpen] 25 - 62 units SQ HS Discharge Medication List Atorvastatin [Lipitor] 40 mg PO HS 11/22/23 [History] Dulaglutide [Trulicity] 3 mg SQ MARECLO 11/22/23 [History] Insulin Glargine,Hum.rec.anlog [Lantus Solostar Pen] 60 units SQ HS 11/22/23 [History] Losartan Potassium 100 mg PO DAILY 11/22/23 [History] Nortriptyline HCl [Pamelor] 25 mg PO HS 11/22/23 [History] Pantoprazole Sodium [Protonix] 20 mg PO BID 11/22/23 [History] Tamsulosin [Flomax] 0.4 mg PO DAILY 11/22/23 [History] hydrALAZINE HCL [Apresoline] 25 mg PO BID 11/22/23 [History] Amiodarone [Cordarone] 200 mg PO DAILY tab 11/28/23 [Rx] Apixaban [Eliquis] 5 mg PO BID tab 11/28/23 [Rx] Aspirin 81 mg PO DAILY tab 11/28/23 [Rx] Gabapentin [Neurontin] 200 mg PO TID PRN #6 cap 11/28/23 [Rx] INSULIN ASPART (NovoLOG) [NovoLOG (formulary)] 4 unit SQ AC-TID each 11/28/23 [Rx] Insulin Detemir (Levemir) [Levemir] 20 unit SQ DAILY@0700 each 11/28/23 [Rx] Metoprolol Tartrate [Lopressor] 75 mg PO BID tab 11/28/23 [Rx] amLODIPine [Norvasc] 5 mg PO BID tab 11/28/23 [Rx] polyethylene glycoL 3350 [Miralax] 17 gm PO DAILY packet 11/28/23 [Rx] Follow up Appointment(s)/Referral(s): Billy Livingston DO [Primary Care Provider] - 1-2 days Edson Davis DO [STAFF PHYSICIAN] - 1 Week (Neurology ) Alejo Hatch MD [STAFF PHYSICIAN] - 1 Week (Cardiology, atrial fibrillation) Ambulatory/Diagnostic Orders: Basic Metabolic Panel [LAB.AMB] Time Frame: 3 Days, Location: None Selected Discharge Disposition: TRANSFER TO SNF/ECF
--- NOTE | 2023-12-01 15:16 | FL ---
Exam Date: 11/28/2023 12:00 PM. Modified barium swallow for dysphagia. Consistencies administered: Various consistency of barium. Fluoro time: 2:28 m No images were sent to PACS. Please see speech pathology report. DAP: 255.12 mGym2 Gycm2
== END 2023-11-28 14:12 | DRG 65 ==
LOC: EC 14:56 → 3SCARD 22:17 → OBSVTOIN 22:18 → 3SCARD 11-22 00:26
PROVIDERS: ADMIT Hospitalist; ATTEND Hospitalist
DX: I63.9 Cerebral infarction, unspecified (principal); I69.354 Hemiplegia and hemiparesis following cerebral infarction affecting left non-dominant side; K21.9 Gastro-esophageal reflux disease without esophagitis; I48.0 Paroxysmal atrial fibrillation; I77.819 Aortic ectasia, unspecified site; K59.00 Constipation, unspecified; R09.02 Hypoxemia; Z68.30 Body mass index [BMI] 30.0-30.9, adult; S09.90XA Unspecified injury of head, initial encounter; R13.10 Dysphagia, unspecified; R29.810 Facial weakness; D72.829 Elevated white blood cell count, unspecified; E11.9 Type 2 diabetes mellitus without complications; I10 Essential (primary) hypertension; E66.9 Obesity, unspecified; E78.5 Hyperlipidemia, unspecified; F80.2 Mixed receptive-expressive language disorder; W19.XXXA Unspecified fall, initial encounter; R26.2 Difficulty in walking, not elsewhere classified; Z91.81 History of falling; Z79.4 Long term (current) use of insulin; Z79.84 Long term (current) use of oral hypoglycemic drugs; Z79.899 Other long term (current) drug therapy; Z86.19 Personal history of other infectious and parasitic diseases; Z28.21 Immunization not carried out because of patient refusal; Z88.0 Allergy status to penicillin
CPT/HCPCS: 36415; 70450; 70553; 71045; 74230; 80048; 80053; 80061; 80306; 80320; 81001; 82140; 82607; 82746; 83036; 83735; 84443; 84484; 85025; 85027; 85610; 85730; 93005; 93306; 93880; 94760; 95816; 96361; 96372; 96374; 96375; 99285

== ENCOUNTER 2024-01-19 13:25 | Emergency (ER) | payer OTHER, MEDICARE ==
[2024-01-19 14:05] VITALS: BP 133/82; TEMP 97.8
[2024-01-19 14:12] LABS: Basophils % (A) 0 %; Eosinophils # (A) 0.2 k/uL (0-0.7); Eosinophils % (A) 2 %; HCT 39.2 % (39.0-53.0); Lymphocytes # (A) 0.7 k/uL (1.0-4.8); Lymphocytes % (A) 7 %; MCV 84.8 fL (80.0-100.0); Mean Platelet Volume 8.7; Monocytes # (A) 0.3 k/uL (0-1.0); Monocytes % (A) 3 %; Neutrophils # (A) 8.7 k/uL (1.3-7.7); Neutrophils % (A) 87 %; Platelet Count 190 k/uL (150-450); RBC 4.63 m/uL (4.30-5.90); RDW 15.2 % (11.5-15.5)
[2024-01-19 14:20] LABS: ALT 15 U/L (4-49); AST 24 U/L (17-59); African American GFR (CKD) 77 (>60 ml/min/1.73 sqM); Albumin 3.8 g/dL (3.5-5.0); Alkaline Phosphatase 68 U/L (38-126); Anion Gap 6 mmol/L; Blood Urea Nitrogen 33 mg/dL (9-20); Calcium 8.8 mg/dL (8.4-10.2); Carbon Dioxide 23 mmol/L (22-30); Chloride 108 mmol/L (98-107); Glucose 151 mg/dL (74-99); Non-African American GFR(CKD) 66 (>60 ml/min/1.73 sqM); Potassium 4.7 mmol/L (3.5-5.1); Sodium 137 mmol/L (137-145); Total Bilirubin 0.7 mg/dL (0.2-1.3); Total Protein 6.3 g/dL (6.3-8.2)
--- NOTE | 2024-01-19 14:54 | CT ---
EXAMINATION TYPE: CT brain wo con DATE OF EXAM: 01/19/2024 COMPARISON: 11/27/2023 HISTORY: 73-year-old male neurologic deficit, acute, stroke suspected, altered mental status, confusi on TECHNIQUE: Examination was done in axial plane without intravenous contrast. Coronal and sagittal r econstructions performed. CT DLP: 1154.4 mGycm Automated exposure control for dose reduction was used. FINDINGS: There is no evidence of acute intracranial hemorrhage, acute ischemic changes, mass, mass-effect, or extra-axial fluid collection. There is no effacement of cerebral sulci or basal subarachnoid cister ns. There is no hydrocephalus. There is no midline shift. Rae-white matter distinction is preserv ed. Moderate white matter hypodensities in both cerebral hemispheres. Ex vacuo enlargement frontal horn r ight lateral ventricle with adjacent focal parenchymal hypodensity suggesting encephalomalacia and vo lume loss. Small 1.1 cm mucosal retention cyst floor of the left maxillary sinus. Orbits and globes are intact. Leftward nasal septal deviation. Mastoid air cells well pneumatized. IMPRESSION: Moderate burden of chronic small vessel ischemic disease. Old white matter infarct anterior right fro ntal lobe with adjacent ex vacuo enlargement of the right lateral ventricle. No acute intracranial ab normality seen. If concern for subtle acute ischemia, follow-up MRI.
--- NOTE | 2024-01-19 15:09 | ED ---
General Adult HPI - General Chief complaint: Neuro Symptoms/Deficit Stated complaint: TIA check Time Seen by Provider: 01/19/24 13:30 Source: patient, EMS, RN notes reviewed, old records reviewed Mode of arrival: EMS - History of Present Illness Initial comments: This is a 73-year-old male who [facility]. Patient's daughter was there this morning stated that he did not seem to be himself and seemed to be leaning to the right which was unusual for him and she was concerned that he was having a stroke again. Patient arrived an d he was having no symptoms whatsoever his NIH was 0 and when daughter arrived she stated she agreed that the patient is no longer having any symptoms. Patient has not had any recent fevers chills patient has had no difficulty breathing there is been no nausea vomiting or diarrhea. There has been no recent injury or trauma - Related Data Home Medications Medication Instructions Recorded Confirmed Dulaglutide [Trulicity] 3 mg SQ MARCELO 11/22/23 01/19/24 Insulin Glargine,Hum.rec.anlog 20 units SQ HS 11/22/23 01/19/24 [Lantus Solostar Pen] Pantoprazole Sodium [Protonix] 20 mg PO BID 11/22/23 01/19/24 Tamsulosin [Flomax] 0.4 mg PO DAILY 11/22/23 01/19/24 Acetaminophen Tab [Tylenol] 650 mg PO Q6H PRN 01/19/24 01/19/24 Amiodarone HCl [Pacerone] 200 mg PO DAILY 01/19/24 01/19/24 Docusate Oral Soln [Colace Oral 100 mg PO BID 01/19/24 01/19/24 Soln] Glucagon Emergency Kit 1 mg IM DIRECTED PRN 01/19/24 01/19/24 Insulin Glargine-Yfgn 20 units SQ DAILY 01/19/24 01/19/24 Insulin Lispro [humaLOG Kwikpen] 7 unit SQ AC-TID 01/19/24 01/19/24 Sennosides [Senokot] 8.6 mg PO DAILY 01/19/24 01/19/24 amLODIPine [Norvasc] 10 mg PO DAILY 01/19/24 01/19/24 hydrALAZINE HCL [Apresoline] 50 mg PO BID 01/19/24 01/19/24 polyethylene glycoL 3350 [Miralax] 17 gm PO DAILY 01/19/24 01/19/24 traZODone HCL [Desyrel] 50 mg PO HS 01/19/24 01/19/24 Previous Rx's Medication Instructions Recorded Apixaban [Eliquis] 5 mg PO BID tab 11/28/23 Aspirin 81 mg PO DAILY tab 11/28/23 Metoprolol Tartrate [Lopressor] 75 mg PO BID tab 11/28/23 Allergies Allergy/AdvReac Type Severity Reaction Status Date / Time Penicillins Allergy Unknown Verified 01/19/24 14:34 Childhood Review of Systems ROS Statement: Those systems with pertinent positive or pertinent negative responses have been documented in the HPI. ROS Other: All systems not noted in ROS Statement are negative. Past Medical History Past Medical History: CVA/TIA, Diabetes Mellitus, GERD/Reflux, Hyperlipidemia, Hypertension Additional Past Medical History / Comment(s): stroke 11/2012 (right facial droop & speech resolved.), rheumatic fever as a child, currently receiving physical therapy for thigh pain due to back issues. History of Any Multi-Drug Resistant Organisms: None Reported Past Surgical History: Orthopedic Surgery Additional Past Surgical History / Comment(s): RT achilles tendon repair, RT knee surg., colonoscopy Past Anesthesia/Blood Transfusion Reactions: No Reported Reaction Past Psychological History: No Psychological Hx Reported Smoking Status: Never smoker Past Alcohol Use History: Occasional Past Drug Use History: None Reported - Past Family History Mother Family Medical History: Cancer General Exam - General Exam Comments Initial Comments: GENERAL: Patient is well-developed and well-nourished. Patient is nontoxic and well- hydrated and is in no acute distress. ENT: Neck is soft and supple. No significant lymphadenopathy is noted. Oropharynx is clear. Moist mucous membranes. Neck has full range of motion without eliciting any pain. EYES: The sclera were anicteric and conjunctiva were pink and moist. Extraocular movements were intact and pupils were equal round and reactive to light. Eyelids were unremarkable. PULMONARY: Unlabored respirations. Good breath sounds bilaterally. No audible rales rho nchi or wheezing was noted. CARDIOVASCULAR: There is a regular rate and rhythm without any murmurs gallops or rubs. ABDOMEN: Soft and nontender with normal bowel sounds. SKIN: Skin is clear with no lesions or rashes and otherwise unremarkable. NEUROLOGIC: Patient is alert and oriented x 1. Cranial nerves II through XII are grossly intact. Motor and sensory are also intact. Normal speech, volume and content. Symmetrical smile. NIH is 0 MUSCULOSKELETAL: Normal extremities with adequate strength and full range of motion. LYMPHATICS: No significant lymphadenopathy is noted PSYCHIATRIC: Patient is at his baseline according to the family Course Vital Signs 01/19/24 13:33 Temperature 97.8 F Pulse Rate 70 Respiratory 18 Rate Blood Pressure 133/82 O2 Sat by Pulse 94 L Oximetry Medical Decision Making - Medical Decision Making Was pt. sent in by a medical professional or institution (, [facility], [employer], urgent care, hospital, or fci...) When possible be specific @ -Patient was [facility] by the [facility] because of the daughter's request Did you speak to anyone other than the patient for history (EMS, parent, family, police, friend...)? What history was obtained from this source @ -No Did you review nursing and triage notes (agree or disagree)? Why? @ -I reviewed and agree with nursing and triage notes Were old charts reviewed (outside hosp., previous admission, EMS record, old EKG, old radiological studies, urgent care reports/EKG's, [facility] records)? Report findings @ -No old charts were reviewed Differential Diagnosis? @ -Differential CVA Ischemic stroke, hemorrhagic stroke, brain tumor, atypical migraine, Wernicke's encephalopathy, seizure, multiple sclerosis, meningitis, encephalitis, hypoglycemia, Guillain-Cevallos, electrolytes disturbance, myasthenia gravis.... This is not meant to be an all-inclusive list EKG interpreted by me (3pts min.). @ -As above X-rays interpreted by me (1pt min.). @ -None done CT interpreted by me (1pt min.). @ -CT of the brain shows no acute abnormality U/S interpreted by me (1pt. min.). @ -None done What testing was considered but not performed or refused? (CT, X-rays, U/S, labs)? Why? @ -None What meds were considered but not given or refused? Why? @ -None Did you discuss the management of the patient with other professionals (professionals i.e. , [employer], [employer], lab, RT, psych nurse, web content & social media manager, crop and soil scientist, teacher, telecommunications officer, telephonic nurse case manager)? Give summary @ -No Was smoking cessation discussed for >3mins.? @ -No Was critical care preformed (if so, how long)? @ -No Were there social determinants of health that impacted care today? How? (Homelessness, low income, unemployed, alcoholism, drug addiction, transportation, low edu. Level, literacy, decrease access to med. care, half-way, rehab)? @ -No Was there de-escalation of care discussed even if they declined (Discuss DNR or withdrawal of care, Hospice)? DNR status @ -No What co-morbidities impacted this encounter? (DM, HTN, Smoking, COPD, CAD, Cancer, CVA, ARF, Chemo, Hep., AIDS, mental health diagnosis, sleep apnea, m orbid obesity)? @ -None Was patient admitted / discharged? Hospital course, mention meds given and r oute, prescriptions, significant lab abnormalities, going to OR and other pertinent info. @ -Once patient's results came back with a negative CT I spoke with the family they were comfortable letting the [facility] the [facility] since they have close supervision with this patient. Patient has been asymptomatic since he arrived he will be discharged to the [facility] Undiagnosed new problem with uncertain prognosis? @ -No Drug Therapy requiring intensive monitoring for toxicity (Heparin, Nitro, Insulin, Cardizem)? @ -No Were any procedures done? @ -No Diagnosis/symptom? @ -TIA Acute, or Chronic, or Acute on Chronic? @ -Acute Uncomplicated (without systemic symptoms) or Complicated (systemic symptoms)? @ -Complicated Side effects of treatment? @ -No Exacerbation, Progression, or Severe Exacerbation? @ -No Poses a threat to life or bodily function? How? (Chest pain, USA, HI, pneumonia, PE, COPD, DKA, ARF, appy, cholecystitis, CVA, Diverticulitis, Homicidal, Suicidal, threat to staff... and all critical care pts) @ -No - Lab Data Result diagrams: 01/19/24 13:50 01/19/24 13:50 Lab Results 01/19/24 01/19/24 Range/Units 13:50 13:50 WBC 10.0 (3.8-10.6) k/uL RBC 4.63 (4.30-5.90) m/uL Hgb 13.0 (13.0-17.5) gm/dL Hct 39.2 (39.0-53.0) % MCV 84.8 (80.0-100.0) fL MCH 28.0 (25.0-35.0) pg MCHC 33.0 (31.0-37.0) g/dL RDW 15.2 (11.5-15.5) % Plt Count 190 (150-450) k/uL MPV 8.7 Neutrophils % 87 % Lymphocytes % 7 % Monocytes % 3 % Eosinophils % 2 % Basophils % 0 % Neutrophils # 8.7 H (1.3-7.7) k/uL Lymphocytes # 0.7 L (1.0-4.8) k/uL Monocytes # 0.3 (0-1.0) k/uL Eosinophils # 0.2 (0-0.7) k/uL Basophils # 0.0 (0-0.2) k/uL Sodium 137 (137-145) mmol/L Potassium 4.7 (3.5-5.1) mmol/L Chloride 108 H (98-107) mmol/L Carbon Dioxide 23 (22-30) mmol/L Anion Gap 6 mmol/L BUN 33 H (9-20) mg/dL Creatinine 1.10 (0.66-1.25) mg/dL Est GFR (CKD-EPI)AfAm 77 (>60 ml/min/1.73 sqM) Est GFR (CKD-EPI)NonAf 66 (>60 ml/min/1.73 sqM) Glucose 151 H (74-99) mg/dL Calcium 8.8 (8.4-10.2) mg/dL Total Bilirubin 0.7 (0.2-1.3) mg/dL AST 24 (17-59) U/L ALT 15 (4-49) U/L Alkaline Phosphatase 68 (38-126) U/L Total Protein 6.3 (6.3-8.2) g/dL Albumin 3.8 (3.5-5.0) g/dL Disposition Clinical Impression: Transient cerebral ischemia Disposition: HOME SELF-CARE Condition: Good Instructions (If sedation given, give patient instructions): Transient Ischemic Attack (ED) Is patient prescribed a controlled substance at d/c from ED?: No Referrals: Billy Livingston DO [Primary Care Provider] - 1-2 days Time of Disposition: 15:09
[2024-01-19 15:52] VITALS: PULSE 67; RESP 20
== END 2024-01-19 15:49 | disposition home or self-care (01) ==
LOC: EC 13:25
DX: I67.82 Cerebral ischemia (principal); Z88.0 Allergy status to penicillin
CPT/HCPCS: 36415; 70450; 80053; 85025; 99284

== ENCOUNTER 2024-06-14 18:03 | Inpatient (IN) | payer MEDICARE ==
--- NOTE | 2024-06-14 18:44 | ED ---
General Adult HPI - General Chief complaint: Upper Respiratory Infection Stated complaint: AMS Time Seen by Provider: 06/14/24 18:12 Source: EMS Mode of arrival: EMS - History of Present Illness Initial comments: Dictation was produced using [employer] dictation software. please excuse any grammatical, word or spelling errors. Chief Complaint: 73-year-old male brought in for abnormal x-ray and altered mental status History of Present Illness: Patient 73-year-old male he presents to the emergency department half-way. Patient permanent resident activity secondary to stroke suffered earlier this year. According to EMS patient had abnormal x-ray. Did have a productive cough starting around yesterday. Had an x-ray today showed diffuse pulmonary infiltrates. states that she took him at the half-way this afternoon he went since then he started to have worseni ng lethargy. According to patient has significant debility mostly lower extremity weakness. He has been unable to ambulate since his stroke. The ROS documented in this emergency department record has been reviewed and confirmed by me. Those systems with pertinent positive or negative responses have been documented in the HPI. All other systems are other negative and/or noncontributory. - Related Data Home Medications Medication Instructions Recorded Confirmed Dulaglutide [Trulicity] 3 mg SQ MARCELO 11/22/23 06/14/24 Insulin Glargine,Hum.rec.anlog 18 units SQ HS 11/22/23 06/14/24 [Lantus Solostar Pen] Tamsulosin [Flomax] 0.4 mg PO HS 11/22/23 06/14/24 Acetaminophen Tab [Tylenol] 650 mg PO Q6H PRN 01/19/24 06/14/24 Amiodarone HCl [Pacerone] 200 mg PO DAILY 01/19/24 06/14/24 Sennosides [Senokot] 8.6 mg PO DAILY 01/19/24 06/14/24 amLODIPine [Norvasc] 10 mg PO DAILY 01/19/24 06/14/24 hydrALAZINE HCL [Apresoline] 50 mg PO BID 01/19/24 06/14/24 polyethylene glycoL 3350 [Miralax] 17 gm PO DAILY 01/19/24 06/14/24 traZODone HCL [Desyrel] 50 mg PO HS 01/19/24 06/14/24 Gabapentin [Neurontin] 100 mg PO HS 06/14/24 06/14/24 Insulin Aspart (Niacinamide) 3 units SQ AC-TID 06/14/24 06/14/24 [Fiasp 100 Unit/ml Vial] Loratadine [Claritin] 10 mg PO DAILY 06/14/24 06/14/24 Magnesium Hydroxide [Milk of 2,400 mg PO Q72H PRN 06/14/24 06/14/24 Magnesia] Omeprazole [PriLOSEC] 20 mg PO DAILY 06/14/24 06/14/24 Previous Rx's Medication Instructions Recorded Apixaban [Eliquis] 5 mg PO BID tab 11/28/23 Metoprolol Tartrate [Lopressor] 75 mg PO BID tab 11/28/23 Allergies Allergy/AdvReac Type Severity Reaction Status Date / Time Penicillins Allergy Unknown Verified 06/14/24 19:41 Childhood codeine AdvReac Unknown Verified 06/14/24 19:41 Review of Systems ROS Statement: Those systems with pertinent positive or pertinent negative responses have been documented in the HPI. ROS Other: All systems not noted in ROS Statement are negative. Past Medical History Past Medical History: CVA/TIA, Diabetes Mellitus, GERD/Reflux, Hyperlipidemia, Hypertension Additional Past Medical History / Comment(s): stroke 11/2012 (right facial droop & speech resolved.), rheumatic fever as a child, currently receiving physical therapy for thigh pain due to back issues. History of Any Multi-Drug Resistant Organisms: None Reported Past Surgical History: Orthopedic Surgery Additional Past Surgical History / Comment(s): RT achilles tendon repair, RT knee surg., colonoscopy Past Anesthesia/Blood Transfusion Reactions: No Reported Reaction Past Psychological History: No Psychological Hx Reported Smoking Status: Never smoker Past Alcohol Use History: Occasional Past Drug Use History: None Reported - Past Family History Mother Family Medical History: Cancer General Exam - General Exam Comments Initial Comments: PHYSICAL EXAM: General Impression: Alert and oriented x2/4, lethargic HEENT: Normocephalic atraumatic, extra-ocular movements intact, pupils equal and reactive to light bilaterally, mucous membranes moist. Cardiovascular: Heart regular rate and rhythm Chest: Able to complete full sentences, no retractions, no tachypnea Abdomen: abdomen soft, non-tender, non-distended, no organomegaly Musculoskeletal: Pulses present and equal in all extremities, no peripheral edema Motor: no focal deficits noted Neurological: CN II-XII grossly intact, no facial asymmetry Skin: Intact with no visualized rashes Course Vital Signs 06/14/24 06/14/24 06/14/24 18:07 18:20 18:50 Temperature 89.6 F L Pulse Rate 44 L 44 L Respiratory 20 20 Rate Blood Pressure 130/78 132/81 O2 Sat by Pulse 93 L 91 L Oximetry 06/14/24 06/14/24 06/14/24 18:52 19:02 19:04 Temperature Pulse Rate 44 L Respiratory 20 20 Rate Blood Pressure 108/70 O2 Sat by Pulse 92 L 92 L Oximetry 06/14/24 06/14/24 19:56 21:31 Temperature 93.2 F L Pulse Rate 53 L 64 Respiratory 15 18 Rate Blood Pressure 104/61 96/58 O2 Sat by Pulse 95 95 Oximetry EKG Findings - EKG Comments: EKG Findings:: My EKG interpretation: Ventricular rate 44, sinus bradycardia,. Normal to 96, QRS 113, QTc 470. No IN prolongation, no QTC prolongation, no ST or T-wave changes noted. Overall this EKG is concerning for narrow complex bradycardia Procedures - Sepsis Sepsis Focused Exam #1 Time Sepsis Criteria Met: 21:33 Sepsis Focused Exam Date: 06/14/24 Sepsis Focused Exam Time: 21:34 Sepsis Focused Exam Complete: Yes Vital Signs & RN Notes Reviewed: Yes Capillary Refill: < 2 Seconds: Fingers, Toes Peripheral Pulses: Normal: Radial (R), Radial (L), Posterior Tibialis (R), Posterior Tibialis (L), Dorsalis Pedis (R), Dorsalis Pedis (L) Skin Color: Pallor Respiratory Exam: rhonchi Cardiovascular Exam: bradycardia Medical Decision Making - Medical Decision Making Was pt. sent in by a medical professional or institution (, PA, [employer], urgent care, hospital, or half-way...) When possible be specific @ -No Did you speak to anyone other than the patient for history (EMS, parent, family, police, friend...)? What history was obtained from this source @ -EMS as described above. Some history obtained from family at the bedside. Did you review nursing and triage notes (agree or disagree)? Why? @ -I reviewed and agree with nursing and triage notes Were old charts reviewed (outside hosp., previous admission, EMS record, old EKG, old radiological studies, urgent care reports/EKG's, half-way records)? Report findings @ -No old charts were reviewed Differential Diagnosis (chest pain, altered mental status, abdominal pain women, abdominal pain men, vaginal bleeding, musculoskeletal, weakness, fever, dyspnea, syncope, headache, dizziness, GI bleed, back pain, seizure, CVA, palpatations, mental health)? @ -Differential Altered Mental Status: Hypoglycemia, DKA, hypercapnia, ETOH, overdose, CO poisoning, trauma, myxedema coma, HTN encephalopathy, infection, encephalitis, psychosis, intercranial hemorrhage, hepatic encephalopathy, meningitis, CVA, this is not meant to be an all-inclusive list EKG interpreted by me (3pts min.). @ -See above X-rays interpreted by me (1pt min.). @ -X-ray shows pneumonia CT interpreted by me (1pt min.). @ -CT brain pending U/S interpreted by me (1pt. min.). @ -None done What testing was considered but not performed or refused? (CT, X-rays, U/S, labs)? Why? @ -None What meds were considered but not given or refused? Why? @ -None Was smoking cessation discussed for >3mins.? @ -No Were there social determinants of health that impacted care today? How? (Homelessness, low income, unemployed, alcoholism, drug addiction, transportation, low edu. Level, literacy, decrease access to med. care, longterm, rehab)? @ -No Was there de-escalation of care discussed even if they declined (Discuss DNR or withdrawal of care, Hospice)? DNR status @ -No What co-morbidities impacted this encounter? (DM, HTN, Smoking, COPD, CAD, Cancer, CVA, ARF, Chemo, Hep., AIDS, mental health diagnosis, sleep apnea, morb id obesity)? @ -CVA, dyslipidemia, debility Was patient admitted / discharged? Hospital course, mention meds given and route, prescriptions, significant lab abnormalities, going to OR and other perti nent info. @ -73-year-old male presents to the emergency department for altered mental status. He is lethargic at home. He had an x-ray performed showing pneumonia. According to family patient recently started on trazodone and gabapentin. Vital signs upon arrival shows hypothermia of 89.6 with bradycardia 44 rest of vital signs within acceptable limits. Laboratory evaluation obtained. No le ukocytosis. Patient thrombocytopenic with a level of 53 unclear cause. Coag panel is negative. Metabolic panel within acceptable limits. TSH elevated 6.8. Chest x-ray shows multifocal pneumonia. Patient given broad-spectrum antibiotics. Case discussed with sales agent insurance/resident intern regarding concern for myxedema coma. He states that his labs not suggestive that he is not a candidate for ICU admission. Case discussed with hospitalist for admission. Patient nonetheless treated with levothyroxine, hydrocortisone. Did you discuss the management of the patient with other professionals (pr ofessionals i.e. , PA, [employer], lab, RT, psych nurse, manager social responsibility, manager willow, teacher, field crop technical officer, case management specialist)? Give summary @ -As above Was critical care preformed (if so, how long)? @ -Yes, 77 minutes management of hypothermia and bradycardia Undiagnosed new problem with uncertain prognosis? @ -No Drug Therapy requiring intensive monitoring for toxicity (Heparin, Nitro, Insulin, Cardizem)? @ -No Were any procedures done? @ -No Diagnosis/symptom? Acute, or Chronic, or Acute on Chronic? Uncomplicated (without systemic symptoms) or Complicated (systemic symptoms)? @ -Pneumonia sepsis Side effects of treatment? @ -No Exacerbation, Progression, or Severe Exacerbation? @ -No Poses a threat to life or bodily function? How? (Chest pain, USA, MD, pneumonia, PE, COPD, DKA, ARF, appy, cholecystitis, CVA, Diverticulitis, Homicidal, Suicidal, threat to staff... and all critical care pts) @ -yes - Lab Data Result diagrams: 06/14/24 18:30 06/14/24 18:30 Lab Results 06/14/24 06/14/24 06/14/24 Range/Units 18:30 18:30 18:30 WBC 6.4 (3.8-10.6) k/uL RBC 4.16 L (4.30-5.90) m/uL Hgb 11.8 L (13.0-17.5) gm/dL Hct 35.8 L (39.0-53.0) % MCV 86.2 (80.0-100.0) fL MCH 28.3 (25.0-35.0) pg MCHC 32.8 (31.0-37.0) g/dL RDW 16.0 H (11.5-15.5) % Plt Count 53 L (150-450) k/uL MPV 11.2 Neutrophils % 81 % Lymphocytes % 10 % Monocytes % 6 % Eosinophils % 1 % Basophils % 0 % Neutrophils # 5.2 (1.3-7.7) k/uL Lymphocytes # 0.6 L (1.0-4.8) k/uL Monocytes # 0.4 (0-1.0) k/uL Eosinophils # 0.1 (0-0.7) k/uL Basophils # 0.0 (0-0.2) k/uL Manual Slide Review Performed Hypochromasia Slight PT 10.4 (10.0-12.5) sec INR 0.9 (<1.2) APTT 32.4 H (22.0-30.0) sec Sodium 137 (137-145) mmol/L Potassium 5.6 H (3.5-5.1) mmol/L Chloride 104 (98-107) mmol/L Carbon Dioxide 25 (22-30) mmol/L Anion Gap 8 mmol/L BUN 46 H (9-20) mg/dL Creatinine 1.32 H (0.66-1.25) mg/dL Est GFR (CKD-EPI)AfAm 62 (>60 ml/min/1.73 sqM) Est GFR (CKD-EPI)NonAf 53 (>60 ml/min/1.73 sqM) Glucose 107 H (74-99) mg/dL POC Glucose (mg/dL) (70-110) mg/dL POC Glu Ssas Developer ID Plasma Lactic Acid Chandrakant (0.7-2.0) mmol/L Calcium 9.0 (8.4-10.2) mg/dL Magnesium 2.1 (1.6-2.3) mg/dL Total Bilirubin 0.3 (0.2-1.3) mg/dL AST 26 (17-59) U/L ALT 36 (4-49) U/L Alkaline Phosphatase 77 (38-126) U/L Ammonia (<30) umol/L Troponin I (0.000-0.034) ng/mL NT-Pro-B Natriuret Pep 225 pg/mL Total Protein 6.0 L (6.3-8.2) g/dL Albumin 3.5 (3.5-5.0) g/dL TSH 6.840 H (0.465-4.680) mIU/L Free T4 1.49 (0.78-2.19) ng/dL 06/14/24 06/14/24 06/14/24 Range/Units 18:30 18:30 18:58 WBC (3.8-10.6) k/uL RBC (4.30-5.90) m/uL Hgb (13.0-17.5) gm/dL Hct (39.0-53.0) % MCV (80.0-100.0) fL MCH (25.0-35.0) pg MCHC (31.0-37.0) g/dL RDW (11.5-15.5) % Plt Count (150-450) k/uL MPV Neutrophils % % Lymphocytes % % Monocytes % % Eosinophils % % Basophils % % Neutrophils # (1.3-7.7) k/uL Lymphocytes # (1.0-4.8) k/uL Monocytes # (0-1.0) k/uL Eosinophils # (0-0.7) k/uL Basophils # (0-0.2) k/uL Manual Slide Review Hypochromasia PT (10.0-12.5) sec INR (<1.2) APTT (22.0-30.0) sec Sodium (137-145) mmol/L Potassium (3.5-5.1) mmol/L Chloride (98-107) mmol/L Carbon Dioxide (22-30) mmol/L Anion Gap mmol/L BUN (9-20) mg/dL Creatinine (0.66-1.25) mg/dL Est GFR (CKD-EPI)AfAm (>60 ml/min/1.73 sqM) Est GFR (CKD-EPI)NonAf (>60 ml/min/1.73 sqM) Glucose (74-99) mg/dL POC Glucose (mg/dL) 100 (70-110) mg/dL POC Glu Ssas Developer ID Weatherly Rianna Plasma Lactic Acid Chandrakant 0.9 (0.7-2.0) mmol/L Calcium (8.4-10.2) mg/dL Magnesium (1.6-2.3) mg/dL Total Bilirubin (0.2-1.3) mg/dL AST (17-59) U/L ALT (4-49) U/L Alkaline Phosphatase (38-126) U/L Ammonia 21 (<30) umol/L Troponin I <0.012 (0.000-0.034) ng/mL NT-Pro-B Natriuret Pep pg/mL Total Protein (6.3-8.2) g/dL Albumin (3.5-5.0) g/dL TSH (0.465-4.680) mIU/L Free T4 (0.78-2.19) ng/dL Disposition Clinical Impression: Pneumonia Disposition: ADMITTED IP TO THIS [facility] Condition: Fair Referrals: Billy Livingston DO [Primary Care Provider] - 1-2 days Decision Time: 21:33
[2024-06-14] MEDS: SODIUM CHLORIDE 0.9% 500 ML 500 ML IV SCH (18:49)
[2024-06-14] MEDS ORDERED: VANCOMYCIN IV PER PHARMACY 1 EACH MISC MISCELLANE PRN (18:54)
[2024-06-14 19:00] LABS: Glucose,Whole Blood 100 mg/dL (70-110)
[2024-06-14] MEDS: NALOXONE 0.4 MG/ML 1 ML VIAL IVP STA (19:04)
[2024-06-14 19:08] LABS: Basophils % (A) 0 %; Eosinophils # (A) 0.1 k/uL (0-0.7); Eosinophils % (A) 1 %; HCT 35.8 % (39.0-53.0); HGB 11.8 gm/dL (13.0-17.5); Hypochromasia Slight; Lactic Acid, Venous 0.9 mmol/L (0.7-2.0); Lymphocytes # (A) 0.6 k/uL (1.0-4.8); Lymphocytes % (A) 10 %; MCH 28.3 pg (25.0-35.0); MCHC 32.8 g/dL (31.0-37.0); MCV 86.2 fL (80.0-100.0); Mean Platelet Volume 11.2; Monocytes # (A) 0.4 k/uL (0-1.0); Monocytes % (A) 6 %; Neutrophils # (A) 5.2 k/uL (1.3-7.7); Neutrophils % (A) 81 %; RBC 4.16 m/uL (4.30-5.90); WBC 6.4 k/uL (3.8-10.6)
[2024-06-14 19:20] LABS: INR 0.9 (<1.2); Partial Thromboplastin Time 32.4 sec (22.0-30.0); Prothrombin Time 10.4 sec (10.0-12.5)
--- NOTE | 2024-06-14 19:37 | XR ---
EXAMINATION TYPE: XR chest 1V portable DATE OF EXAM: 06/14/2024 7:17 PM COMPARISON: Chest radiographs from 11/24/2023 CLINICAL INDICATION: Male, 73 years old with history of cough; [facility] TECHNIQUE: XR chest 1V portable Frontal view of the chest. FINDINGS: Lungs/Pleura: Multifocal airspace opacities. No evidence of pneumothorax or pleural effusion. Pulmonary vascularity: Unremarkable. Heart/mediastinum: Cardiomediastinal silhouette is unremarkable. Musculoskeletal: No acute osseous pathology. IMPRESSION: Multifocal airspace opacities concerning for pneumonia. [facility], , 06/14/2024 7:34 PM
[2024-06-14 19:48] LABS: Platelet Count 53 k/uL (150-450)
[2024-06-14] MEDS: CEFEPIME 2 GM in SODIUM CHLORIDE 0.9% 100 ML IVPB SCH (19:49)
[2024-06-14] MEDS: ATROPINE SULFATE 0.1 MG/ML 10ML SYRINGE IV STA (19:49)
[2024-06-14 20:23] LABS: T4, Free (Free Thyroxine) 1.49 ng/dL (0.78-2.19)
[2024-06-14 20:40] LABS: ALT 36 U/L (4-49); AST 26 U/L (17-59); African American GFR (CKD) 62 (>60 ml/min/1.73 sqM); Albumin 3.5 g/dL (3.5-5.0); Alkaline Phosphatase 77 U/L (38-126); Anion Gap 8 mmol/L; Blood Urea Nitrogen 46 mg/dL (9-20); Carbon Dioxide 25 mmol/L (22-30); Chloride 104 mmol/L (98-107); Glucose 107 mg/dL (74-99); Magnesium 2.1 mg/dL (1.6-2.3); Non-African American GFR(CKD) 53 (>60 ml/min/1.73 sqM); Potassium 5.6 mmol/L (3.5-5.1); Sodium 137 mmol/L (137-145); Total Bilirubin 0.3 mg/dL (0.2-1.3)
[2024-06-14 20:41] LABS: NT-Pro-B-Type Natriuretic Pept 225 pg/mL
[2024-06-14] MEDS: VANCOMYCIN 1,750 MG in SODIUM CHLORIDE 0.9% 500 ML 500 ML IVPB STA (21:09)
[2024-06-14] MEDS: HYDROCORTISONE SUCCINATE 100 MG/2 ML VIAL IV SCH (21:24)
[2024-06-14] MEDS: LEVOTHYROXINE IVP 100 MCG/5 ML VIAL IV STA (21:26)
[2024-06-14] MEDS: LIOTHYRONINE SODIUM 5 MCG TAB PO SCH (21:27)
[2024-06-14] MEDS ORDERED: ONDANSETRON 4 MG/2 ML VIAL IVP PRN (21:28)
[2024-06-14] MEDS ORDERED: ACETAMINOPHEN TAB 325 MG TAB PO PRN (21:28)
[2024-06-14] MEDS ORDERED: NALOXONE 0.4 MG/ML 1 ML VIAL IV PRN (21:28)
[2024-06-14] MEDS: SODIUM CHLORIDE 0.9% 1,000 ML IV SCH (21:39)
[2024-06-14 22:15] LABS: Amorphous Sediment,Urine Rare /hpf; Appearance,Urine Clear (Clear); Bilirubin,Urine Negative (Negative); Blood,Urine Negative (Negative); Color,Urine Light Yellow; Glucose,Urine (UA) Negative (Negative); Hyaline Casts,Urine 6 /lpf (0-2); Ketones,Urine Negative (Negative); Leukocyte Esterase,Urine Trace (Negative); Nitrite,Urine Negative (Negative); Protein,Urine Trace (Negative); Urobilinogen,Urine <2.0 mg/dL (<2.0); WBC,Urine 11 /hpf (0-5)
[2024-06-14] MEDS: PANTOPRAZOLE 40 MG/10 ML VIAL IV SCH (22:36)
--- NOTE | 2024-06-14 22:44 | CT ---
EXAMINATION TYPE: CT brain wo con CT DLP: 1272.2 mGycm, Automated exposure control for dose reduction was used. DATE OF EXAM: 06/14/2024 10:22 PM COMPARISON: CT brain 01/19/2024, 11/27/2023, MRI brain 11/23/2023 CLINICAL INDICATION:Male, 73 years old with history of ams, Patient reports to by EMS from [facility] for AMS and cough. Per EMS, patient had stat xrays done today which showed bilateral i nfiltrates. Per EMS, staff also state that patient has had "disorganized speech for a while". TECHNIQUE: Brain: Multiple axial CT images of the brain were obtained without IV contrast. . Coronal and sagitta l reformats reviewed. FINDINGS: Brain: Extra-axial spaces: No abnormal extra-axial fluid collections. Ventricular system: Similar ex vacuo dilatation of the right lateral ventricle anterior horn and body . Cerebral parenchyma: Cerebral atrophy. No acute intraparenchymal hemorrhage or mass effect. The trejo -white junction is well differentiated. Scattered hypoattenuating areas are seen within the periventr icular and subcortical white matter. This is most prominent within the right frontal lobe suggestive of again encephalomalacia and volume loss. Remote lacunar injury within the left basal ganglia. Cerebellum: Unremarkable. Mass effect: No evidence of midline shift. Intracranial vasculature: Atherosclerotic calcifications of the intracranial vessels. Soft tissues: Normal. Calvarium/osseous structures: No depressed skull fracture. Paranasal sinuses and mastoid air cells: Mastoid air cells are clear. Stable left inferior maxillary sinus 1 cm mucous retention cyst. The remaining paranasal sinuses are clear. Visualized orbits: Orbital contents are intact. IMPRESSION: 1. No acute intracranial process. 2. Similar moderate white matter changes, likely secondary to chronic small vessel ischemic disease. Old remote white matter infarct anterior right frontal lobe redemonstrated. Additional remote lacunar injury within the left basal ganglia. [facility], , 06/14/2024 10:42 PM
[2024-06-15 08:24] LABS: African American GFR (CKD) 54 (>60 ml/min/1.73 sqM); Non-African American GFR(CKD) 46 (>60 ml/min/1.73 sqM)
[2024-06-15] MEDS: METOPROLOL TARTRATE 25 MG TAB PO SCH (09:24)
[2024-06-15] MEDS: AMIODARONE 100 MG TAB PO SCH (09:24)
[2024-06-15] MEDS ORDERED: DEXTROSE 50% SYRINGE 50 ML IVP PRN ×2 (10:00)
--- NOTE | 2024-06-15 11:48 | XR ---
EXAMINATION TYPE: XR chest 1V confirm line plcmt DATE OF EXAM: 06/15/2024 11:13 AM COMPARISON: Chest radiograph from one day prior. CLINICAL INDICATION: Male, 73 years old with history of NG tube; H TECHNIQUE: XR chest 1V confirm line plcmt Frontal view of the chest. FINDINGS: Lungs/Pleura: Multifocal airspace opacities. No evidence of pneumothorax or pleural effusion. Pulmonary vascularity: Unremarkable. Heart/mediastinum: Cardiomediastinal silhouette is prominent in size. Musculoskeletal: No acute osseous pathology. Other findings: None Lines/Tubes: Nasogastric tube with its distal tip and side-port projecting under the diaphragm. IMPRESSION: 1. Nasogastric tube in appropriate position. 2. Similar multifocal airspace opacities. [facility], , 06/15/2024 11:46 AM
--- NOTE | 2024-06-15 12:29 | P.PN ---
Subjective HISTORY OF PRESENT ILLNESS: This is a 73-year-old male with a past medical history significant for coronary artery disease, hypertension, hyperlipidemia, diabetes, and CVA. Patient follows in the office with Dr. Abarca. We have been asked to see the patient in consultation for bradycardia. Patient examined at the bedside in the emergency room. Patient's family members at the bedside. She states that when she saw the patient on Sunday he seemed more tired and he had garbled speech. She states yesterday when she went to visit him at his ECF she noticed that his symptoms were worse and the nurse agreed so they brought him to the hospital for further evaluation. The patient is lethargic at the time of examination and unable to provide any additional history. Patient was found to be in sinus bradycardia upon admission with a heart rate in the 40s. At the time of examination his heart rate is in the 70s. Patient is usually on metoprolol tartrate 75 mg twice a day and also amiodarone 200 mg daily. DIAGNOSTICS: - EKG reveals sinus mechanism with no signs of acute ischemia. Bradycardic with heart rate 44. - Chest xray multifocal airspace opacities concerning for pneumonia - Laboratory data: WBC 6.4. Hemoglobin 11.8. Platelet count 53. Sodium 137. Potassium 5.6. BUN 46. Creatinine 1.32. Troponin negative x 1. proBNP 225. TSH 6.840. Free T4 1.49. Free T3 1.50 - Current home cardiac medications include Eliquis 5 mg twice a day, hydralazine 50 mg twice a day, metoprolol tartrate 75 mg twice a day, amiodarone 200 mg daily, Norvasc 10 mg daily - Most recent echocardiogram obtained in November 2023 revealing ejection fraction 60 to 65% with no significant valvular abnormalities - Cardiac catheterization history: December 2020 revealing right dominant system with total occlusion of RCA that fills by collaterals from the circumflex. Circumflex has minor irregularities. No significant disease. LAD has 35 to 40% lesion. Before and after the diagonal branch and distal LAD has mild diffuse disease. Filling pressures are normal. REVIEW OF SYSTEMS: At the time of my exam: Unable to obtain thorough review of systems secondary to altered mental status PHYSICAL EXAM: VITAL SIGNS: Reviewed. GENERAL: Well-developed in no acute distress. HEENT: Head is normocephalic. Pupils are equal, round. Sclerae anicteric. Mucous membranes of the mouth are moist. Neck supple. No JVD or thyromegaly LUNGS: Respirations even and unlabored. Lungs with expiratory wheezing noted HEART: Regular rate and rhythm. S1 and S2 heard. ABDOMEN: Soft. Nondistended. Nontender. EXTREMITIES: Normal range of motion. No clubbing or cyanosis. Peripheral pulses intact. Bilateral lower extremity edema noted NEUROLOGIC: Lethargic ASSESSMENT: Altered mental status with worsening lethargy Pneumonia Sinus bradycardia, resolved Accessible atrial fibrillation New thrombocytopenia, platelet count 53 Acute kidney injury Coronary artery disease Hypertension Hyperlipidemia Diabetes History of CVA, November 2023 Abnormal TSH PLAN: Obtain 2D echo to assess cardiac structure and function Patient initially bradycardic upon admission with heart rate in the 40s. Heart rate now is in the 70s. Patient is usually on metoprolol tartrate 75 mg twice a day and also amiodarone 200 mg daily. Will decrease metoprolol tartrate to 25 mg twice a day and decrease amiodarone to 100 mg daily Patient normally on Eliquis. However, patient with new thrombocytopenia with platelet count 53. Will hold Eliquis at this time. Continue telemetry monitoring Further recommendations pending patient course Nurse practitioner note has been reviewed by physician. Signing provider agrees with the documented findings, assessment, and plan of care documented by GRINDER as a scribe. Objective - Vital Signs Vital signs: Vital Signs Temp 97.3 F L 06/15/24 10:53 Pulse 86 06/15/24 12:00 Resp 18 06/15/24 12:00 BP 129/86 06/15/24 12:00 Pulse Ox 93 L 06/15/24 12:00 FiO2 Intake & Output 06/14/24 06/15/24 06/15/24 18:59 06:59 18:59 Output Total 1909 Balance -1909 Weight 102.058 kg Output: Urine 1909 Uretheral ([place]) 1909 - Labs CBC & Chem 7: 06/14/24 18:30 06/15/24 07:53 Labs: Abnormal Lab Results - Last 24 Hours (Table) 06/14/24 06/14/24 06/14/24 Range/Units 18:30 18:30 18:30 RBC 4.16 L (4.30-5.90) m/uL Hgb 11.8 L (13.0-17.5) gm/dL Hct 35.8 L (39.0-53.0) % RDW 16.0 H (11.5-15.5) % Plt Count 53 L (150-450) k/uL Lymphocytes # 0.6 L (1.0-4.8) k/uL APTT 32.4 H (22.0-30.0) sec Potassium 5.6 H (3.5-5.1) mmol/L BUN 46 H (9-20) mg/dL Creatinine 1.32 H (0.66-1.25) mg/dL Glucose 107 H (74-99) mg/dL Total Protein 6.0 L (6.3-8.2) g/dL TSH 6.840 H (0.465-4.680) mIU/L Free T3 pg/mL 1.50 L (2.30-4.20) pg/mL Urine Protein (Negative) Ur Leukocyte Esterase (Negative) Urine WBC (0-5) /hpf Amorphous Sediment (None) /hpf Hyaline Casts (0-2) /lpf 06/14/24 06/15/24 Range/Units 21:32 07:53 RBC (4.30-5.90) m/uL Hgb (13.0-17.5) gm/dL Hct (39.0-53.0) % RDW (11.5-15.5) % Plt Count (150-450) k/uL Lymphocytes # (1.0-4.8) k/uL APTT (22.0-30.0) sec Potassium (3.5-5.1) mmol/L BUN (9-20) mg/dL Creatinine 1.48 H (0.66-1.25) mg/dL Glucose (74-99) mg/dL Total Protein (6.3-8.2) g/dL TSH (0.465-4.680) mIU/L Free T3 pg/mL (2.30-4.20) pg/mL Urine Protein Trace H (Negative) Ur Leukocyte Esterase Trace H (Negative) Urine WBC 11 H (0-5) /hpf Amorphous Sediment Rare H (None) /hpf Hyaline Casts 6 H (0-2) /lpf
[2024-06-15 13:08] LABS: Glucose,Whole Blood 116 mg/dL (70-110)
[2024-06-15] MEDS: INSULIN ASPART (NovoLOG) 100 UNIT/ML VIAL SQ SCH ×2 (13:08→13:20)
--- NOTE | 2024-06-15 14:07 | P.CNPUL ---
History of Present Illness Consult date: 06/15/24 Requesting physician: Geoff Sanchez Reason for consult: hypoxemia, abnormal CXR/CT Chief complaint: Altered mental status History of present illness: This is a 73-year-old male patient with a known history of hypertension, hyperlipidemia, gastroesophageal reflux disease, diabetes mellitus and cer ebrovascular accident earlier this year and has been residing in a snf with poor mobility. Brought into the emergency room yesterday with increasing lethargy. CT scan of the brain revealed no acute intracranial process. Chest x-ray reveals multifocal airspace opacities. White count 6.4. Hemoglobin 11.8. Platelets 53,000. Sodium 137. Potassium 5.6. Bicarb 25. BUN 46. Creatinine 1.32. Glucose 107. Viral screen negative. He is seen today in consultation in the emergency department. He is difficult to arouse. He is currently on 5 L/min per nasal cannula. He has been initiated on vancomycin and cefepime. Solu-Cortef 100 mg every 8 hours. Normal saline at 130 mL/h. He is currently afebrile. Hemodynamically stable. Review of Systems ROS unobtainable: due to mental status Past Medical History Past Medical History: CVA/TIA, Diabetes Mellitus, GERD/Reflux, Hyperlipidemia, Hypertension Additional Past Medical History / Comment(s): stroke 11/2012 (right facial droop & speech resolved.), rheumatic fever as a child, currently receiving physical therapy for thigh pain due to back issues. History of Any Multi-Drug Resistant Organisms: None Reported Past Surgical History: Orthopedic Surgery Additional Past Surgical History / Comment(s): RT achilles tendon repair, RT knee surg., colonoscopy Past Anesthesia/Blood Transfusion Reactions: No Reported Reaction Past Psychological History: No Psychological Hx Reported Smoking Status: Never smoker Past Alcohol Use History: Occasional Past Drug Use History: None Reported - Past Family History Mother Family Medical History: Cancer Medications and Allergies Home Medications Medication Instructions Recorded Confirmed Type Dulaglutide [Trulicity] 3 mg SQ MARCELO 11/22/23 06/14/24 History Insulin Glargine,Hum.rec.anlog 18 units SQ HS 11/22/23 06/14/24 History [Lantus Solostar Pen] Tamsulosin [Flomax] 0.4 mg PO HS 11/22/23 06/14/24 History Apixaban [Eliquis] 5 mg PO BID tab 11/28/23 06/14/24 Rx Metoprolol Tartrate [Lopressor] 75 mg PO BID tab 11/28/23 06/14/24 Rx Acetaminophen Tab [Tylenol] 650 mg PO Q6H PRN 01/19/24 06/14/24 History Amiodarone HCl [Pacerone] 200 mg PO DAILY 01/19/24 06/14/24 History Sennosides [Senokot] 8.6 mg PO DAILY 01/19/24 06/14/24 History amLODIPine [Norvasc] 10 mg PO DAILY 01/19/24 06/14/24 History hydrALAZINE HCL [Apresoline] 50 mg PO BID 01/19/24 06/14/24 History polyethylene glycoL 3350 [Miralax] 17 gm PO DAILY 01/19/24 06/14/24 History traZODone HCL [Desyrel] 50 mg PO HS 01/19/24 06/14/24 History Gabapentin [Neurontin] 100 mg PO HS 06/14/24 06/14/24 History Insulin Aspart (Niacinamide) 3 units SQ AC-TID 06/14/24 06/14/24 History [Fiasp 100 Unit/ml Vial] Loratadine [Claritin] 10 mg PO DAILY 06/14/24 06/14/24 History Magnesium Hydroxide [Milk of 2,400 mg PO Q72H PRN 06/14/24 06/14/24 History Magnesia] Omeprazole [PriLOSEC] 20 mg PO DAILY 06/14/24 06/14/24 History Allergies Allergy/AdvReac Type Severity Reaction Status Date / Time Penicillins Allergy Unknown Verified 06/14/24 19:41 Childhood codeine AdvReac Unknown Verified 06/14/24 19:41 Physical Exam Vitals: Vital Signs Temp Pulse Resp BP Pulse Ox 06/15/24 13:01 95.2 F L 85 22 121/71 93 L 06/15/24 12:00 86 18 129/86 93 L 06/15/24 10:53 97.3 F L 90 20 116/66 94 L 06/15/24 09:54 87 18 121/67 90 L 06/15/24 09:22 89 18 115/68 94 L 06/15/24 07:54 98.2 F 89 20 96 06/15/24 07:34 99.0 F 87 20 115/79 93 L 06/15/24 05:21 20 06/15/24 05:11 99.5 F 92 22 116/67 94 L 06/15/24 04:00 99.5 F 91 18 106/62 94 L 06/15/24 02:32 100.0 F H 95 20 105/63 94 L 06/15/24 00:54 99.1 F 87 20 112/67 94 L 06/14/24 23:30 96.6 F L 71 15 111/70 96 06/14/24 22:00 94.8 F L 61 18 94/75 95 06/14/24 21:31 93.2 F L 64 18 96/58 95 06/14/24 19:56 53 L 15 104/61 95 06/14/24 19:04 20 06/14/24 19:02 44 L 20 108/70 92 L 06/14/24 18:52 92 L 06/14/24 18:50 44 L 20 132/81 91 L 06/14/24 18:20 89.6 F L 06/14/24 18:07 44 L 20 130/78 93 L Intake and Output 06/14/24 06/15/24 06/15/24 22:59 06:59 14:59 Output Total 1100 810 Balance -1100 -810 Output: Urine 1100 810 Uretheral ([place]) 1100 810 Other: Weight 102.058 kg GENERAL EXAM: Arousable, obese 73-year-old male, on 5 L nasal cannula, in no apparent distress. HEAD: Normocephalic. EYES: Normal reaction of pupils, equal size. NOSE: Clear with pink turbinates. THROAT: No erythema or exudates. NECK: No masses, no JVD. CHEST: No chest wall deformity. LUNGS: Equal air entry with bilateral scattered rhonchi. CVS: S1 and S2 normal with no audible murmur, regular rhythm. Bradycardiac ABDOMEN: No hepatosplenomegaly, normal bowel sounds, no guarding or rigidity. SPINE: No scoliosis or deformity SKIN: No rashes CENTRAL NERVOUS SYSTEM: No focal deficits, tone is normal in all 4 extremities. EXTREMITIES: There is 1-2+ peripheral edema. No clubbing, no cyanosis. Peripheral pulses are intact. Results - Laboratory Findings CBC and BMP: 06/14/24 18:30 12/29/24 07:53 PT/INR, D-dimer PT 10.4 sec (10.0-12.5) 06/14/24 18:30 INR 0.9 (<1.2) 06/14/24 18:30 Abnormal lab findings: Abnormal Labs 06/14/24 06/14/24 06/14/24 18:30 18:30 18:30 RBC 4.16 L Hgb 11.8 L Hct 35.8 L RDW 16.0 H Plt Count 53 L Lymphocytes # 0.6 L APTT 32.4 H Potassium 5.6 H BUN 46 H Creatinine 1.32 H Glucose 107 H POC Glucose (mg/dL) Total Protein 6.0 L TSH 6.840 H Free T3 pg/mL 1.50 L Urine Protein Ur Leukocyte Esterase Urine WBC Amorphous Sediment Hyaline Casts 06/14/24 06/15/24 06/15/24 21:32 07:53 13:07 RBC Hgb Hct RDW Plt Count Lymphocytes # APTT Potassium BUN Creatinine 1.48 H Glucose POC Glucose (mg/dL) 116 H Total Protein TSH Free T3 pg/mL Urine Protein Trace H Ur Leukocyte Esterase Trace H Urine WBC 11 H Amorphous Sediment Rare H Hyaline Casts 6 H - Diagnostic Findings Chest x-ray: image reviewed Assessment and Plan Assessment: Altered mental status of unclear etiology Acute hypoxemic respiratory failure secondary to possible aspiration pneumonia Bradycardia Acute kidney injury History of atrial fibrillation anticoagulated with Eliquis History of cerebrovascular accident involving the left thalamus Generalized weakness with gait dysfunction and poor mobility secondary to above, residing in a extended care facility Diabetes mellitus, type II Hyperlipidemia Gastroesophageal reflux disease Hypertension Obesity Previous history of CVA Plan: The patient was seen and evaluated Chest x-ray, labs and medications reviewed CT scan of the brain reviewed Suspect aspiration pneumonia Continue vancomycin and cefepime Nothing by mouth Place a nasogastric tube for nutrition Titrate down the FiO2 as tolerated Continue Solu-Cortef Continue fluid resuscitation We will continue to follow and make further recommendations based on his clinical status I have personally seen and examined the patient, performed the documentation and the assessment and plan as written. Number of minutes spent on the visit: 20 Dictation was produced using [employer] dictation software. Please excuse any grammatical, word or spelling errors.
--- NOTE | 2024-06-15 14:49 | P.HPIM ---
History of Present Illness H&P Date: 06/15/24 History of present illness; patient 73-year-old gentleman with past medical history significant for diabetes mellitus, stroke, hypertension who presented to the ER for altered mental status and increasing lethargy. Patient is currently resident of a long-term facility. Patient has been having shortness of breath and productive cough since yesterday. There was no complaint of fever or chills. Nursing staff did note that the patient very lethargic. There was no complaint of chest pain. There is no complaint of orthopnea or PND. There is no complaint of swelling of feet. Patient does not ambulate much secondary to his stroke. Patient had chest x-ray done at the facility yesterday and today showed patient to have findings of pneumonia. came to check on the patient and was concerned about his worsening mental status and brought him to the ER Initial lab work done in the ER showed WB 6.4, hemoglobin 11.8, platelet count 53, sodium 137, potassium 5.6, BUN 46, creatinine 1.32, glucose 107 TSH 6.840, T41.19, T31.50 UA done negative for infection EKG done in the ER showed heart rate of 44, no ST segment elevation or depression seen, no T-wave inversions seen. CT brain done showed no acute intracranial process, similar with moderate white matter changes, likely secondary to chronic small vessel ischemic changes. Old remote white matter infarct anterior right frontal lobe redemonstrated Chest x-ray done in the ER showed multifocal airspace opacities concerning for pneumonia Patient admitted to internal medicine service REVIEW OF SYSTEMS: CONSTITUTIONAL: As mentioned above HEENT: No recent visual problems or hearing problems. Denied any sore throat. CARDIOVASCULAR: As mentioned above PULMONARY: Mentioned above GASTROINTESTINAL: No diarrhea, no nausea, no vomiting, no abdominal pain. NEUROLOGICAL: No headaches, no weakness, no numbness. HEMATOLOGICAL: Denies any bleeding or petechiae. GENITOURINARY: Denies any burning micturition, frequency, or urgency. MUSCULOSKELETAL/RHEUMATOLOGICAL: Denies any joint pain, swelling, or any muscle pain. ENDOCRINE: Denies any polyuria or polydipsia. The rest of the 14-point review of systems is negative. PHYSICAL EXAMINATION: GENERAL: The patient is lethargic, ill looking HEENT: Pupils are round and equally reacting to light. EOMI. No scleral icterus. No conjunctival pallor. Normocephalic, atraumatic. No pharyngeal erythema. No thyromegaly. CARDIOVASCULAR: S1 and S2 present. No murmurs, rubs, or gallops. PULMONARY: Chest is clear to auscultation, no wheezing or crackles. ABDOMEN: Soft, nontender, nondistended, normoactive bowel sounds. No palpable organomegaly. MUSCULOSKELETAL: No joint swelling or deformity. EXTREMITIES: No cyanosis, clubbing, or pedal edema. NEUROLOGICAL: Gross neurological examination did not reveal any focal deficits. SKIN: No rashes. Assessment and plan Acute infectious encephalopathy Acute hypoxic respiratory failure Bradycardia Bacterial pneumonia History of CVA History of diabetes mellitus Hyperlipidemia Hypertension Monitor vital signs Monitor CBC Monitor CMP Continue telemetry monitoring Blood cultures ordered sputum cultures Ordered IV cefepime and vancomycin ordered breathing treatments Ordered IV fluids Ordered glucose monitoring, resume home insulin regimen Consult pulmonary Consult ID Consult cardiology Labs and medication were reviewed.. Continue same treatment. Continue with symptomatic treatment. Resume home medication. Monitor labs and vitals. DVT and GI prophylaxis. Further recommendations as per clinical course of the patie nt Dictation was produced using [employer] dictation software. please excuse any grammatical, word or spelling errors. Past Medical History Past Medical History: CVA/TIA, Diabetes Mellitus, GERD/Reflux, Hyperlipidemia, Hypertension Additional Past Medical History / Comment(s): stroke 11/2012 (right facial droop & speech resolved.), rheumatic fever as a child, currently receiving physical therapy for thigh pain due to back issues. History of Any Multi-Drug Resistant Organisms: None Reported Past Surgical History: Orthopedic Surgery Additional Past Surgical History / Comment(s): RT achilles tendon repair, RT knee surg., colonoscopy Past Anesthesia/Blood Transfusion Reactions: No Reported Reaction Past Psychological History: No Psychological Hx Reported Smoking Status: Never smoker Past Alcohol Use History: Occasional Past Drug Use History: None Reported - Past Family History Mother Family Medical History: Cancer Medications and Allergies Home Medications Medication Instructions Recorded Confirmed Type Dulaglutide [Trulicity] 3 mg SQ MARCELO 11/22/23 06/14/24 History Insulin Glargine,Hum.rec.anlog 18 units SQ HS 11/22/23 06/14/24 History [Lantus Solostar Pen] Tamsulosin [Flomax] 0.4 mg PO HS 11/22/23 06/14/24 History Apixaban [Eliquis] 5 mg PO BID tab 11/28/23 06/14/24 Rx Metoprolol Tartrate [Lopressor] 75 mg PO BID tab 11/28/23 06/14/24 Rx Acetaminophen Tab [Tylenol] 650 mg PO Q6H PRN 01/19/24 06/14/24 History Amiodarone HCl [Pacerone] 200 mg PO DAILY 01/19/24 06/14/24 History Sennosides [Senokot] 8.6 mg PO DAILY 01/19/24 06/14/24 History amLODIPine [Norvasc] 10 mg PO DAILY 01/19/24 06/14/24 History hydrALAZINE HCL [Apresoline] 50 mg PO BID 01/19/24 06/14/24 History polyethylene glycoL 3350 [Miralax] 17 gm PO DAILY 01/19/24 06/14/24 History traZODone HCL [Desyrel] 50 mg PO HS 01/19/24 06/14/24 History Gabapentin [Neurontin] 100 mg PO HS 06/14/24 06/14/24 History Insulin Aspart (Niacinamide) 3 units SQ AC-TID 06/14/24 06/14/24 History [Fiasp 100 Unit/ml Vial] Loratadine [Claritin] 10 mg PO DAILY 06/14/24 06/14/24 History Magnesium Hydroxide [Milk of 2,400 mg PO Q72H PRN 06/14/24 06/14/24 History Magnesia] Omeprazole [PriLOSEC] 20 mg PO DAILY 06/14/24 06/14/24 History Allergies Allergy/AdvReac Type Severity Reaction Status Date / Time Penicillins Allergy Unknown Verified 06/14/24 19:41 Childhood codeine AdvReac Unknown Verified 06/14/24 19:41 Physical Exam Vitals: Vital Signs Temp Pulse Resp BP Pulse Ox 06/15/24 09:22 89 18 115/68 94 L 06/15/24 07:54 98.2 F 89 20 96 06/15/24 07:34 99.0 F 87 20 115/79 93 L 06/15/24 05:21 20 06/15/24 05:11 99.5 F 92 22 116/67 94 L 06/15/24 04:00 99.5 F 91 18 106/62 94 L 06/15/24 02:32 100.0 F H 95 20 105/63 94 L 06/15/24 00:54 99.1 F 87 20 112/67 94 L 06/14/24 23:30 96.6 F L 71 15 111/70 96 06/14/24 22:00 94.8 F L 61 18 94/75 95 06/14/24 21:31 93.2 F L 64 18 96/58 95 06/14/24 19:56 53 L 15 104/61 95 06/14/24 19:04 20 06/14/24 19:02 44 L 20 108/70 92 L 06/14/24 18:52 92 L 06/14/24 18:50 44 L 20 132/81 91 L 06/14/24 18:20 89.6 F L 06/14/24 18:07 44 L 20 130/78 93 L Intake and Output 06/14/24 06/15/24 06/15/24 22:59 06:59 14:59 Output Total 1100 810 Balance -1100 -810 Output: Urine 1100 810 Uretheral ([place]) 1100 810 Other: Weight 102.058 kg Results CBC & Chem 7: 06/14/24 18:30 06/15/24 07:53 Labs: Abnormal Lab Results - Last 24 Hours (Table) 06/14/24 06/14/24 06/14/24 Range/Units 18:30 18:30 18:30 RBC 4.16 L (4.30-5.90) m/uL Hgb 11.8 L (13.0-17.5) gm/dL Hct 35.8 L (39.0-53.0) % RDW 16.0 H (11.5-15.5) % Plt Count 53 L (150-450) k/uL Lymphocytes # 0.6 L (1.0-4.8) k/uL APTT 32.4 H (22.0-30.0) sec Potassium 5.6 H (3.5-5.1) mmol/L BUN 46 H (9-20) mg/dL Creatinine 1.32 H (0.66-1.25) mg/dL Glucose 107 H (74-99) mg/dL Total Protein 6.0 L (6.3-8.2) g/dL TSH 6.840 H (0.465-4.680) mIU/L Free T3 pg/mL 1.50 L (2.30-4.20) pg/mL Urine Protein (Negative) Ur Leukocyte Esterase (Negative) Urine WBC (0-5) /hpf Amorphous Sediment (None) /hpf Hyaline Casts (0-2) /lpf 06/14/24 06/15/24 Range/Units 21:32 07:53 RBC (4.30-5.90) m/uL Hgb (13.0-17.5) gm/dL Hct (39.0-53.0) % RDW (11.5-15.5) % Plt Count (150-450) k/uL Lymphocytes # (1.0-4.8) k/uL APTT (22.0-30.0) sec Potassium (3.5-5.1) mmol/L BUN (9-20) mg/dL Creatinine 1.48 H (0.66-1.25) mg/dL Glucose (74-99) mg/dL Total Protein (6.3-8.2) g/dL TSH (0.465-4.680) mIU/L Free T3 pg/mL (2.30-4.20) pg/mL Urine Protein Trace H (Negative) Ur Leukocyte Esterase Trace H (Negative) Urine WBC 11 H (0-5) /hpf Amorphous Sediment Rare H (None) /hpf Hyaline Casts 6 H (0-2) /lpf
[2024-06-15] MEDS: FUROSEMIDE 10 MG/ML 2 ML VIAL IV ONE (15:35)
[2024-06-15] MEDS ORDERED: PIPERACILLIN-TAZOBACTAM 3.375 GM in SODIUM CHLORIDE 0.9% 100 ML IVPB SCH (16:00)
[2024-06-15 16:57] LABS: Anisocytosis Slight; Basophils % (A) 0 %; Eosinophils % (A) 0 %; HCT 34.6 % (39.0-53.0); HGB 11.3 gm/dL (13.0-17.5); Hypochromasia Slight; Lymphocytes # (A) 0.5 k/uL (1.0-4.8); Lymphocytes % (A) 5 %; MCH 28.2 pg (25.0-35.0); MCHC 32.8 g/dL (31.0-37.0); MCV 86.2 fL (80.0-100.0); Mean Platelet Volume 10.4; Monocytes # (A) 0.5 k/uL (0-1.0); Monocytes % (A) 5 %; Neutrophils # (A) 8.9 k/uL (1.3-7.7); Neutrophils % (A) 89 %; RBC 4.02 m/uL (4.30-5.90); WBC 10.1 k/uL (3.8-10.6)
[2024-06-15 17:01] LABS: Platelet Count 74 k/uL (150-450)
[2024-06-15 17:09] LABS: African American GFR (CKD) 55 (>60 ml/min/1.73 sqM); Anion Gap 10 mmol/L; Blood Urea Nitrogen 42 mg/dL (9-20); Calcium 8.6 mg/dL (8.4-10.2); Carbon Dioxide 21 mmol/L (22-30); Chloride 108 mmol/L (98-107); Glucose 113 mg/dL (74-99); Non-African American GFR(CKD) 47 (>60 ml/min/1.73 sqM); Potassium 5.1 mmol/L (3.5-5.1); Sodium 139 mmol/L (137-145)
[2024-06-15 17:18] LABS: NT-Pro-B-Type Natriuretic Pept 1510 pg/mL
[2024-06-15 17:54] LABS: Glucose,Whole Blood 111 mg/dL (70-110)
[2024-06-15] MEDS: TAMSULOSIN 0.4 MG CAP.ER.24H PO SCH (20:17)
[2024-06-15] MEDS: CEFEPIME 2 GM in SODIUM CHLORIDE 0.9% 100 ML IVPB SCH (20:54)
[2024-06-15 21:02] LABS: Glucose,Whole Blood 123 mg/dL (70-110)
[2024-06-15] MEDS: INSULIN DETEMIR (LEVEMIR) 100 UNIT/ML SYR SQ SCH (21:45)
[2024-06-16] MEDS: VANCOMYCIN 1,750 MG in SODIUM CHLORIDE 0.9% 500 ML 500 ML IVPB SCH (01:03)
[2024-06-16 06:52] LABS: African American GFR (CKD) 66 (>60 ml/min/1.73 sqM); Non-African American GFR(CKD) 57 (>60 ml/min/1.73 sqM)
--- NOTE | 2024-06-16 07:05 | P.CONS ---
History of Present Illness - Reason for Consult Consult date: 06/15/24 Pneumonia Requesting physician: Tino Jaimes - Chief Complaint Shortness of breath and lethargy x 1 day - History of Present Illness Patient is a 73-year-old male with a past medical history significant for CVA TIA diabetes mellitus hypertension hyperlipidemia reflux patient has been brought into the hospital from the local halfway concerning for abnormal x-ray apparently the patient did have a productive cough that started the day before the patient has been brought to the hospital chest x-ray showing diffuse infiltrate concerning for pneumonia patient also noticed to be more lethargic and less responsive for the patient was sent to the hospital on arr ival to the ER patient was hypothermic with a temperature of 89.6 F subsequently did have a temperature of 100 F patient was bradycardic on presentation and hypoxic requiring BiPAP but not hypotensive patient did have white count of 6.4 with a left shift BUN and creatinine has been mildly elevated liver isms are normal urine is mildly positive influenza RSV COVID testing has been negative blood cultures currently pending patient did have a chest x-ray multifocal airspace opacity concerning for pneumonia patient has been started on cefepime and vancomycin infectious disease was consulted for further management of antibiotic therapy most information has been obtained from review the chart as the patient was not able to provide any history Review of Systems Positive points has been mentioned in HPI complete review could not be obtained because of his underlying mental status Past Medical History Past Medical History: CVA/TIA, Diabetes Mellitus, GERD/Reflux, Hyperlipidemia, Hypertension Additional Past Medical History / Comment(s): stroke 11/2012 (right facial droop & speech resolved.), rheumatic fever as a child, currently receiving physical therapy for thigh pain due to back issues. History of Any Multi-Drug Resistant Organisms: None Reported Past Surgical History: Orthopedic Surgery Additional Past Surgical History / Comment(s): RT achilles tendon repair, RT knee surg., colonoscopy Past Anesthesia/Blood Transfusion Reactions: No Reported Reaction Past Psychological History: No Psychological Hx Reported Smoking Status: Never smoker Past Alcohol Use History: Occasional Past Drug Use History: None Reported - Past Family History Mother Family Medical History: Cancer Medications and Allergies Home Medications Medication Instructions Recorded Confirmed Type Dulaglutide [Trulicity] 3 mg SQ MARCELO 11/22/23 06/14/24 History Insulin Glargine,Hum.rec.anlog 18 units SQ HS 11/22/23 06/14/24 History [Lanjonahus Solostar Pen] Tamsulosin [Flomax] 0.4 mg PO HS 11/22/23 06/14/24 History Apixaban [Eliquis] 5 mg PO BID tab 11/28/23 06/14/24 Rx Metoprolol Tartrate [Lopressor] 75 mg PO BID tab 11/28/23 06/14/24 Rx Acetaminophen Tab [Tylenol] 650 mg PO Q6H PRN 01/19/24 06/14/24 History Amiodarone HCl [Pacerone] 200 mg PO DAILY 01/19/24 06/14/24 History Sennosides [Senokot] 8.6 mg PO DAILY 01/19/24 06/14/24 History amLODIPine [Norvasc] 10 mg PO DAILY 01/19/24 06/14/24 History hydrALAZINE HCL [Apresoline] 50 mg PO BID 01/19/24 06/14/24 History polyethylene glycoL 3350 [Miralax] 17 gm PO DAILY 01/19/24 06/14/24 History traZODone HCL [Desyrel] 50 mg PO HS 01/19/24 06/14/24 History Gabapentin [Neurontin] 100 mg PO HS 06/14/24 06/14/24 History Insulin Aspart (Niacinamide) 3 units SQ AC-TID 06/14/24 06/14/24 History [Fiasp 100 Unit/ml Vial] Loratadine [Claritin] 10 mg PO DAILY 06/14/24 06/14/24 History Magnesium Hydroxide [Milk of 2,400 mg PO Q72H PRN 06/14/24 06/14/24 History Magnesia] Omeprazole [PriLOSEC] 20 mg PO DAILY 06/14/24 06/14/24 History Allergies Allergy/AdvReac Type Severity Reaction Status Date / Time Penicillins Allergy Unknown Verified 06/14/24 19:41 Childhood codeine AdvReac Unknown Verified 06/14/24 19:41 Physical Exam Vitals: Vital Signs Temp Pulse Resp BP Pulse Ox 06/15/24 12:00 86 18 129/86 93 L 06/15/24 10:53 97.3 F L 90 20 116/66 94 L 06/15/24 09:54 87 18 121/67 90 L 06/15/24 09:22 89 18 115/68 94 L 06/15/24 07:54 98.2 F 89 20 96 06/15/24 07:34 99.0 F 87 20 115/79 93 L 06/15/24 05:21 20 06/15/24 05:11 99.5 F 92 22 116/67 94 L 06/15/24 04:00 99.5 F 91 18 106/62 94 L 06/15/24 02:32 100.0 F H 95 20 105/63 94 L 06/15/24 00:54 99.1 F 87 20 112/67 94 L 06/14/24 23:30 96.6 F L 71 15 111/70 96 06/14/24 22:00 94.8 F L 61 18 94/75 95 06/14/24 21:31 93.2 F L 64 18 96/58 95 06/14/24 19:56 53 L 15 104/61 95 06/14/24 19:04 20 06/14/24 19:02 44 L 20 108/70 92 L 06/14/24 18:52 92 L 06/14/24 18:50 44 L 20 132/81 91 L 06/14/24 18:20 89.6 F L 06/14/24 18:07 44 L 20 130/78 93 L Intake and Output 06/14/24 06/15/24 06/15/24 22:59 06:59 14:59 Output Total 1100 810 Balance -1100 -810 Output: Urine 1100 810 Uretheral ([place]) 1100 810 Other: Weight 102.058 kg GENERAL DESCRIPTION: Elderly male lying in bed, no distress. No tachypnea or accessory muscle of respiration use. HEENT: Shows Pallor , no scleral icterus. Oral mucous membrane is dry. NECK: Trachea central, no thyromegaly. LUNGS: Unlabored breathing. Coarse breath sounds bilaterally HEART: S1, S2, regular rate and rhythm. No loud murmur ABDOMEN: Soft, no tenderness , EXTREMITIES: No edema of feet. SKIN: No rash, no masses palpable. NEUROLOGICAL: The patient is lethargic orientation could not be determined Results CBC & Chem 7: 06/15/24 16:36 06/16/24 05:58 Labs: Abnormal Lab Results - Last 24 Hours (Table) 06/14/24 06/14/24 06/14/24 Range/Units 18:30 18:30 18:30 RBC 4.16 L (4.30-5.90) m/uL Hgb 11.8 L (13.0-17.5) gm/dL Hct 35.8 L (39.0-53.0) % RDW 16.0 H (11.5-15.5) % Plt Count 53 L (150-450) k/uL Lymphocytes # 0.6 L (1.0-4.8) k/uL APTT 32.4 H (22.0-30.0) sec Potassium 5.6 H (3.5-5.1) mmol/L BUN 46 H (9-20) mg/dL Creatinine 1.32 H (0.66-1.25) mg/dL Glucose 107 H (74-99) mg/dL Total Protein 6.0 L (6.3-8.2) g/dL TSH 6.840 H (0.465-4.680) mIU/L Free T3 pg/mL 1.50 L (2.30-4.20) pg/mL Urine Protein (Negative) Ur Leukocyte Esterase (Negative) Urine WBC (0-5) /hpf Amorphous Sediment (None) /hpf Hyaline Casts (0-2) /lpf 06/14/24 06/15/24 Range/Units 21:32 07:53 RBC (4.30-5.90) m/uL Hgb (13.0-17.5) gm/dL Hct (39.0-53.0) % RDW (11.5-15.5) % Plt Count (150-450) k/uL Lymphocytes # (1.0-4.8) k/uL APTT (22.0-30.0) sec Potassium (3.5-5.1) mmol/L BUN (9-20) mg/dL Creatinine 1.48 H (0.66-1.25) mg/dL Glucose (74-99) mg/dL Total Protein (6.3-8.2) g/dL TSH (0.465-4.680) mIU/L Free T3 pg/mL (2.30-4.20) pg/mL Urine Protein Trace H (Negative) Ur Leukocyte Esterase Trace H (Negative) Urine WBC 11 H (0-5) /hpf Amorphous Sediment Rare H (None) /hpf Hyaline Casts 6 H (0-2) /lpf Assessment and Plan (1) Penicillin allergy Current Visit: Yes Status: Acute Code(s): Z88.0 - ALLERGY STATUS TO PENICILLIN SNOMED Code(s): 41742751 (2) Pneumonia Current Visit: Yes Status: Acute Code(s): J18.9 - PNEUMONIA, UNSPECIFIED ORGANISM SNOMED Code(s): 218436803 Plan: 1patient presented to hospital with weakness lethargy increasing shortness of breath cough with evidence of multifocal infiltrates suggestive of pneumonia in this patient with the halfway resident need to cover for the resistant gram-positive as well as gram-negative pathogen. 2patient with a penicillin allergy that will limit the number of antibiotics safe to use. 3patient with mildly elevated creatinine vancomycin trough need to be monitored closely. 4try to obtain sputum for Gram stain and culture 5vancomycin pharmacy to dose and cefepime will provide adequate empiric antibiotic coverage while waiting for the culture to finalize We will follow on clinical condition and cultures to further adjust medication if needed Thank you for this consultation we will follow the patient along with you Dictation was produced using [employer] dictation software. please excuse any grammatical, word or spelling errors. Time with Patient: Greater than 30
[2024-06-16 07:58] LABS: Glucose,Whole Blood 132 mg/dL (70-110)
[2024-06-16] MEDS: HYDROCORTISONE SUCCINATE 100 MG/2 ML VIAL IV SCH (10:09)
--- NOTE | 2024-06-16 10:18 | XR ---
EXAMINATION TYPE: XR chest 1V confirm line [facility] DATE OF EXAM: 06/16/2024 10:06 AM COMPARISON: 06/15/2024 CLINICAL INDICATION: Male, 73 years old with history of nasogastric tube placement, TECHNIQUE: XR chest 1V confirm line plcor view(s) obtained. FINDINGS: The heart size is normal. The pulmonary vasculature is indistinct. Diffuse increased lung markings are present in the upper lung castillo. This is increasing from compari son. Correlate for pneumonia and pulmonary edema. Nasogastric tube is been placed, tip is in the distal thoracic region. This should be advanced approx imately 15 cm for better placement. IMPRESSION: 1. Worsening upper lung field traits. Correlate for pneumonia and pulmonary edema. 2. Placement of a nasogastric tube with tip in the distal esophageal region. This should be advanced approximately 15 cm. [facility], , 06/16/2024 10:16 AM
--- NOTE | 2024-06-16 11:12 | XR ---
EXAMINATION TYPE: XR chest 1V confirm line [facility] DATE OF EXAM: 06/16/2024 10:59 AM COMPARISON: Earlier exam same date CLINICAL INDICATION: Male, 73 years old with history of NG tube placement after advancment, TECHNIQUE: XR chest 1V confirm line [facility] view(s) obtained. FINDINGS: The heart size is normal. The pulmonary vasculature is indistinct. Diffuse patchy infiltrates are present bilaterally greater on the right. Nasogastric tube has been advanced with the tip in the left upper quadrant of the abdomen. IMPRESSION: 1. Bilateral patchy infiltrates worse on the right. 2. NG tube tip left upper quadrant abdomen [facility], , 06/16/2024 11:10 AM
--- NOTE | 2024-06-16 11:47 | P.PN ---
Subjective Progress Note Date: 06/16/24 This is a 73-year-old male with a past medical history significant for coronary artery disease, hypertension, hyperlipidemia, diabetes, and CVA. Patient follows in the office with Dr. Abarca. We have been asked to see the patient in consultation for bradycardia. Patient examined at the bedside in the emergency room. Patient's family members at the bedside. She states that when she saw the patient on Sunday he seemed more tired and he had garbled speech. She states yesterday when she went to visit him at his ECF she noticed that his symptoms were worse and the nurse agreed so they brought him to the hospital for further evaluation. The patient is lethargic at the time of examination and unable to provide any additional history. Patient was found to be in sinus bradycardia upon admission with a heart rate in the 40s. At the time of examination his heart rate is in the 70s. Patient is usually on metoprolol tartrate 75 mg twice a day and also amiodarone 200 mg daily. DIAGNOSTICS: - EKG reveals sinus mechanism with no signs of acute ischemia. Bradycardic with heart rate 44. - Chest xray multifocal airspace opacities concerning for pneumonia - Laboratory data: WBC 6.4. Hemoglobin 11.8. Platelet count 53. Sodium 137. Potassium 5.6. BUN 46. Creatinine 1.32. Troponin negative x 1. proBNP 225. TSH 6.840. Free T4 1.49. Free T3 1.50 - Current home cardiac medications include Eliquis 5 mg twice a day, hydralazine 50 mg twice a day, metoprolol tartrate 75 mg twice a day, amiodarone 200 mg daily, Norvasc 10 mg daily - Most recent echocardiogram obtained in November 2023 revealing ejection fraction 60 to 65% with no significant valvular abnormalities - Cardiac catheterization history: December 2020 revealing right dominant system with total occlusion of RCA that fills by collaterals from the circumflex. Circumflex has minor irregularities. No significant disease. LAD has 35 to 40% lesion. Before and after the diagonal branch and distal LAD has mild diffuse disease. Filling pressures are normal. 06/16/2024 Patient was seen and examined resting in the ER. Labs this morning showed creatinine 1.25, hemoglobin A1c 5.9. X-ray showed bilateral patchy infiltrates worse on the right. The patient has been evaluated by ID and started on Vanocmycin and cefepime. Pulmonary following. Patient remains NPO. REVIEW OF SYSTEMS: At the time of my exam: Unable to obtain thorough review of systems secondary to altered mental status PHYSICAL EXAM: VITAL SIGNS: Reviewed. GENERAL: Well-developed in no acute distress. HEENT: Head is normocephalic. Pupils are equal, round. Sclerae anicteric. Mucous membranes of the mouth are moist. Neck supple. No JVD or thyromegaly LUNGS: Respirations even and unlabored. Lungs with expiratory wheezing noted HEART: Regular rate and rhythm. S1 and S2 heard. ABDOMEN: Soft. Nondistended. Nontender. EXTREMITIES: Normal range of motion. No clubbing or cyanosis. Peripheral pulses intact. Bilateral lower extremity edema noted NEUROLOGIC: Lethargic ASSESSMENT: Altered mental status with worsening lethargy Pneumonia Sinus bradycardia, resolved Accessible atrial fibrillation New thrombocytopenia, platelet count 53 Acute kidney injury Coronary artery disease Hypertension Hyperlipidemia Diabetes History of CVA, November 2023 Abnormal TSH PLAN: Review 2D echo to assess cardiac structure and function Patient initially bradycardic upon admission with heart rate in the 40s. Heart rate now is in the 80s. Patient normally on Eliquis. However, patient with new thrombocytopenia with platelet count 53. Will hold Eliquis at this time. Continue telemetry monitoring Further recommendations pending patient course Objective - Vital Signs Vital signs: Vital Signs Temp 97.4 F L 06/16/24 05:33 Pulse 93 06/16/24 09:27 Resp 20 06/16/24 09:27 BP 153/92 06/16/24 09:27 Pulse Ox 93 L 06/16/24 09:27 FiO2 80 06/16/24 03:59 Intake & Output 06/15/24 06/16/24 06/16/24 18:59 06:59 18:59 Output Total 1600 2600 Balance -1600 -2600 Output: Urine 1600 2600 Uretheral ([place]) 800 Other: # Bowel Movements 1 - Labs CBC & Chem 7: 06/15/24 16:36 06/16/24 05:58 Labs: Abnormal Lab Results - Last 24 Hours (Table) 06/15/24 06/15/24 06/15/24 Range/Units 13:07 16:36 16:36 RBC 4.02 L (4.30-5.90) m/uL Hgb 11.3 L (13.0-17.5) gm/dL Hct 34.6 L (39.0-53.0) % RDW 16.0 H (11.5-15.5) % Plt Count 74 L (150-450) k/uL Neutrophils # 8.9 H (1.3-7.7) k/uL Lymphocytes # 0.5 L (1.0-4.8) k/uL Chloride 108 H (98-107) mmol/L Carbon Dioxide 21 L (22-30) mmol/L BUN 42 H (9-20) mg/dL Creatinine 1.45 H (0.66-1.25) mg/dL Glucose 113 H (74-99) mg/dL POC Glucose (mg/dL) 116 H (70-110) mg/dL 06/15/24 06/15/24 06/16/24 Range/Units 17:53 21:01 07:56 RBC (4.30-5.90) m/uL Hgb (13.0-17.5) gm/dL Hct (39.0-53.0) % RDW (11.5-15.5) % Plt Count (150-450) k/uL Neutrophils # (1.3-7.7) k/uL Lymphocytes # (1.0-4.8) k/uL Chloride (98-107) mmol/L Carbon Dioxide (22-30) mmol/L BUN (9-20) mg/dL Creatinine (0.66-1.25) mg/dL Glucose (74-99) mg/dL POC Glucose (mg/dL) 111 H 123 H 132 H (70-110) mg/dL Microbiology - Last 24 Hours (Table) 06/14/24 21:32 Urine Culture - Final Urine,Voided 06/14/24 18:30 Blood Culture - Preliminary Blood 06/14/24 18:15 Blood Culture - Preliminary Blood
--- NOTE | 2024-06-16 12:19 | CA ---
Transthoracic Echo Report Name: Syd Baird Age: 73 Gender: M : 1950 Exam Date: 06/16/2024 08:48 Exam Location: [place] Echo Ht (in): 66 Wt (lb): 225 Ordering Physician: Joslyn Cordon Attending/Referring Phys: [id number], [employer] Radha Barcenas, LUPE Procedure CPT: Indications: LV function, history of A-fib, bradycardia Cardiac Hx: Technical Quality: Technically difficult study Contrast 1: Definity Total Dose (mL): 2 Contrast 2: Total Dose (mL): MEASUREMENTS (Male / Female) Normal Values 2D ECHO LV Diastolic Diameter PLAX 4.8 cm 4.2 - 5.9 / 3.9 - 5.3 cm LV Systolic Diameter PLAX 3.1 cm IVS Diastolic Thickness 1.3 cm 0.6 - 1.0 / 0.6 - 0.9 cm LVPW Diastolic Thickness 1.3 cm 0.6 - 1.0 / 0.6 - 0.9 cm LV Relative Wall Thickness 0.5 RV Internal Dim ED PLAX 2.8 cm LA Systolic Diameter LX 4.1 cm 3.0 - 4.0 / 2.7 - 3.8 cm M-MODE Aortic Root Diameter MM 3.6 cm AV Cusp Separation MM 2.2 cm DOPPLER AV Peak Velocity 174.9 cm/s AV Peak Gradient 12.2 mmHg MV Area PHT 6.4 cm??? MV Deceleration Time 100.3 ms TR Peak Velocity 307.0 cm/s TR Peak Gradient 37.7 mmHg Right Ventricular Systolic Press 52.7 mmHg FINDINGS Left Ventricle Left ventricular ejection fraction is estimated at 50-55 %. Left ventricular cavity size normal. Mild concentric left ventricular hypertrophy. Normal left ventricular wall motion. Right Ventricle Normal right ventricular size. Moderate pulmonary hypertension. Right Atrium Normal right atrial size. No right atrial thrombus or mass seen. Left Atrium Mild left atrial dilatation. No left atrial thrombus or mass present. Mitral Valve Structurally normal mitral valve. Trace mitral regurgitation. Aortic Valve Trileaflet aortic valve. No aortic valve stenosis or regurgitation. Tricuspid Valve Structurally normal tricuspid valve. Mild tricuspid regurgitation. Pulmonic Valve Pulmonic valve not well visualized. Pericardium No pericardial or pleural effusion. Aorta Normal size aortic root and proximal ascending aorta. CONCLUSIONS Technically difficult study for interpretation Poorly visualized endocardium and intracardiac valves Normal LV systolic function No significant valvular abnormalities. Moderate pulmonary hypertension Previewed by: Dr. Alejo Hatch MD (Electronically Signed) Final Date: 16 June 2024 12:18
[2024-06-16 12:55] LABS: Glucose,Whole Blood 138 mg/dL (70-110)
--- NOTE | 2024-06-16 13:53 | P.PN ---
Subjective Progress Note Date: 06/16/24 patient 73-year-old gentleman with past medical history significant for diabetes mellitus, stroke, hypertension who presented to the ER for altered mental status and increasing lethargy. Patient is currently resident of a long term facility. Patient has been having shortness of breath and productive cough since yesterday. There was no complaint of fever or chills. Nursing staff did note that the patient very lethargic. There was no complaint of chest pain. There is no complaint of orthopnea or PND. There is no complaint of swelling of feet. Patient does not ambulate much secondary to his stroke. Patient had chest x-ray done at the facility yesterday and today showed patient to have find ings of pneumonia. came to check on the patient and was concerned about his worsening mental status and brought him to the ER Initial lab work done in the ER showed WB 6.4, hemoglobin 11.8, platelet count 53, sodium 137, potassium 5.6, BUN 46, creatinine 1.32, glucose 107 TSH 6.840, T41.19, T31.50 UA done negative for infection EKG done in the ER showed heart rate of 44, no ST segment elevation or depression seen, no T-wave inversions seen. CT brain done showed no acute intracranial process, similar with moderate white matter changes, likely secondary to chronic small vessel ischemic changes. Old remote white matter infarct anterior right frontal lobe redemonstrated Chest x-ray done in the ER showed multifocal airspace opacities concerning for pneumonia Patient admitted to internal medicine service 06/16. Patient seen and examined. Daughter at the bedside who is the DPOA. Discussed with her regarding patient's serious conditions, she says she will talk with family. Currently patient is lethargic, n.p.o., has NG tube in place for medications REVIEW OF SYSTEMS: Review of system cannot be obtained as patient lethargic PHYSICAL EXAMINATION: GENERAL: The patient is lethargic HEENT: Pupils are round and equally reacting to light. EOMI. No scleral icterus. No conjunctival pallor. Normocephalic, atraumatic. No pharyngeal erythema. No thyromegaly. CARDIOVASCULAR: S1 and S2 present. No murmurs, rubs, or gallops. PULMONARY: Coarse breath sound bilaterally, bilateral rhonchi and crackles audible ABDOMEN: Soft, nontender, nondistended, normoactive bowel sounds. No palpable organomegaly. MUSCULOSKELETAL: No joint swelling or deformity. EXTREMITIES: No cyanosis, clubbing, 1+ pitting edema lower extremities NEUROLOGICAL: Moving all extremities SKIN: No rashes. Assessment and plan Acute infectious encephalopathy Acute hypoxic respiratory failure Bradycardia Bacterial pneumonia History of CVA History of diabetes mellitus Hyperlipidemia Hypertension Monitor vital signs Monitor CBC Monitor CMP Continue telemetry monitoring Follow-up on blood culture Follow-up on sputum culture Continue ox supplementation Aggressive bronchopulmonary hygiene Speech evaluation Eliquis on hold secondary to thrombocytopenia Continue IV cefepime and vancomycin Bradycardia improved so patient back on amiodarone Cardiology following Pulmonary following Labs and medication were reviewed.. Continue same treatment. Continue with symptomatic treatment. Resume home medication. Monitor labs and vitals. DVT and GI prophylaxis. Further recommendations as per clinical course of the patient Dictation was produced using [employer] dictation software. please excuse any grammatical, word or spelling errors. Objective - Vital Signs Vital signs: Vital Signs Temp 97.4 F L 06/16/24 05:33 Pulse 93 06/16/24 13:00 Resp 22 06/16/24 13:00 BP 148/85 06/16/24 13:00 Pulse Ox 94 L 06/16/24 13:00 FiO2 80 06/16/24 03:59 Intake & Output 06/15/24 06/16/24 06/16/24 18:59 06:59 18:59 Output Total 1600 2600 Balance -1600 -2600 Output: Urine 1600 2600 Uretheral ([place]) 800 Other: # Bowel Movements 1 - Labs CBC & Chem 7: 06/15/24 16:36 06/16/24 05:58 Labs: Abnormal Lab Results - Last 24 Hours (Table) 06/15/24 06/15/24 06/15/24 Range/Units 16:36 16:36 17:53 RBC 4.02 L (4.30-5.90) m/uL Hgb 11.3 L (13.0-17.5) gm/dL Hct 34.6 L (39.0-53.0) % RDW 16.0 H (11.5-15.5) % Plt Count 74 L (150-450) k/uL Neutrophils # 8.9 H (1.3-7.7) k/uL Lymphocytes # 0.5 L (1.0-4.8) k/uL Chloride 108 H (98-107) mmol/L Carbon Dioxide 21 L (22-30) mmol/L BUN 42 H (9-20) mg/dL Creatinine 1.45 H (0.66-1.25) mg/dL Glucose 113 H (74-99) mg/dL POC Glucose (mg/dL) 111 H (70-110) mg/dL 06/15/24 06/16/24 06/16/24 Range/Units 21:01 07:56 12:44 RBC (4.30-5.90) m/uL Hgb (13.0-17.5) gm/dL Hct (39.0-53.0) % RDW (11.5-15.5) % Plt Count (150-450) k/uL Neutrophils # (1.3-7.7) k/uL Lymphocytes # (1.0-4.8) k/uL Chloride (98-107) mmol/L Carbon Dioxide (22-30) mmol/L BUN (9-20) mg/dL Creatinine (0.66-1.25) mg/dL Glucose (74-99) mg/dL POC Glucose (mg/dL) 123 H 132 H 138 H (70-110) mg/dL Microbiology - Last 24 Hours (Table) 06/14/24 21:32 Urine Culture - Final Urine,Voided 06/14/24 18:30 Blood Culture - Preliminary Blood 06/14/24 18:15 Blood Culture - Preliminary Blood
[2024-06-16 14:42] LABS: Basophils % (A) 0 %; Eosinophils % (A) 0 %; HCT 33.3 % (39.0-53.0); HGB 10.8 gm/dL (13.0-17.5); Hypochromasia Slight; Lymphocytes # (A) 0.5 k/uL (1.0-4.8); Lymphocytes % (A) 4 %; MCH 28.2 pg (25.0-35.0); MCHC 32.5 g/dL (31.0-37.0); MCV 86.9 fL (80.0-100.0); Mean Platelet Volume 9.9; Monocytes # (A) 0.4 k/uL (0-1.0); Monocytes % (A) 3 %; Neutrophils # (A) 10.3 k/uL (1.3-7.7); Neutrophils % (A) 92 %; RBC 3.83 m/uL (4.30-5.90); RDW 15.7 % (11.5-15.5); WBC 11.3 k/uL (3.8-10.6)
--- NOTE | 2024-06-16 14:42 | XR ---
EXAMINATION TYPE: XR chest 1V confirm line [facility] DATE OF EXAM: 06/16/2024 1:05 PM COMPARISON: None. CLINICAL INDICATION: Male, 73 years old with history of nasogastric tube, TECHNIQUE: XR chest 1V confirm line plcne view(s) obtained. FINDINGS: The heart size is normal. The pulmonary vasculature is normal. Patchy infiltrates are present bilaterally. Nasogastric tube is present with the tip in the left upper quadrant of the abdomen. IMPRESSION: 1. Patchy bilateral lung infiltrates. This may be improving at the right base. Continued follow-up is recommended. 2. Nasogastric tube present with the tip in the left upper quadrant of the abdomen. [facility], , 06/16/2024 2:40 PM
[2024-06-16 14:48] LABS: Platelet Count 77 k/uL (150-450)
[2024-06-16 14:56] LABS: ALT 34 U/L (4-49); AST 29 U/L (17-59); African American GFR (CKD) 75 (>60 ml/min/1.73 sqM); Albumin 2.9 g/dL (3.5-5.0); Alkaline Phosphatase 71 U/L (38-126); Anion Gap 7 mmol/L; Blood Urea Nitrogen 34 mg/dL (9-20); Calcium 8.5 mg/dL (8.4-10.2); Carbon Dioxide 24 mmol/L (22-30); Chloride 109 mmol/L (98-107); Glucose 141 mg/dL (74-99); Non-African American GFR(CKD) 64 (>60 ml/min/1.73 sqM); Potassium 4.4 mmol/L (3.5-5.1); Sodium 140 mmol/L (137-145); Total Bilirubin 0.5 mg/dL (0.2-1.3); Total Protein 5.5 g/dL (6.3-8.2)
--- NOTE | 2024-06-16 15:05 | P.PN ---
Subjective Progress Note Date: 06/16/24 This is a 73-year-old male patient with a known history of hypertension, hyperlipidemia, gastroesophageal reflux disease, diabetes mellitus and cerebrovascular accident earlier this year and has been residing in a [facility] with poor mobility. Brought into the emergency room yesterday with increasing lethargy. CT scan of the brain revealed no acute intracranial process. Chest x-ray reveals multifocal airspace opacities. White count 6.4. Hemoglobin 11.8. Platelets 53,000. Sodium 137. Potassium 5.6. Bicarb 25. BUN 46. Creatinine 1.32. Glucose 107. Viral screen negative. He is seen tonajma jim in consultation in the emergency department. He is difficult to arouse. He is currently on 5 L/min per nasal cannula. He has been initiated on vancomycin and cefepime. Solu-Cortef 100 mg every 8 hours. Normal saline at 130 mL/h. He is currently afebrile. Hemodynamically stable. The patient is seen today June 16, 2024 in follow-up in the emergency department. He is a bit more awake today. Somewhat restless. He is on 13 L high flow nasal cannula. He is receiving normal saline at 130 mL/h. He remains on vancomycin and cefepime. Procalcitonin is pending. Chest x-ray continues to show diffuse patchy infiltrates. Blood culture pending. Urine culture revealed no growth. White count 11.3. Hemoglobin 10.8. Platelets 77,000. Sodium 140. Potassium 4.4. Bicarb 24. BUN 34. Creatinine 1.13. Glucose 141. Objective - Vital Signs Vital signs: Vital Signs Temp 97.4 F L 06/16/24 05:33 Pulse 93 06/16/24 13:00 Resp 22 06/16/24 13:00 BP 148/85 06/16/24 13:00 Pulse Ox 94 L 06/16/24 13:00 FiO2 80 06/16/24 03:59 Intake & Output 06/15/24 06/16/24 06/16/24 18:59 06:59 18:59 Output Total 1600 2600 Balance -1600 -2600 Weight 102.058 kg Output: Urine 1600 2600 Uretheral ([place]) 800 Other: # Bowel Movements 1 - Exam GENERAL EXAM: Arousable, obese 73-year-old male, on 13 L nasal cannula, in no apparent distress. HEAD: Normocephalic. EYES: Normal reaction of pupils, equal size. NOSE: Clear with pink turbinates. THROAT: No erythema or exudates. NECK: No masses, no JVD. CHEST: No chest wall deformity. LUNGS: Equal air entry with bilateral scattered rhonchi. CVS: S1 and S2 normal with no audible murmur, regular rhythm. Bradycardiac ABDOMEN: No hepatosplenomegaly, normal bowel sounds, no guarding or rigidity. SPINE: No scoliosis or deformity SKIN: No rashes CENTRAL NERVOUS SYSTEM: No focal deficits, tone is normal in all 4 extremities. EXTREMITIES: There is 1-2+ peripheral edema. No clubbing, no cyanosis. Peripheral pulses are intact. - Labs CBC & Chem 7: 06/16/24 14:20 06/16/24 14:20 Labs: Abnormal Lab Results - Last 24 Hours (Table) 06/15/24 06/15/24 06/15/24 Range/Units 16:36 16:36 17:53 WBC (3.8-10.6) k/uL RBC 4.02 L (4.30-5.90) m/uL Hgb 11.3 L (13.0-17.5) gm/dL Hct 34.6 L (39.0-53.0) % RDW 16.0 H (11.5-15.5) % Plt Count 74 L (150-450) k/uL Neutrophils # 8.9 H (1.3-7.7) k/uL Lymphocytes # 0.5 L (1.0-4.8) k/uL Chloride 108 H (98-107) mmol/L Carbon Dioxide 21 L (22-30) mmol/L BUN 42 H (9-20) mg/dL Creatinine 1.45 H (0.66-1.25) mg/dL Glucose 113 H (74-99) mg/dL POC Glucose (mg/dL) 111 H (70-110) mg/dL Total Protein (6.3-8.2) g/dL Albumin (3.5-5.0) g/dL 06/15/24 06/16/24 06/16/24 Range/Units 21:01 07:56 12:44 WBC (3.8-10.6) k/uL RBC (4.30-5.90) m/uL Hgb (13.0-17.5) gm/dL Hct (39.0-53.0) % RDW (11.5-15.5) % Plt Count (150-450) k/uL Neutrophils # (1.3-7.7) k/uL Lymphocytes # (1.0-4.8) k/uL Chloride (98-107) mmol/L Carbon Dioxide (22-30) mmol/L BUN (9-20) mg/dL Creatinine (0.66-1.25) mg/dL Glucose (74-99) mg/dL POC Glucose (mg/dL) 123 H 132 H 138 H (70-110) mg/dL Total Protein (6.3-8.2) g/dL Albumin (3.5-5.0) g/dL 06/16/24 06/16/24 Range/Units 14:20 14:20 WBC 11.3 H (3.8-10.6) k/uL RBC 3.83 L (4.30-5.90) m/uL Hgb 10.8 L (13.0-17.5) gm/dL Hct 33.3 L (39.0-53.0) % RDW 15.7 H (11.5-15.5) % Plt Count 77 L (150-450) k/uL Neutrophils # 10.3 H (1.3-7.7) k/uL Lymphocytes # 0.5 L (1.0-4.8) k/uL Chloride 109 H (98-107) mmol/L Carbon Dioxide (22-30) mmol/L BUN 34 H (9-20) mg/dL Creatinine (0.66-1.25) mg/dL Glucose 141 H (74-99) mg/dL POC Glucose (mg/dL) (70-110) mg/dL Total Protein 5.5 L (6.3-8.2) g/dL Albumin 2.9 L (3.5-5.0) g/dL Microbiology - Last 24 Hours (Table) 06/14/24 21:32 Urine Culture - Final Urine,Voided 06/14/24 18:30 Blood Culture - Preliminary Blood 06/14/24 18:15 Blood Culture - Preliminary Blood Assessment and Plan Assessment: Altered mental status of unclear etiology Acute hypoxemic respiratory failure secondary to possible aspiration pneumonia Bradycardia Acute kidney injury History of atrial fibrillation anticoagulated with Eliquis History of cerebrovascular accident involving the left thalamus Generalized weakness with gait dysfunction and poor mobility secondary to above, residing in a extended care facility Diabetes mellitus, type II Hyperlipidemia Gastroesophageal reflux disease Hypertension Obesity Previous history of CVA Plan: The patient was seen and evaluated Chest x-ray, labs and medications reviewed Suspect aspiration pneumonia Tube feedings initiated Continue vancomycin and cefepime Check a procalcitonin Titrate down the FiO2 as tolerated Decrease Solu-Cortef Continue fluid resuscitation We will continue to follow I have personally seen and examined the patient, performed the documentation and the assessment and plan as written. Number of minutes spent on the visit: 10 Dictation was produced using [employer] dictation software. Please excuse any grammatical, word or spelling errors.
[2024-06-16 17:04] LABS: Glucose,Whole Blood 118 mg/dL (70-110)
[2024-06-16 20:07] LABS: Glucose,Whole Blood 117 mg/dL (70-110)
--- NOTE | 2024-06-16 20:27 | XR ---
EXAMINATION TYPE: XR chest 1V portable DATE OF EXAM: 06/16/2024 6:45 PM COMPARISON: None. CLINICAL INDICATION: Male, 73 years old with history of Check NG tube placement, TECHNIQUE: XR chest 1V portable view(s) obtained. Images are focused over the diaphragm include a lar ge portion of the abdomen and excludes the upper chest. FINDINGS: The heart size is normal. The pulmonary vasculature is normal. Patchy infiltrates are present. Nasogastric tube is not identified within the [id number]. The external nasogastric tube is identi fied. IMPRESSION: 1. Nasogastric tube pulled out the field of view and is not within the mid to distal thorax or abdome n. 2. Persistent patchy infiltrates [facility], , 06/16/2024 8:24 PM
--- NOTE | 2024-06-16 22:33 | XR ---
EXAMINATION TYPE: XR chest 1V portable DATE OF EXAM: 06/16/2024 9:49 PM COMPARISON: None. CLINICAL INDICATION: Male, 73 years old with history of NG tube placement confirmation, TECHNIQUE: XR chest 1V portable view(s) obtained. FINDINGS: The heart size is prominent. The pulmonary vasculature is prominent. Patchy infiltrates are present bilaterally greatest in the right midlung. Nasogastric tube is in place and has its tip located within the left upper quadrant of the abdomen. E KG leads overlie the chest. IMPRESSION: 1. Patchy infiltrates upper and mid lung castillo. 2. Cardiomegaly. 3. Nasogastric tube tip in the lefta [facility], , 06/16/2024 10:31 PM
[2024-06-17 06:21] LABS: Glucose,Whole Blood 125 mg/dL (70-110)
[2024-06-17 06:47] LABS: Basophils % (A) 0 %; Eosinophils % (A) 0 %; HCT 34.2 % (39.0-53.0); HGB 10.9 gm/dL (13.0-17.5); Hypochromasia Slight; Lymphocytes # (A) 0.6 k/uL (1.0-4.8); Lymphocytes % (A) 5 %; MCHC 31.9 g/dL (31.0-37.0); MCV 87.7 fL (80.0-100.0); Mean Platelet Volume 9.1; Monocytes # (A) 0.5 k/uL (0-1.0); Monocytes % (A) 5 %; Neutrophils # (A) 9.7 k/uL (1.3-7.7); Neutrophils % (A) 88 %; RDW 15.9 % (11.5-15.5)
[2024-06-17 06:49] LABS: Platelet Count 93 k/uL (150-450)
[2024-06-17 07:02] LABS: ALT 30 U/L (4-49); AST 26 U/L (17-59); African American GFR (CKD) 82 (>60 ml/min/1.73 sqM); Alkaline Phosphatase 74 U/L (38-126); Anion Gap 7 mmol/L; Blood Urea Nitrogen 30 mg/dL (9-20); Calcium 8.7 mg/dL (8.4-10.2); Carbon Dioxide 23 mmol/L (22-30); Chloride 110 mmol/L (98-107); Glucose 134 mg/dL (74-99); Non-African American GFR(CKD) 71 (>60 ml/min/1.73 sqM); Potassium 4.2 mmol/L (3.5-5.1); Sodium 140 mmol/L (137-145); Total Bilirubin 0.6 mg/dL (0.2-1.3); Total Protein 5.6 g/dL (6.3-8.2)
--- NOTE | 2024-06-17 11:17 | P.PN ---
Subjective Progress Note Date: 06/17/24 This is a 73-year-old male with a past medical history significant for coronary artery disease, hypertension, hyperlipidemia, diabetes, and CVA. Patient follows in the office with Dr. Abarca. We have been asked to see the patient in consultation for bradycardia. Patient examined at the bedside in the emergency room. Patient's family members at the bedside. She states that when she saw the patient on Sunday he seemed more tired and he had garbled speech. She states yesterday when she went to visit him at his ECF she noticed that his symptoms were worse and the nurse agreed so they brought him to the hospital for further evaluation. The patient is lethargic at the time of examination and unable to provide any additional history. Patient was found to be in sinus bradycardia upon admission with a heart rate in the 40s. At the time of examination his heart rate is in the 70s. Patient is usually on metoprolol tartrate 75 mg twice a day and also amiodarone 200 mg daily. DIAGNOSTICS: - EKG reveals sinus mechanism with no signs of acute ischemia. Bradycardic with heart rate 44. - Chest xray multifocal airspace opacities concerning for pneumonia - Laboratory data: WBC 6.4. Hemoglobin 11.8. Platelet count 53. Sodium 137. Potassium 5.6. BUN 46. Creatinine 1.32. Troponin negative x 1. proBNP 225. TSH 6.840. Free T4 1.49. Free T3 1.50 - Current home cardiac medications include Eliquis 5 mg twice a day, hydralazine 50 mg twice a day, metoprolol tartrate 75 mg twice a day, amiodarone 200 mg daily, Norvasc 10 mg daily - Most recent echocardiogram obtained in November 2023 revealing ejection fraction 60 to 65% with no significant valvular abnormalities - Cardiac catheterization history: December 2020 revealing right dominant system with total occlusion of RCA that fills by collaterals from the circumflex. Circumflex has minor irregularities. No significant disease. LAD has 35 to 40% lesion. Before and after the diagonal branch and distal LAD has mild diffuse disease. Filling pressures are normal. 06/16/2024 Patient was seen and examined resting in the ER. Labs this morning showed creatinine 1.25, hemoglobin A1c 5.9. X-ray showed bilateral patchy infiltrates worse on the right. The patient has been evaluated by ID and started on Vanocmycin and cefepime. Pulmonary following. Patient remains NPO. 06/17/2024 Patient was seen and examined resting comfortably in bed. He is sitting up in bed. NG tube has been removed. He seems more alert and awake today. Echoca rdiogram with Doppler study showed an EF of 50 to 55% with moderate pulmonary hypertension and mild TR. Platelet count up to 93,000. Blood pressure has been elevated. PHYSICAL EXAM: VITAL SIGNS: Reviewed. GENERAL: Well-developed in no acute distress. HEENT: Head is normocephalic. Pupils are equal, round. Sclerae anicteric. Mucous membranes of the mouth are moist. Neck supple. No JVD or thyromegaly LUNGS: Respirations even and unlabored. Lungs with scattered crackles HEART: Regular rate and rhythm. S1 and S2 heard. ABDOMEN: Soft. Nondistended. Nontender. EXTREMITIES: Normal range of motion. No clubbing or cyanosis. Peripheral pulses intact. Bilateral lower extremity edema noted NEUROLOGIC: Alert and oriented x 1-2 ASSESSMENT: Altered mental status with worsening lethargy, improving Pneumonia Sinus bradycardia, resolved Paroxysmal atrial fibrillation New thrombocytopenia, improving Acute kidney injury Coronary artery disease Hypertension Hyperlipidemia Diabetes History of CVA, November 2023 Abnormal TSH PLAN: From cardiology's perspective we will resume Eliquis and patient's home dose of hydralazine. We will continue to follow the patient and provide further recommendations accordingly. Further recommendations pending patient course TRANSFER CONTROLLER note has been reviewed, I agree with a documented findings and plan of care. Patient was seen and examined. Objective - Vital Signs Vital signs: Vital Signs Temp 98 F 06/17/24 04:00 Pulse 86 06/17/24 04:00 Resp 18 06/17/24 04:00 BP 172/85 06/17/24 04:00 Pulse Ox 94 L 06/17/24 04:00 FiO2 80 06/16/24 03:59 Intake & Output 06/16/24 06/17/24 06/17/24 18:59 06:59 18:59 Weight 102.058 kg 110 kg Other: Voiding Method Indwelling Catheter - Labs CBC & Chem 7: 06/17/24 05:59 06/17/24 05:59 Labs: Abnormal Lab Results - Last 24 Hours (Table) 06/16/24 06/16/24 06/16/24 Range/Units 12:44 14:20 14:20 WBC 11.3 H (3.8-10.6) k/uL RBC 3.83 L (4.30-5.90) m/uL Hgb 10.8 L (13.0-17.5) gm/dL Hct 33.3 L (39.0-53.0) % RDW 15.7 H (11.5-15.5) % Plt Count 77 L (150-450) k/uL Neutrophils # 10.3 H (1.3-7.7) k/uL Lymphocytes # 0.5 L (1.0-4.8) k/uL Chloride 109 H (98-107) mmol/L BUN 34 H (9-20) mg/dL Glucose 141 H (74-99) mg/dL POC Glucose (mg/dL) 138 H (70-110) mg/dL Total Protein 5.5 L (6.3-8.2) g/dL Albumin 2.9 L (3.5-5.0) g/dL 06/16/24 06/16/24 06/17/24 Range/Units 17:01 20:03 05:59 WBC (3.8-10.6) k/uL RBC (4.30-5.90) m/uL Hgb (13.0-17.5) gm/dL Hct (39.0-53.0) % RDW (11.5-15.5) % Plt Count (150-450) k/uL Neutrophils # (1.3-7.7) k/uL Lymphocytes # (1.0-4.8) k/uL Chloride 110 H (98-107) mmol/L BUN 30 H (9-20) mg/dL Glucose 134 H (74-99) mg/dL POC Glucose (mg/dL) 118 H 117 H (70-110) mg/dL Total Protein 5.6 L (6.3-8.2) g/dL Albumin 3.0 L (3.5-5.0) g/dL 06/17/24 06/17/24 Range/Units 05:59 06:20 WBC 11.0 H (3.8-10.6) k/uL RBC 3.90 L (4.30-5.90) m/uL Hgb 10.9 L (13.0-17.5) gm/dL Hct 34.2 L (39.0-53.0) % RDW 15.9 H (11.5-15.5) % Plt Count 93 L (150-450) k/uL Neutrophils # 9.7 H (1.3-7.7) k/uL Lymphocytes # 0.6 L (1.0-4.8) k/uL Chloride (98-107) mmol/L BUN (9-20) mg/dL Glucose (74-99) mg/dL POC Glucose (mg/dL) 125 H (70-110) mg/dL Total Protein (6.3-8.2) g/dL Albumin (3.5-5.0) g/dL Microbiology - Last 24 Hours (Table) 06/14/24 18:30 Blood Culture - Preliminary Blood 06/14/24 18:15 Blood Culture - Preliminary Blood 06/14/24 21:32 Urine Culture - Final Urine,Voided
[2024-06-17 11:36] LABS: Glucose,Whole Blood 123 mg/dL (70-110)
[2024-06-17] MEDS: APIXABAN 5 MG TAB PO SCH (14:03)
--- NOTE | 2024-06-17 14:04 | P.PN ---
Subjective Progress Note Date: 06/17/24 patient 73-year-old gentleman with past medical history significant for diabetes mellitus, stroke, hypertension who presented to the ER for altered mental status and increasing lethargy. Patient is currently resident of a residential facility. Patient has been having shortness of breath and productive cough since yesterday. There was no complaint of fever or chills. Nursing staff did note that the patient very lethargic. There was no complaint of chest pain. There is no complaint of orthopnea or PND. There is no complaint of swelling of feet. Patient does not ambulate much secondary to his stroke. Patient had chest x-ray done at the facility yesterday and today showed patient to have find ings of pneumonia. came to check on the patient and was concerned about his worsening mental status and brought him to the ER Initial lab work done in the ER showed WB 6.4, hemoglobin 11.8, platelet count 53, sodium 137, potassium 5.6, BUN 46, creatinine 1.32, glucose 107 TSH 6.840, T41.19, T31.50 UA done negative for infection EKG done in the ER showed heart rate of 44, no ST segment elevation or depression seen, no T-wave inversions seen. CT brain done showed no acute intracranial process, similar with moderate white matter changes, likely secondary to chronic small vessel ischemic changes. Old remote white matter infarct anterior right frontal lobe redemonstrated Chest x-ray done in the ER showed multifocal airspace opacities concerning for pneumonia Patient admitted to internal medicine service 06/16. Patient seen and examined. Daughter at the bedside who is the DPOA. Discussed with her regarding patient's serious conditions, she says she will talk with family. Currently patient is lethargic, n.p.o., has NG tube in place for medications 06/17. Patient seen and examined. Daughter at the bedside. Patient history of dementia. Patient more awake, daughter thinks he is back to baseline. Blood work done showed WBC 11, hemoglobin 10.9, platelet count 93, sodium 140, potassium 4.2, BUN 30, creatinine 1.04. Currently on 15 L of oxygen via nasal cannula REVIEW OF SYSTEMS: Review of system cannot be obtained as patient lethargic PHYSICAL EXAMINATION: GENERAL: The patient is lethargic HEENT: Pupils are round and equally reacting to light. EOMI. No scleral icterus. No conjunctival pallor. Normocephalic, atraumatic. No pharyngeal erythema. No thyromegaly. CARDIOVASCULAR: S1 and S2 present. No murmurs, rubs, or gallops. PULMONARY: Coarse breath sound bilaterally, bilateral rhonchi and crackles audible ABDOMEN: Soft, nontender, nondistended, normoactive bowel sounds. No palpable organomegaly. MUSCULOSKELETAL: No joint swelling or deformity. EXTREMITIES: No cyanosis, clubbing, 1+ pitting edema lower extremities NEUROLOGICAL: Moving all extremities SKIN: No rashes. Assessment and plan Acute infectious encephalopathy Acute hypoxic respiratory failure Bradycardia Bacterial pneumonia History of CVA History of diabetes mellitus Hyperlipidemia Hypertension Monitor vital signs Monitor CBC Monitor CMP Continue telemetry monitoring Follow-up on blood culture Follow-up on sputum culture Continue ox supplementation Aggressive bronchopulmonary hygiene Speech evaluation Resume Eliquis, amiodarone Continue IV cefepime and vancomycin Cardiology following Pulmonary following ID following Labs and medication were reviewed.. Continue same treatment. Continue with symptomatic treatment. Resume home medication. Monitor labs and vitals. DVT and GI prophylaxis. Further recommendations as per clinical course of the patient Dictation was produced using [employer] dictation software. please excuse any grammatical, word or spelling errors. Objective - Vital Signs Vital signs: Vital Signs Temp 98 F 06/17/24 04:00 Pulse 85 06/17/24 08:00 Resp 18 06/17/24 08:00 BP 154/79 06/17/24 08:00 Pulse Ox 92 L 06/17/24 08:00 FiO2 80 06/16/24 03:59 Intake & Output 06/16/24 06/17/24 06/17/24 18:59 06:59 18:59 Weight 102.058 kg 110 kg Other: Voiding Method Indwelling Catheter Indwelling Catheter - Labs CBC & Chem 7: 06/17/24 05:59 06/17/24 05:59 Labs: Abnormal Lab Results - Last 24 Hours (Table) 06/16/24 06/16/24 06/16/24 Range/Units 14:20 14:20 17:01 WBC 11.3 H (3.8-10.6) k/uL RBC 3.83 L (4.30-5.90) m/uL Hgb 10.8 L (13.0-17.5) gm/dL Hct 33.3 L (39.0-53.0) % RDW 15.7 H (11.5-15.5) % Plt Count 77 L (150-450) k/uL Neutrophils # 10.3 H (1.3-7.7) k/uL Lymphocytes # 0.5 L (1.0-4.8) k/uL Chloride 109 H (98-107) mmol/L BUN 34 H (9-20) mg/dL Glucose 141 H (74-99) mg/dL POC Glucose (mg/dL) 118 H (70-110) mg/dL Total Protein 5.5 L (6.3-8.2) g/dL Albumin 2.9 L (3.5-5.0) g/dL 06/16/24 06/17/24 06/17/24 Range/Units 20:03 05:59 05:59 WBC 11.0 H (3.8-10.6) k/uL RBC 3.90 L (4.30-5.90) m/uL Hgb 10.9 L (13.0-17.5) gm/dL Hct 34.2 L (39.0-53.0) % RDW 15.9 H (11.5-15.5) % Plt Count 93 L (150-450) k/uL Neutrophils # 9.7 H (1.3-7.7) k/uL Lymphocytes # 0.6 L (1.0-4.8) k/uL Chloride 110 H (98-107) mmol/L BUN 30 H (9-20) mg/dL Glucose 134 H (74-99) mg/dL POC Glucose (mg/dL) 117 H (70-110) mg/dL Total Protein 5.6 L (6.3-8.2) g/dL Albumin 3.0 L (3.5-5.0) g/dL 06/17/24 06/17/24 Range/Units 06:20 11:34 WBC (3.8-10.6) k/uL RBC (4.30-5.90) m/uL Hgb (13.0-17.5) gm/dL Hct (39.0-53.0) % RDW (11.5-15.5) % Plt Count (150-450) k/uL Neutrophils # (1.3-7.7) k/uL Lymphocytes # (1.0-4.8) k/uL Chloride (98-107) mmol/L BUN (9-20) mg/dL Glucose (74-99) mg/dL POC Glucose (mg/dL) 125 H 123 H (70-110) mg/dL Total Protein (6.3-8.2) g/dL Albumin (3.5-5.0) g/dL Microbiology - Last 24 Hours (Table) 06/14/24 18:30 Blood Culture - Preliminary Blood 06/14/24 18:15 Blood Culture - Preliminary Blood 06/14/24 21:32 Urine Culture - Final Urine,Voided
[2024-06-17] MEDS: hydrALAZINE HCL 50 MG TAB PO SCH (14:08)
--- NOTE | 2024-06-17 14:18 | P.PN ---
Subjective Progress Note Date: 06/17/24 Principal diagnosis: Respiratory failure, pneumonia. This is a 73-year-old male patient with a known history of hypertension, hyperlipidemia, gastroesophageal reflux disease, diabetes mellitus and cerebrovascular accident earlier this year and has been residing in a correction with poor mobility. Brought into the emergency room yesterday with increasing lethargy. CT scan of the brain revealed no acute intracranial process. Chest x-ray reveals multifocal airspace opacities. White count 6.4. Hemoglobin 11.8. Platelets 53,000. Sodium 137. Potassium 5.6. Bicarb 25. BUN 46. Creatinine 1.32. Glucose 107. Viral screen negative. He is seen today in consultation in the emergency department. He is difficult to arouse. He is currently on 5 L/min per nasal cannula. He has been initiated on vancomycin and cefepime. Solu-Cortef 100 mg every 8 hours. Normal saline at 130 mL/h. He is currently afebrile. Hemodynamically stable. The patient is seen today June 16, 2024 in follow-up in the emergency department. He is a bit more awake today. Somewhat restless. He is on 13 L high flow nasal cannula. He is receiving normal saline at 130 mL/h. He remains on vancomycin and cefepime. Procalcitonin is pending. Chest x-ray continues to show diffuse patchy infiltrates. Blood culture pending. Urine culture revealed no growth. White count 11.3. Hemoglobin 10.8. Platelets 77,000. Sodium 140. Potassium 4.4. Bicarb 24. BUN 34. Creatinine 1.13. Glucose 141. Progress note dated June 17, 2024. 73-year-old male seen today in room 352. The patient is currently on high flow nasal O2 at 15 L. He is getting saline at 130 cc an hour. The patient continues on cefepime and vancomycin. His procalcitonin level was only 0.15. We did talk to the family today about CODE STATUS. The was unable to make any decisions. The daughter was in the room as well. White count 11, hemoglobin 10.9, hematocrit 34.2, platelet count 93,000. Sodium 140, potassium 4.2, chlorides 110, CO2 23, BUN 30, creatinine 1.04. Glucose 123. Albumin was 3. Cultures thus far are negative. Chest x-ray is largely unchanged, and shows diffuse bilateral infiltrates. Objective - Vital Signs Vital signs: Vital Signs Temp 98 F 06/17/24 04:00 Pulse 85 06/17/24 08:00 Resp 18 06/17/24 08:00 BP 154/79 06/17/24 08:00 Pulse Ox 92 L 06/17/24 08:00 FiO2 80 06/16/24 03:59 Intake & Output 06/16/24 06/17/24 06/17/24 18:59 06:59 18:59 Weight 102.058 kg 110 kg Other: Voiding Method Indwelling Catheter Indwelling Catheter - Exam No acute distress, the patient is sleeping, high flow nasal cannula noted. HEENT examination is grossly unremarkable. Mucous membranes are moist. No oral lesions. Neck supple. Full range of motion. No adenopathy thyromegaly or neck vein distention. Cardiovascular examination reveals regular rhythm rate. S1-S2 normal. No S3 or S4. No discernible murmur noted. Heart sounds are distant. Lungs reveal diminished bilateral breath sounds. Scattered rhonchi are noted. No wheezes. No crackles. Breath sounds equal bilaterally. Abdomen soft bowel sounds are heard. No masses or tenderness. Extremities are intact. Cyanosis or clubbing. Mild edema in the lower extremities is noted. Skin is without rash or lesion. Neurologic examination is brief but nonfocal. - Labs CBC & Chem 7: 06/17/24 05:59 06/17/24 05:59 Labs: Abnormal Lab Results - Last 24 Hours (Table) 06/16/24 06/16/24 06/16/24 Range/Units 14:20 14:20 17:01 WBC 11.3 H (3.8-10.6) k/uL RBC 3.83 L (4.30-5.90) m/uL Hgb 10.8 L (13.0-17.5) gm/dL Hct 33.3 L (39.0-53.0) % RDW 15.7 H (11.5-15.5) % Plt Count 77 L (150-450) k/uL Neutrophils # 10.3 H (1.3-7.7) k/uL Lymphocytes # 0.5 L (1.0-4.8) k/uL Chloride 109 H (98-107) mmol/L BUN 34 H (9-20) mg/dL Glucose 141 H (74-99) mg/dL POC Glucose (mg/dL) 118 H (70-110) mg/dL Total Protein 5.5 L (6.3-8.2) g/dL Albumin 2.9 L (3.5-5.0) g/dL 06/16/24 06/17/24 06/17/24 Range/Units 20:03 05:59 05:59 WBC 11.0 H (3.8-10.6) k/uL RBC 3.90 L (4.30-5.90) m/uL Hgb 10.9 L (13.0-17.5) gm/dL Hct 34.2 L (39.0-53.0) % RDW 15.9 H (11.5-15.5) % Plt Count 93 L (150-450) k/uL Neutrophils # 9.7 H (1.3-7.7) k/uL Lymphocytes # 0.6 L (1.0-4.8) k/uL Chloride 110 H (98-107) mmol/L BUN 30 H (9-20) mg/dL Glucose 134 H (74-99) mg/dL POC Glucose (mg/dL) 117 H (70-110) mg/dL Total Protein 5.6 L (6.3-8.2) g/dL Albumin 3.0 L (3.5-5.0) g/dL 06/17/24 06/17/24 Range/Units 06:20 11:34 WBC (3.8-10.6) k/uL RBC (4.30-5.90) m/uL Hgb (13.0-17.5) gm/dL Hct (39.0-53.0) % RDW (11.5-15.5) % Plt Count (150-450) k/uL Neutrophils # (1.3-7.7) k/uL Lymphocytes # (1.0-4.8) k/uL Chloride (98-107) mmol/L BUN (9-20) mg/dL Glucose (74-99) mg/dL POC Glucose (mg/dL) 125 H 123 H (70-110) mg/dL Total Protein (6.3-8.2) g/dL Albumin (3.5-5.0) g/dL Microbiology - Last 24 Hours (Table) 06/14/24 18:30 Blood Culture - Preliminary Blood 06/14/24 18:15 Blood Culture - Preliminary Blood 06/14/24 21:32 Urine Culture - Final Urine,Voided Assessment and Plan Assessment: Altered mental status of unclear etiology. Acute hypoxemic respiratory failure secondary to possible aspiration pneumonia. Bradycardia. Acute kidney injury. History of atrial fibrillation. History of cerebrovascular accident involving the left thalamus. Generalized weakness with gait dysfunction and poor mobility secondary to above. Diabetes mellitus, type II. Hyperlipidemia. Gastroesophageal reflux disease. Hypertension. Obesity. Previous history of CVA. Plan: Plan dated June 17, 2024. The patient's daughter and were in the room. We had a long conversation about CODE STATUS. The patient remains a full code. They seem to state that the patient would not want intubation, mechanical ventilation, or surgical feeding tube. The patient has had the NG tube placed, and he has removed it multiple times. The patient's mental status is unchanged. He continues on oxygen, high flow nasal cannula at 15 L. He is getting saline at 130 cc an hour. Procalcitonin level is normal at 0.15. He continues on cefepime and vancomycin. Additional recommendations and suggestions are forthcoming. Prognosis is poor. Time with Patient: Less than 30
[2024-06-17 16:10] LABS: Glucose,Whole Blood 140 mg/dL (70-110)
[2024-06-17 19:56] LABS: Glucose,Whole Blood 135 mg/dL (70-110)
[2024-06-18] MEDS: FUROSEMIDE 10 MG/ML 4 ML VIAL IV STA (04:37)
[2024-06-18 06:14] LABS: Glucose,Whole Blood 116 mg/dL (70-110)
[2024-06-18 07:52] LABS: ALT 24 U/L (4-49); AST 18 U/L (17-59); African American GFR (CKD) 78 (>60 ml/min/1.73 sqM); Albumin 3.1 g/dL (3.5-5.0); Alkaline Phosphatase 78 U/L (38-126); Anion Gap 8 mmol/L; Blood Urea Nitrogen 30 mg/dL (9-20); Calcium 8.8 mg/dL (8.4-10.2); Carbon Dioxide 25 mmol/L (22-30); Chloride 109 mmol/L (98-107); Glucose 125 mg/dL (74-99); Non-African American GFR(CKD) 67 (>60 ml/min/1.73 sqM); Potassium 3.8 mmol/L (3.5-5.1); Sodium 142 mmol/L (137-145); Total Bilirubin 0.7 mg/dL (0.2-1.3); Total Protein 5.7 g/dL (6.3-8.2)
[2024-06-18 08:25] LABS: Basophils % (A) 0 %; Eosinophils # (A) 0.1 k/uL (0-0.7); Eosinophils % (A) 1 %; HCT 35.4 % (39.0-53.0); HGB 11.1 gm/dL (13.0-17.5); Hypochromasia Slight; Lymphocytes # (A) 0.6 k/uL (1.0-4.8); Lymphocytes % (A) 5 %; MCH 27.2 pg (25.0-35.0); MCHC 31.4 g/dL (31.0-37.0); MCV 86.8 fL (80.0-100.0); Mean Platelet Volume 9.1; Monocytes # (A) 0.7 k/uL (0-1.0); Monocytes % (A) 7 %; Neutrophils # (A) 9.1 k/uL (1.3-7.7); Neutrophils % (A) 86 %; Platelet Count 110 k/uL (150-450); RBC 4.07 m/uL (4.30-5.90); RDW 15.7 % (11.5-15.5); WBC 10.6 k/uL (3.8-10.6)
[2024-06-18 11:23] LABS: Glucose,Whole Blood 138 mg/dL (70-110)
--- NOTE | 2024-06-18 11:37 | P.PN ---
Subjective Progress Note Date: 06/16/24 Principal diagnosis: Reason for follow-up is pneumonia Patient is a 73-year-old male with a past medical history significant for CVA TIA diabetes mellitus hypertension hyperlipidemia reflux patient has been brought into the hospital from the local snf concerning for abnormal x-ray patient did have productive cough he was hypothermic on presented to the hospital with chest x-ray showing diffuse elevated suggestive of pneumonia tested negative for RSV and COVID. On today's evaluation that is 06/16/2024, patient has been afebrile, patient is breathing slightly comfortably however still requiring high flow nasal cannula oxygen the patient remains to be lethargic unable to provide any history no vomiting or diarrhea has been reported. Patient white count is 11.3 creatinine is 1.13 blood cultures currently pending chest x-ray patient evaluated upper and mid lung castillo Objective - Vital Signs Vital signs: Vital Signs Temp 97.4 F L 06/16/24 05:33 Pulse 93 06/16/24 13:00 Resp 22 06/16/24 13:00 BP 148/85 06/16/24 13:00 Pulse Ox 94 L 06/16/24 13:00 FiO2 80 06/16/24 03:59 Intake & Output 06/15/24 06/16/24 06/16/24 18:59 06:59 18:59 Output Total 1600 2600 Balance -1600 -2600 Output: Urine 1600 2600 Uretheral ([place]) 800 Other: # Bowel Movements 1 - Exam GENERAL DESCRIPTION: An elderly male lying in bed in no distress RESPIRATORY SYSTEM: Unlabored breathing , decreased breath sounds at bases HEART: S1 S2 regular rate and rhythm , ABDOMEN: Soft , no tenderness EXTREMITIES: No edema feet - Labs CBC & Chem 7: 06/18/24 06:25 06/18/24 06:25 Labs: Abnormal Lab Results - Last 24 Hours (Table) 06/15/24 06/15/24 06/15/24 Range/Units 16:36 16:36 17:53 RBC 4.02 L (4.30-5.90) m/uL Hgb 11.3 L (13.0-17.5) gm/dL Hct 34.6 L (39.0-53.0) % RDW 16.0 H (11.5-15.5) % Plt Count 74 L (150-450) k/uL Neutrophils # 8.9 H (1.3-7.7) k/uL Lymphocytes # 0.5 L (1.0-4.8) k/uL Chloride 108 H (98-107) mmol/L Carbon Dioxide 21 L (22-30) mmol/L BUN 42 H (9-20) mg/dL Creatinine 1.45 H (0.66-1.25) mg/dL Glucose 113 H (74-99) mg/dL POC Glucose (mg/dL) 111 H (70-110) mg/dL 06/15/24 06/16/24 06/16/24 Range/Units 21:01 07:56 12:44 RBC (4.30-5.90) m/uL Hgb (13.0-17.5) gm/dL Hct (39.0-53.0) % RDW (11.5-15.5) % Plt Count (150-450) k/uL Neutrophils # (1.3-7.7) k/uL Lymphocytes # (1.0-4.8) k/uL Chloride (98-107) mmol/L Carbon Dioxide (22-30) mmol/L BUN (9-20) mg/dL Creatinine (0.66-1.25) mg/dL Glucose (74-99) mg/dL POC Glucose (mg/dL) 123 H 132 H 138 H (70-110) mg/dL Microbiology - Last 24 Hours (Table) 06/14/24 21:32 Urine Culture - Final Urine,Voided 06/14/24 18:30 Blood Culture - Preliminary Blood 06/14/24 18:15 Blood Culture - Preliminary Blood Assessment and Plan (1) Penicillin allergy Current Visit: Yes Status: Acute Code(s): Z88.0 - ALLERGY STATUS TO PENICILL IN SNOMED Code(s): 91885999 (2) Pneumonia Current Visit: Yes Status: Acute Code(s): J18.9 - PNEUMONIA, UNSPECIFIED ORGANISM SNOMED Code(s): 214527052 Plan: 1patient presented to hospital with weakness lethargy increasing shortness of breath cough with evidence of multifocal infiltrates suggestive of pneumonia in this patient with the snf resident need to cover for the resistant gram-positive as well as gram-negative pathogen. 2patient with a penicillin allergy that will limit the number of antibiotics safe to use. 3patient with mildly elevated creatinine vancomycin trough need to be monitored closely. 4blood cultures currently pending MRSA nasal screen pending sputum not collected 5patient to continue vancomycin pharmacy to dose and cefepime while waiting for the culture to finalize Dictation was produced using [employer] dictation software. please excuse any grammatical, word or spelling errors. Time with Patient: Less than 30
--- NOTE | 2024-06-18 11:38 | P.PN ---
Subjective Progress Note Date: 06/17/24 Principal diagnosis: Reason for follow-up is pneumonia Patient is a 73-year-old male with a past medical history significant for CVA TIA diabetes mellitus hypertension hyperlipidemia reflux patient has been brought into the hospital from the local retirement concerning for abnormal x-ray patient did have productive cough he was hypothermic on presented to the hospital with chest x-ray showing diffuse elevated suggestive of pneumonia tested negative for RSV and COVID. On today's evaluation that is 06/17/2024, Patient is afebrile this morning patient remains to be lethargic but seem to be breathing slightly comfortably still requiring high flow nasal cannula oxygen no vomiting diarrhea and the changes reported by the nursing staff. Patient white count is down to 11,000, creatinine 1.07 blood cultures currently pending Objective - Vital Signs Vital signs: Vital Signs Temp 98 F 06/17/24 04:00 Pulse 85 06/17/24 14:00 Resp 18 06/17/24 14:00 BP 175/85 06/17/24 12:00 Pulse Ox 91 L 06/17/24 12:00 FiO2 80 06/16/24 03:59 Intake & Output 06/16/24 06/17/24 06/17/24 18:59 06:59 18:59 Weight 102.058 kg 110 kg Other: Voiding Method Indwelling Catheter Urinal Diaper - Exam GENERAL DESCRIPTION: An elderly male lying in bed in no distress RESPIRATORY SYSTEM: Unlabored breathing , decreased breath sounds at bases HEART: S1 S2 regular rate and rhythm , ABDOMEN: Soft , no tenderness EXTREMITIES: No edema feet - Labs CBC & Chem 7: 06/18/24 06:25 06/18/24 06:25 Labs: Abnormal Lab Results - Last 24 Hours (Table) 06/16/24 06/16/24 06/17/24 Range/Units 17:01 20:03 05:59 WBC (3.8-10.6) k/uL RBC (4.30-5.90) m/uL Hgb (13.0-17.5) gm/dL Hct (39.0-53.0) % RDW (11.5-15.5) % Plt Count (150-450) k/uL Neutrophils # (1.3-7.7) k/uL Lymphocytes # (1.0-4.8) k/uL Chloride 110 H (98-107) mmol/L BUN 30 H (9-20) mg/dL Glucose 134 H (74-99) mg/dL POC Glucose (mg/dL) 118 H 117 H (70-110) mg/dL Total Protein 5.6 L (6.3-8.2) g/dL Albumin 3.0 L (3.5-5.0) g/dL 06/17/24 06/17/24 06/17/24 Range/Units 05:59 06:20 11:34 WBC 11.0 H (3.8-10.6) k/uL RBC 3.90 L (4.30-5.90) m/uL Hgb 10.9 L (13.0-17.5) gm/dL Hct 34.2 L (39.0-53.0) % RDW 15.9 H (11.5-15.5) % Plt Count 93 L (150-450) k/uL Neutrophils # 9.7 H (1.3-7.7) k/uL Lymphocytes # 0.6 L (1.0-4.8) k/uL Chloride (98-107) mmol/L BUN (9-20) mg/dL Glucose (74-99) mg/dL POC Glucose (mg/dL) 125 H 123 H (70-110) mg/dL Total Protein (6.3-8.2) g/dL Albumin (3.5-5.0) g/dL Microbiology - Last 24 Hours (Table) 06/14/24 18:30 Blood Culture - Preliminary Blood 06/14/24 18:15 Blood Culture - Preliminary Blood Assessment and Plan (1) Penicillin allergy Current Visit: Yes Status: Acute Code(s): Z88.0 - ALLERGY STATUS TO PENICILLIN SNOMED Code(s): 01306919 (2) Pneumonia Current Visit: Yes Status: Acute Code(s): J18.9 - PNEUMONIA, UNSPECIFIED ORGANISM SNOMED Code(s): 537228071 Plan: 1patient presented to hospital with weakness lethargy increasing shortness of breath cough with evidence of multifocal infiltrates suggestive of pneumonia in this patient with the retirement resident need to cover for the resistant gram-positive as well as gram-negative pathogen. 2patient with a penicillin allergy that will limit the number of antibiotics safe to use. 3patient with mildly elevated creatinine vancomycin trough need to be monitored closely, Blood cultures pending, MRSA nasal screen pending if negative will discontinue vancomycin for now continue with the cefepime Family at bedside question answered Dictation was produced using [employer] dictation software. please excuse any grammatical, word or spelling errors. Time with Patient: Less than 30
--- NOTE | 2024-06-18 12:47 | P.PN ---
Subjective Progress Note Date: 06/18/24 Principal diagnosis: Respiratory failure, pneumonia. This is a 73-year-old male patient with a known history of hypertension, hyperlipidemia, gastroesophageal reflux disease, diabetes mellitus and cerebrovascular accident earlier this year and has been residing in a [facility] with poor mobility. Brought into the emergency room yesterday with increasing lethargy. CT scan of the brain revealed no acute intracranial process. Chest x-ray reveals multifocal airspace opacities. White count 6.4. Hemoglobin 11.8. Platelets 53,000. Sodium 137. Potassium 5.6. Bicarb 25. BUN 46. Creatinine 1.32. Glucose 107. Viral screen negative. He is seen today in consultation in the emergency department. He is difficult to arouse. He is currently on 5 L/min per nasal cannula. He has been initiated on vancomycin and cefepime. Solu-Cortef 100 mg every 8 hours. Normal saline at 130 mL/h. He is currently afebrile. Hemodynamically stable. The patient is seen today June 16, 2024 in follow-up in the emergency department. He is a bit more awake today. Somewhat restless. He is on 13 L high flow nasal cannula. He is receiving normal saline at 130 mL/h. He remains on vancomycin and cefepime. Procalcitonin is pending. Chest x-ray continues to show diffuse patchy infiltrates. Blood culture pending. Urine culture revealed no growth. White count 11.3. Hemoglobin 10.8. Platelets 77,000. Sodium 140. Potassium 4.4. Bicarb 24. BUN 34. Creatinine 1.13. Glucose 141. Progress note dated June 17, 2024. 73-year-old male seen today in room 352. The patient is currently on high flow nasal O2 at 15 L. He is getting saline at 130 cc an hour. The patient continues on cefepime and vancomycin. His procalcitonin level was only 0.15. We did talk to the family today about CODE STATUS. The was unable to make any decisions. The daughter was in the room as well. White count 11, hemoglobin 10.9, hematocrit 34.2, platelet count 93,000. Sodium 140, potassium 4.2, chlorides 110, CO2 23, BUN 30, creatinine 1.04. Glucose 123. Albumin was 3. Cultures thus far are negative. Chest x-ray is largely unchanged, and shows diffuse bilateral infiltrates. Progress note dated June 18, 2024. 73-year-old male seen again in room 352. The patient's and daughter are in the room. Yesterday we had a conversation about CODE STATUS. No decisions have been made. The patient is currently on 13 L high flow oxygen. He is not receiving any IV fluids. His procalcitonin level is only 0.15, yet, he continues on cefepime and vancomycin, per infectious diseases. Antibiotic should be de-escalated or discontinued. A portable chest x-ray is ordered. White count 10.6, hemoglobin 1.1, macro 35.4, platelet count 110,000. Sodium 142, potassium 3.8, chlorides 109, CO2 25, BUN 30, creatinine 1.09. Glucose is 138. Albumin 3.1. All cultures thus far are negative. Chest x-ray shows patchy bilateral infiltrates, mostly in the right upper lobe. Objective - Vital Signs Vital signs: Vital Signs Temp 97.7 F 06/18/24 09:05 Pulse 86 06/18/24 11:45 Resp 17 06/18/24 11:45 BP 152/95 06/18/24 11:45 Pulse Ox 94 L 06/18/24 11:45 FiO2 80 06/16/24 03:59 Intake & Output 06/17/24 06/18/24 06/18/24 18:59 06:59 18:59 Output Total 400 1250 1700 Balance -400 -1250 -1700 Weight 109 kg Output: Urine 400 1250 1700 Uretheral ([place]) 400 1700 Other: Voiding Method Urinal Indwelling Catheter Indwelling Catheter Diaper - Exam No acute distress, the patient is sleeping, high flow nasal cannula noted. HEENT examination is grossly unremarkable. Mucous membranes are moist. No oral lesions. Neck supple. Full range of motion. No adenopathy thyromegaly or neck vein di stention. Cardiovascular examination reveals regular rhythm rate. S1-S2 normal. No S3 or S4. No discernible murmur noted. Heart sounds are distant. Lungs reveal diminished bilateral breath sounds. Scattered rhonchi are noted. No wheezes. No crackles. Breath sounds equal bilaterally. Abdomen soft bowel sounds are heard. No masses or tenderness. Extremities are intact. Cyanosis or clubbing. Mild edema in the lower extremities is noted. Skin is without rash or lesion. Neurologic examination is brief but nonfocal. - Labs CBC & Chem 7: 06/18/24 06:25 06/18/24 06:25 Labs: Abnormal Lab Results - Last 24 Hours (Table) 06/17/24 06/17/24 06/18/24 Range/Units 16:07 19:54 06:12 RBC (4.30-5.90) m/uL Hgb (13.0-17.5) gm/dL Hct (39.0-53.0) % RDW (11.5-15.5) % Plt Count (150-450) k/uL Neutrophils # (1.3-7.7) k/uL Lymphocytes # (1.0-4.8) k/uL Chloride (98-107) mmol/L BUN (9-20) mg/dL Glucose (74-99) mg/dL POC Glucose (mg/dL) 140 H 135 H 116 H (70-110) mg/dL Total Protein (6.3-8.2) g/dL Albumin (3.5-5.0) g/dL 06/18/24 06/18/24 06/18/24 Range/Units 06:25 06:25 11:22 RBC 4.07 L (4.30-5.90) m/uL Hgb 11.1 L (13.0-17.5) gm/dL Hct 35.4 L (39.0-53.0) % RDW 15.7 H (11.5-15.5) % Plt Count 110 L (150-450) k/uL Neutrophils # 9.1 H (1.3-7.7) k/uL Lymphocytes # 0.6 L (1.0-4.8) k/uL Chloride 109 H (98-107) mmol/L BUN 30 H (9-20) mg/dL Glucose 125 H (74-99) mg/dL POC Glucose (mg/dL) 138 H (70-110) mg/dL Total Protein 5.7 L (6.3-8.2) g/dL Albumin 3.1 L (3.5-5.0) g/dL Microbiology - Last 24 Hours (Table) 06/14/24 18:30 Blood Culture - Preliminary Blood 06/14/24 18:15 Blood Culture - Preliminary Blood 06/16/24 13:00 Nasal Screen MRSA/MSSA - Final Nasal Swab Assessment and Plan Assessment: Altered mental status of unclear etiology. Acute hypoxemic respiratory failure secondary to possible aspiration pneumonia. Bradycardia. Acute kidney injury. History of atrial fibrillation. History of cerebrovascular accident involving the left thalamus. Generalized weakness with gait dysfunction and poor mobility secondary to above. Diabetes mellitus, type II. Hyperlipidemia. Gastroesophageal reflux disease. Hypertension. Obesity. Previous history of CVA. Plan: Plan dated June 17, 2024. The patient's daughter and were in the room. We had a long conversation about CODE STATUS. The patient remains a full code. They seem to state that the patient would not want intubation, mechanical ventilation, or surgical feeding tube. The patient has had the NG tube placed, and he has removed it multiple times. The patient's mental status is unchanged. He continues on oxygen, high flow nasal cannula at 15 L. He is getting saline at 130 cc an hour. Procalcitonin level is normal at 0.15. He continues on cefepime and vancomycin. Additional recommendations and suggestions are forthcoming. Prognosis is poor. Plan dated June 18, 2024. Patient remains about the same. Yesterday we did have a conversation with the patient's daughter, and , about CODE STATUS. No decision was made. The patient continues on high flow nasal O2 at 13 L. The patient's procalcitonin level was 0.15. He continues on cefepime and vancomycin, as per infectious diseases. Portable chest x-ray was ordered, and has been reviewed. Labs, x- rays, medications are reviewed. Prognosis is certainly guarded. Time with Patient: Less than 30
--- NOTE | 2024-06-18 13:45 | XR ---
EXAMINATION TYPE: XR chest 1V portable DATE OF EXAM: 06/18/2024 12:21 PM COMPARISON: 06/16/2024 CLINICAL INDICATION: Male, 73 years old with history of Hypoxemia, TECHNIQUE: XR chest 1V portable view(s) obtained. FINDINGS: The heart size is normal. The pulmonary vasculature is normal. Large consolidations in the right upper lung field. Milder traits are present within the left upper l edis field and right lung base and to a mild degree left lung base. Right lung base findings appear new. Remaining areas appear stable IMPRESSION: 1. Worsening right lower lobe infiltrate. Correlate for pneumonia. Atelectasis could be considered. 2. Stable extensive bilateral lung infiltrates remain present [facility], Workstation: [facility], 06/18/2024 1:42 PM
--- NOTE | 2024-06-18 13:49 | P.PN ---
Subjective Progress Note Date: 06/18/24 patient 73-year-old gentleman with past medical history significant for diabetes mellitus, stroke, hypertension who presented to the ER for altered mental status and increasing lethargy. Patient is currently resident of a long-term facility. Patient has been having shortness of breath and productive cough since yesterday. There was no complaint of fever or chills. Nursing staff did note that the patient very lethargic. There was no complaint of chest pain. There is no complaint of orthopnea or PND. There is no complaint of swelling of feet. Patient does not ambulate much secondary to his stroke. Patient had chest x-ray done at the facility yesterday and today showed patient to have find ings of pneumonia. came to check on the patient and was concerned about his worsening mental status and brought him to the ER Initial lab work done in the ER showed WB 6.4, hemoglobin 11.8, platelet count 53, sodium 137, potassium 5.6, BUN 46, creatinine 1.32, glucose 107 TSH 6.840, T41.19, T31.50 UA done negative for infection EKG done in the ER showed heart rate of 44, no ST segment elevation or depression seen, no T-wave inversions seen. CT brain done showed no acute intracranial process, similar with moderate white matter changes, likely secondary to chronic small vessel ischemic changes. Old remote white matter infarct anterior right frontal lobe redemonstrated Chest x-ray done in the ER showed multifocal airspace opacities concerning for pneumonia Patient admitted to internal medicine service 06/16. Patient seen and examined. Daughter at the bedside who is the DPOA. Discussed with her regarding patient's serious conditions, she says she will talk with family. Currently patient is lethargic, n.p.o., has NG tube in place for medications 06/17. Patient seen and examined. Daughter at the bedside. Patient history of dementia. Patient more awake, daughter thinks he is back to baseline. Blood work done showed WBC 11, hemoglobin 10.9, platelet count 93, sodium 140, potassium 4.2, BUN 30, creatinine 1.04. Currently on 15 L of oxygen via nasal cannula 06/18/2024. Patient seen and examined. Patient is doing better compared to yesterday, currently on 13 L of oxygen. Daughter and at the bedside. Chest x-ray done this morning showed worsening right lower lobe infiltrate REVIEW OF SYSTEMS: Review of system cannot be obtained as patient lethargic PHYSICAL EXAMINATION: GENERAL: The patient is lethargic HEENT: Pupils are round and equally reacting to light. EOMI. No scleral icterus. No conjunctival pallor. Normocephalic, atraumatic. No pharyngeal erythema. No thyromegaly. CARDIOVASCULAR: S1 and S2 present. No murmurs, rubs, or gallops. PULMONARY: Coarse breath sound bilaterally, bilateral rhonchi and crackles audible ABDOMEN: Soft, nontender, nondistended, normoactive bowel sounds. No palpable organomegaly. MUSCULOSKELETAL: No joint swelling or deformity. EXTREMITIES: No cyanosis, clubbing, 1+ pitting edema lower extremities NEUROLOGICAL: Moving all extremities SKIN: No rashes. Assessment and plan Acute infectious encephalopathy Acute hypoxic respiratory failure Bradycardia Bacterial pneumonia History of CVA History of diabetes mellitus Hyperlipidemia Hypertension Monitor vital signs Monitor CBC Monitor CMP Continue telemetry monitoring Follow-up on blood culture Follow-up on sputum culture Continue ox supplementation Aggressive bronchopulmonary hygiene Speech evaluation Continue Eliquis, amiodarone Continue IV cefepime and vancomycin Continue Solu-Cortef Cardiology following Pulmonary following ID following Labs and medication were reviewed.. Continue same treatment. Continue with symptomatic treatment. Resume home medication. Monitor labs and vitals. DVT and GI prophylaxis. Further recommendations as per clinical course of the patient Dictation was produced using [employer] dictation software. please excuse any grammatical, word or spelling errors. Objective - Vital Signs Vital signs: Vital Signs Temp 97.7 F 06/18/24 09:05 Pulse 86 06/18/24 11:45 Resp 17 06/18/24 11:45 BP 152/95 06/18/24 11:45 Pulse Ox 94 L 06/18/24 11:45 FiO2 80 06/16/24 03:59 Intake & Output 06/17/24 06/18/24 06/18/24 18:59 06:59 18:59 Output Total 400 1250 1700 Balance -400 -1250 -1700 Weight 109 kg Output: Urine 400 1250 1700 Uretheral ([place]) 400 1700 Other: Voiding Method Urinal Indwelling Catheter Indwelling Catheter Diaper - Labs CBC & Chem 7: 06/18/24 06:25 06/18/24 06:25 Labs: Abnormal Lab Results - Last 24 Hours (Table) 06/17/24 06/17/24 06/18/24 Range/Units 16:07 19:54 06:12 RBC (4.30-5.90) m/uL Hgb (13.0-17.5) gm/dL Hct (39.0-53.0) % RDW (11.5-15.5) % Plt Count (150-450) k/uL Neutrophils # (1.3-7.7) k/uL Lymphocytes # (1.0-4.8) k/uL Chloride (98-107) mmol/L BUN (9-20) mg/dL Glucose (74-99) mg/dL POC Glucose (mg/dL) 140 H 135 H 116 H (70-110) mg/dL Total Protein (6.3-8.2) g/dL Albumin (3.5-5.0) g/dL 06/18/24 06/18/24 06/18/24 Range/Units 06:25 06:25 11:22 RBC 4.07 L (4.30-5.90) m/uL Hgb 11.1 L (13.0-17.5) gm/dL Hct 35.4 L (39.0-53.0) % RDW 15.7 H (11.5-15.5) % Plt Count 110 L (150-450) k/uL Neutrophils # 9.1 H (1.3-7.7) k/uL Lymphocytes # 0.6 L (1.0-4.8) k/uL Chloride 109 H (98-107) mmol/L BUN 30 H (9-20) mg/dL Glucose 125 H (74-99) mg/dL POC Glucose (mg/dL) 138 H (70-110) mg/dL Total Protein 5.7 L (6.3-8.2) g/dL Albumin 3.1 L (3.5-5.0) g/dL Microbiology - Last 24 Hours (Table) 06/14/24 18:30 Blood Culture - Preliminary Blood 06/14/24 18:15 Blood Culture - Preliminary Blood 06/16/24 13:00 Nasal Screen MRSA/MSSA - Final Nasal Swab
--- NOTE | 2024-06-18 15:28 | P.PN ---
Subjective Progress Note Date: 06/18/24 Principal diagnosis: Reason for follow-up is pneumonia Patient is a 73-year-old male with a past medical history significant for CVA TIA diabetes mellitus hypertension hyperlipidemia reflux patient has been brought into the hospital from the local alf concerning for abnormal x-ray patient did have productive cough he was hypothermic on presented to the hospital with chest x-ray showing diffuse elevated suggestive of pneumonia tested negative for RSV and COVID. On today's evaluation that is 06/18/2024,the patient remains to be afebrile patient apparently was more awake this morning as reported by the family at the bedside respiratory status has slightly improved he did have cough but no worsening cough has been noticed choking on the food vomiting diarrhea. Patient white count is 10.6, creatinine is 1.09 MRSA nasal screen negative blood culture negative Objective - Vital Signs Vital signs: Vital Signs Temp 97.7 F 06/18/24 09:05 Pulse 93 06/18/24 09:05 Resp 19 06/18/24 09:05 BP 191/72 06/18/24 09:05 Pulse Ox 91 L 06/18/24 09:05 FiO2 80 06/16/24 03:59 Intake & Output 06/17/24 06/18/24 06/18/24 18:59 06:59 18:59 Output Total 400 1250 1700 Balance -400 -1250 -1700 Weight 109 kg Output: Urine 400 1250 1700 Uretheral ([place]) 400 1700 Other: Voiding Method Urinal Indwelling Catheter Indwelling Catheter Diaper - Exam GENERAL DESCRIPTION: An elderly male lying in bed in no distress RESPIRATORY SYSTEM: Unlabored breathing , decreased breath sounds at bases HEART: S1 S2 regular rate and rhythm , ABDOMEN: Soft , no tenderness EXTREMITIES: No edema feet - Labs CBC & Chem 7: 06/18/24 06:25 06/18/24 06:25 Labs: Abnormal Lab Results - Last 24 Hours (Table) 06/17/24 06/17/24 06/17/24 Range/Units 11:34 16:07 19:54 RBC (4.30-5.90) m/uL Hgb (13.0-17.5) gm/dL Hct (39.0-53.0) % RDW (11.5-15.5) % Plt Count (150-450) k/uL Neutrophils # (1.3-7.7) k/uL Lymphocytes # (1.0-4.8) k/uL Chloride (98-107) mmol/L BUN (9-20) mg/dL Glucose (74-99) mg/dL POC Glucose (mg/dL) 123 H 140 H 135 H (70-110) mg/dL Total Protein (6.3-8.2) g/dL Albumin (3.5-5.0) g/dL 06/18/24 06/18/24 06/18/24 Range/Units 06:12 06:25 06:25 RBC 4.07 L (4.30-5.90) m/uL Hgb 11.1 L (13.0-17.5) gm/dL Hct 35.4 L (39.0-53.0) % RDW 15.7 H (11.5-15.5) % Plt Count 110 L (150-450) k/uL Neutrophils # 9.1 H (1.3-7.7) k/uL Lymphocytes # 0.6 L (1.0-4.8) k/uL Chloride 109 H (98-107) mmol/L BUN 30 H (9-20) mg/dL Glucose 125 H (74-99) mg/dL POC Glucose (mg/dL) 116 H (70-110) mg/dL Total Protein 5.7 L (6.3-8.2) g/dL Albumin 3.1 L (3.5-5.0) g/dL 06/18/24 Range/Units 11:22 RBC (4.30-5.90) m/uL Hgb (13.0-17.5) gm/dL Hct (39.0-53.0) % RDW (11.5-15.5) % Plt Count (150-450) k/uL Neutrophils # (1.3-7.7) k/uL Lymphocytes # (1.0-4.8) k/uL Chloride (98-107) mmol/L BUN (9-20) mg/dL Glucose (74-99) mg/dL POC Glucose (mg/dL) 138 H (70-110) mg/dL Total Protein (6.3-8.2) g/dL Albumin (3.5-5.0) g/dL Microbiology - Last 24 Hours (Table) 06/14/24 18:30 Blood Culture - Preliminary Blood 06/14/24 18:15 Blood Culture - Preliminary Blood 06/16/24 13:00 Nasal Screen MRSA/MSSA - Final Nasal Swab Assessment and Plan (1) Penicillin allergy Current Visit: Yes Status: Acute Code(s): Z88.0 - ALLERGY STATUS TO PENICILLIN SNOMED Code(s): 69164474 (2) Pneumonia Current Visit: Yes Status: Acute Code(s): J18.9 - PNEUMONIA, UNSPECIFIED ORGANISM SNOMED Code(s): 788009134 Plan: 1patient presented to hospital with weakness lethargy increasing shortness of breath cough with evidence of multifocal infiltrates suggestive of pneumonia in this patient with the alf resident need to cover for the resistant gram-positive as well as gram-negative pathogen. 2patient with a penicillin allergy that will limit the number of antibiotics safe to use. 3patient MRSA nasal screen came back negative vancomycin has been discontinued we will continue with the cefepime and monitor clinical course closely Family at bedside question answered Dictation was produced using [employer] dictation software. please excuse any grammatical, word or spelling errors. Time with Patient: Less than 30
[2024-06-18 16:11] LABS: Glucose,Whole Blood 149 mg/dL (70-110)
--- NOTE | 2024-06-18 16:18 | P.PN ---
Subjective Progress Note Date: 06/18/24 This is a 73-year-old male with a past medical history significant for coronary artery disease, hypertension, hyperlipidemia, diabetes, and CVA. Patient follows in the office with Dr. Abarca. We have been asked to see the patient in consultation for bradycardia. Patient examined at the bedside in the emergency room. Patient's family members at the bedside. She states that when she saw the patient on Sunday he seemed more tired and he had garbled speech. She states yesterday when she went to visit him at his ECF she noticed that his symptoms were worse and the nurse agreed so they brought him to the hospital for further evaluation. The patient is lethargic at the time of examination and unable to provide any additional history. Patient was found to be in sinus bradycardia upon admission with a heart rate in the 40s. At the time of examination his heart rate is in the 70s. Patient is usually on metoprolol tartrate 75 mg twice a day and also amiodarone 200 mg daily. DIAGNOSTICS: - EKG reveals sinus mechanism with no signs of acute ischemia. Bradycardic with heart rate 44. - Chest xray multifocal airspace opacities concerning for pneumonia - Laboratory data: WBC 6.4. Hemoglobin 11.8. Platelet count 53. Sodium 137. Potassium 5.6. BUN 46. Creatinine 1.32. Troponin negative x 1. proBNP 225. TSH 6.840. Free T4 1.49. Free T3 1.50 - Current home cardiac medications include Eliquis 5 mg twice a day, hydralazine 50 mg twice a day, metoprolol tartrate 75 mg twice a day, amiodarone 200 mg daily, Norvasc 10 mg daily - Most recent echocardiogram obtained in November 2023 revealing ejection fraction 60 to 65% with no significant valvular abnormalities - Cardiac catheterization history: December 2020 revealing right dominant system with total occlusion of RCA that fills by collaterals from the circumflex. Circumflex has minor irregularities. No significant disease. LAD has 35 to 40% lesion. Before and after the diagonal branch and distal LAD has mild diffuse disease. Filling pressures are normal. 06/16/2024 Patient was seen and examined resting in the ER. Labs this morning showed creatinine 1.25, hemoglobin A1c 5.9. X-ray showed bilateral patchy infiltrates worse on the right. The patient has been evaluated by ID and started on Vanocmycin and cefepime. Pulmonary following. Patient remains NPO. 06/17/2024 Patient was seen and examined resting comfortably in bed. He is sitting up in bed. NG tube has been removed. He seems more alert and awake today. Echoc ardiogram with Doppler study showed an EF of 50 to 55% with moderate pulmonary hypertension and mild TR. Platelet count up to 93,000. Blood pressure has been elevated. 06/18/2024 Hb 11, BUN 1.09 Blood pressure high today, SBP 191/72, repeat 152/95 PHYSICAL EXAM: VITAL SIGNS: Reviewed. GENERAL: Well-developed in no acute distress. HEENT: Head is normocephalic. Pupils are equal, round. Sclerae anicteric. Mucous membranes of the mouth are moist. Neck supple. No JVD or thyromegaly LUNGS: Respirations even and unlabored. Lungs with scattered crackles HEART: Regular rate and rhythm. S1 and S2 heard. ABDOMEN: Soft. Nondistended. Nontender. EXTREMITIES: Normal range of motion. No clubbing or cyanosis. Peripheral pulses intact. Bilateral lower extremity edema noted NEUROLOGIC: Alert and oriented x 1-2 ASSESSMENT: Altered mental status with worsening lethargy, improving Pneumonia Sinus bradycardia, resolved Paroxysmal atrial fibrillation New thrombocytopenia, improving Acute kidney injury Coronary artery disease Hypertension Hyperlipidemia Diabetes History of CVA, November 2023 Abnormal TSH PLAN: From cardiology's perspective we will resume Eliquis and patient's home dose of hydralazine. Due to elevated blood pressure, I will add amlodipine 5 mg daily Consider getting him off hydralazine and starting him on more stable antihypertensives like amlodipine and ARB Further recommendations pending patient course Objective - Vital Signs Vital signs: Vital Signs Temp 97.7 F 06/18/24 09:05 Pulse 86 06/18/24 11:45 Resp 17 06/18/24 11:45 BP 152/95 06/18/24 11:45 Pulse Ox 94 L 06/18/24 11:45 FiO2 80 06/16/24 03:59 Intake & Output 06/17/24 06/18/24 06/18/24 18:59 06:59 18:59 Output Total 400 1250 1700 Balance -400 -1250 -1700 Weight 109 kg Output: Urine 400 1250 1700 Uretheral ([place]) 400 1700 Other: Voiding Method Urinal Indwelling Catheter Indwelling Catheter Diaper - Labs CBC & Chem 7: 06/18/24 06:25 06/18/24 06:25 Labs: Abnormal Lab Results - Last 24 Hours (Table) 06/17/24 06/18/24 06/18/24 Range/Units 19:54 06:12 06:25 RBC 4.07 L (4.30-5.90) m/uL Hgb 11.1 L (13.0-17.5) gm/dL Hct 35.4 L (39.0-53.0) % RDW 15.7 H (11.5-15.5) % Plt Count 110 L (150-450) k/uL Neutrophils # 9.1 H (1.3-7.7) k/uL Lymphocytes # 0.6 L (1.0-4.8) k/uL Chloride (98-107) mmol/L BUN (9-20) mg/dL Glucose (74-99) mg/dL POC Glucose (mg/dL) 135 H 116 H (70-110) mg/dL Total Protein (6.3-8.2) g/dL Albumin (3.5-5.0) g/dL 06/18/24 06/18/24 06/18/24 Range/Units 06:25 11:22 16:10 RBC (4.30-5.90) m/uL Hgb (13.0-17.5) gm/dL Hct (39.0-53.0) % RDW (11.5-15.5) % Plt Count (150-450) k/uL Neutrophils # (1.3-7.7) k/uL Lymphocytes # (1.0-4.8) k/uL Chloride 109 H (98-107) mmol/L BUN 30 H (9-20) mg/dL Glucose 125 H (74-99) mg/dL POC Glucose (mg/dL) 138 H 149 H (70-110) mg/dL Total Protein 5.7 L (6.3-8.2) g/dL Albumin 3.1 L (3.5-5.0) g/dL Microbiology - Last 24 Hours (Table) 06/14/24 18:30 Blood Culture - Preliminary Blood 06/14/24 18:15 Blood Culture - Preliminary Blood 06/16/24 13:00 Nasal Screen MRSA/MSSA - Final Nasal Swab
[2024-06-18] MEDS: amLODIPine 5 MG TAB PO SCH (16:24)
[2024-06-18 19:46] LABS: Glucose,Whole Blood 144 mg/dL (70-110)
[2024-06-18] MEDS ORDERED: VANCOMYCIN TROUGH DUE 1 EACH MISC MISCELLANE ONE (20:00)
[2024-06-19 06:19] LABS: Glucose,Whole Blood 134 mg/dL (70-110)
[2024-06-19 11:51] LABS: Glucose,Whole Blood 162 mg/dL (70-110)
--- NOTE | 2024-06-19 12:39 | P.PN ---
Subjective Progress Note Date: 06/19/24 patient 73-year-old gentleman with past medical history significant for diabetes mellitus, stroke, hypertension who presented to the ER for altered mental status and increasing lethargy. Patient is currently resident of a [facility] facility. Patient has been having shortness of breath and productive cough since yesterday. There was no complaint of fever or chills. Nursing staff did note that the patient very lethargic. There was no complaint of chest pain. There is no complaint of orthopnea or PND. There is no complaint of swelling of feet. Patient does not ambulate much secondary to his stroke. Patient had chest x-ray done at the facility yesterday and today showed patient to have find ings of pneumonia. came to check on the patient and was concerned about his worsening mental status and brought him to the ER Initial lab work done in the ER showed WB 6.4, hemoglobin 11.8, platelet count 53, sodium 137, potassium 5.6, BUN 46, creatinine 1.32, glucose 107 TSH 6.840, T41.19, T31.50 UA done negative for infection EKG done in the ER showed heart rate of 44, no ST segment elevation or depression seen, no T-wave inversions seen. CT brain done showed no acute intracranial process, similar with moderate white matter changes, likely secondary to chronic small vessel ischemic changes. Old remote white matter infarct anterior right frontal lobe redemonstrated Chest x-ray done in the ER showed multifocal airspace opacities concerning for pneumonia Patient admitted to internal medicine service 06/16. Patient seen and examined. Daughter at the bedside who is the DPOA. Discussed with her regarding patient's serious conditions, she says she will talk with family. Currently patient is lethargic, n.p.o., has NG tube in place for medications 06/17. Patient seen and examined. Daughter at the bedside. Patient history of dementia. Patient more awake, daughter thinks he is back to baseline. Blood work done showed WBC 11, hemoglobin 10.9, platelet count 93, sodium 140, potassium 4.2, BUN 30, creatinine 1.04. Currently on 15 L of oxygen via nasal cannula 06/18/2024. Patient seen and examined. Patient is doing better compared to yesterday, currently on 13 L of oxygen. Daughter and at the bedside. Chest x-ray done this morning showed worsening right lower lobe infiltrate 1/2. Patient seen and examined. Daughter at the bedside, patient continues to have shortness of breath, continues to be on 13 L of oxygen. Patient went for swallow study today. Discussed with patient's family regarding patient's critical condition and poor prognosis, DPOA agreeable for hospice, hospice consulted. REVIEW OF SYSTEMS: Review of system cannot be obtained as patient lethargic PHYSICAL EXAMINATION: GENERAL: The patient is lethargic HEENT: Pupils are round and equally reacting to light. EOMI. No scleral icterus. No conjunctival pallor. Normocephalic, atraumatic. No pharyngeal erythema. No thyromegaly. CARDIOVASCULAR: S1 and S2 present. No murmurs, rubs, or gallops. PULMONARY: Coarse breath sound bilaterally, bilateral rhonchi and crackles audible ABDOMEN: Soft, nontender, nondistended, normoactive bowel sounds. No palpable organomegaly. MUSCULOSKELETAL: No joint swelling or deformity. EXTREMITIES: No cyanosis, clubbing, 1+ pitting edema lower extremities NEUROLOGICAL: Moving all extremities SKIN: No rashes. Assessment and plan Acute infectious encephalopathy Acute hypoxic respiratory failure Bradycardia Bacterial pneumonia History of CVA History of diabetes mellitus Hyperlipidemia Hypertension Monitor vital signs Monitor CBC Monitor CMP Continue telemetry monitoring Follow-up on blood culture Follow-up on sputum culture Continue ox supplementation Aggressive bronchopulmonary hygiene Speech evaluation, video-assisted fluoroscopy ordered Continue Eliquis, amiodarone Continue IV cefepime and vancomycin Continue Solu-Cortef Cardiology following Pulmonary following ID following Hospice consulted Labs and medication were reviewed.. Continue same treatment. Continue with symptomatic treatment. Resume home medication. Monitor labs and vitals. DVT and GI prophylaxis. Further recommendations as per clinical course of the patient Dictation was produced using [employer] dictation software. please excuse any grammatical, word or spelling errors. Objective - Vital Signs Vital signs: Vital Signs Temp 97.2 F L 06/19/24 08:56 Pulse 86 06/19/24 08:58 Resp 20 06/19/24 08:58 BP 177/81 06/19/24 08:56 Pulse Ox 93 L 06/19/24 08:56 FiO2 80 06/16/24 03:59 Intake & Output 06/18/24 06/19/24 06/19/24 18:59 06:59 18:59 Intake Total 10 Output Total 2350 250 Balance -2350 -250 10 Weight 103.5 kg Intake: IV 10 Invasive Line 2 10 Output: Urine 2350 250 Uretheral ([place]) 2350 250 Other: Voiding Method Indwelling Catheter Indwelling Catheter Indwelling Catheter - Labs CBC & Chem 7: 06/18/24 06:25 06/18/24 06:25 Labs: Abnormal Lab Results - Last 24 Hours (Table) 06/18/24 06/18/24 06/18/24 Range/Units 11:22 16:10 19:44 POC Glucose (mg/dL) 138 H 149 H 144 H (70-110) mg/dL 06/19/24 Range/Units 06:17 POC Glucose (mg/dL) 134 H (70-110) mg/dL
--- NOTE | 2024-06-19 12:39 | P.PN ---
Subjective Progress Note Date: 06/19/24 This is a 73-year-old male with a past medical history significant for coronary artery disease, hypertension, hyperlipidemia, diabetes, and CVA. Patient follows in the office with Dr. Abarca. We have been asked to see the patient in consultation for bradycardia. Patient examined at the bedside in the emergency room. Patient's family members at the bedside. She states that when she saw the patient on Sunday he seemed more tired and he had garbled speech. She states yesterday when she went to visit him at his ECF she noticed that his symptoms were worse and the nurse agreed so they brought him to the hospital for further evaluation. The patient is lethargic at the time of examination and unable to provide any additional history. Patient was found to be in sinus bradycardia upon admission with a heart rate in the 40s. At the time of examination his heart rate is in the 70s. Patient is usually on metoprolol tartrate 75 mg twice a day and also amiodarone 200 mg daily. DIAGNOSTICS: - EKG reveals sinus mechanism with no signs of acute ischemia. Bradycardic with heart rate 44. - Chest xray multifocal airspace opacities concerning for pneumonia - Laboratory data: WBC 6.4. Hemoglobin 11.8. Platelet count 53. Sodium 137. Potassium 5.6. BUN 46. Creatinine 1.32. Troponin negative x 1. proBNP 225. TSH 6.840. Free T4 1.49. Free T3 1.50 - Current home cardiac medications include Eliquis 5 mg twice a day, hydralazine 50 mg twice a day, metoprolol tartrate 75 mg twice a day, amiodarone 200 mg daily, Norvasc 10 mg daily - Most recent echocardiogram obtained in November 2023 revealing ejection fraction 60 to 65% with no significant valvular abnormalities - Cardiac catheterization history: December 2020 revealing right dominant system with total occlusion of RCA that fills by collaterals from the circumflex. Circumflex has minor irregularities. No significant disease. LAD has 35 to 40% lesion. Before and after the diagonal branch and distal LAD has mild diffuse disease. Filling pressures are normal. 06/16/2024 Patient was seen and examined resting in the ER. Labs this morning showed creatinine 1.25, hemoglobin A1c 5.9. X-ray showed bilateral patchy infiltrates worse on the right. The patient has been evaluated by ID and started on Vanocmycin and cefepime. Pulmonary following. Patient remains NPO. 06/17/2024 Patient was seen and examined resting comfortably in bed. He is sitting up in bed. NG tube has been removed. He seems more alert and awake today. Echoc ardiogram with Doppler study showed an EF of 50 to 55% with moderate pulmonary hypertension and mild TR. Platelet count up to 93,000. Blood pressure has been elevated. 06/18/2024 Hb 11, BUN 1.09 Blood pressure high today, SBP 191/72, repeat 152/95 06/19/2024 Patient seen and examined. Patient remains in atrial fibrillation with controlled rate. He states his breathing is better today. No chest pain no palpitations and no dizziness. Patient has failed swallow evaluation this morning was choking on his oral pills. He is scheduled for evaluation by speech therapy today. No wheezing noted. Blood pressure 177/81, heart rate 86, pulse ox 93% on high flow nasal cannula 13 L. A family meeting with hospice has been arranged PHYSICAL EXAM: VITAL SIGNS: Reviewed. GENERAL: Well-developed in no acute distress. HEENT: Head is normocephalic. Pupils are equal, round. Sclerae anicteric. Mucous membranes of the mouth are moist. Neck supple. No JVD or thyromegaly LUNGS: Respirations even and unlabored. Lungs with scattered crackles HEART: Regular rate and rhythm. S1 and S2 heard. ABDOMEN: Soft. Nondistended. Nontender. EXTREMITIES: Normal range of motion. No clubbing or cyanosis. Peripheral pulses intact. Bilateral lower extremity edema noted NEUROLOGIC: Alert and oriented x 1-2 ASSESSMENT: Altered mental status with worsening lethargy, improving Pneumonia, aspiration Sinus bradycardia, resolved Paroxysmal atrial fibrillation New thrombocytopenia, improving Acute kidney injury Coronary artery disease Hypertension Hyperlipidemia Diabetes History of CVA, November 2023 Abnormal TSH PLAN: Continue patient on amiodarone, amlodipine, Eliquis, hydralazine, Lopressor Agree that hospice evaluation is appropriate Further recommendations pending patient course Nurse practitioner note has been reviewed, I agree with documented findings and plan of care. Patient was seen and examined. Objective - Vital Signs Vital signs: Vital Signs Temp 98 F 06/19/24 03:40 Pulse 89 06/19/24 03:40 Resp 20 06/19/24 03:40 BP 120/78 06/19/24 03:40 Pulse Ox 93 L 06/19/24 03:40 FiO2 80 06/16/24 03:59 Intake & Output 06/18/24 06/19/24 06/19/24 18:59 06:59 18:59 Output Total 2350 250 Balance -2350 -250 Weight 103.5 kg Output: Urine 2350 250 Uretheral ([place]) 2350 250 Other: Voiding Method Indwelling Catheter Indwelling Catheter - Labs CBC & Chem 7: 06/18/24 06:25 06/18/24 06:25 Labs: Abnormal Lab Results - Last 24 Hours (Table) 06/18/24 06/18/24 06/18/24 Range/Units 11:22 16:10 19:44 POC Glucose (mg/dL) 138 H 149 H 144 H (70-110) mg/dL 06/19/24 Range/Units 06:17 POC Glucose (mg/dL) 134 H (70-110) mg/dL
--- NOTE | 2024-06-19 12:42 | P.PN ---
Subjective Progress Note Date: 06/19/24 Principal diagnosis: Respiratory failure, pneumonia. This is a 73-year-old male patient with a known history of hypertension, hyperlipidemia, gastroesophageal reflux disease, diabetes mellitus and cerebrovascular accident earlier this year and has been residing in a alf with poor mobility. Brought into the emergency room yesterday with increasing lethargy. CT scan of the brain revealed no acute intracranial process. Chest x-ray reveals multifocal airspace opacities. White count 6.4. Hemoglobin 11.8. Platelets 53,000. Sodium 137. Potassium 5.6. Bicarb 25. BUN 46. Creatinine 1.32. Glucose 107. Viral screen negative. He is seen today in consultation in the emergency department. He is difficult to arouse. He is currently on 5 L/min per nasal cannula. He has been initiated on vancomycin and cefepime. Solu-Cortef 100 mg every 8 hours. Normal saline at 130 mL/h. He is currently afebrile. Hemodynamically stable. The patient is seen today June 16, 2024 in follow-up in the emergency department. He is a bit more awake today. Somewhat restless. He is on 13 L high flow nasal cannula. He is receiving normal saline at 130 mL/h. He remains on vancomycin and cefepime. Procalcitonin is pending. Chest x-ray continues to show diffuse patchy infiltrates. Blood culture pending. Urine culture revealed no growth. White count 11.3. Hemoglobin 10.8. Platelets 77,000. Sodium 140. Potassium 4.4. Bicarb 24. BUN 34. Creatinine 1.13. Glucose 141. Progress note dated June 17, 2024. 73-year-old male seen today in room 352. The patient is currently on high flow nasal O2 at 15 L. He is getting saline at 130 cc an hour. The patient continues on cefepime and vancomycin. His procalcitonin level was only 0.15. We did talk to the family today about CODE STATUS. The was unable to make any decisions. The daughter was in the room as well. White count 11, hemoglobin 10.9, hematocrit 34.2, platelet count 93,000. Sodium 140, potassium 4.2, chlorides 110, CO2 23, BUN 30, creatinine 1.04. Glucose 123. Albumin was 3. Cultures thus far are negative. Chest x-ray is largely unchanged, and shows diffuse bilateral infiltrates. Progress note dated June 18, 2024. 73-year-old male seen again in room 352. The patient's and daughter are in the room. Yesterday we had a conversation about CODE STATUS. No decisions have been made. The patient is currently on 13 L high flow oxygen. He is not receiving any IV fluids. His procalcitonin level is only 0.15, yet, he continues on cefepime and vancomycin, per infectious diseases. Antibiotic should be de-escalated or discontinued. A portable chest x-ray is ordered. White count 10.6, hemoglobin 1.1, macro 35.4, platelet count 110,000. Sodium 142, potassium 3.8, chlorides 109, CO2 25, BUN 30, creatinine 1.09. Glucose is 138. Albumin 3.1. All cultures thus far are negative. Chest x-ray shows patchy bilateral infiltrates, mostly in the right upper lobe. Progress note dated June 19, 2024. 73-year-old male seen today in room 352. The patient's and daughter, are in the room with the patient. Currently he is on 13 L high flow oxygen. He co ntinues on cefepime. Apparently some discussion has taken place about hospice care. We talked to both the , and the daughter about this, a couple days ago. Current labs include a glucose of 162. Objective - Vital Signs Vital signs: Vital Signs Temp 97.2 F L 06/19/24 08:56 Pulse 88 06/19/24 11:36 Resp 20 06/19/24 11:36 BP 159/75 06/19/24 11:36 Pulse Ox 92 L 06/19/24 11:36 FiO2 80 06/16/24 03:59 Intake & Output 06/18/24 06/19/24 06/19/24 18:59 06:59 18:59 Intake Total 10 Output Total 2350 250 Balance -2350 -250 10 Weight 103.5 kg Intake: IV 10 Invasive Line 2 10 Output: Urine 2350 250 Uretheral ([place]) 2350 250 Other: Voiding Method Indwelling Catheter Indwelling Catheter Indwelling Catheter - Exam No acute distress, the patient is lethargic and somnolent, high flow nasal cannu la noted. HEENT examination is grossly unremarkable. Mucous membranes are moist. No oral lesions. Neck supple. Full range of motion. No adenopathy thyromegaly or neck vein distention. Cardiovascular examination reveals regular rhythm rate. S1-S2 normal. No S3 or S4. No discernible murmur noted. Heart sounds are distant. Lungs reveal diminished bilateral breath sounds. Scattered rhonchi are noted. No wheezes. No crackles. Breath sounds equal bilaterally. Abdomen soft bowel sounds are heard. No masses or tenderness. Extremities are intact. Cyanosis or clubbing. Mild edema in the lower extremities is noted. Skin is without rash or lesion. Neurologic examination is brief but nonfocal. - Labs CBC & Chem 7: 06/18/24 06:25 06/18/24 06:25 Labs: Abnormal Lab Results - Last 24 Hours (Table) 06/18/24 06/18/24 06/19/24 Range/Units 16:10 19:44 06:17 POC Glucose (mg/dL) 149 H 144 H 134 H (70-110) mg/dL 06/19/24 Range/Units 11:50 POC Glucose (mg/dL) 162 H (70-110) mg/dL Assessment and Plan Assessment: Altered mental status of unclear etiology. Acute hypoxemic respiratory failure secondary to possible aspiration pneumonia. Bradycardia. Acute kidney injury. History of atrial fibrillation. History of cerebrovascular accident involving the left thalamus. Generalized weakness with gait dysfunction and poor mobility secondary to above. Diabetes mellitus, type II. Hyperlipidemia. Gastroesophageal reflux disease. Hypertension. Obesity. Previous history of CVA. Plan: Plan dated June 17, 2024. The patient's daughter and were in the room. We had a long conversation about CODE STATUS. The patient remains a full code. They seem to state that the patient would not want intubation, mechanical ventilation, or surgical feeding tube. The patient has had the NG tube placed, and he has removed it multiple times. The patient's mental status is unchanged. He continues on oxygen, high flow nasal cannula at 15 L. He is getting saline at 130 cc an hour. Procalcitonin level is normal at 0.15. He continues on cefepime and vancomycin. Additional recommendations and suggestions are forthcoming. Prognosis is poor. Plan dated June 18, 2024. Patient remains about the same. Yesterday we did have a conversation with the patient's daughter, and , about CODE STATUS. No decision was made. The patient continues on high flow nasal O2 at 13 L. The patient's procalcitonin level was 0.15. He continues on cefepime and vancomycin, as per infectious diseases. Portable chest x-ray was ordered, and has been reviewed. Labs, x- rays, medications are reviewed. Prognosis is certainly guarded. Plan dated June 19, 2023. The patient is seen today in room 352. Family members are at the bedside. The patient continues on high flow nasal cannula, 13 L. The patient continues on cefepime. Labs, x-rays, and medications are reviewed. The primary service is talking to the family about hospice care for this patient. We will continue to follow, unless he becomes a hospice patient. Prognosis is poor. His baseline quality of life is poor as well. Time with Patient: Less than 30
[2024-06-19 14:42] VITALS: BMI 36.8
--- NOTE | 2024-06-19 15:37 | FL ---
EXAMINATION TYPE: FL barium swallow w video DATE OF EXAM: 06/19/2024 COMPARISON: NONE HISTORY: Cough with meals TECHNIQUE: Fluoroscopy. FINDINGS: Fluoroscopic guidance was provided for the procedure performed in conjunction with the [facility] pathology department. Please see complete report forthcoming from the Speech Pathology departmen t. Various consistencies from thin liquid to solids were administered. Fluoroscopy time 2 minutes 35 seconds. Number of images: 0. There was deep penetration with thin liquids. Silent aspiration occurred with nectar thick consistenc ies on multiple swallows. This improved with chin tuck method. There was normal transit without aspir ation or penetration with honey thick pudding thick and solids. No significant pooling was observed in the vallecula. Small amount of pooling in the piriform sinuses was observed There is some hesitancy of bolus formation. IMPRESSION: 1. Silent aspiration with nectar thick consistencies. Penetration was observed with thin liquids. [facility], , 06/19/2024 3:35 PM
[2024-06-19 16:23] LABS: Glucose,Whole Blood 165 mg/dL (70-110)
[2024-06-19 20:45] LABS: Glucose,Whole Blood 231 mg/dL (70-110)
[2024-06-19 23:50] LABS: Glucose,Whole Blood 160 mg/dL (70-110)
[2024-06-20 06:00] LABS: Glucose,Whole Blood 128 mg/dL (70-110)
[2024-06-20 07:58] VITALS: RESP 20; TEMP 98
--- NOTE | 2024-06-20 08:48 | P.PN ---
Subjective Progress Note Date: 06/19/24 Principal diagnosis: Reason for follow-up is pneumonia Patient is a 73-year-old male with a past medical history significant for CVA TIA diabetes mellitus hypertension hyperlipidemia reflux patient has been brought into the hospital from the local intermediate concerning for abnormal x-ray patient did have productive cough he was hypothermic on presented to the hospital with chest x-ray showing diffuse elevated suggestive of pneumonia tested negative for RSV and COVID. On today's evaluation that is 06/19/2024,the patient remains to be afebrile, patient is high flow nasal cannula oxygen patient seen to be slightly more awake today and also some simple question no worsening cough vomiting or diarrhea reported by the family at the bedside. Patient did not have a lab draw today his white normalized to 10.6 yesterday blood urine culture have been negative Objective - Vital Signs Vital signs: Vital Signs Temp 98.6 F 06/19/24 15:33 Pulse 89 06/19/24 15:33 Resp 20 06/19/24 15:33 BP 137/85 06/19/24 15:33 Pulse Ox 98 06/19/24 15:33 FiO2 80 06/16/24 03:59 Intake & Output 06/18/24 06/19/24 06/19/24 18:59 06:59 18:59 Intake Total 20 Output Total 2350 250 Balance -2350 -250 20 Weight 103.5 kg 103.5 kg Intake: IV 20 Invasive Line 2 20 Output: Urine 2350 250 Uretheral ([place]) 2350 250 Other: Voiding Method Indwelling Catheter Indwelling Catheter Indwelling Catheter - Exam GENERAL DESCRIPTION: An elderly male lying in bed in no distress RESPIRATORY SYSTEM: Unlabored breathing , decreased breath sounds at bases HEART: S1 S2 regular rate and rhythm , ABDOMEN: Soft , no tenderness EXTREMITIES: No edema feet - Labs CBC & Chem 7: 06/18/24 06:25 06/18/24 06:25 Labs: Abnormal Lab Results - Last 24 Hours (Table) 06/18/24 06/18/24 06/19/24 Range/Units 16:10 19:44 06:17 POC Glucose (mg/dL) 149 H 144 H 134 H (70-110) mg/dL 06/19/24 Range/Units 11:50 POC Glucose (mg/dL) 162 H (70-110) mg/dL Assessment and Plan (1) Penicillin allergy Current Visit: Yes Status: Acute Code(s): Z88.0 - ALLERGY STATUS TO PENICILLIN SNOMED Code(s): 78927162 (2) Pneumonia Current Visit: Yes Status: Acute Code(s): J18.9 - PNEUMONIA, UNSPECIFIED ORGANISM SNOMED Code(s): 633027736 Plan: 1patient presented to hospital with weakness lethargy increasing shortness of breath cough with evidence of multifocal infiltrates suggestive of pneumonia in this patient with the intermediate resident need to cover for the resistant gram-positive as well as gram-negative pathogen. 2patient with a penicillin allergy that will limit the number of antibiotics safe to use. 3patient MRSA nasal screen came back negative, blood culture has been negative sputum could not be collected patient is on cefepime need to be monitored closely during feeding as high clinical suspicious for possible aspiration Family at bedside question answered Dictation was produced using [employer] dictation software. please excuse any grammatical, word or spelling errors. Time with Patient: Less than 30
[2024-06-20 11:34] LABS: Glucose,Whole Blood 195 mg/dL (70-110)
[2024-06-20 11:52] VITALS: BP 165/78; PULSE 69
--- NOTE | 2024-06-20 12:51 | P.PN ---
Subjective Progress Note Date: 06/20/24 This is a 73-year-old male with a past medical history significant for coronary artery disease, hypertension, hyperlipidemia, diabetes, and CVA. Patient follows in the office with Dr. Abarca. We have been asked to see the patient in consultation for bradycardia. Patient examined at the bedside in the emergency room. Patient's family members at the bedside. She states that when she saw the patient on Sunday he seemed more tired and he had garbled speech. She states yesterday when she went to visit him at his ECF she noticed that his symptoms were worse and the nurse agreed so they brought him to the hospital for further evaluation. The patient is lethargic at the time of examination and unable to provide any additional history. Patient was found to be in sinus bradycardia upon admission with a heart rate in the 40s. At the time of examination his heart rate is in the 70s. Patient is usually on metoprolol tartrate 75 mg twice a day and also amiodarone 200 mg daily. DIAGNOSTICS: - EKG reveals sinus mechanism with no signs of acute ischemia. Bradycardic with heart rate 44. - Chest xray multifocal airspace opacities concerning for pneumonia - Laboratory data: WBC 6.4. Hemoglobin 11.8. Platelet count 53. Sodium 137. Potassium 5.6. BUN 46. Creatinine 1.32. Troponin negative x 1. proBNP 225. TSH 6.840. Free T4 1.49. Free T3 1.50 - Current home cardiac medications include Eliquis 5 mg twice a day, hydralazine 50 mg twice a day, metoprolol tartrate 75 mg twice a day, amiodarone 200 mg daily, Norvasc 10 mg daily - Most recent echocardiogram obtained in November 2023 revealing ejection fraction 60 to 65% with no significant valvular abnormalities - Cardiac catheterization history: December 2020 revealing right dominant system with total occlusion of RCA that fills by collaterals from the circumflex. Circumflex has minor irregularities. No significant disease. LAD has 35 to 40% lesion. Before and after the diagonal branch and distal LAD has mild diffuse disease. Filling pressures are normal. 06/16/2024 Patient was seen and examined resting in the ER. Labs this morning showed creatinine 1.25, hemoglobin A1c 5.9. X-ray showed bilateral patchy infiltrates worse on the right. The patient has been evaluated by ID and started on Vanocmycin and cefepime. Pulmonary following. Patient remains NPO. 06/17/2024 Patient was seen and examined resting comfortably in bed. He is sitting up in bed. NG tube has been removed. He seems more alert and awake today. Echoc ardiogram with Doppler study showed an EF of 50 to 55% with moderate pulmonary hypertension and mild TR. Platelet count up to 93,000. Blood pressure has been elevated. 06/18/2024 Hb 11, BUN 1.09 Blood pressure high today, SBP 191/72, repeat 152/95 06/19/2024 Patient seen and examined. Patient remains in atrial fibrillation with controlled rate. He states his breathing is better today. No chest pain no palpitations and no dizziness. Patient has failed swallow evaluation this morning was choking on his oral pills. He is scheduled for evaluation by speech therapy today. No wheezing noted. Blood pressure 177/81, heart rate 86, pulse ox 93% on high flow nasal cannula 13 L. A family meeting with hospice has been arranged 06/20/24 Patient seen and examined. Patient failed swallow evaluation yesterday but he is now on dysphagia diet and taking pills crushed. He is doing well with this. He was able to eat his breakfast. He is more awake today from yesterday. Family has made arrangements for him to be discharged with hospice. Blood pressure 150/70, heart rate 88, pulse ox 92% on 9 L nasal cannula. PHYSICAL EXAM: VITAL SIGNS: Reviewed. GENERAL: Well-developed in no acute distress. HEENT: Head is normocephalic. Pupils are equal, round. Sclerae anicteric. Mucous membranes of the mouth are moist. Neck supple. No JVD or thyromegaly LUNGS: Respirations even and unlabored. Lungs with scattered crackles HEART: Regular rate and rhythm. S1 and S2 heard. ABDOMEN: Soft. Nondistended. Nontender. EXTREMITIES: Normal range of motion. No clubbing or cyanosis. Peripheral pulses intact. Bilateral lower extremity edema noted NEUROLOGIC: Alert and oriented x 1-2 ASSESSMENT: Altered mental status with worsening lethargy, improving Pneumonia, aspiration Sinus bradycardia, resolved Paroxysmal atrial fibrillation New thrombocytopenia, improving Acute kidney injury Coronary artery disease Hypertension Hyperlipidemia Diabetes History of CVA, November 2023 Abnormal TSH PLAN: Continue patient on amiodarone, amlodipine, Eliquis, hydralazine, Lopressor Agree that hospice evaluation is appropriate Patient is cleared for discharge on current medications. Cardiology will sign off this case and follow on an as-needed basis. Please reconsult for any new concerns. Nurse practitioner note has been reviewed, I agree with documented findings and plan of care. Patient was seen and examined. Objective - Vital Signs Vital signs: Vital Signs Temp 98.0 F 06/20/24 07:57 Pulse 88 06/20/24 07:57 Resp 20 06/20/24 07:57 BP 150/70 06/20/24 07:57 Pulse Ox 92 L 06/20/24 07:57 FiO2 80 06/16/24 03:59 Intake & Output 06/19/24 06/20/24 06/20/24 18:59 06:59 18:59 Intake Total 20 20 Balance 20 20 Weight 103.5 kg Intake: IV 20 20 Invasive Line 2 20 20 Other: Voiding Method Indwelling Catheter Indwelling Catheter - Labs CBC & Chem 7: 06/18/24 06:25 06/18/24 06:25 Labs: Abnormal Lab Results - Last 24 Hours (Table) 06/19/24 06/19/24 06/19/24 Range/Units 11:50 16:21 20:43 POC Glucose (mg/dL) 162 H 165 H 231 H (70-110) mg/dL 06/19/24 06/20/24 Range/Units 23:49 05:58 POC Glucose (mg/dL) 160 H 128 H (70-110) mg/dL Microbiology - Last 24 Hours (Table) 06/14/24 18:30 Blood Culture - Final Blood 06/14/24 18:15 Blood Culture - Final Blood
--- NOTE | 2024-06-20 13:17 | P.DS ---
Providers Date of admission: 06/14/24 21:29 Expected date of discharge: 06/20/24 Attending physician: Geoff Sanchez Consults: 06/14/24 21:10 Consult Physician Routine Consulting Provider: Fiona Beal Consult Reason/Comments: pneumonia Do you want consulting provider notified?: Already Contacted 06/14/24 21:11 Consult Physician Routine Consulting Provider: Irvin Cardenas Consult Reason/Comments: bradycardia Do you want consulting provider notified?: Yes 06/15/24 10:05 Consult Physician Routine Consulting Provider: Emanuel Sharma Consult Reason/Comments: pneumonia Do you want consulting provider notified?: Yes Primary care physician: Billy Livingston Hospital Course: Discharge diagnoses; Acute infectious encephalopathy Acute hypoxic respiratory failure Bradycardia Bacterial pneumonia History of CVA History of diabetes mellitus Hyperlipidemia Hypertension Hospital course; patient 73-year-old gentleman with past medical history significant for diabetes mellitus, stroke, hypertension who presented to the ER for altered mental status and increasing lethargy. Patient is currently resident of a skilled nursing facility. Patient has been having shortness of breath and productive cough since yesterday. There was no complaint of fever or chills. Nursing staff did note that the patient very lethargic. There was no complaint of chest pain. There is no complaint of orthopnea or PND. There is no complaint of swelling of feet. Patient does not ambulate much secondary to his stroke. Patient had chest x-ray done at the facility yesterday and today showed patient to have findings of pneumonia. came to check on the patient and was concerned about his worsening mental status and brought him to the ER Initial lab work done in the ER showed WB 6.4, hemoglobin 11.8, platelet count 53, sodium 137, potassium 5.6, BUN 46, creatinine 1.32, glucose 107 TSH 6.840, T41.19, T31.50 UA done negative for infection EKG done in the ER showed heart rate of 44, no ST segment elevation or depression seen, no T-wave inversions seen. CT brain done showed no acute intracranial process, similar with moderate white matter changes, likely secondary to chronic small vessel ischemic changes. Old remote white matter infarct anterior right frontal lobe redemonstrated Chest x-ray done in the ER showed multifocal airspace opacities concerning for pneumonia Patient admitted to internal medicine service 06/16. Patient seen and examined. Daughter at the bedside who is the DPOA. Discussed with her regarding patient's serious conditions, she says she will talk with family. Currently patient is lethargic, n.p.o., has NG tube in place for medications 06/17. Patient seen and examined. Daughter at the bedside. Patient history of dementia. Patient more awake, daughter thinks he is back to baseline. Blood work done showed WBC 11, hemoglobin 10.9, platelet count 93, sodium 140, potassium 4.2, BUN 30, creatinine 1.04. Currently on 15 L of oxygen via nasal cannula 06/18/2024. Patient seen and examined. Patient is doing better compared to yesterday, currently on 13 L of oxygen. Daughter and at the bedside. Chest x-ray done this morning showed worsening right lower lobe infiltrate 06/19. Patient seen and examined. Daughter at the bedside, patient continues to have shortness of breath, continues to be on 13 L of oxygen. Patient went for swallow study today. Discussed with patient's family regarding patient's critical condition and poor prognosis, DPOA agreeable for hospice, hospice consulted. 06/20. Patient seen and examined. Patient has signed up for hospice, being discharged to facility with hospice PHYSICAL EXAMINATION: GENERAL: The patient is lethargic HEENT: Pupils are round and equally reacting to light. EOMI. No scleral icterus. No conjunctival pallor. Normocephalic, atraumatic. No pharyngeal erythema. No thyromegaly. CARDIOVASCULAR: S1 and S2 present. No murmurs, rubs, or gallops. PULMONARY: Coarse breath sound bilaterally, bilateral rhonchi and crackles audible ABDOMEN: Soft, nontender, nondistended, normoactive bowel sounds. No palpable organomegaly. MUSCULOSKELETAL: No joint swelling or deformity. EXTREMITIES: No cyanosis, clubbing, 1+ pitting edema lower extremities NEUROLOGICAL: Moving all extremities SKIN: No rashes. Dictation was produced using [email or web address] dictation software. please excuse any grammatical, word or spelling errors. Patient Condition at Discharge: Fair Plan - Discharge Summary Discharge Rx Participant: No New Discharge Prescriptions: New cefuroxime axetiL [Ceftin] 500 mg PO BID 3 Days #6 tab amLODIPine [Norvasc] 5 mg PO DAILY 30 Days #30 tab Amiodarone [Cordarone] 100 mg PO DAILY tab Liothyronine Sodium [Cytomel] 10 mcg PO Q8H tab Metoprolol Tartrate [Lopressor] 25 mg PO BID 30 Days #60 tab Continue Dulaglutide [Trulicity] 3 mg SQ MARCELO traZODone HCL [Desyrel] 50 mg PO HS Sennosides [Senokot] 8.6 mg PO DAILY polyethylene glycoL 3350 [Miralax] 17 gm PO DAILY Acetaminophen Tab [Tylenol] 650 mg PO Q6H PRN PRN Reason: Pain Magnesium Hydroxide [Milk of Magnesia] 2,400 mg PO Q72H PRN PRN Reason: Constipation Loratadine [Claritin] 10 mg PO DAILY Gabapentin [Neurontin] 100 mg PO HS Tamsulosin [Flomax] 0.4 mg PO HS Insulin Glargine,Hum.rec.anlog [Lantus Solostar Pen] 18 units SQ HS Apixaban [Eliquis] 5 mg PO BID tab hydrALAZINE HCL [Apresoline] 50 mg PO BID Omeprazole [PriLOSEC] 20 mg PO DAILY Insulin Aspart (Niacinamide) [Fiasp 100 Unit/ml Vial] 3 units SQ AC-TID Discontinued Metoprolol Tartrate [Lopressor] 75 mg PO BID tab Amiodarone HCl [Pacerone] 200 mg PO DAILY amLODIPine [Norvasc] 10 mg PO DAILY Discharge Medication List Dulaglutide [Trulicity] 3 mg SQ MARCELO 11/22/23 [History] Insulin Glargine,Hum.rec.anlog [Lantus Solostar Pen] 18 units SQ HS 11/22/23 [History] Tamsulosin [Flomax] 0.4 mg PO HS 11/22/23 [History] Apixaban [Eliquis] 5 mg PO BID tab 11/28/23 [Rx] Acetaminophen Tab [Tylenol] 650 mg PO Q6H PRN 01/19/24 [History] Sennosides [Senokot] 8.6 mg PO DAILY 01/19/24 [History] hydrALAZINE HCL [Apresoline] 50 mg PO BID 01/19/24 [History] polyethylene glycoL 3350 [Miralax] 17 gm PO DAILY 01/19/24 [History] traZODone HCL [Desyrel] 50 mg PO HS 01/19/24 [History] Gabapentin [Neurontin] 100 mg PO HS 06/14/24 [History] Insulin Aspart (Niacinamide) [Fiasp 100 Unit/ml Vial] 3 units SQ AC-TID 06/14/24 [History] Loratadine [Claritin] 10 mg PO DAILY 06/14/24 [History] Magnesium Hydroxide [Milk of Magnesia] 2,400 mg PO Q72H PRN 06/14/24 [History] Omeprazole [PriLOSEC] 20 mg PO DAILY 06/14/24 [History] Amiodarone [Cordarone] 100 mg PO DAILY tab 06/20/24 [Rx] Liothyronine Sodium [Cytomel] 10 mcg PO Q8H tab 06/20/24 [Rx] Metoprolol Tartrate [Lopressor] 25 mg PO BID 30 Days #60 tab 06/20/24 [Rx] amLODIPine [Norvasc] 5 mg PO DAILY 30 Days #30 tab 06/20/24 [Rx] cefuroxime axetiL [Ceftin] 500 mg PO BID 3 Days #6 tab 06/20/24 [Rx] Follow up Appointment(s)/Referral(s): Billy Livingston DO [Primary Care Provider] - 1-2 days Discharge Disposition: [facility] TO [facility]
--- NOTE | 2024-06-20 13:59 | P.PN ---
Subjective Progress Note Date: 06/20/24 Principal diagnosis: Respiratory failure, pneumonia. This is a 73-year-old male patient with a known history of hypertension, hyperlipidemia, gastroesophageal reflux disease, diabetes mellitus and cerebrovascular accident earlier this year and has been residing in a [facility] with poor mobility. Brought into the emergency room yesterday with increasing lethargy. CT scan of the brain revealed no acute intracranial process. Chest x-ray reveals multifocal airspace opacities. White count 6.4. Hemoglobin 11.8. Platelets 53,000. Sodium 137. Potassium 5.6. Bicarb 25. BUN 46. Creatinine 1.32. Glucose 107. Viral screen negative. He is seen today in consultation in the emergency department. He is difficult to arouse. He is currently on 5 L/min per nasal cannula. He has been initiated on vancomycin and cefepime. Solu-Cortef 100 mg every 8 hours. Normal saline at 130 mL/h. He is currently afebrile. Hemodynamically stable. The patient is seen today June 16, 2024 in follow-up in the emergency department. He is a bit more awake today. Somewhat restless. He is on 13 L high flow nasal cannula. He is receiving normal saline at 130 mL/h. He remains on vancomycin and cefepime. Procalcitonin is pending. Chest x-ray continues to show diffuse patchy infiltrates. Blood culture pending. Urine culture revealed no growth. White count 11.3. Hemoglobin 10.8. Platelets 77,000. Sodium 140. Potassium 4.4. Bicarb 24. BUN 34. Creatinine 1.13. Glucose 141. Progress note dated June 17, 2024. 73-year-old male seen today in room 352. The patient is currently on high flow nasal O2 at 15 L. He is getting saline at 130 cc an hour. The patient continues on cefepime and vancomycin. His procalcitonin level was only 0.15. We did talk to the family today about CODE STATUS. The was unable to make any decisions. The daughter was in the room as well. White count 11, hemoglobin 10.9, hematocrit 34.2, platelet count 93,000. Sodium 140, potassium 4.2, chlorides 110, CO2 23, BUN 30, creatinine 1.04. Glucose 123. Albumin was 3. Cultures thus far are negative. Chest x-ray is largely unchanged, and shows diffuse bilateral infiltrates. Progress note dated June 18, 2024. 73-year-old male seen again in room 352. The patient's and daughter are in the room. Yesterday we had a conversation about CODE STATUS. No decisions have been made. The patient is currently on 13 L high flow oxygen. He is not receiving any IV fluids. His procalcitonin level is only 0.15, yet, he continues on cefepime and vancomycin, per infectious diseases. Antibiotic should be de-escalated or discontinued. A portable chest x-ray is ordered. White count 10.6, hemoglobin 1.1, macro 35.4, platelet count 110,000. Sodium 142, potassium 3.8, chlorides 109, CO2 25, BUN 30, creatinine 1.09. Glucose is 138. Albumin 3.1. All cultures thus far are negative. Chest x-ray shows patchy bilateral infiltrates, mostly in the right upper lobe. Progress note dated June 19, 2024. 73-year-old male seen today in room 352. The patient's and daughter, are in the room with the patient. Currently he is on 13 L high flow oxygen. He co ntinues on cefepime. Apparently some discussion has taken place about hospice care. We talked to both the , and the daughter about this, a couple days ago. Current labs include a glucose of 162. Progress note dated June 20, 2024. 73-year-old male seen today in room 352. The patient is going to be discharged to one of the local nursing homes, with hospice in consultation. Currently, the patient is on 9 L high flow nasal O2. He continues on cefepime. He is not receiving any IV fluids. I had long conversations with the daughter, and the , 2 separate occasions, about CODE STATUS. The patient is a DO NOT RESUSCITATE at this time. No new labs today other than a glucose of 195. Objective - Vital Signs Vital signs: Vital Signs Temp 98.0 F 06/20/24 07:57 Pulse 69 06/20/24 11:49 Resp 20 06/20/24 11:49 BP 165/78 06/20/24 11:49 Pulse Ox 94 L 06/20/24 11:49 FiO2 80 06/16/24 03:59 Intake & Output 06/19/24 06/20/24 06/20/24 18:59 06:59 18:59 Intake Total 20 20 120 Balance 20 20 120 Weight 103.5 kg Intake: IV 20 20 Invasive Line 2 20 20 Oral 120 Other: Voiding Method Indwelling Catheter Indwelling Catheter Indwelling Catheter - Exam No acute distress, the patient is lethargic and somnolent, high flow nasal cannula noted. HEENT examination is grossly unremarkable. Mucous membranes are moist. No oral lesions. Neck supple. Full range of motion. No adenopathy thyromegaly or neck vein distention. Cardiovascular examination reveals regular rhythm rate. S1-S2 normal. No S3 or S4. No discernible murmur noted. Heart sounds are distant. Lungs reveal diminished bilateral breath sounds. Scattered rhonchi are noted. No wheezes. No crackles. Breath sounds equal bilaterally. Abdomen soft bowel sounds are heard. No masses or tenderness. Extremities are intact. Cyanosis or clubbing. Mild edema in the lower extremities is noted. Skin is without rash or lesion. Neurologic examination is brief but nonfocal. - Labs CBC & Chem 7: 06/18/24 06:25 06/18/24 06:25 Labs: Abnormal Lab Results - Last 24 Hours (Table) 06/19/24 06/19/24 06/19/24 Range/Units 16:21 20:43 23:49 POC Glucose (mg/dL) 165 H 231 H 160 H (70-110) mg/dL 06/20/24 06/20/24 Range/Units 05:58 11:32 POC Glucose (mg/dL) 128 H 195 H (70-110) mg/dL Microbiology - Last 24 Hours (Table) 06/14/24 18:30 Blood Culture - Final Blood 06/14/24 18:15 Blood Culture - Final Blood Assessment and Plan Assessment: Altered mental status of unclear etiology. Acute hypoxemic respiratory failure secondary to possible aspiration pneumonia. Bradycardia. Acute kidney injury. History of atrial fibrillation. History of cerebrovascular accident involving the left thalamus. Generalized weakness with gait dysfunction and poor mobility secondary to above. Diabetes mellitus, type II. Hyperlipidemia. Gastroesophageal reflux disease. Hypertension. Obesity. Previous history of CVA. Plan: Plan dated June 17, 2024. The patient's daughter and were in the room. We had a long conversation about CODE STATUS. The patient remains a full code. They seem to state that the patient would not want intubation, mechanical ventilation, or surgical feeding tube. The patient has had the NG tube placed, and he has removed it multiple times. The patient's mental status is unchanged. He continues on oxygen, high flow nasal cannula at 15 L. He is getting saline at 130 cc an hour. Procalcitonin level is normal at 0.15. He continues on cefepime and vancomycin. Additional recommendations and suggestions are forthcoming. Prognosis is poor. Plan dated June 18, 2024. Patient remains about the same. Yesterday we did have a conversation with the patient's daughter, and , about CODE STATUS. No decision was made. The patient continues on high flow nasal O2 at 13 L. The patient's procalcitonin level was 0.15. He continues on cefepime and vancomycin, as per infectious diseases. Portable chest x-ray was ordered, and has been reviewed. Labs, x- rays, medications are reviewed. Prognosis is certainly guarded. Plan dated June 19, 2024. The patient is seen today in room 352. Family members are at the bedside. The patient continues on high flow nasal cannula, 13 L. The patient continues on cefepime. Labs, x-rays, and medications are reviewed. The primary service is talking to the family about hospice care for this patient. We will continue to follow, unless he becomes a hospice patient. Prognosis is poor. His baseline quality of life is poor as well. Plan dated June 20, 2024. The patient is to be discharged to one of the local nursing homes, with hospice. Currently, the patient is on 9 L high flow oxygen. The patient was on cefepime. He is not receiving any IV fluids. Labs, x-rays, and medications are reviewed. The patient's overall prognosis remains poor. He is a DO NOT RESUSCITATE patient. I have had conversations with the daughter on 2 separate occasions, and the , on 2 separate occasions, about CODE STATUS. Time with Patient: Less than 30
--- NOTE | 2024-06-20 14:39 | P.PN ---
Subjective Progress Note Date: 06/20/24 Principal diagnosis: Reason for follow-up is pneumonia Patient is a 73-year-old male with a past medical history significant for CVA TIA diabetes mellitus hypertension hyperlipidemia reflux patient has been brought into the hospital from the local [place] [facility] concerning for abnormal x-ray patient did have productive cough he was hypothermic on presented to the hospital with chest x-ray showing diffuse elevated suggestive of pneumonia tested negative for RSV and COVID. On today's evaluation that is 06/20/2024, the patient continues to be afebrile, the patient is on 9 L high flow nasal oxygen however seem to be breathing comfortably he is more awake and alert no vomiting diarrhea and the change reported by the daughter at the bedside. No new lab has been obtained today culture has been negative so far Objective - Vital Signs Vital signs: Vital Signs Temp 98.0 F 06/20/24 07:57 Pulse 69 06/20/24 11:49 Resp 20 06/20/24 11:49 BP 165/78 06/20/24 11:49 Pulse Ox 94 L 06/20/24 11:49 FiO2 80 06/16/24 03:59 Intake & Output 06/19/24 06/20/24 06/20/24 18:59 06:59 18:59 Intake Total 20 20 120 Balance 20 20 120 Weight 103.5 kg Intake: IV 20 20 Invasive Line 2 20 20 Oral 120 Other: Voiding Method Indwelling Catheter Indwelling Catheter Indwelling Catheter - Exam GENERAL DESCRIPTION: An elderly male lying in bed in no distress RESPIRATORY SYSTEM: Unlabored breathing , decreased breath sounds at bases HEART: S1 S2 regular rate and rhythm , ABDOMEN: Soft , no tenderness EXTREMITIES: No edema feet - Labs CBC & Chem 7: 06/18/24 06:25 06/18/24 06:25 Labs: Abnormal Lab Results - Last 24 Hours (Table) 06/19/24 06/19/24 06/19/24 Range/Units 16:21 20:43 23:49 POC Glucose (mg/dL) 165 H 231 H 160 H (70-110) mg/dL 06/20/24 06/20/24 Range/Units 05:58 11:32 POC Glucose (mg/dL) 128 H 195 H (70-110) mg/dL Microbiology - Last 24 Hours (Table) 06/14/24 18:30 Blood Culture - Final Blood 06/14/24 18:15 Blood Culture - Final Blood Assessment and Plan (1) Penicillin allergy Status: Acute Code(s): Z88.0 - ALLERGY STATUS TO PENICILLIN SNOMED Code(s): 22292783 (2) Pneumonia Status: Acute Code(s): J18.9 - PNEUMONIA, UNSPECIFIED ORGANISM SNOMED Code(s): 543693841 Plan: 1patient presented to hospital with weakness lethargy increasing shortness of breath cough with evidence of multifocal infiltrates suggestive of pneumonia in this patient with the [place] [facility] resident need to cover for the resistant gram-positive as well as gram-negative pathogen. 2patient with a penicillin allergy that will limit the number of antibiotics safe to use. 3patient MRSA nasal screen came back negative, blood culture has been negative sputum could not be collected patient possibly going hospice in that case antibiotics can be safely discontinued discussed with admitting physician Dictation was produced using [employer] dictation software. please excuse any grammatical, word or spelling errors.
== END 2024-06-20 14:19 | disposition hospice, inpatient (51) | DRG 177 ==
LOC: EC 18:03 → 3SCARD 21:29
PROVIDERS: ADMIT Hospitalist; ATTEND Hospitalist
PROC: 0DH67UZ Insertion of Feeding Device into Stomach, Via Natural or Artificial Opening (ICD-10-PCS; principal; 2024-06-16)
PROC: 3E0G76Z Introduction of Nutritional Substance into Upper GI, Via Natural or Artificial Opening (ICD-10-PCS; 2024-06-16)
DX: J69.0 Pneumonitis due to inhalation of food and vomit (principal); G93.41 Metabolic encephalopathy; J96.01 Acute respiratory failure with hypoxia; N17.9 Acute kidney failure, unspecified; J15.9 Unspecified bacterial pneumonia; R00.1 Bradycardia, unspecified; E11.9 Type 2 diabetes mellitus without complications; E78.5 Hyperlipidemia, unspecified; I10 Essential (primary) hypertension; F03.90 Unspecified dementia, unspecified severity, without behavioral disturbance, psychotic disturbance, mood disturbance, and anxiety; R13.10 Dysphagia, unspecified; K21.9 Gastro-esophageal reflux disease without esophagitis; E66.9 Obesity, unspecified; Z68.36 Body mass index [BMI] 36.0-36.9, adult; Z66 Do not resuscitate; D69.6 Thrombocytopenia, unspecified; I48.0 Paroxysmal atrial fibrillation; I25.10 Atherosclerotic heart disease of native coronary artery without angina pectoris; R94.6 Abnormal results of thyroid function studies; Z79.899 Other long term (current) drug therapy; Z86.73 Personal history of transient ischemic attack (TIA), and cerebral infarction without residual deficits; Z79.4 Long term (current) use of insulin; Z88.0 Allergy status to penicillin; Z79.01 Long term (current) use of anticoagulants
CPT/HCPCS: 36415; 70450; 71045; 74230; 80048; 80053; 81001; 82140; 82565; 83036; 83605; 83735; 83880; 84145; 84439; 84443; 84481; 84484; 85025; 85610; 85730; 87040; 87070; 87086; 87636; 93005; 93306; 94660; 96361; 96365; 96366; 96367; 96375; 96376; 99291